=== PATIENT | male | born 1945 | race Caucasian/White ===

== ENCOUNTER 2020-12-04 07:04 | Outpatient (REF) | payer MEDICARE, BC, SELFPAY ==
[2020-12-04 11:18] LABS: MANUAL DIFF FLAG NO
[2020-12-04 11:26] LABS: Basophils Absolute Auto 0.1 X10*3/uL (0.0-0.2); Basophils Percent Auto 1.3 % (0-2); Eosinophils Absolute Auto 0.1 X10*3/uL (0.0-0.4); Eosinophils Percent Auto 2.6 % (0-4); Hematocrit 48.9 % (42-52); Hemoglobin 15.9 g/dl (14.0-18.0); Imm Gran Abs Auto 0.02 X10*3/uL (0.00-0.03); Imm Gran Pct Auto 0.4 % (0.0-0.4); Lymphocytes Absolute Auto 1.3 X10*3/uL (1.2-4.9); Mean Corpuscular HGB Conc 32.5 g/dl (31.0-36.0); Mean Corpuscular Hemoglobin 31.7 pg (27.0-33.0); Mean Corpuscular Volume 97.4 fL (80-98); Mean Platelet Volume 10.1 fL (9.4-12.4); Monocytes Absolute Auto 0.5 X10*3/uL (0.1-1.2); Monocytes Percent Auto 10.1 % (2-11); Neutrophils Absolute Auto 3.2 X10*3/uL (2.0-8.3); Neutrophils Percent Auto 60.6 % (45-73); Platelet Count 191 X10*3/uL (160-400); Red Blood Count 5.02 X10*6/uL (4.60-5.80); Red Cell Distribution Width 14.4 % (11.0-16.0); White Blood Count 5.4 X10*3/uL (4.8-10.8)
[2020-12-04 12:01] LABS: Alanine Aminotransferase 22 U/L (0-40); Albumin Level 4.2 g/dL (3.5-5.0); Alkaline Phosphatase 76 U/L (39-117); Anion Gap 15 (12-20); Aspartate Amino Transferase 20 U/L (5-37); Bilirubin Total 0.8 mg/dL (0.0-1.0); Blood Urea Nitrogen 15 mg/dL (9-16); Carbon Dioxide 28 mmol/L (22-29); Chloride 104 mmol/L (96-108); Cholesterol 188 mg/dL; Estimated Glomerular Filt Rate > 60; Glucose Fasting 94 mg/dL (60-99); HDL Cholesterol 42 mg/dL; Iron 113 mcg/dL (45-160); LDL Cholesterol Calculated 129 mg/dl; Percent Iron Saturation 35 % (15-50); Potassium 4.7 mmol/L (3.3-5.1); Sodium 142 mmol/L (135-145); Total Iron Binding Capacity 324 mcg/dL (228-428); Triglycerides 85 mg/dL; Unsaturated Iron Binding 211 ug/dL
[2020-12-04 12:07] LABS: Ferritin 101 ng/mL (20-250); Prostate Specific Antigen Scr 0.38 ng/mL (<0.05-4.0); TSH reflex Free T4 1.58 uIU/mL (0.32-4.0)
[2020-12-04 12:15] LABS: Vitamin B12 287 pg/mL (200-900)
== END 2020-12-04 07:05 | disposition home or self-care (01) ==
LOC: HO.HMGCLDS 07:04
PROVIDERS: PCP Nurse Practitioner Family; Visit Provider Nurse Practitioner Family
DX: R53.83 Other fatigue (principal); Z12.5 Encounter for screening for malignant neoplasm of prostate
CPT/HCPCS: 36415; 80053; 80061; 82607; 82728; 83540; 84153; 84443; 85025

== ENCOUNTER 2021-04-19 06:46 | Outpatient (REF) | payer MEDICARE, BC, SELFPAY ==
[2021-04-20 16:16] LABS: Follicle Stimulating Hormone 23.2 mIU/mL (1.6-8.0); Lutenizing Hormone 8.6 mIU/mL (1.6-15.2)
[2021-04-25 14:31] LABS: Testosterone, Free 47.2 pg/mL (30.0-135.0); Testosterone, Total 319 ng/dL (250-1100)
== END 2021-04-19 06:47 | disposition home or self-care (01) ==
LOC: HO.HMGCLDS 06:46
PROVIDERS: PCP Nurse Practitioner Family; Visit Provider Nurse Practitioner Family
DX: R53.83 Other fatigue (principal)
CPT/HCPCS: 36415; 83001; 83002; 84402; 84403

== ENCOUNTER 2021-06-25 09:30 | Outpatient (REF) | payer MEDICARE, BC, SELFPAY ==
--- NOTE | ~2021-06-25 | XR_ITS ---
EXAMINATION: XR CERVICAL SPINE CLINICAL INFORMATION: Cervical disc disorder. COMPARISON: None TECHNIQUE: 3 views of the cervical spine were obtained. FINDINGS: There has been previous fusion with anterior fixation at C6-C7. Hardware appears intact. Degenerative changes are noted throughout the cervical spine. There is mild approximately 2 mm of anterolisthesis of C3 upon C4, C4 upon C5 and C5 upon C6. XR/XR cervical spine 3V IMPRESSION: Anterior fusion C6-C7 with degenerative changes in the cervical spine and mild multiple level anterolistheses as described above.
== END 2021-06-25 09:31 | disposition home or self-care (01) ==
LOC: HO.HMGCX 09:30
PROVIDERS: PCP Nurse Practitioner Family; Visit Provider Nurse Practitioner Family
DX: M50.90 Cervical disc disorder, unspecified, unspecified cervical region (principal)
CPT/HCPCS: 72040

== ENCOUNTER → 2021-07-09 08:04 | Outpatient (BNVA) | payer MEDICARE, BC, SELFPAY | PROVIDERS: PCP Nurse Practitioner Family; Referring Provider Nurse Practitioner Family; Visit Provider Psychiatry & Neurology Neurology | DX: G25.81 Restless legs syndrome (principal); G47.61 Periodic limb movement disorder; R06.83 Snoring | CPT/HCPCS: 99202 ==

== ENCOUNTER 2021-07-20 23:20 | Emergency (ER) | payer MEDICARE, BC, SELFPAY ==
--- NOTE | ~2021-07-20 | CT_ITS ---
EXAMINATION: CT CHEST WITHOUT CONTRAST CLINICAL INFORMATION: Shortness of breath, cough. Question pneumonitis. COMPARISON: 07/21/2021 radiograph TECHNIQUE: Multidetector volumetric CT imaging of the chest was done. Axial MIP volume rendering provided. Sagittal and coronal reformatted images were obtained. This CT examination was performed using dose optimization techniques as appropriate, variously including the following: *Automated exposure control *Adjustment of mA and/or kV according to patient size (this includes techniques or standardized protocols for targeted exams where dose is matched to indication/reason for exam; i.e. extremities or head) *Use of iterative reconstruction technique DLP: 413 mGy-cm FINDINGS: SLEEVE BOTTOM FELLER: Spinal fusion hardware. The lungs appear clear. LUNGS: The central airways are patent. Minimal peripheral opacity of the right middle lobe favors atelectasis. There is diffuse bronchial wall thickening. Minimal groundglass tree-in-bud nodular opacity at the right base. No pleural effusion or pneumothorax. A few calcified granulomata are noted. MEDIASTINUM: Normal heart size. Coronary artery calcifications are present. No pericardial effusion. No mediastinal lymphadenopathy. AXILLA: No lymphadenopathy. UPPER ABDOMEN: Unremarkable. OSSEOUS STRUCTURES: A reverse total right shoulder arthroplasty. Radiopaque anchors in the left humeral head. Spinal fusion hardware at the lower thoracic spine extending to the lumbar spine. Degenerative changes of the spine. CT/CT chest wo con IMPRESSION: Bronchial wall thickening can be seen with a small airways process such as asthma or atypical/viral infection. Additionally the subtle tree-in-bud nodular opacities of the right base are likely infectious or inflammatory.
--- NOTE | ~2021-07-20 | XR_ITS ---
EXAMINATION: XR CHEST CLINICAL INFORMATION: Cough and wheeze COMPARISON: None TECHNIQUE: 2 views of the chest were obtained. FINDINGS: Cervical fusion hardware noted. Right shoulder reverse arthroplasty. Spinal fusion hardware. The lungs are well expanded. There is no focal consolidation, edema, or effusion. No pneumothorax. The cardiomediastinal silhouette is within normal limits. No acute osseous abnormality. Degenerative changes in the spine noted. XR/XR chest 2V IMPRESSION: No acute pulmonary finding.
[2021-07-20 23:58] VITALS: BP 156/87; PULSE 107; RESP 28; TEMP 36.6; O2SAT 95; BMI 29.2
[2021-07-21 00:59] VITALS: BP 148/81; PULSE 96; RESP 28; TEMP 36.4; O2SAT 95
--- NOTE | 2021-07-21 01:01 | ECG_ITS ---
Test Reason : sob Blood Pressure : / mmHG Vent. Rate : 095 BPM Atrial Rate : 095 BPM P-R Int : 192 ms QRS Dur : 108 ms QT Int : 370 ms P-R-T Axes : 048 -47 014 degrees QTc Int : 464 ms Normal sinus rhythm Poor R wave progression Left anterior fascicular block Intra-ventricular conduction delay Minimal voltage criteria for LVH, may be normal variant ( [place] product ) Abnormal ECG No previous ECGs available Referred By: Yuki Brand Electronically Signed By:AMIRAH MORAN MD
--- NOTE | 2021-07-21 01:17 | ED.SOB ---
HPI - SOB/Dyspnea General Chief Complaint: Dyspnea Stated Complaint: Diff Breathing Time Seen by Provider: 07/21/21 00:55 Source: patient Mode of arrival: ambulatory History of Present Illness HPI Narrative: This is a 76-year-old male without significant past medical history who presents with increased difficulty of breathing and audible wheezing that he states started this afternoon after he had been using an adhesive glue in a poorly ventilated area and states that at the time the fumes caused him to have cough and wheezing. Otherwise, patient denies any chest pain/palpitations/dizziness/headache. Related Data Home Medications Medication Instructions Recorded Confirmed ipratropium bromide 21 mcg (0.03 2 spray INTRANASAL TID 04/15/21 07/09/21 %) nasal spray azelastine 137 mcg (0.1 %) nasal 2 spray INTRANASAL BID 06/25/21 07/09/21 spray aerosol Previous Rx's Medication Instructions Recorded cetirizine 10 mg capsule (Zyrtec) 10 mg PO DAILY #30 cap 09/20/20 dexamethasone 4 mg tablet 4 mg PO DAILY 9 Days #18 tab 06/25/21 tizanidine 2 mg tablet 2 mg PO BEDTIME PRN 14 Days #14 tab 06/25/21 cephalexin 500 mg capsule 500 mg PO Q8H 7 Days #21 cap 07/05/21 methylprednisolone 4 mg tablets in See Rx Instructions PO PER PKG DIR 07/05/21 a dose pack (Medrol (Dean)) #21 ea doxycycline hyclate 100 mg capsule 100 mg PO DAILY 5 Days #5 cap 07/21/21 prednisone 20 mg tablet 40 mg PO DAILY 3 Days #6 tab 07/21/21 Allergies Allergy/AdvReac Type Severity Reaction Status Date / Time acetaminophen [From Percocet] Allergy Unknown upset Verified 07/09/21 08:15 stomach oxycodone [From Percocet] Allergy Unknown unknown Verified 07/09/21 08:15 Review of Systems Review of Systems: Pertinent positives and negatives as stated in HPI 10 point review systems is otherwise negative. [facility] Past Medical History Source: nursing notes reviewed Surgical History H/O colonoscopy H/O knee surgery H/O shoulder surgery History of back surgery Hx of shoulder surgery S/P hernia surgery Family History Family History Father No problems noted. Mother No problems noted. Sister Cancer Social History Social History Housing: House Alcohol intake: unknown Patient Tobacco Use Status: Former Tobacco user Years Smoked: quit 1968 e-Cigarette/Vaping Use: Never Used Use of substances other than those prescribed or required for medical reasons: No Advance Directives: No Advance Directives Information Provided: No service: Yes Current occupational status: retired Physical Exam Vital Signs: Vital Signs: Last Vital Signs Temp 97.5 F 07/21/21 04:00 Pulse 95 07/21/21 04:00 Resp 19 07/21/21 04:00 BP 150/95 H 07/21/21 04:00 Pulse Ox 95 07/21/21 04:00 Body Mass Index 29.2 VITAL SIGNS: Reviewed. GENERAL: Well developed, well nourished, in no acute distress. HEAD: Normocephalic/atraumatic EYES: PERRLA, EOMI OROPHARYNX: no oral lesions noted, posterior pharynx clear NECK: Supple, no adenopathy LUNGS: Good inspiratory effort with noted expiratory wheezing, tachypnea. SpO2<95> CARDIOVASCULAR: Regular rate and rhythm without noted murmurs, no JVD or lower extremity edema. ABDOMEN: Soft, non-tender, non-distended with bowel sounds. SKIN: Inspection of the skin reveals no rashes, diaphoresis or cool skin NEUROLOGIC: Alert and oriented x 4. Strength and sensation to light touch were grossly intact x 4. Course Course Course Narrative: 76-year-old male with history and clinical presentation consistent with pulmonary pneumonitis due to noxious fumes. On review of all investigations there are are no acute findings, however patient continues to feel short of breath when lying back and reproducible lead does cough more and have worsening bronchi. Administered albuterol to the patient and on reassessment afterwards he states feeling better, but still has worsening when he lies back. Otherwise, he remains hemodynamically stable in will pursue CT of the chest. On review of all investigations there are no acute findings to better explain patient's presentation other than additional information provided by the patient states that he had another exposure to chemicals to remove rest approximately 1 week ago. Patient was provided with steroids and antibiotics in as well as medication for his cough and discharged home in stable condition with instructions to follow-up with his primary care provider. MDM - SOB/Dyspnea Lab Data Result diagrams: 07/21/21 01:21 07/21/21 01:21 Labs: Lab Results 07/21/21 07/21/21 07/21/21 Range/Units 01:21 01:21 01:21 WBC 6.8 (4.8-10.8) X10*3/uL RBC 4.68 (4.60-5.80) X10*6/uL Hgb 14.7 (14.0-18.0) g/dl Hct 44.8 (42.0-52.0) % MCV 95.7 (80.0-98.0) fL MCH 31.4 (27.0-33.0) pg MCHC 32.8 (31.0-36.0) g/dl RDW 14.5 (11.0-16.0) % Plt Count 171 (160-400) X10*3/uL MPV 9.3 L (9.4-12.4) fL Immature Gran % (Auto) 0.3 (0.0-0.4) % Neut % (Auto) 71.8 (45-73) % Lymph % (Auto) 13.5 L (20-40) % [place] % (Auto) 10.6 (2-11) % Eos % (Auto) 3.4 (0-4) % Baso % (Auto) 0.4 (0-2) % Lymph # (Auto) 0.9 L (1.2-4.9) X10*3/uL [place] # (Auto) 0.7 (0.1-1.2) X10*3/uL Eos # (Auto) 0.2 (0.0-0.4) X10*3/uL Baso # (Auto) 0.0 (0.0-0.2) X10*3/uL Abs Immat Gran (auto) 0.02 (0.00-0.03) X10*3/uL Absolute Neuts (auto) 4.9 (2.0-8.3) x10*3/uL Absolute Nucleated RBC 0.000 (0.0-0.012) X10*3/uL Nucleated RBC % (auto) 0.0 (0.0-0.2) /100WBC Sodium 143 (135-145) mmol/L Potassium 4.1 (3.3-5.1) mmol/L Chloride 109 H (96-108) mmol/L Carbon Dioxide 24 (22-29) mmol/L Anion Gap 14 (12-20) BUN 16 (9-16) mg/dL Creatinine 0.80 (0.5-1.4) mg/dL Estim Creat Clear Calc 93.6 Estimated GFR > 60 Random Glucose 100 (60-115) mg/dL Calcium 8.8 (8.4-10.2) mg/dL Total Bilirubin 0.8 (0.0-1.0) mg/dL AST 26 (5-37) U/L ALT 31 (0-40) U/L Alkaline Phosphatase 81 (39-117) U/L B-Natriuretic Peptide 19 (<100) pg/mL Total Protein 6.3 L (6.5-8.0) g/dL Albumin 3.9 (3.5-5.0) g/dL Influenza Type A (PCR) (Negative) Influenza Type B (PCR) (Negative) RSV RNA Qual (PCR) (Negative) SARS-CoV-2 RNA (RT-PCR) (Negative) 07/21/21 Range/Units 04:23 WBC (4.8-10.8) X10*3/uL RBC (4.60-5.80) X10*6/uL Hgb (14.0-18.0) g/dl Hct (42.0-52.0) % MCV (80.0-98.0) fL MCH (27.0-33.0) pg MCHC (31.0-36.0) g/dl RDW (11.0-16.0) % Plt Count (160-400) X10*3/uL MPV (9.4-12.4) fL Immature Gran % (Auto) (0.0-0.4) % Neut % (Auto) (45-73) % Lymph % (Auto) (20-40) % [place] % (Auto) (2-11) % Eos % (Auto) (0-4) % Baso % (Auto) (0-2) % Lymph # (Auto) (1.2-4.9) X10*3/uL [place] # (Auto) (0.1-1.2) X10*3/uL Eos # (Auto) (0.0-0.4) X10*3/uL Baso # (Auto) (0.0-0.2) X10*3/uL Abs Immat Gran (auto) (0.00-0.03) X10*3/uL Absolute Neuts (auto) (2.0-8.3) x10*3/uL Absolute Nucleated RBC (0.0-0.012) X10*3/uL Nucleated RBC % (auto) (0.0-0.2) /100WBC Sodium (135-145) mmol/L Potassium (3.3-5.1) mmol/L Chloride (96-108) mmol/L Carbon Dioxide (22-29) mmol/L Anion Gap (12-20) BUN (9-16) mg/dL Creatinine (0.5-1.4) mg/dL Estim Creat Clear Calc Estimated GFR Random Glucose (60-115) mg/dL Calcium (8.4-10.2) mg/dL Total Bilirubin (0.0-1.0) mg/dL AST (5-37) U/L ALT (0-40) U/L Alkaline Phosphatase (39-117) U/L B-Natriuretic Peptide (<100) pg/mL Total Protein (6.5-8.0) g/dL Albumin (3.5-5.0) g/dL Influenza Type A (PCR) NEGATIVE (Negative) Influenza Type B (PCR) NEGATIVE (Negative) RSV RNA Qual (PCR) NEGATIVE (Negative) SARS-CoV-2 RNA (RT-PCR) NEGATIVE (Negative) ECG Data Attestation: I personally reviewed and interpreted this ECG as follows: Prior ECG tracings: not available for review Interpretation: Normal sinus rhythm, HR-95, no STEMI, MS/QRS/QTC are within normal limits. Discharge Plan Discharge Clinical Impression: Cough, Inhalation of noxious fumes Patient Disposition: Home, Self-Care Instructions: Benzonatate (By mouth), Acute Cough (ED), Wheezing (ED) Additional Instructions: Recommend using gas-x for your burping. Please take medication that you have been prescribed. Follow-up with your primary care provider on Thursday. Return to the emergency room for worsening symptoms Prescriptions: New prednisone 20 mg tablet 40 mg PO DAILY 3 Days Qty: 6 RF: 0 doxycycline hyclate 100 mg capsule 100 mg PO DAILY 5 Days Qty: 5 RF: 0 No Action Zyrtec 10 mg capsule 10 mg PO DAILY Qty: 30 RF: 2 ipratropium bromide 21 mcg (0.03 %) spray,non-aerosol 2 spray intranasal TID RF: 0 azelastine 137 mcg (0.1 %) aerosol,spray 2 spray intranasal BID RF: 0 dexamethasone 4 mg tablet 4 mg PO DAILY 9 Days Qty: 18 RF: 0 tizanidine 2 mg tablet 2 mg PO BEDTIME PRN (Reason: muscle spasticity) 14 Days Qty: 14 RF: 0 methylprednisolone [Medrol (Dean)] 4 mg tablets,dose pack See Rx Instructions PO PER PKG DIR Qty: 21 RF: 0 cephalexin 500 mg capsule 500 mg PO Q8H 7 Days Qty: 21 RF: 0 Referrals: Ivan Simpson, AUTOPSY PATHOLOGIST-BC [Primary Care Provider] - 2 days
--- NOTE | 2021-07-21 01:30 | PC.NURSE ---
Addendum entered by Leigh Santillan 07/21/21 01:31: patient is not on Bipap but his oxygen saturation is 93 percent with respirations of 18 Original Note: Patient successfully weened from Bipap and is on nasal cannula at 2L with oxygen saturation of 96 percent. Patient is speaking in clear full sentences.
[2021-07-21 01:31] LABS: MANUAL DIFF FLAG NO
[2021-07-21 01:32] LABS: Basophils Percent Auto 0.4 % (0-2); Eosinophils Absolute Auto 0.2 X10*3/uL (0.0-0.4); Eosinophils Percent Auto 3.4 % (0-4); Hematocrit 44.8 % (42.0-52.0); Hemoglobin 14.7 g/dl (14.0-18.0); Imm Gran Abs Auto 0.02 X10*3/uL (0.00-0.03); Imm Gran Pct Auto 0.3 % (0.0-0.4); Lymphocytes Absolute Auto 0.9 X10*3/uL (1.2-4.9); Lymphocytes Percent Auto 13.5 % (20-40); Mean Corpuscular HGB Conc 32.8 g/dl (31.0-36.0); Mean Corpuscular Hemoglobin 31.4 pg (27.0-33.0); Mean Corpuscular Volume 95.7 fL (80.0-98.0); Mean Platelet Volume 9.3 fL (9.4-12.4); Monocytes Absolute Auto 0.7 X10*3/uL (0.1-1.2); Monocytes Percent Auto 10.6 % (2-11); Neutrophils Absolute Auto 4.9 x10*3/uL (2.0-8.3); Neutrophils Percent Auto 71.8 % (45-73); Platelet Count 171 X10*3/uL (160-400); Red Blood Count 4.68 X10*6/uL (4.60-5.80); Red Cell Distribution Width 14.5 % (11.0-16.0); White Blood Count 6.8 X10*3/uL (4.8-10.8)
[2021-07-21 01:51] LABS: Alanine Aminotransferase 31 U/L (0-40); Albumin Level 3.9 g/dL (3.5-5.0); Alkaline Phosphatase 81 U/L (39-117); Anion Gap 14 (12-20); Aspartate Amino Transferase 26 U/L (5-37); Bilirubin Total 0.8 mg/dL (0.0-1.0); Blood Urea Nitrogen 16 mg/dL (9-16); Calcium 8.8 mg/dL (8.4-10.2); Carbon Dioxide 24 mmol/L (22-29); Chloride 109 mmol/L (96-108); Creatinine Clr Calc Pharmacy 93.6; Estimated Glomerular Filt Rate > 60; Glucose Random 100 mg/dL (60-115); Potassium 4.1 mmol/L (3.3-5.1); Sodium 143 mmol/L (135-145); Total Protein 6.3 g/dL (6.5-8.0)
[2021-07-21 01:54] LABS: B Type Natriuretic Peptide 19 pg/mL (<100)
[2021-07-21 02:00] VITALS: BP 156/95; PULSE 101; RESP 17; O2SAT 95
[2021-07-21] MEDS: Albuterol Sulfate (0.083%) 2.5 MG/3 ML VIAL.NEB INHALE (02:53)
[2021-07-21 02:54] VITALS: PULSE 95; O2SAT 96
[2021-07-21 04:00] VITALS: BP 150/95; PULSE 95; RESP 19; TEMP 36.4; O2SAT 95
[2021-07-21 05:11] LABS: Influenza A PCR NEGATIVE (Negative); Influenza B PCR NEGATIVE (Negative); Resp Syncy Virus RNA Qual PCR NEGATIVE (Negative); SARS COV2 PCR INHOUSE NEGATIVE (Negative)
[2021-07-21] MEDS: Acetaminophen 325 MG TABLET 975 MG PO (05:51)
[2021-07-21] MEDS: predniSONE 20 MG TABLET 40 MG PO (05:51)
== END 2021-07-21 06:31 | disposition home or self-care (01) ==
PROVIDERS: Emergency Provider Student in an Organized Health Care Education/Training Program; PCP Nurse Practitioner Family
DX: T52.8X1A Toxic effect of other organic solvents, accidental (unintentional), initial encounter (principal); R05.9 Cough, unspecified; Y92.9 Unspecified place or not applicable; Z20.822 Contact with and (suspected) exposure to COVID-19
CPT/HCPCS: 0241U; 36415; 71046; 71250; 80053; 83880; 85025; 93005; 94640; 99284; 99285

== ENCOUNTER 2021-09-01 21:02 | Emergency (ER) | payer MEDICARE, BC, SELFPAY ==
--- NOTE | ~2021-09-01 | CT_ITS ---
EXAMINATION: CT ABDOMEN AND PELVIS WITH CONTRAST CLINICAL INFORMATION: Left-sided pain. Abdominal pain. COMPARISON: None TECHNIQUE: Multidetector volumetric images were obtained from the superior aspect of the liver through the pubic symphysis following administration 85 mL of Omnipaque 350 intravenous contrast. Sagittal and coronal reformatted images were obtained on the technologist's workstation. Oral contrast: No This CT examination was performed using dose optimization techniques as appropriate, variously including the following: *Automated exposure control *Adjustment of mA and/or kV according to patient size (this includes techniques or standardized protocols for targeted exams where dose is matched to indication/reason for exam; i.e. extremities or head) *Use of iterative reconstruction technique DLP: 800 mGy-cm FINDINGS: LUNG BASES: The visualized lung bases are clear. Coronary artery calcifications.. LIVER, GALLBLADDER, AND BILIARY TREE: The liver is normal in size, shape, and attenuation. No focal hepatic lesion or biliary ductal dilatation is present. The gallbladder is unremarkable with no evidence of radiopaque gallstones, gallbladder wall thickening, or obvious pericholecystic inflammatory changes. PANCREAS: Unremarkable. SPLEEN: Unremarkable. ADRENAL GLANDS: Unremarkable. KIDNEYS AND URETERS: The kidneys are normal in size, shape, and attenuation. There is mild left hydroureteronephrosis. 0.3 cm calculus in the distal left ureter, approximately 2.5 cm proximal to the ureterovesicular junction. Asymmetric left perinephric and periureteral stranding. No right hydronephrosis. Prominent exophytic simple cyst off the lower pole of the right kidney measures 8.8 cm . No follow-up imaging recommended. BLADDER: Unremarkable. GASTROINTESTINAL TRACT: The stomach is unremarkable. Normal caliber small bowel without obstruction. A short portion of small bowel extends through a left ventral abdominal wall hernia. No colonic wall thickening or acute inflammation. Scattered colonic diverticulosis without diverticulitis. No free air or free fluid. 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 ABDOMINAL WALL: Small left ventral abdominal wall hernia containing a portion of small bowel. This is not obstructing. LYMPH NODES: Normal. VASCULAR: Normal caliber aorta with mild to moderate atherosclerotic calcification. PELVIC VISCERA: The prostate and seminal vesicles are unremarkable. OSSEOUS STRUCTURES: No acute or suspicious osseous abnormality. Posterior spinal fusion hardware spans from T9 through S2. Degenerative changes throughout the spine. CT/CT abdomen pelvis w con IMPRESSION: Mild left hydroureteronephrosis with a 0.3 cm distal ureteral obstructing calculus. Left ventral abdominal wall hernia contains a short portion of small bowel without obstruction. Fleischner guidelines were followed.
[2021-09-01 22:38] VITALS: BP 166/86; PULSE 110; RESP 16; TEMP 37; O2SAT 98; BMI 29.2
[2021-09-02 03:49] VITALS: BP 149/78; PULSE 117; TEMP 36.2; O2SAT 97
[2021-09-02 04:50] LABS: Basophils Absolute Auto 0.1 X10*3/uL (0.0-0.2); Basophils Percent Auto 0.7 % (0-2); Eosinophils Percent Auto 0.4 % (0-4); Hematocrit 46.5 % (42.0-52.0); Hemoglobin 15.1 g/dl (14.0-18.0); Imm Gran Abs Auto 0.03 X10*3/uL (0.00-0.03); Imm Gran Pct Auto 0.3 % (0.0-0.4); Lymphocytes Absolute Auto 1.1 X10*3/uL (1.2-4.9); MANUAL DIFF FLAG NO; Mean Corpuscular HGB Conc 32.5 g/dl (31.0-36.0); Mean Corpuscular Hemoglobin 30.8 pg (27.0-33.0); Mean Corpuscular Volume 94.7 fL (80.0-98.0); Mean Platelet Volume 9.2 fL (9.4-12.4); Monocytes Absolute Auto 0.9 X10*3/uL (0.1-1.2); Monocytes Percent Auto 9.1 % (2-11); Neutrophils Absolute Auto 7.3 x10*3/uL (2.0-8.3); Neutrophils Percent Auto 77.5 % (45-73); Platelet Count 227 X10*3/uL (160-400); Red Blood Count 4.91 X10*6/uL (4.60-5.80); Red Cell Distribution Width 14.1 % (11.0-16.0); White Blood Count 9.4 X10*3/uL (4.8-10.8)
--- NOTE | 2021-09-02 04:55 | ED_ITS ---
HPI - General Adult General Chief complaint: General Medical Stated complaint: abd pain radiating into back Time Seen by Provider: 09/02/21 04:55 Source: patient Mode of arrival: ambulatory History of Present Illness HPI narrative: 76-year-old male without significant past medical history presents with onset left-sided abdominal discomfort yesterday associated nausea but unable of vomit an as well as chills and states that the pain has p rogressively worsened throughout the day until it is hurting him to move, not radiating, and states that worsens with deep inspiration. Related Data Home Medications Medication Instructions Recorded Confirmed diphenhydramine HCl 25 mg tablet 25 mg PO BEDTIME 07/25/21 (Benadryl Allergy) Previous Rx's Medication Instructions Recorded meloxicam 15 mg tablet 15 mg PO DAILY PRN 30 Days #30 tab 07/25/21 ketorolac 10 mg tablet 10 mg PO Q6H PRN 5 Days #20 tab 09/02/21 prednisone 20 mg tablet 20 mg PO DAILY #4 tab 09/02/21 tamsulosin 0.4 mg capsule (Flomax) 0.4 mg PO BEDTIME #4 cap 09/02/21 Allergies Allergy/AdvReac Type Severity Reaction Status Date / Time acetaminophen [From Percocet] Allergy Unknown upset Verified 07/25/21 13:15 stomach oxycodone [From Percocet] Allergy Unknown unknown Verified 07/25/21 13:15 Review of Systems Review of Systems: Pertinent positives and negatives as stated in HPI 10 point review of systems is otherwise negative. [facility] Past Medical History Source: nursing notes reviewed Surgical History H/O colonoscopy H/O knee surgery H/O shoulder surgery History of back surgery Hx of shoulder surgery S/P hernia surgery Family History Family History Father No problems noted. Mother No problems noted. Sister Cancer Social History Social History Housing: House Alcohol intake: unknown Patient Tobacco Use Status: Former Tobacco user Years Smoked: quit 1968 e-Cigarette/Vaping Use: Never Used Advance Directives: No Advance Directives Information Provided: No service: Yes Current occupational status: retired Physical Exam Vital Signs: Vital Signs: Last Vital Signs Temp 97.1 F 09/02/21 03:49 Pulse 108 H 09/02/21 05:09 Resp 18 09/02/21 05:09 BP 139/95 H 09/02/21 05:09 Pulse Ox 97 09/02/21 05:09 BMI result Body Mass Index 29.2 VITAL SIGNS: Reviewed. GENERAL: Well developed, well nourished, moderate distress. HEAD: Normocephalic/atraumatic EYES: PERRLA, EOMI OROPHARYNX: no oral lesions noted, posterior pharynx clear LUNGS: Normal breath sounds. No adventitious sounds or accessory muscle use. SpO2<97> CARDIOVASCULAR: Regular rate and rhythm without noted murmurs, no JVD or lower extremity edema. ABDOMEN: Soft, non-tender, distended with hypoactive bowel sounds, acute abdomen and no pulsatile masses appreciated SKIN: Inspection of the skin reveals no rashes NEUROLOGIC: Alert and oriented x 4. Strength and sensation to light touch were grossly intact x 4. Course Course Course Narrative: 76-year-old male with history and clinical presentation suggestive of possible perforation secondary to possible diverticulitis, or SBO. Review of all investigations demonstrates a 0.3 cm stone in the left distal ureter. On re-evaluation patient got significant pain relief from the medication he received as well as receiving IV fluids. He is otherwise discharged with a combination medications as well as a referral to follow-up with Urology. He was informed of all results and the plans. Medical Decision Making Lab Data Result diagrams: 09/02/21 05:37 09/02/21 04:46 Labs: Lab Results 09/02/21 09/02/21 09/02/21 Range/Units 04:46 04:46 05:37 WBC 9.4 9.1 (4.8-10.8) X10*3/uL RBC 4.91 4.56 L (4.60-5.80) X10*6/uL Hgb 15.1 14.3 (14.0-18.0) g/dl Hct 46.5 43.4 (42.0-52.0) % MCV 94.7 95.2 (80.0-98.0) fL MCH 30.8 31.4 (27.0-33.0) pg MCHC 32.5 32.9 (31.0-36.0) g/dl RDW 14.1 14.2 (11.0-16.0) % Plt Count 227 D 209 (160-400) X10*3/uL MPV 9.2 L 9.2 L (9.4-12.4) fL Immature Gran % (Auto) 0.3 0.2 (0.0-0.4) % Neut % (Auto) 77.5 H 78.9 H (45-73) % Lymph % (Auto) 12.0 L 10.0 L (20-40) % [place] % (Auto) 9.1 9.9 (2-11) % Eos % (Auto) 0.4 0.2 (0-4) % Baso % (Auto) 0.7 0.8 (0-2) % Lymph # (Auto) 1.1 L 0.9 L (1.2-4.9) X10*3/uL [place] # (Auto) 0.9 0.9 (0.1-1.2) X10*3/uL Eos # (Auto) 0.0 0.0 (0.0-0.4) X10*3/uL Baso # (Auto) 0.1 0.1 (0.0-0.2) X10*3/uL Abs Immat Gran (auto) 0.03 0.02 (0.00-0.03) X10*3/uL Absolute Neuts (auto) 7.3 7.1 (2.0-8.3) x10*3/uL Absolute Nucleated RBC 0.000 0.000 (0.0-0.012) X10*3/uL Nucleated RBC % (auto) 0.0 0.0 (0.0-0.2) /100WBC Sodium 141 (135-145) mmol/L Potassium 3.9 (3.3-5.1) mmol/L Chloride 106 (96-108) mmol/L Carbon Dioxide 26 (22-29) mmol/L Anion Gap 13 (12-20) BUN 16 (9-16) mg/dL Creatinine 1.29 (0.5-1.4) mg/dL Estim Creat Clear Calc 58.1 Estimated GFR 54 Random Glucose 121 H (60-115) mg/dL Calcium 9.4 D (8.4-10.2) mg/dL Total Bilirubin 1.4 H (0.0-1.0) mg/dL AST 27 (5-37) U/L ALT 24 (0-40) U/L Alkaline Phosphatase 72 (39-117) U/L Total Protein 6.5 (6.5-8.0) g/dL Albumin 4.1 (3.5-5.0) g/dL Lipase 9 (8-78) U/L Discharge Plan Discharge Clinical Impression: Renal colic, Ureterolithiasis Patient Disposition: Home, Self-Care Instructions: Renal Colic (ED), Ureteral Stones (ED) Additional Instructions: 1. You have been provided with a referral to see Urology, please call this morning to arrange for an appointment. 2. You have been provided with medications to help you pass this kidney stone. Return to the emergency room for acute worsening of symptoms. Prescriptions: New tamsulosin [Flomax] 0.4 mg capsule 0.4 mg PO BEDTIME Qty: 4 RF: 0 prednisone 20 mg tablet 20 mg PO DAILY Qty: 4 RF: 0 ketorolac 10 mg tablet 10 mg PO Q6H PRN (Reason: pain) 5 Days Qty: 20 RF: 0 No Action meloxicam 15 mg tablet 15 mg PO DAILY PRN (Reason: pain) 30 Days Qty: 30 RF: 0 Referrals: Ivan Simpson FNP-MADONNA [Primary Care Provider] - 2 days Immanuel Heck III, MD [Physician] - 2 days (0.3cm left distal stone with hydro)
[2021-09-02] MEDS: fentaNYL citrate/PF 100 MCG/2 ML VIAL 25 MCG IVPUSH (05:03)
[2021-09-02] MEDS: 0.9 % Sodium Chloride 1,000 ML 999 ML IV (05:03)
[2021-09-02 05:09] VITALS: BP 139/95; PULSE 108; RESP 18; O2SAT 97
[2021-09-02 05:09] LABS: Alanine Aminotransferase 24 U/L (0-40); Albumin Level 4.1 g/dL (3.5-5.0); Alkaline Phosphatase 72 U/L (39-117); Anion Gap 13 (12-20); Aspartate Amino Transferase 27 U/L (5-37); Bilirubin Total 1.4 mg/dL (0.0-1.0); Blood Urea Nitrogen 16 mg/dL (9-16); Calcium 9.4 mg/dL (8.4-10.2); Carbon Dioxide 26 mmol/L (22-29); Chloride 106 mmol/L (96-108); Creatinine Clr Calc Pharmacy 58.1; Estimated Glomerular Filt Rate 54; Glucose Random 121 mg/dL (60-115); Lipase 9 U/L (8-78); Potassium 3.9 mmol/L (3.3-5.1); Sodium 141 mmol/L (135-145); Total Protein 6.5 g/dL (6.5-8.0)
[2021-09-02 05:43] LABS: Basophils Absolute Auto 0.1 X10*3/uL (0.0-0.2); Basophils Percent Auto 0.8 % (0-2); Eosinophils Percent Auto 0.2 % (0-4); Hematocrit 43.4 % (42.0-52.0); Hemoglobin 14.3 g/dl (14.0-18.0); Imm Gran Abs Auto 0.02 X10*3/uL (0.00-0.03); Imm Gran Pct Auto 0.2 % (0.0-0.4); Lymphocytes Absolute Auto 0.9 X10*3/uL (1.2-4.9); MANUAL DIFF FLAG NO; Mean Corpuscular HGB Conc 32.9 g/dl (31.0-36.0); Mean Corpuscular Hemoglobin 31.4 pg (27.0-33.0); Mean Corpuscular Volume 95.2 fL (80.0-98.0); Mean Platelet Volume 9.2 fL (9.4-12.4); Monocytes Absolute Auto 0.9 X10*3/uL (0.1-1.2); Monocytes Percent Auto 9.9 % (2-11); Neutrophils Absolute Auto 7.1 x10*3/uL (2.0-8.3); Neutrophils Percent Auto 78.9 % (45-73); Platelet Count 209 X10*3/uL (160-400); Red Blood Count 4.56 X10*6/uL (4.60-5.80); Red Cell Distribution Width 14.2 % (11.0-16.0); White Blood Count 9.1 X10*3/uL (4.8-10.8)
[2021-09-02] MEDS: iohexoL 350 MG/ML 100 ML INFUS..BTL IV (05:59)
[2021-09-02 07:50] VITALS: BP 139/74; PULSE 101; RESP 16; O2SAT 97
[2021-09-02] MEDS: Ketorolac Tromethamine 30 MG/ML VIAL 15 MG IVPUSH (08:26)
== END 2021-09-02 09:14 | disposition home or self-care (01) ==
PROVIDERS: Emergency Provider Student in an Organized Health Care Education/Training Program; PCP Nurse Practitioner Family
DX: N20.2 Calculus of kidney with calculus of ureter (principal)
CPT/HCPCS: 36415; 74177; 80053; 83690; 85025; 96361; 96374; 96375; 99283; 99284; J1885; J3010; Q9967

== ENCOUNTER 2021-09-24 11:59 | Outpatient (REF) | payer MEDICARE, BC, SELFPAY ==
--- NOTE | ~2021-09-24 | XR_ITS ---
EXAMINATION: XR CHEST XR SHOULDER, LEFT CLINICAL INFORMATION: Other specified symptoms and signs involving respiratory system COMPARISON: Previous chest x-ray and chest CT July 2021 TECHNIQUE: 2 views of the chest. FINDINGS: The cardiac and mediastinal contours are stable. The lungs are clear without evidence of a pneumonia. There is no pleural effusion or pneumothorax. Right shoulder replacement. There are shoulder tacks or anchors projecting over the left humeral head there are postsurgical changes to the lower thoracic and upper lumbar spine with posterior rods reticular screws. There are postsurgical changes cervical spine. There are degenerative changes of the thoracic spine. XR/XR shoulder LT min 2V IMPRESSION: No evidence for acute disease in the chest. No evidence of pneumonia. EXAMINATION: XR SHOULDER, LEFT CLINICAL INFORMATION: Pain. COMPARISON: None. TECHNIQUE: 3 views of the left shoulder. FINDINGS: No acute fracture or dislocation is seen. The left acromioclavicular joint is slightly widened measuring 1 cm. 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 There are surgical tacks or anchors in the left humeral head. There is soft tissue calcification or ossification inferior to the acromion adjacent to the humeral head. IMPRESSION: Question slight widening at the acromioclavicular joint. This could be further evaluated with weightbearing views if there is question of instability. Degenerative and postsurgical changes.
--- NOTE | ~2021-09-24 | XR_ITS ---
EXAMINATION: XR CHEST XR SHOULDER, LEFT CLINICAL INFORMATION: Other specified symptoms and signs involving respiratory system COMPARISON: Previous chest x-ray and chest CT July 2021 TECHNIQUE: 2 views of the chest. FINDINGS: The cardiac and mediastinal contours are stable. The lungs are clear without evidence of a pneumonia. There is no pleural effusion or pneumothorax. Right shoulder replacement. There are shoulder tacks or anchors projecting over the left humeral head there are postsurgical changes to the lower thoracic and upper lumbar spine with posterior rods reticular screws. There are postsurgical changes cervical spine. There are degenerative changes of the thoracic spine. XR/XR chest 2V IMPRESSION: No evidence for acute disease in the chest. No evidence of pneumonia. EXAMINATION: XR SHOULDER, LEFT CLINICAL INFORMATION: Pain. COMPARISON: None. TECHNIQUE: 3 views of the left shoulder. FINDINGS: No acute fracture or dislocation is seen. The left acromioclavicular joint is slightly widened measuring 1 cm. 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 There are surgical tacks or anchors in the left humeral head. There is soft tissue calcification or ossification inferior to the acromion adjacent to the humeral head. IMPRESSION: Question slight widening at the acromioclavicular joint. This could be further evaluated with weightbearing views if there is question of instability. Degenerative and postsurgical changes.
== END 2021-09-24 12:00 | disposition home or self-care (01) ==
LOC: HO.HMGCX 11:59
PROVIDERS: Visit Provider Nurse Practitioner Family
DX: R09.89 Other specified symptoms and signs involving the circulatory and respiratory systems (principal); M25.512 Pain in left shoulder
CPT/HCPCS: 71046; 73030

== ENCOUNTER 2021-09-27 07:40 | Outpatient (REF) | payer MEDICARE, BC, SELFPAY ==
[2021-09-27 11:48] LABS: Alanine Aminotransferase 16 U/L (0-40); Albumin Level 4.1 g/dL (3.5-5.0); Alkaline Phosphatase 72 U/L (39-117); Anion Gap 12 (12-20); Aspartate Amino Transferase 14 U/L (5-37); Bilirubin Total 0.4 mg/dL (0.0-1.0); Blood Urea Nitrogen 15 mg/dL (9-16); Calcium 9.4 mg/dL (8.4-10.2); Carbon Dioxide 28 mmol/L (22-29); Chloride 107 mmol/L (96-108); Cholesterol 196 mg/dL; Estimated Glomerular Filt Rate > 60; Glucose Fasting 91 mg/dL (60-99); HDL Cholesterol 47 mg/dL; LDL Cholesterol Calculated 129 mg/dl; Potassium 4.2 mmol/L (3.3-5.1); Sodium 143 mmol/L (135-145); Total Protein 6.8 g/dL (6.5-8.0); Triglycerides 104 mg/dL
[2021-09-27 11:50] LABS: Appearance Urine CLEAR; Color Urine YELLOW; Glucose Urine UA NEG (NEG); Leukocyte Esterase Urine NEG (NEG); Nitrite Urine NEG (NEG); Specific Gravity - Urine 1.025 (1.005-1.025); UACC Culture Trigger NO; Urine Blood 1+ (NEG); Urine Ketones NEG (NEG); Urine Protein NEG (NEG-TRACE)
[2021-09-27 12:15] LABS: Prostate Specific Antigen Scr 0.45 ng/mL (<0.05-4.0); TSH reflex Free T4 0.98 uIU/mL (0.32-4.0)
== END 2021-09-27 07:41 | disposition home or self-care (01) ==
LOC: HO.HMGCLDS 07:40
PROVIDERS: Visit Provider Nurse Practitioner Family
DX: Z00.00 Encounter for general adult medical examination without abnormal findings (principal); Z12.5 Encounter for screening for malignant neoplasm of prostate
CPT/HCPCS: 36415; 80053; 80061; 81001; 84153; 84443

== ENCOUNTER → 2021-11-03 19:43 | Outpatient (REF) | payer MEDICARE, BC, SELFPAY | LOC: HO.SL 19:43 | PROVIDERS: PCP Nurse Practitioner Family; Visit Provider Psychiatry & Neurology Neurology | DX: R06.83 Snoring (principal) | CPT/HCPCS: 95810 ==

== ENCOUNTER → 2021-11-12 08:19 | Outpatient (BNVA) | payer MEDICARE, BC, SELFPAY | PROVIDERS: PCP Nurse Practitioner Family; Referring Provider Nurse Practitioner Family; Visit Provider Psychiatry & Neurology Neurology | DX: R06.83 Snoring (principal); G25.81 Restless legs syndrome | CPT/HCPCS: 99212 ==

== ENCOUNTER 2022-01-02 13:23 | Outpatient (REF) | payer MEDICARE, BC, SELFPAY ==
[2022-01-02 14:45] LABS: Influenza A PCR POSITIVE (Negative); Influenza B PCR NEGATIVE (Negative); Resp Syncy Virus RNA Qual PCR NEGATIVE (Negative); SARS COV2 PCR INHOUSE NEGATIVE (Negative)
== END 2022-01-02 13:24 | disposition home or self-care (01) ==
LOC: HO.LAB 13:23
PROVIDERS: Visit Provider Nurse Practitioner Acute Care
DX: Z13.89 Encounter for screening for other disorder (principal)
CPT/HCPCS: 0241U

== ENCOUNTER 2022-01-02 13:29 | Outpatient (REF) | payer MEDICARE, BC, SELFPAY ==
[2022-01-02 16:19] LABS: MANUAL DIFF FLAG NO; Urine Cytology See Pathology rpt
[2022-01-02 16:26] LABS: Appearance Urine CLEAR; Color Urine YELLOW; Glucose Urine UA NEG (NEG); Leukocyte Esterase Urine NEG (NEG); Nitrite Urine NEG (NEG); PH 5.5 (5.0-8.0); Specific Gravity - Urine 1.025 (1.005-1.025); Urine Blood 3+ (NEG); Urine Ketones 5 MG/DL (NEG); Urine Protein NEG (NEG-TRACE)
[2022-01-02 16:27] LABS: Basophils Absolute Auto 0.1 X10*3/uL (0.0-0.2); Basophils Percent Auto 0.9 % (0-2); Eosinophils Percent Auto 0.3 % (0-4); Hematocrit 48.7 % (42.0-52.0); Hemoglobin 15.7 g/dl (14.0-18.0); Imm Gran Abs Auto 0.03 X10*3/uL (0.00-0.03); Imm Gran Pct Auto 0.4 % (0.0-0.4); Lymphocytes Absolute Auto 0.7 X10*3/uL (1.2-4.9); Lymphocytes Percent Auto 10.3 % (20-40); Mean Corpuscular HGB Conc 32.2 g/dl (31.0-36.0); Mean Corpuscular Hemoglobin 30.3 pg (27.0-33.0); Mean Corpuscular Volume 93.8 fL (80.0-98.0); Mean Platelet Volume 10.1 fL (9.4-12.4); Monocytes Percent Auto 13.6 % (2-11); Neutrophils Absolute Auto 5.2 x10*3/uL (2.0-8.3); Neutrophils Percent Auto 74.5 % (45-73); Platelet Count 166 X10*3/uL (160-400); Red Blood Count 5.19 X10*6/uL (4.60-5.80); Red Cell Distribution Width 13.8 % (11.0-16.0)
[2022-01-02 16:45] LABS: Mucus Urine 2+ /LPF; Squamous Epithelial Cell Urine TRACE /LPF; WBC Urine 0 /HPF (0-4)
[2022-01-02 16:53] LABS: Alanine Aminotransferase 31 U/L (0-40); Albumin Level 4.3 g/dL (3.5-5.0); Alkaline Phosphatase 79 U/L (39-117); Anion Gap 15 (12-20); Aspartate Amino Transferase 36 U/L (5-37); Bilirubin Total 0.8 mg/dL (0.0-1.0); Blood Urea Nitrogen 10 mg/dL (9-16); Calcium 9.5 mg/dL (8.4-10.2); Carbon Dioxide 27 mmol/L (22-29); Chloride 102 mmol/L (96-108); Cholesterol 171 mg/dL; Estimated Glomerular Filt Rate > 60; Glucose Fasting 88 mg/dL (60-99); HDL Cholesterol 43 mg/dL; LDL Cholesterol Calculated 117 mg/dl; Potassium 4.3 mmol/L (3.3-5.1); Sodium 140 mmol/L (135-145); Total Protein 7.2 g/dL (6.5-8.0); Triglycerides 56 mg/dL
[2022-01-02 16:55] LABS: B Type Natriuretic Peptide 35 pg/mL (<100)
[2022-01-02 17:10] LABS: TSH reflex Free T4 0.62 uIU/mL (0.32-4.0)
== END 2022-01-02 13:30 | disposition home or self-care (01) ==
LOC: HO.HMGCLDS 13:29
PROVIDERS: PCP Nurse Practitioner Family; Visit Provider Nurse Practitioner Acute Care
DX: Z13.89 Encounter for screening for other disorder (principal)
CPT/HCPCS: 36415; 80053; 80061; 81001; 83880; 84443; 85025; 87086; 88112

== ENCOUNTER 2022-01-02 20:45 | Emergency (ER) | payer MEDICARE, BC, SELFPAY ==
--- NOTE | ~2022-01-02 | XR_ITS ---
EXAMINATION: XR CHEST CLINICAL INFORMATION: Lethargy COMPARISON: Chest x-ray 09/24/2021 TECHNIQUE: Frontal view of the chest was obtained. FINDINGS: Cardiac silhouette is normal in size. The lungs are adequately aerated. Similar mild asymmetric elevation of right hemidiaphragm. Subtle bibasilar linear opacities are most suggestive of atelectasis. There is no lobar consolidation. No pleural effusion or pneumothorax. Surgical changes of the cervical spine, lumbar spine and both shoulders noted. XR/XR chest 1V IMPRESSION: No acute pulmonary pathology.
--- NOTE | 2022-01-02 21:28 | ECG_ITS ---
Test Reason : LETHARGY Blood Pressure : / mmHG Vent. Rate : 121 BPM Atrial Rate : 121 BPM P-R Int : 172 ms QRS Dur : 116 ms QT Int : 316 ms P-R-T Axes : 008 -56 016 degrees QTc Int : 448 ms Sinus tachycardia Left anterior fascicular block Minimal voltage criteria for LVH, may be normal variant ( [place] product ) Abnormal ECG When compared with ECG of 21-JUL-2021 01:13, No significant change was found Referred By: Generic ED Physician Electronically Signed By:CLAUDIA SKINNER
[2022-01-02 21:54] VITALS: BP 123/76; PULSE 122; RESP 16; TEMP 38.8; O2SAT 93; BMI 29.1
[2022-01-02 22:07] LABS: MANUAL DIFF FLAG NO
[2022-01-02 22:08] LABS: Basophils Percent Auto 0.6 % (0-2); Hematocrit 45.6 % (42.0-52.0); Hemoglobin 15.2 g/dl (14.0-18.0); Imm Gran Abs Auto 0.01 X10*3/uL (0.00-0.03); Imm Gran Pct Auto 0.2 % (0.0-0.4); Lymphocytes Absolute Auto 0.6 X10*3/uL (1.2-4.9); Lymphocytes Percent Auto 9.1 % (20-40); Mean Corpuscular HGB Conc 33.3 g/dl (31.0-36.0); Mean Corpuscular Hemoglobin 30.5 pg (27.0-33.0); Mean Corpuscular Volume 91.6 fL (80.0-98.0); Mean Platelet Volume 9.7 fL (9.4-12.4); Monocytes Absolute Auto 0.7 X10*3/uL (0.1-1.2); Monocytes Percent Auto 10.5 % (2-11); Neutrophils Absolute Auto 5.1 x10*3/uL (2.0-8.3); Neutrophils Percent Auto 79.6 % (45-73); Platelet Count 153 X10*3/uL (160-400); Red Blood Count 4.98 X10*6/uL (4.60-5.80); Red Cell Distribution Width 13.9 % (11.0-16.0); White Blood Count 6.4 X10*3/uL (4.8-10.8)
[2022-01-02 22:23] LABS: Anion Gap 12 (12-20); Blood Urea Nitrogen 10 mg/dL (9-16); Carbon Dioxide 26 mmol/L (22-29); Chloride 102 mmol/L (96-108); Creatinine Clr Calc Pharmacy 84.1; Estimated Glomerular Filt Rate > 60; Glucose Random 127 mg/dL (60-115); Potassium 3.8 mmol/L (3.3-5.1); Sodium 136 mmol/L (135-145)
[2022-01-02 22:26] LABS: COVID-19 Test Negative (Negative); IDNOW Serial# 16C4AD1C; Influenza A Positive (Negative); Influenza B2 Negative (Negative)
[2022-01-02 22:28] LABS: Troponin-I High Sensitivity 4.5 ng/L (<3.5-35.0)
[2022-01-02 23:25] VITALS: BP 124/68; PULSE 107; RESP 20; TEMP 38.1; O2SAT 98
--- NOTE | 2022-01-02 23:31 | ED_ITS ---
HPI - General Adult General Chief complaint: General Medical Stated complaint: lethargic Time Seen by Provider: 01/02/22 23:08 Source: patient Mode of arrival: ambulatory Limitations: no limitations History of Present Illness HPI narrative: Patient comes to the emergency room complaining diffuse body ache, cough. It has been going on for about 4-5 days. Patient was started on a Z-Dean earlier today. Patient complaining of feeling achy and very weak. Patient denies UTI symptoms. Related Data Home Medications Medication Instructions Recorded Confirmed multivitamin 1 tab PO DAILY 11/12/21 12/24/21 cetirizine 10 mg tablet (Zyrtec) 10 mg PO DAILY PRN 12/24/21 12/24/21 Previous Rx's Medication Instructions Recorded gabapentin 100 mg capsule 100 mg PO BEDTIME #30 cap 11/12/21 azithromycin 250 mg tablet See Rx Instructions PO .COMPLEX #6 01/02/22 tab ondansetron 4 mg disintegrating 4 mg PO Q8H PRN #20 tab 01/02/22 tablet ibuprofen 600 mg tablet 600 mg PO TID PRN #20 tab 01/03/22 Allergies Allergy/AdvReac Type Severity Reaction Status Date / Time acetaminophen [From Percocet] Allergy Unknown upset Verified 01/02/22 13:11 stomach oxycodone [From Percocet] Allergy Unknown unknown Verified 01/02/22 13:11 Review of Systems Review of Systems: Constitutional : No Weight loss, complaining of fever, chills, fatigue and generalized malaise ENT/Mouth : No Hearing loss, No Ear Pain, No Nasal Congestion, No Sinus Pain, No Hoarseness, No sore throat, No Rhinorrhea, No Swallowing Difficulty Eyes: No Eye Pain, No Swelling, No Redness, No Foreign Body, No Discharge, No Vision Changes Cardiovascular : No Chest Pain, No SOB, No Dyspnea on Exertion, No Orthopnea, No Edema, No Palpitations Respiratory : Complaining of productive cough, No Wheezing, No Smoke Exposure, No Dyspnea Gastrointestinal : No Nausea, No Vomiting, No Diarrhea, No Constipation, No abdominal Pain, No Hematochezia, No Melena Genitourinary : no irregular bleeding, No Dysuria, No Urinary Frequency, No Hematuria, No Urinary Incontinence, No Urgency, No Flank Pain, No Urinary Flow Changes, No Hesitancy Musculoskeletal : No joint pain, No Myalgias, No Joint Swelling Skin : No Skin Lesions, No rash Neuro : No Weakness, No Numbness, No Paresthesias, No Loss of Consciousness, No Dizziness, No Headache Psych : No Anxiety/Panic, No Depression, No SI/HI/AH/VH, No Social Issues, Heme/Lymph: No Bruising, No Bleeding,No Lymphadenopathy Endocrine : No Polyuria, No Polydipsia, No Temperature Intolerance [facility] Past Medical History Surgical History H/O colonoscopy H/O knee surgery H/O shoulder surgery History of back surgery Hx of shoulder surgery S/P hernia surgery Family History Family History Father No problems noted. Mother No problems noted. Sister Cancer Social History Social History Housing: House Alcohol intake: unknown Patient Tobacco Use Status: Former Tobacco user Years Smoked: quit 1968 e-Cigarette/Vaping Use: Never Used Second Hand Smoke Exposure: No Advance Directives: No service: Yes Current occupational status: retired Physical Exam ED Vital Signs: Vital Signs - 24 hr 01/02/22 21:54 01/02/22 23:25 01/03/22 01:08 Temperature 101.9 F H 100.5 F H 99.2 F Pulse Rate 122 H 107 H 104 H Respiratory Rate 16 20 22 H Blood Pressure 123/76 124/68 117/73 Pulse Oximetry 93 98 94 01/03/22 01:19 Temperature Pulse Rate Respiratory Rate Blood Pressure Pulse Oximetry 93 BMI result Body Mass Index 29.1 Const Other: Appearance: Alert. Oriented X3. No acute distress. Shaking/having chills Eyes: Pupils equal, round and reactive to light. ENT: Pharynx normal. Neck: Normal inspection. Neck supple. No lymph nodes noted. No crepitus CVS: Tachycardic, heart rate approximately 120, Pulses normal. Normal S1 and S2 Respiratory: No respiratory distress. Breath sounds normal. No Wheezing. No rales Abdomen: Soft and nontender. No rigidity. No distention. Skin: Skin warm to touch, no diaphoresis. Normal skin color. Normal skin turgor. Extremities: No lower extremity edema. No Lacerations. No Rash Neuro: Oriented X 3. No motor deficit. No sensory deficit. Moving all extremities. No slurred speech. CN 2 through 12 grossly intact Psych: calm, cooperative, normal affect Course Course Course Narrative: Patient tested positive for influenza, patient has a fever of almost 102 F, patient was being given ibuprofen, fluids and Zofran. Patient's oxygen saturation is 98% on room air. Unfortunately, patient has been symptomatic for almost 5 days now, Tamiflu would not have any benefit at this time. Patient's heart rate in the low 90s, oxygen saturation 93% walking without any shortness of breath or drops in O2. Medical Decision Making Lab Data Result diagrams: 01/02/22 21:58 01/02/22 21:58 Labs: Lab Results 01/02/22 01/02/22 01/02/22 Range/Units 21:58 21:58 21:58 WBC 6.4 (4.8-10.8) X10*3/uL RBC 4.98 (4.60-5.80) X10*6/uL Hgb 15.2 (14.0-18.0) g/dl Hct 45.6 (42.0-52.0) % MCV 91.6 (80.0-98.0) fL MCH 30.5 (27.0-33.0) pg MCHC 33.3 (31.0-36.0) g/dl RDW 13.9 (11.0-16.0) % Plt Count 153 L (160-400) X10*3/uL MPV 9.7 (9.4-12.4) fL Immature Gran % (Auto) 0.2 (0.0-0.4) % Neut % (Auto) 79.6 H (45-73) % Lymph % (Auto) 9.1 L (20-40) % Jasper % (Auto) 10.5 (2-11) % Eos % (Auto) 0.0 (0-4) % Baso % (Auto) 0.6 (0-2) % Lymph # (Auto) 0.6 L (1.2-4.9) X10*3/uL Jasper # (Auto) 0.7 (0.1-1.2) X10*3/uL Eos # (Auto) 0.0 (0.0-0.4) X10*3/uL Baso # (Auto) 0.0 (0.0-0.2) X10*3/uL Abs Immat Gran (auto) 0.01 (0.00-0.03) X10*3/uL Absolute Neuts (auto) 5.1 (2.0-8.3) x10*3/uL Absolute Nucleated RBC 0.000 (0.0-0.012) X10*3/uL Nucleated RBC % (auto) 0.0 (0.0-0.2) /100WBC Sodium 136 (135-145) mmol/L Potassium 3.8 (3.3-5.1) mmol/L Chloride 102 (96-108) mmol/L Carbon Dioxide 26 (22-29) mmol/L Anion Gap 12 (12-20) BUN 10 (9-16) mg/dL Creatinine 0.89 (0.5-1.4) mg/dL Estim Creat Clear Calc 84.1 Estimated GFR > 60 Random Glucose 127 H (60-115) mg/dL Calcium 9.0 (8.4-10.2) mg/dL Troponin I High Sens 4.5 (<3.5-35.0) ng/L COVID-19 ([facility]KA) (Negative) COVID-19 Clin Com Influenza Type A (VIVIEN) (Negative) Influenza Type B (VIVIEN) (Negative) Influenza A & B Note 01/02/22 01/02/22 Range/Units 22:05 22:05 WBC (4.8-10.8) X10*3/uL RBC (4.60-5.80) X10*6/uL Hgb (14.0-18.0) g/dl Hct (42.0-52.0) % MCV (80.0-98.0) fL MCH (27.0-33.0) pg MCHC (31.0-36.0) g/dl RDW (11.0-16.0) % Plt Count (160-400) X10*3/uL MPV (9.4-12.4) fL Immature Gran % (Auto) (0.0-0.4) % Neut % (Auto) (45-73) % Lymph % (Auto) (20-40) % Jasper % (Auto) (2-11) % Eos % (Auto) (0-4) % Baso % (Auto) (0-2) % Lymph # (Auto) (1.2-4.9) X10*3/uL Jasper # (Auto) (0.1-1.2) X10*3/uL Eos # (Auto) (0.0-0.4) X10*3/uL Baso # (Auto) (0.0-0.2) X10*3/uL Abs Immat Gran (auto) (0.00-0.03) X10*3/uL Absolute Neuts (auto) (2.0-8.3) x10*3/uL Absolute Nucleated RBC (0.0-0.012) X10*3/uL Nucleated RBC % (auto) (0.0-0.2) /100WBC Sodium (135-145) mmol/L Potassium (3.3-5.1) mmol/L Chloride (96-108) mmol/L Carbon Dioxide (22-29) mmol/L Anion Gap (12-20) BUN (9-16) mg/dL Creatinine (0.5-1.4) mg/dL Estim Creat Clear Calc Estimated GFR Random Glucose (60-115) mg/dL Calcium (8.4-10.2) mg/dL Troponin I High Sens (<3.5-35.0) ng/L COVID-19 ([facility]KA) Negative (Negative) COVID-19 Clin Com See Note Influenza Type A (VIVIEN) Positive A (Negative) Influenza Type B (VIVIEN) Negative (Negative) Influenza A & B Note See Note Discharge Plan Discharge Clinical Impression: Influenza A Patient Disposition: Home, Self-Care Instructions: Influenza (ED) Additional Instructions: Please follow-up with your primary care physician tomorrow. If you have any worsening or new symptoms, please return to the emergency room or call 911 Prescriptions: New ibuprofen 600 mg tablet 600 mg PO TID PRN (Reason: fever or pain) Qty: 20 0RF No Action cetirizine [Zyrtec] 10 mg tablet 10 mg PO DAILY PRN0RF azithromycin 250 mg tablet See Rx Instructions PO .COMPLEX Qty: 6 0RF Rx Instructions: For 250 mg dose pack: take 500 mg today (day 1), then 250 mg for 4 days (days 2-5) PO ondansetron 4 mg tablet,disintegrating 4 mg PO Q8H PRN (Reason: nausea and vomiting) Qty: 20 0RF multivitamin Tablet 1 tab PO DAILY 0RF gabapentin 100 mg capsule 100 mg PO BEDTIME Qty: 30 1RF
[2022-01-02] MEDS: ondansetron HCL 4 MG/2 ML VIAL IVPUSH (23:42)
[2022-01-02] MEDS: Ibuprofen 600 MG TABLET PO (23:42)
[2022-01-02] MEDS: 0.9 % Sodium Chloride 1,000 ML 999 ML IVCONT (23:42)
[2022-01-03 01:08] VITALS: BP 117/73; PULSE 104; RESP 22; TEMP 37.3; O2SAT 94
[2022-01-03 01:19] VITALS: O2SAT 93
[2022-01-03] MEDS: Ibuprofen 600 MG TABLET PO (02:18)
[2022-01-03 02:25] VITALS: BP 123/75; PULSE 95; RESP 20; O2SAT 95
--- NOTE | 2022-01-03 02:26 | PC.NURSE ---
Pt medicated per NOV Pt tolerating well
== END 2022-01-03 02:27 | disposition home or self-care (01) ==
PROVIDERS: Emergency Provider Emergency Medicine; PCP Nurse Practitioner Family
DX: J10.1 Influenza due to other identified influenza virus with other respiratory manifestations (principal); R09.89 Other specified symptoms and signs involving the circulatory and respiratory systems; R31.29 Other microscopic hematuria; Z20.822 Contact with and (suspected) exposure to COVID-19
CPT/HCPCS: 0241U; 36415; 71045; 80048; 80053; 80061; 81001; 83880; 84443; 84484; 85025; 87086; 87502; 87635; 88112; 93005; 96361; 96374; 99284; J2405

== ENCOUNTER 2022-01-27 08:16 | Outpatient (REF) | payer MEDICARE, BC, SELFPAY ==
--- NOTE | ~2022-01-27 | US_ITS ---
EXAMINATION: US RETROPERITONEAL COMPLETE (RENAL) CLINICAL INFORMATION: Other microscopic hematuria. COMPARISON: CT abdomen and pelvis with contrast 09/02/2021. TECHNIQUE: Real-time imaging of the kidneys and bladder. FINDINGS: RIGHT KIDNEY: 13.1 x 6.40 x 6.10 cm (SAG x AP x TRV). The kidney is normal in size, contour, and echogenicity. Renal cortical thickness is normal. There is a 9 x 8 x 8 cm cyst in the lower pole. No renal calculi or hydronephrosis. LEFT KIDNEY: 12.2 x 5.5 x 4.9 cm (SAG x AP x TRV). The kidney is normal in size, contour, and echogenicity. Renal cortical thickness is normal. There is an 8 x 9 mm cyst in the upper pole. There is a 2 x 3 mm stone in the lower pole. No hydronephrosis. BLADDER: Well distended and normal. Bilateral ureteral jets are demonstrated. Prevoid bladder volume is 187 mL. Postvoid bladder volume is 4.99 mL. PROSTATE VOLUME: 17.7 mL. US/US retroperitoneal comp IMPRESSION: Bilateral renal cysts. Small left renal stone.
== END 2022-01-27 08:17 | disposition home or self-care (01) ==
LOC: HO.HMGCX 08:16
PROVIDERS: Visit Provider Nurse Practitioner Family
DX: R31.29 Other microscopic hematuria (principal)
CPT/HCPCS: 76770

== ENCOUNTER → 2022-03-18 08:11 | Outpatient (BNVA) | payer MEDICARE, BC, SELFPAY | PROVIDERS: PCP Nurse Practitioner Family | DX: N28.1 Cyst of kidney, acquired (principal) | CPT/HCPCS: 99202 ==

== ENCOUNTER 2022-03-21 14:01 | Outpatient (REF) | payer MEDICARE, BC, SELFPAY ==
--- NOTE | ~2022-03-21 | XR_ITS ---
EXAMINATION: XR HIP, RIGHT CLINICAL INFORMATION: Pain. COMPARISON: None TECHNIQUE: Two views of the right hip. FINDINGS: Bones and soft tissues are normal. No fracture. Alignment is anatomic. Hip joint space is maintained. Subtle finding of screw traversing the right SI joint, part of hardware for scoliosis stabilization. There are markus in the scrotum from was injected. XR/XR hip RT min 2V IMPRESSION: Unremarkable right hip exam.
== END 2022-03-21 14:02 | disposition home or self-care (01) ==
LOC: HO.HMGCX 14:01
DX: M25.551 Pain in right hip (principal)
CPT/HCPCS: 73502

== ENCOUNTER 2022-05-14 08:00 | Outpatient (RCR) | payer MEDICARE, BC, SELFPAY ==
--- NOTE | 2022-04-22 13:00 | MHC.PT.EP ---
[facility] [place] Office [place] Office [place] Office [address] Odalys Bucio [address] [phone] F: [phone] F: [phone] F: [phone] F: [phone] Physical Therapy Plan of Care Date of Evaluation: Date of Surgery: Diagnosis: This is a 76 yo male presenting to skilled PT with a script for pain in R hip Assessment: This is a 76 yo male presenting to skilled PT with a script for pain in R hip. Patient reports getting out of the bed in the AM 3-4 weeks ago and was unable to move well. He went to urgent care and was given medication for pain but this has not been helping. Prior to this he was I at baseline and was walking fine. He reports that today his pain is located at the R buttock, R groin and R testicle, described as it just hurts . He also reports radiating symptoms posteriorly down the leg to the heel. He reports that he feels functionally limited in walking and going up stairs/weightbearing. He also reports cramping in the RLE. He is afraid of falling and his leg giving out. He reports that he had scoliosis and had 2 surgeries when he was 15. He had a residual spot of numbness on the R side before this. He reports that he tried to go to a chiropractor but he could not be helped due to his PMHx and surgeries. He would like pain management referral. Assessment reveals pain that ranges up to a 8/10. He demos decreased lumbar, thoracic and cervical ROM, decreased core, back and hip strength, impaired gait pattern, decreased functional tolerance with standing, walking and stairs. His pain may be stemming from his back vs hip and I called referring PCP for a script for pain management as patient is requesting this. He is a good candidate for skilled PT 2x/wk for 4wks. Frequency and Duration: The patient will be seen 2x/wk for 4wks Short Term Goals: I in HEP centralize symptoms in 3 wks return to normal ambulation tolerance without increase in pain Ticket Agent Goals: Demos functional ROM and strength without increase in pain Improve outcome measure by at least 10 points Improve pain at the worst to no more than 4/10 Demo proper lifting techniques without increase in pain or radiating symptoms Treatment Plan: Modalities to reduce pain, spasms and effusion. Manual therapy to restore motion and function. Therapeutic exercise to improve strength and flexibility. Neuromuscular re-education for posture and balance. Therapeutic activities to return to functional activities of daily living. Electronically signed by: Sania Dominguez PT Please sign and return to therapist. Thank you for your referral.
--- NOTE | 2022-10-23 09:32 | MHC.PT.DC ---
[facility] Office [place] [facility] [place] [facility] [address] Odalys Bucio [address] [phone] F: [phone] F: [phone] F: [phone] F: [phone] Physical Therapy Discharge Report Diagnosis: This is a 76 yo male presenting to skilled PT with a script for pain in R hip Date of Surgery: Date of Evaluation: 04/22/22 Date of Discharge: 10/23/22 Treatments to Date: 2 Cancellations to Date: 0 No Shows to Date: 0 Discharge Status: Patient Elected to Stop Discharge Summary: Pain is in the same location, it radiates from the R side low back down the leg and into the foot. He has been away since the eval due to vacation to see his family. I started with prone lying with double toweled heat to assess if we could centralize symptoms at all. He was intact to light touch at the low back but assessed prior to adding heat. In prone and IGNACIA he did not fully centralize, he continued to have foot symptoms but pain improved to the thigh. Performed light soft tissue work at lumbar spine that did not change his symptoms. Returned to flexion based exercises due to his preference for flexion and pain remained about the same. Patient needs close contact with walking due to leg symptoms. He sees pain management for the first time on Thursday and declined making more appointments for therapy at this time as he wants to see what pain management has to say first. Electronically signed by: Sania Dominguez PT Please sign and return to therapist. Thank you for your referral.
== END 2022-10-23 09:33 | disposition home or self-care (01) ==
LOC: HO.PTCHIC 08:00
PROVIDERS: PCP Nurse Practitioner Family; Visit Provider Nurse Practitioner Family
DX: M25.551 Pain in right hip (principal)
CPT/HCPCS: 97110; 97140; 97162

== ENCOUNTER 2022-07-06 15:21 | Emergency (ER) | payer MEDICARE, BC, SELFPAY ==
[2022-07-06 16:50] VITALS: BP 133/73; PULSE 118; RESP 18; TEMP 36.7; O2SAT 97; BMI 29.1
[2022-07-06 17:07] LABS: MANUAL DIFF FLAG NO
[2022-07-06 17:10] LABS: Basophils Absolute Auto 0.1 X10*3/uL (0.0-0.2); Basophils Percent Auto 0.8 % (0-2); Eosinophils Absolute Auto 0.1 X10*3/uL (0.0-0.4); Eosinophils Percent Auto 0.9 % (0-4); Hematocrit 50.1 % (42.0-52.0); Hemoglobin 16.4 g/dl (14.0-18.0); Imm Gran Abs Auto 0.03 X10*3/uL (0.00-0.03); Imm Gran Pct Auto 0.4 % (0.0-0.4); Lymphocytes Absolute Auto 1.3 X10*3/uL (1.2-4.9); Lymphocytes Percent Auto 17.1 % (20-40); Mean Corpuscular HGB Conc 32.7 g/dl (31.0-36.0); Mean Corpuscular Hemoglobin 31.2 pg (27.0-33.0); Mean Corpuscular Volume 95.4 fL (80.0-98.0); Mean Platelet Volume 9.2 fL (9.4-12.4); Monocytes Absolute Auto 0.6 X10*3/uL (0.1-1.2); Monocytes Percent Auto 8.3 % (2-11); Neutrophils Absolute Auto 5.5 x10*3/uL (2.0-8.3); Neutrophils Percent Auto 72.5 % (45-73); Platelet Count 216 X10*3/uL (160-400); Red Blood Count 5.25 X10*6/uL (4.60-5.80); White Blood Count 7.6 X10*3/uL (4.8-10.8)
[2022-07-06 17:24] LABS: COVID-19 Test Negative (Negative); IDNOW Serial# 9DB6401D
[2022-07-06 17:25] LABS: Alanine Aminotransferase 30 U/L (0-40); Albumin Level 4.4 g/dL (3.5-5.0); Alkaline Phosphatase 75 U/L (39-117); Anion Gap 16 (12-20); Aspartate Amino Transferase 24 U/L (5-37); Bilirubin Direct 0.3 mg/dL (0.0-0.5); Bilirubin Total 0.7 mg/dL (0.0-1.0); Blood Urea Nitrogen 14 mg/dL (9-16); Calcium 9.9 mg/dL (8.4-10.2); Carbon Dioxide 28 mmol/L (22-29); Chloride 103 mmol/L (96-108); Estimated Glomerular Filt Rate > 60; Glucose Random 94 mg/dL (60-115); Potassium 4.9 mmol/L (3.3-5.1); Sodium 142 mmol/L (135-145); Total Protein 7.1 g/dL (6.5-8.0)
--- NOTE | 2022-07-06 21:49 | ED.ABDPAIN ---
HPI - Abdominal Pain General Chief Complaint: Abdominal Pain Stated Complaint: throat, face, abdominal pain- burning sensation Time Seen by Provider: 07/06/22 21:28 Source: patient Mode of arrival: ambulatory Limitations: no limitations History of Present Illness HPI narrative: 76-year-old male who presents emergency department for evaluation nasal congestion, postnasal drip, nausea, vomiting, abdominal pain and loss of appetite. Patient states that he has had the symptoms for approximately 2 weeks. He states that he has a constant, postnasal drip that goes down his throat and caused him to have a sore throat. He states that this then caused him to have an upset stomach and abdominal pain. Patient then states that this caused him to lose his appetite. He states he has had these symptoms in the past and has seen an ENT and also was seen 2 weeks prior by his PCP. His PCP advised to take Benadryl 50 mg at night and he has been doing this for 2 weeks with no relief his symptoms. He states that he is having abdominal pain. He points to his epigastric area and describes this is a burning sensation. The pain is intermittent. The pain does not change with eating food or with hunger. He states that he has a lot of gas and he is burping more than usual. He denied fever, chest pain, shortness of breath, dyspnea on exertion, nausea, diarrhea, frequency urgency or dysuria. He states that he has had occasional chills. He has has thick green rhinorrhea from both nares. States that he has a sore throat which she describes as an intermittent burning sensation. He states that he has a cough which is productive of thick phlegm. MD elicited complaint: abdominal pain Onset (ago): week(s) (2) Pain Consistency: intermittent Location: epigastric Severity: moderate Quality: burning Radiation: none Migration to: no migration Exacerbating factors: other (Postnasal drip) Relieving factors: nothing Related Data Home Medications Medication Instructions Recorded Confirmed multivitamin 1 tab PO DAILY 11/12/21 06/23/22 Previous Rx's Medication Instructions Recorded tizanidine 4 mg capsule 4 mg PO BEDTIME PRN muscle 06/23/22 spasticity 30 days #30 caps amoxicillin 500 mg tablet 1,000 mg PO Q12H 7 days #28 tabs 07/06/22 Allergies Allergy/AdvReac Type Severity Reaction Status Date / Time acetaminophen [From Percocet] Allergy Unknown upset Verified 06/23/22 08:35 stomach oxycodone [From Percocet] Allergy Unknown unknown Verified 06/23/22 08:35 Review of Systems Review of Systems Yes all other systems are reviewed and are negative [facility] Past Medical History [facility] Narrative: Past surgical history: Ruptured appendectomy with perforated intestine requiring colostomy and eventually reversal. Social history: The patient denies tobacco, alcohol and drug use. Medical History Right hip pain Surgical History H/O colonoscopy H/O knee surgery H/O shoulder surgery History of back surgery Hx of shoulder surgery S/P hernia surgery Family History Family History Father No problems noted. Mother No problems noted. Sister Cancer Social History Social History Housing: House Alcohol intake: unknown Patient Tobacco Use Status: Former Tobacco user Years Smoked: quit 1968 e-Cigarette/Vaping Use: Never Used Second Hand Smoke Exposure: No Advance Directives: No Advance Directives Information Provided: No service: Yes Current occupational status: retired Physical Exam ED Vital Signs: Vital Signs - 24 hr 07/06/22 16:50 Temperature 98.1 F Pulse Rate 118 H Respiratory Rate 18 Blood Pressure 133/73 Pulse Oximetry 97 Oxygen Delivery Method Room Air BMI result Body Mass Index 29.1 Const General: cooperative and no acute distress Orientation/consciousness: oriented to person and oriented to place Limitations: no limitations [facility] Head: Yes normal to inspection, Yes normocephalic and Yes atraumatic Ears: external ears normal General nose exam: Normal external nose present, No nasal polyps present, Normal septum present and Nasal discharge present (Thin green discharge bilaterally) mucoid Face and sinus: Yes sinus tenderness (Bilateral maxillary tenderness, increased pain with bending forward) Mouth: Normal oral and palatal mucosa present Throat: Yes posterior oropharynx normal Eyes General: appearance normal, both eyes and all related structures Pupils: Equal, round and reactive pupils present Neck Neck: Yes normal visual inspection, Yes no lymphadenopathy, Yes trachea midline and Yes supple Chest Chest palpation & inspection: normal inspection of the chest and normal palpation of entire chest wall Resp Effort & Inspection: normal respiratory effort and able to speak in complete sentences Auscultation: clear to auscultation bilaterally Cardio Rate: regular rate Rhythm: regular rhythm Heart sounds: S1 normal heart sound present, S2 normal heart sound present and no murmurs GI Inspection: Yes normal to inspection Palpation (GI): Soft to palpation, Tenderness to palpation present (GI) in the epigastrum (Mild) and no guarding Auscultation: normal bowel sounds General: Yes no CVA tenderness Back/Spine/Pelvis Back: no CVA tenderness Skin General skin exam: no rashes or lesions noted Neuro General: oriented to person and oriented to place Cranial nerves: Yes CN's II-XII intact bilaterally and Yes Equal, round and reactive pupils present Cognition (Neuro): normal cognition Extrem General: Yes normal to inspection Psych Appearance: grossly normal Speech and movement: Normal speech and movement present Affect: normal affect Attitude: cooperative Course Course Course Narrative: 76-year-old male who presents emergency department for evaluation of 2 weeks of nasal discharge, postnasal drip, nausea, abdominal pain, face pain. Patient has had similar symptoms in the past states he has seen his PCP 1 week prior was taking Benadryl 50 mg daily with no relief his symptoms. He has also been evaluated by ENT in the past. Patient's examination did reveal bilateral nasal discharge and bilateral maxillary sinus tenderness with increased pain with bending forward. Patient also had mild epigastric tenderness. At this time I suspect the patient probably has a sinus infection the discuss viral infections versus bacterial infections at this time the patient would like to be treated with a course of antibiotics. Patient was given amoxicillin 1000 mg orally. He was started on amoxicillin 1000 mg twice a day for 7 days. Patient was also advised to buy Flonase and to use 2 puffs in each nostrils in the morning for 2 weeks. Patient states that he has increased gas and epigastric pain with tenderness which is most likely consistent with gastritis. He was advised to take extra-strength liquid Gaviscon 1 dose in the morning and 1 nights at night for 2 weeks. Was advised to continue taking Tylenol for his pain. He was given printed and verbal instructions and discharged home. MDM - Abdominal Pain Lab Data Result diagrams: 07/06/22 17:02 07/06/22 17:02 Labs: Lab Results 07/06/22 07/06/22 07/06/22 Range/Units 17:02 17:02 17:02 WBC 7.6 (4.8-10.8) X10*3/uL RBC 5.25 (4.60-5.80) X10*6/uL Hgb 16.4 (14.0-18.0) g/dl Hct 50.1 (42.0-52.0) % MCV 95.4 (80.0-98.0) fL MCH 31.2 (27.0-33.0) pg MCHC 32.7 (31.0-36.0) g/dl RDW 14.0 (11.0-16.0) % Plt Count 216 D (160-400) X10*3/uL MPV 9.2 L (9.4-12.4) fL Immature Gran % (Auto) 0.4 (0.0-0.4) % Neut % (Auto) 72.5 (45-73) % Lymph % (Auto) 17.1 L (20-40) % [place] % (Auto) 8.3 (2-11) % Eos % (Auto) 0.9 (0-4) % Baso % (Auto) 0.8 (0-2) % Lymph # (Auto) 1.3 (1.2-4.9) X10*3/uL [place] # (Auto) 0.6 (0.1-1.2) X10*3/uL Eos # (Auto) 0.1 (0.0-0.4) X10*3/uL Baso # (Auto) 0.1 (0.0-0.2) X10*3/uL Abs Immat Gran (auto) 0.03 (0.00-0.03) X10*3/uL Absolute Neuts (auto) 5.5 (2.0-8.3) x10*3/uL Absolute Nucleated RBC 0.000 (0.0-0.012) X10*3/uL Nucleated RBC % (auto) 0.0 (0.0-0.2) /100WBC Sodium 142 (135-145) mmol/L Potassium 4.9 D (3.3-5.1) mmol/L Chloride 103 (96-108) mmol/L Carbon Dioxide 28 (22-29) mmol/L Anion Gap 16 (12-20) BUN 14 (9-16) mg/dL Creatinine 0.85 (0.5-1.4) mg/dL Estim Creat Clear Calc 88.0 Estimated GFR > 60 Random Glucose 94 (60-115) mg/dL Calcium 9.9 D (8.4-10.2) mg/dL Total Bilirubin 0.7 (0.0-1.0) mg/dL Direct Bilirubin 0.3 (0.0-0.5) mg/dL AST 24 (5-37) U/L ALT 30 (0-40) U/L Alkaline Phosphatase 75 (39-117) U/L Total Protein 7.1 (6.5-8.0) g/dL Albumin 4.4 (3.5-5.0) g/dL COVID-19 ([facility]) Negative (Negative) COVID-19 Clin Com See Note Discharge Plan Discharge Clinical Impression: Rhinorrhea Sinusitis Qualifiers: Sinusitis location: maxillary Chronicity: acute Recurrence: not specified as recurrent Qualified Code(s): J01.00 - Acute maxillary sinusitis, unspecified Gastritis Qualifiers: Gastritis type: unspecified gastritis Chronicity: acute Gastritis bleeding: without bleeding Qualified Code(s): K29.00 - Acute gastritis without bleeding Patient Disposition: Home, Self-Care Additional Instructions: At this time I believe they have a sinus infection, these can be caused by viruses and by bacteria. I am going to treat you with an antibiotic for possible bacterial infection. Take amoxicillin 500 mg pills, 2 pills twice a day for 7 days. Take ibuprofen 200 mg pills, 2 pills every 6 hours as needed for pain. Take Tylenol (acetaminophen) 500 mg pills, 2 pills every 4 to 6 hours as needed for pain. For your gas pain and for pain I want you to take extra-strength liquid Gaviscon and 1 dose in the morning and 1 dose at night for the next 2 weeks to see if this improves her symptoms. Follow-up with your doctor in 2 days. Please return to the emergency department if your symptoms get worse or if you develop any symptoms that are concerning to you. Prescriptions: New amoxicillin 500 mg tablet 1,000 mg PO Q12H 7 Days Qty: 28 0RF No Action tizanidine 4 mg capsule 4 mg PO BEDTIME PRN (Reason: muscle spasticity) 30 Days Qty: 30 0RF multivitamin Tablet 1 tab PO DAILY
[2022-07-06 22:19] VITALS: BP 126/65; PULSE 110; RESP 16; TEMP 36.8; O2SAT 97
[2022-07-06] MEDS: Amoxicillin 500 MG CAPSULE 1000 MG PO (22:20)
== END 2022-07-06 22:33 | disposition home or self-care (01) ==
PROVIDERS: Emergency Provider Emergency Medicine Emergency Medical Services; PCP Nurse Practitioner Family
DX: J01.00 Acute maxillary sinusitis, unspecified (principal); K29.00 Acute gastritis without bleeding; Z20.822 Contact with and (suspected) exposure to COVID-19
CPT/HCPCS: 80053; 82248; 85025; 87635; 99283

== ENCOUNTER 2022-07-08 22:05 | Emergency (ER) | payer MEDICARE, BC, SELFPAY ==
[2022-07-08 22:34] VITALS: BP 150/85; PULSE 100; RESP 18; TEMP 36.7; O2SAT 96; BMI 29.1
--- NOTE | 2022-07-08 23:43 | ED.URI ---
HPI - URI/Sore Throat General Chief Complaint: Upper Respiratory Symptoms Stated Complaint: Congested/ Abd pain Time Seen by Provider: 07/08/22 23:10 Source: patient Mode of arrival: ambulatory Limitations: no limitations History of Present Illness HPI Narrative: Patient is a 76-year-old male who presents to the emergency department for evaluation of upper respiratory symptoms including nasal congestion, postnasal drip in associated nausea vomiting and epigastric pain. Symptoms have been ongoing for the past couple of weeks. He was seen in the emergency department 2 days ago for the same symptoms, was diagnosed with sinusitis and gastritis, given a new prescription for high-dose amoxicillin as well as Gaviscon. He states that his symptoms have not improved, but also have not worsened. And denies any new symptoms. He does report that he has had symptoms in the past where he was evaluated by his primary care provider as well as an ear nose throat specialist. Denies fever, chills, chest pain, palpitations, shortness of breath, difficulty breathing. Related Data Home Medications Medication Instructions Recorded Confirmed multivitamin 1 tab PO DAILY 11/12/21 06/23/22 Previous Rx's Medication Instructions Recorded tizanidine 4 mg capsule 4 mg PO BEDTIME PRN muscle 06/23/22 spasticity 30 days #30 caps amoxicillin 500 mg tablet 1,000 mg PO Q12H 7 days #28 tabs 07/06/22 Allergies Allergy/AdvReac Type Severity Reaction Status Date / Time acetaminophen [From Percocet] Allergy Unknown upset Verified 06/23/22 08:35 stomach oxycodone [From Percocet] Allergy Unknown unknown Verified 06/23/22 08:35 Review of Systems Review of Systems: Constitutional: No weight loss, fever, chills, weakness or fatigue. ENT: Positive nasal congestion, positive postnasal drip, positive sore throat Skin: No rash or itching. Cardiovascular: No chest pain, chest pressure or chest discomfort. No palpitations or pedal edema. Respiratory: No shortness of breath, cough or sputum production. Gastrointestinal: Positive nausea, positive epigastric pain Genitourinary: No burning micturition. No urinary frequency or incontinence. Musculoskeletal: No muscle pain, back pain, joint pain or stiffness. Psychiatric: No depression or anxiety. Yes all other systems are reviewed and are negative PMFSH Past Medical History Attestation statement: The following information was validated with the patient. Source: old records reviewed Medical History Right hip pain Surgical History H/O colonoscopy H/O knee surgery H/O shoulder surgery History of back surgery Hx of shoulder surgery S/P hernia surgery Family History Family History Father No problems noted. Mother No problems noted. Sister Cancer Social History Social History Housing: House Alcohol intake: unknown Patient Tobacco Use Status: Former Tobacco user Years Smoked: quit 1968 e-Cigarette/Vaping Use: Never Used Second Hand Smoke Exposure: No Advance Directives: No Advance Directives Information Provided: No service: Yes Current occupational status: retired Physical Exam Vital Signs: Vital Signs: Last Vital Signs Temp 98.0 F 07/08/22 22:34 Pulse 100 07/08/22 22:34 Resp 18 07/08/22 22:34 BP 150/85 H 07/08/22 22:34 Pulse Ox 96 07/08/22 22:34 O2 Del Method 07/08/22 22:34 BMI result Body Mass Index 29.1 Appearance: Alert.?Oriented to person, place and time. No acute distress.?Normal affect. Eyes: Pupils equal, round and reactive to light.? ENT: Pharynx normal.??External nose is normal, normal septum, positive nasal discharge bilaterally, clear. Bilateral maxillary sinus tenderness upon palpation. Neck: Normal inspection.? Neck supple.?? CVS: Heart sounds normal. Normal heart rate and rhythm.? Pulses normal.?? Respiratory: No respiratory distress.? Lung sounds clear to auscultation bilaterally?? Abdomen: Soft and non-tender. Normoactive bowel sounds. Skin: Skin warm and dry.? Normal skin color.? Extremities: No lower extremity edema.? Neuro: Moves all extremities spontaneously. Sensation intact bilaterally. No focal neuro deficits. Ambulates with normal steady gait. Course Course Course Narrative: Patient is a 76-year-old male presenting to emergency department for evaluation of ongoing symptoms of sinusitis and gastritis. Patient has been taking medications for only 2 days at this point, was prescribed high-dose amoxicillin for a total of 7 days, additionally advised to trial the use of Flonase for 2 weeks. Patient reports that he has not had any improvement in the past 2 days and would like a new medication. Discussed with patient that at this time would not recommend a change in medication as he is already on high-dose amoxicillin, and has only taken for 48 hours. Furthermore advised that Flonase needs to be use consistently for 2 weeks to notice significant improvement. Discussed that he should follow up with his primary care provider, and may need further follow-up at ENT again for continued symptoms. Patient became very upset when advised that I would not recommend changing antibiotics. Patient then walked out of the room and exited the emergency department. He was in no apparent distress, speaking clear full sentences, respirations were regular even and nonlabored. [facility] - URI/Sore Throat Medical Records Attestation: I reviewed the patient's medical records. Discharge Plan Discharge Clinical Impression: Acute maxillary sinusitis Qualifiers: Recurrence: non-recurrent Qualified Code(s): J01.00 - Acute maxillary sinusitis, unspecified Patient Disposition: Home, Self-Care Instructions: Rhinosinusitis (ED) Additional Instructions: As discussed, your symptoms continue to be consistent with a sinus infection, which may be either viral or bacterial. You should continue taking the amoxicillin as prescribed in complete the entire course. Furthermore, use of Flonase as instructed for 2 weeks. Be sure to stay well hydrated and drinking plenty of fluids. You can take Tylenol 500 mg, 2 tablets (1,000mg) every 4-6 hours as needed for pain, but not to exceed 3 doses daily (3,000mg).? You should contact your primary care provider to arrange for a follow-up visit within the next few days. You may return to emergency department with new or worsening symptoms or concerns. Prescriptions: No Action amoxicillin 500 mg tablet 1,000 mg PO Q12H 7 Days Qty: 28 0RF tizanidine 4 mg capsule 4 mg PO BEDTIME PRN (Reason: muscle spasticity) 30 Days Qty: 30 0RF multivitamin Tablet 1 tab PO DAILY Referrals: Ivan Simpson, SIGNALS COLLECTOR/ANALYST-BC [Primary Care Provider] - Interventions: ED Discharge Assessment Last Done: 07/09/22 00:18 Discharge Date/Time: 07/09/22 00:19
== END 2022-07-09 00:19 | disposition home or self-care (01) ==
PROVIDERS: Emergency Provider Emergency Medicine Emergency Medical Services; PCP Nurse Practitioner Family
DX: J01.00 Acute maxillary sinusitis, unspecified (principal)
CPT/HCPCS: 99282

== ENCOUNTER 2022-07-11 13:20 | Emergency (ER) | payer MEDICARE, BC, SELFPAY ==
--- NOTE | ~2022-07-11 | CT_ITS ---
EXAMINATION: NONCONTRAST MAXILLOFACIAL CT INDICATION INFORMATION: Facial pain COMPARISON: None TECHNIQUE: Noncontrast CT examination of the maxillofacial bones was performed. Coronal and sagittal images were created for each examination at the technologist workstation. This CT examination was performed using dose optimization techniques as appropriate, variously including the following: *Automated exposure control *Adjustment of mA and/or kV according to patient size (this includes techniques or standardized protocols for targeted exams where dose is matched to indication/reason for exam; i.e. extremities or head) *Use of iterative reconstruction technique DLP: 391 mGy-cm FINDINGS: MAXILLOFACIAL: No acute facial bone fractures are seen. The frontal, maxillary, ethmoid, and sphenoid sinuses are well aerated. The mandibular heads are normally positioned in the glenoid fossa. The patient is edentulous. The orbits demonstrate a normal appearance bilaterally. The globes are intact. No evidence of retrobulbar hemorrhage. Major salivary glands are unremarkable. No mucosal space mass identified. No thickening of the posterior nasopharyngeal soft tissues. Unremarkable appearance of the computer network specialist space and parapharyngeal fat. Normal appearance of the epiglottis. No lymphadenopathy identified. Visualized intracranial contents are unremarkable limited assessment. Mastoid air cells normally aerated. Bilateral facet arthrosis at the C2-C5 levels. Partial ankylosis of the vertebral bodies. Minimal grade 1 anterolisthesis at C3-C4 and C4-C5. CT/CT facial bones wo IV con IMPRESSION: No acute acute findings to explain the patient's pain identified.
[2022-07-11 13:40] VITALS: BP 154/91; PULSE 100; RESP 20; TEMP 36.7; O2SAT 98; BMI 28.5
[2022-07-11 14:06] LABS: COVID-19 Test Negative (Negative); IDNOW Serial# 16C4AD1C; Influenza A Negative (Negative); Influenza B2 Negative (Negative)
--- NOTE | 2022-07-11 17:59 | ED.GENADULT ---
HPI - General Adult General Chief complaint: Upper Respiratory Symptoms Stated complaint: sinus issue Time Seen by Provider: 07/11/22 15:42 Source: patient Mode of arrival: ambulatory Limitations: no limitations History of Present Illness HPI narrative: 76-YEAR-OLD MALE WITH PAST MEDICAL HISTORY OF CHRONIC SINUSITIS PRESENTS TO THE ED FOR 3 WEEKS OF BILATERAL MAXILLARY SINUS PAIN / PRESSURE. PATIENT DENIES ANY RECENT HEAD TRAUMA, FACIAL TRAUMA, SWELLING, RASH, FEVER, SWELLING, NECK SWELLING, DROOLING, SHORTNESS OF BREATH, CHANGE IN VOICE, OR INABILITY TO TOLERATE SOLID FOOD/LIQUID. PATIENT SEEN BY MULTIPLE DOCTORS AND WAS SEEN IN URGENT CARE TODAY WHO RECOMMEND PATIENT GET HIS FACIAL CT SCAN TO LOOK FOR AND CONFIRM SINUSITIS. PATIENT only on AMOXICILLIN, SUDAFED, Related Data Home Medications Medication Instructions Recorded Confirmed multivitamin 1 tab PO DAILY 11/12/21 07/11/22 Previous Rx's Medication Instructions Recorded tizanidine 4 mg capsule 4 mg PO BEDTIME PRN muscle 06/23/22 spasticity 30 days #30 caps amoxicillin 500 mg tablet 1,000 mg PO Q12H 7 days #28 tabs 07/06/22 Allergies Allergy/AdvReac Type Severity Reaction Status Date / Time acetaminophen [From Percocet] Allergy Unknown upset Verified 07/11/22 12:48 stomach oxycodone [From Percocet] Allergy Unknown unknown Verified 07/11/22 12:48 Review of Systems Review of Systems: MAXILLARY SINUS FACIAL PAIN PMFSH Past Medical History Medical History Right hip pain Surgical History H/O colonoscopy H/O knee surgery H/O shoulder surgery History of back surgery Hx of shoulder surgery S/P hernia surgery Family History Family History Father No problems noted. Mother No problems noted. Sister Cancer Social History Social History Housing: House Alcohol intake: unknown Patient Tobacco Use Status: Former Tobacco user Years Smoked: quit 1968 e-Cigarette/Vaping Use: Never Used Second Hand Smoke Exposure: No Advance Directives: No Advance Directives Information Provided: No service: Yes Current occupational status: retired Physical Exam ED Vital Signs: Vital Signs - 24 hr 07/11/22 13:40 Temperature 98.0 F Pulse Rate 100 Respiratory Rate 20 Blood Pressure 154/91 H Pulse Oximetry 98 Oxygen Delivery Method Room Air BMI result Body Mass Index 28.5 Const General: cooperative, healthy appearing, comfortable, no acute distress, well developed, alert, awake and Physically active Orientation/consciousness: oriented to time and patient oriented x3 HENMT Head: Yes normal to inspection, Yes No palpable skull fracture present, Yes normocephalic, Yes atraumatic and No abrasion Head images: 1. POSITIVE FOR TENDERNESS ON PALPATION. NEGATIVE FOR CREPITUS, ERYTHEMA, OR ECCHYMOSIS. 2. POSITIVE FOR TENDERNESS ON PALPATION. NEGATIVE FOR CREPITUS, ERYTHEMA, OR ECCHYMOSIS. General nose exam: Normal external nose present, Normal nares present and No nasal polyps present Mouth: Normal oral and palatal mucosa present, lip normal and tongue normal Throat: Yes posterior oropharynx normal, Yes tonsils normal and Yes uvula midline Eyes General: appearance normal, both eyes and all related structures Neck Neck: Yes normal visual inspection, Yes full ROM, Yes no lymphadenopathy, Yes no meningeal signs, Yes trachea midline, Yes supple, No anterior neck swelling and No tender Chest Chest palpation & inspection: normal inspection of the chest and normal palpation of entire chest wall Resp Effort & Inspection: normal respiratory effort and able to speak in complete sentences Auscultation: clear to auscultation bilaterally Cardio Jugular venous distension: no JVD Heart sounds: S1 normal heart sound present and S2 normal heart sound present GI Inspection: Yes normal to inspection and No abdominal wall ecchymosis Palpation (GI): Soft to palpation, not firm, nontender, no guarding and not rigid General: No CVA tenderness and Yes no CVA tenderness Back/Spine/Pelvis Back: no CVA tenderness, No CVA tenderness and No back tenderness Skin General skin exam: no rashes or lesions noted and elasticity normal Neuro General: oriented to time, patient oriented x3, tone normal, no meningeal signs and CN's II-XI intact bilaterally Cranial nerves: Yes CN's II-XII intact bilaterally Extrem General: Yes normal to inspection and Yes full ROM Psych Appearance: grossly normal, well kempt and not disheveled Course Course Course Narrative: PATIENT NOT IN ANY DISTRESS. CT FACIAL SCAN ORDERED. Reevaluation(s) Reevaluation #1: CT FACIAL SCAN CAME BACK NORMAL AND NEGATIVE WITH SINUSITIS COVID INFLUENZA NEGATIVE. PATIENT INFORMED TO FOLLOW-UP WITH PRIMARY CARE PROVIDER and for referral to maxillofacial surgeon and neurologist for atypical facial pain. No need for head CT. patient has no headache, recent trauma, or taking any blood thinners. Patietn given copy of CT scan for follow up with PCP and specialists Time: 18:21 Medical Decision Making MDM Narrative Medical decision making narrative: sINUSITIS. fACIAL PAIN Lab Data Labs: Lab Results 07/11/22 07/11/22 Range/Units 13:45 13:45 COVID-19 ([facility]) Negative (Negative) COVID-19 Clin Com See Note Influenza Type A ([facility]) Negative (Negative) Influenza Type B ([facility]) Negative (Negative) Influenza A & B Note See Note Discharge Plan Discharge Clinical Impression: Chronic facial pain Patient Disposition: Home, Self-Care Instructions: Atypical Facial Pain (ED) Additional Instructions: You're facial CT scan came back normal. You will need follow up at maxillo facial surgeon or neurologist. Please follow up with PCP also. return to the ED for headache, nausea, vomiting, bleeding/ discharge from nose, eye pain, loss of vision, slurred speech, chest pain, shortness of breath, coughing up blood, eye paun, numbness, redness of the eyes, or any other concerning symptoms. Prescriptions: No Action amoxicillin 500 mg tablet 1,000 mg PO Q12H 7 Days Qty: 28 0RF tizanidine 4 mg capsule 4 mg PO BEDTIME PRN (Reason: muscle spasticity) 30 Days Qty: 30 0RF multivitamin Tablet 1 tab PO DAILY Referrals: Ivan Simpson, METAL FABRICATING INSPECTOR-BC [Primary Care Provider] - (Facial pain. Facial CT scan normal. May need referral for neurologist or Maxillo facial Surgeon) Interventions: ED Discharge Assessment Last Done: 07/11/22 18:53 Discharge Date/Time: 07/11/22 18:53 Print Language: [place]
== END 2022-07-11 18:53 | disposition home or self-care (01) ==
PROVIDERS: Emergency Provider Student in an Organized Health Care Education/Training Program; PCP Nurse Practitioner Family
DX: R51.9 Headache, unspecified (principal); Z79.899 Other long term (current) drug therapy; Z87.891 Personal history of nicotine dependence; Z20.822 Contact with and (suspected) exposure to COVID-19
CPT/HCPCS: 70486; 87502; 87635; 99282; 99284

== ENCOUNTER → 2022-08-04 07:52 | Outpatient (BNVA) | payer MEDICARE, BC, SELFPAY | PROVIDERS: PCP Nurse Practitioner Family; Visit Provider Nurse Practitioner Family | DX: R51.9 Headache, unspecified (principal) | CPT/HCPCS: 99212 ==

== ENCOUNTER → 2022-09-26 07:55 | Outpatient (BNVA) | payer MEDICARE, BC, SELFPAY | PROVIDERS: PCP Nurse Practitioner Family; Visit Provider Nurse Practitioner Family | DX: R51.9 Headache, unspecified (principal); M54.2 Cervicalgia | CPT/HCPCS: 99212 ==

== ENCOUNTER 2022-09-29 06:40 | Outpatient (REF) | payer MEDICARE, BC, SELFPAY ==
[2022-09-29 11:33] LABS: Appearance Urine Turbid; Color Urine Dark Yellow; Glucose Urine UA Negative (Negative); Leukocyte Esterase Urine Negative (Negative); Nitrite Urine Negative (Negative); PH 5.5 (5.0-9.0); Specific Gravity - Urine 1.025 (1.005-1.025); UMIC TRIGGER UACC YES; Urine Blood Small (1+) (Negative); Urine Ketones Negative (Negative); Urine Protein Negative (Neg-Trace)
[2022-09-29 11:37] LABS: MANUAL DIFF FLAG NO
[2022-09-29 11:47] LABS: Bacteria Urine None Seen (None Seen); Hyaline Casts Urine 0-2 /LPF (0-2); Squamous Epithelial Cell Urine 0-2 /HPF (0-2); WBC Urine 0-5 /HPF (0-5)
[2022-09-29 11:49] LABS: Basophils Absolute Auto 0.1 X10*3/uL (0.0-0.2); Basophils Percent Auto 1.1 % (0-2); Eosinophils Absolute Auto 0.1 X10*3/uL (0.0-0.4); Eosinophils Percent Auto 1.3 % (0-4); Hematocrit 50.2 % (42.0-52.0); Imm Gran Abs Auto 0.08 X10*3/uL (0.00-0.03); Lymphocytes Absolute Auto 1.8 X10*3/uL (1.2-4.9); Lymphocytes Percent Auto 22.4 % (20-40); Mean Corpuscular HGB Conc 31.9 g/dl (31.0-36.0); Mean Corpuscular Hemoglobin 30.8 pg (27.0-33.0); Mean Corpuscular Volume 96.7 fL (80.0-98.0); Mean Platelet Volume 10.3 fL (9.4-12.4); Monocytes Absolute Auto 0.7 X10*3/uL (0.1-1.2); Monocytes Percent Auto 8.9 % (2-11); Neutrophils Absolute Auto 5.2 x10*3/uL (2.0-8.3); Neutrophils Percent Auto 65.3 % (45-73); Platelet Count 211 X10*3/uL (160-400); Red Blood Count 5.19 X10*6/uL (4.60-5.80)
[2022-09-29 12:38] LABS: Erythrocyte Sedimentation Rate 5 MM/HR (0-15)
[2022-09-29 13:24] LABS: Alanine Aminotransferase 17 U/L (0-40); Albumin Level 3.9 g/dL (3.5-5.0); Alkaline Phosphatase 76 U/L (39-117); Anion Gap 13 (12-20); Aspartate Amino Transferase 16 U/L (5-37); Bilirubin Total 1.1 mg/dL (0.0-1.0); Blood Urea Nitrogen 20 mg/dL (9-16); Calcium 9.3 mg/dL (8.4-10.2); Carbon Dioxide 28 mmol/L (22-29); Chloride 106 mmol/L (96-108); Cholesterol 186 mg/dL; Estimated Glomerular Filt Rate > 60; Glucose Fasting 102 mg/dL (60-99); HDL Cholesterol 42 mg/dL; LDL Cholesterol Calculated 131 mg/dl; Potassium 4.5 mmol/L (3.3-5.1); Sodium 142 mmol/L (135-145); Total Protein 6.5 g/dL (6.5-8.0); Triglycerides 66 mg/dL
[2022-09-29 13:27] LABS: Prostate Specific Antigen Scr 0.42 ng/mL (<0.05-4.0); TSH reflex Free T4 1.95 uIU/mL (0.32-4.0)
== END 2022-09-29 06:41 | disposition home or self-care (01) ==
LOC: HO.HMGCLDS 06:40
PROVIDERS: Nurse Practitioner Family; PCP Nurse Practitioner Family; Visit Provider Nurse Practitioner Family
DX: Z00.00 Encounter for general adult medical examination without abnormal findings (principal); Z12.5 Encounter for screening for malignant neoplasm of prostate; R51.9 Headache, unspecified
CPT/HCPCS: 36415; 80053; 80061; 81001; 84153; 84443; 85025; 85652

== ENCOUNTER → 2022-11-19 10:20 | Outpatient (BNVA) | payer MEDICARE, BC, SELFPAY | PROVIDERS: PCP Nurse Practitioner Family; Visit Provider Internal Medicine | DX: J44.9 Chronic obstructive pulmonary disease, unspecified (principal); J30.9 Allergic rhinitis, unspecified; R05.3 Chronic cough | CPT/HCPCS: 99202 ==

== ENCOUNTER → 2022-12-05 08:24 | Outpatient (BNVA) | payer MEDICARE, BC, SELFPAY | PROVIDERS: PCP Nurse Practitioner Family; Visit Provider Nurse Practitioner Family | DX: R51.9 Headache, unspecified (principal); J30.9 Allergic rhinitis, unspecified; I63.81 Other cerebral infarction due to occlusion or stenosis of small artery | CPT/HCPCS: 99212 ==

== ENCOUNTER 2022-12-08 07:54 | Outpatient (REF) | payer MEDICARE, BC, SELFPAY ==
--- NOTE | 2022-12-08 14:02 | PFT_ITS ---
FLOWS: 1. FEV1 99% of predicted at 3.10 L. 2. FVC 85% of predicted at 3.70 L. 3. FEV1 to FVC ratio of 0.84. 4. No bronchodilator response. LUNG VOLUMES: 1. Total lung capacity 79% of predicted at 5.86 L. 2. Residual volume 83% of predicted at 2.26 L. 3. Slow vital capacity 77% of predicted at 3.60 L. 4. Expiratory reserve volume 81% of predicted at 1.05 L. 5. Diffusion capacity is mildly decreased, diffusion capacity corrects to normal after adjustment for alveolar ventilation. IMPRESSION: Mild restrictive ventilatory defect with no bronchodilator response. Decreased diffusion capacity suggests emphysema. Kapil Guerrreo MD AP/MODL / [id number]
== END 2022-12-08 07:55 | disposition home or self-care (01) ==
LOC: HO.RESP 07:54
PROVIDERS: Visit Provider Internal Medicine
DX: J44.9 Chronic obstructive pulmonary disease, unspecified (principal); R05.3 Chronic cough; J30.9 Allergic rhinitis, unspecified
CPT/HCPCS: 94060; 94727; 94729

== ENCOUNTER → 2022-12-31 08:49 | Outpatient (BNVA) | payer MEDICARE, BC, SELFPAY | PROVIDERS: PCP Nurse Practitioner Family; Visit Provider Internal Medicine | DX: J31.0 Chronic rhinitis (principal); R05.3 Chronic cough | CPT/HCPCS: 99212 ==

== ENCOUNTER 2023-03-11 08:43 | Outpatient (REF) | payer MEDICARE, BC, SELFPAY ==
--- NOTE | ~2023-03-11 | US_ITS ---
EXAMINATION: US RETROPERITONEAL LIMITED (RENAL ONLY) CLINICAL INFORMATION: Other microscopic hematuria. COMPARISON: Ultrasound kidneys and bladder 01/27/2022. CT abdomen and pelvis 09/02/2021. TECHNIQUE: Real-time imaging of the kidneys. FINDINGS: RIGHT KIDNEY: 16.5 x 6.1 x 6.5 cm (SAG x AP x TRV). No hydronephrosis. No renal calculi. Limited visualization. There is a 10.1 x 8.0 x 9.1 cm Bosniak 1 cyst in the medial kidney redemonstrated. There is no indication for follow up imaging. LEFT KIDNEY: 12.3 x 5.4 x 6.3 cm (SAG x AP x TRV). No hydronephrosis. Limited visualization. There is a 0.2 cm lower pole calculus. A 1.0 x 1.0 x 0.8 cm upper pole cyst is stable. There is no indication for follow up imaging. US/US renal BI IMPRESSION: No hydronephrosis. No renal calculi. Limited visualization. CT scan should be considered for further evaluation.
== END 2023-03-11 08:44 | disposition home or self-care (01) ==
LOC: HO.HMGCX 08:43
PROVIDERS: PCP Nurse Practitioner Family; Visit Provider Nurse Practitioner Family
DX: R31.29 Other microscopic hematuria (principal)
CPT/HCPCS: 76775

== ENCOUNTER 2023-03-16 07:55 | Outpatient (AMB) | payer MEDICARE, BC, SELFPAY ==
[2023-03-16 08:02] VITALS: BP 120/82; PULSE 99; O2SAT 96; BMI 28.5
--- NOTE | 2023-03-16 08:02 | MHC.PC.OV ---
Vital Signs 03/16/23 08:02 Height 6 ft Weight 210 lb 2 oz BMI 28.5 BP 120/82 Blood Pressure Location Rt brachial Position Sitting Pulse 99 Pulse Source Pulse Oximeter Pulse Oximetry (%) 96 Oxygen Delivery Method Room Air Intake Visit Reasons: 6 Month follow up Allergies acetaminophen [From Percocet] Allergy (Unknown, Verified 03/16/23 08:05) upset stomach oxycodone [From Percocet] Allergy (Unknown, Verified 03/16/23 08:05) unknown Tobacco use date assessed: 03/16/23 Fall risk assessment: No Falls in past year Last assessed Fall Risk: 03/16/23 Dental Screening Dental Screen Date: 03/16/23 Did you have a dental visit in the last 12 months?: Yes Did you have a dental problem in the last 6 months where you did not have access to dental care?: No Was dental information given to patient?: Patient has dentist HPI 6 Month follow up HPI Details Pt c/o ongoing severe maxillary sinus pain and mucus production. He has seen neurology and ENT in the past. Will order xr. He has tried several meds for this including cetirizine and singulair. Will send dexamethasone taper. Denies fever, chills, and dizziness. [facility] Medical History Allergic rhinitis COPD (chronic obstructive pulmonary disease) Right hip pain Surgical History H/O colonoscopy H/O knee surgery H/O neck surgery H/O shoulder surgery History of back surgery Hx of shoulder surgery S/P hernia surgery Family History Father No problems noted. Mother No problems noted. Sister Cancer Social History Housing: House Alcohol intake: current Alcohol intake frequency: holidays/special occasions only Patient Tobacco Use Status: Former Tobacco user Years Smoked: quit 1968 e-Cigarette/Vaping Use: Never Used Second Hand Smoke Exposure: No service: Yes Current occupational status: retired Cognitive needs: No Hearing needs: No Vision needs: No Questionnaire Thrive Questionnaire Date Thrive assessed: 09/25/22 CANDACE-7 AMB Questionnaire CANDACE-7 Date CANDACE - 7 assessed: 09/25/22 Source: Developed by Drs. Joce Gonzalez, Keyla Mcclelland, Don Ramirez and colleagues, with an educational portillo from [employer]. Review of Systems Const Reports as per HPI Physical exam (Primary Care) Vital Signs: Last Vital Signs Pulse 99 03/16/23 08:02 BP 120/82 03/16/23 08:02 Pulse Ox 96 03/16/23 08:02 Oxygen Delivery Method Room Air 03/16/23 08:02 BMI result Body Mass Index 28.5 Tobacco/Smoking Status: Tobacco use Status Tobacco use date assessed 03/16/23 03/16/23 08:09 Patient Tobacco Use Status Former Tobacco user 03/16/23 08:09 e-Cigarette/Vaping Use Never Used 03/16/23 08:09 Thrive Assessment: Date of Thrive Assessment Date Thrive assessed 09/25/22 03/16/23 08:09 Const General: cooperative Orientation/consciousness: patient oriented x3 HENMT Other: with palpation of maxillary sinuses, pressure reported Resp Effort & Inspection: normal respiratory effort Auscultation: clear to auscultation bilaterally Cardio Rate: regular rate Rhythm: regular rhythm Heart sounds: S1 normal heart sound present Neuro General: patient oriented x3 Psych Appearance: grossly normal Mental Status: mental status grossly normal Speech and movement: Normal speech and movement present Affect: normal affect Attitude: cooperative Thought process: Normal thought process present Thought content: Normal thought content present Insight: Good insight present (Psych) Judgement: Good judgement present (Psych) Assessment and Plan Assessment & Plan (1) Facial pain: Code(s): R51.9 - Headache, unspecified Plan: XR ordered (2) Pain of maxillary sinus: Code(s): J34.89 - Other specified disorders of nose and nasal sinuses Plan: XR ordered Plan The patient agreed to the use of a biomedical technician for this encounter. Scribed for RAFA Avila by Valerie Hastings biomedical technician, on 03/16/2023 at 08:20 EST. Orders: Orders XR sinus min 3V Today J34.89 - Other specified disorders of nose and nasal sinuses, R51.9 - Headache, unspecified Medications: New dexamethasone 3 tabs for 3 days, twice a day for 3 days, daily for 3 days 4 mg PO DAILY 9 days 18 tabs 0RF dexamethasone 1 tab a day three times a day for 3 days, 1 tab twice a day for 3 days, 1 tab daily for 3 days 4 mg PO DAILY 18 tabs 0RF 9 days Coding Level of Care Code Est Pt Level 3 (84279) Diagnoses Facial pain R51.9 Pain of maxillary sinus J34.89
== END 2023-03-16 08:31 | disposition home or self-care (01) ==
PROVIDERS: Visit Provider Nurse Practitioner Family
DX: R51.9 Headache, unspecified (principal); J34.89 Other specified disorders of nose and nasal sinuses
CPT/HCPCS: 99213

== ENCOUNTER 2023-03-16 08:30 | Outpatient (REF) | payer MEDICARE, BC, SELFPAY ==
--- NOTE | ~2023-03-16 | XR_ITS ---
EXAMINATION: XR SINUSES CLINICAL INFORMATION: Headache, unspecified COMPARISON: CT facial bones 07/11/2012 TECHNIQUE: 3 views of the sinuses were obtained. FINDINGS: Paranasal sinuses appear clear without air-fluid levels. No fractures are identified. No radiodense foreign bodies. The mouth is edentulous. XR/XR sinus min 3V IMPRESSION: Unremarkable examination.
== END 2023-03-16 08:31 | disposition home or self-care (01) ==
LOC: HO.HMGCX 08:30
PROVIDERS: PCP Nurse Practitioner Family; Visit Provider Nurse Practitioner Family
DX: J34.89 Other specified disorders of nose and nasal sinuses (principal); R51.9 Headache, unspecified
CPT/HCPCS: 70220

== ENCOUNTER 2023-03-24 14:07 | Outpatient (REF) | payer MEDICARE, BC, SELFPAY ==
[2023-03-24 21:31] LABS: Urine Cytology See Pathology rpt
== END 2023-03-24 14:08 | disposition home or self-care (01) ==
LOC: HO.LNP 14:07
PROVIDERS: Visit Provider Nurse Practitioner Family
DX: R31.29 Other microscopic hematuria (principal)
CPT/HCPCS: 88112; 99212

== ENCOUNTER 2023-03-24 14:07 | Outpatient (AMB) | payer MEDICARE, BC, SELFPAY ==
--- NOTE | 2023-03-24 14:11 | A.OFFVIS_ITS ---
Intake Intake Visit Reasons: Yearly follow up/US(SET) Intake Note: Patient is present for follow up Ultrasound /Kidney Renal Cyst Urology Medication: none Blood Thinner: none Sensitized Paper Tester Required: No Accompanied by: Self / Same As Patient Allergies acetaminophen [From Percocet] Allergy (Unknown, Verified 03/24/23 14:35) upset stomach oxycodone [From Percocet] Allergy (Unknown, Verified 03/24/23 14:35) unknown Medication List - Last Reconciled 03/24/23 by KIRSTIN Nunes-MADONNA cetirizine (Zyrtec) 10 mg PO DAILY PRN cyproheptadine 4 - 8 mg (1 - 2 x 4 mg) PO BEDTIME 30 days dexamethasone 4 mg PO DAILY 9 days dicyclomine mg PO fluticasone propionate 50 mcg/actuation (Children's Flonase Allergy Relief) 1 spray intranasal DAILY ipratropium bromide 2 sprays intranasal TID multivitamin 1 tab PO DAILY nortriptyline 10 mg PO BEDTIME 30 days HPI HPI Comments History of Present Illness Details Farhat is a very pleasant 77 year old male patient of Dr. Simpson. He has a past medical history of allergic rhinitis andvCOPD He presents to the office today for a follow up of his bilateral renal cysts and nephrolithiasis. When asked he reports to be doing and feeling well. Recent renal imaging results reviewed with the patient today. Right kidney with no hydronephrosis. There is a 10.1 x 8.0.9.1 cm Bosniak 1 cyst in the medial kidney redemonstrated there is no indication for follow-up per radiology report. The left kidney with no hydronephrosis. There is a 0.2 mm lower pole stone. There is a 1.0 x 1.0 x 0.8 cm upper pole cyst in which no follow-up imaging is recommended per radiology report. When asked patient denies any bothersome urinary symptoms at this time. He denies urinary urgency, urinary frequency, incontinence, nocturia, hematuria, dysuria, foul smelling urine, changes to urinary stream, flank pain, fever, and or chills. He is happy with his current voiding parameters. He discusses celebrating his 53th anniversary next month as well as following up with ENT and neurology regarding his ongoing issues with his sinuses. He otherwise denies any issues or concerns at this time. PSAs are as follows... 12/05--0.4 09/28--0.5 09/29--0.4 In office urinalysis results reviewed with the patient today. [facility] Medical History Allergic rhinitis COPD (chronic obstructive pulmonary disease) Right hip pain Surgical History H/O colonoscopy H/O knee surgery H/O neck surgery H/O shoulder surgery History of back surgery Hx of shoulder surgery S/P hernia surgery Family History Father No problems noted. Mother No problems noted. Sister Cancer Social History Housing: House Alcohol intake: current Alcohol intake frequency: holidays/special occasions only Patient Tobacco Use Status: Former Tobacco user Years Smoked: quit 1967 e-Cigarette/Vaping Use: Never Used Second Hand Smoke Exposure: No service: Yes Current occupational status: retired Cognitive needs: No Hearing needs: No Vision needs: No Review of Systems Const All systems reviewed & are unremarkable except as noted in HPI and below Reports as per HPI Eyes Reports no additional complaints ENT Reports as per HPI Card Reports no additional complaints Resp Reports no additional complaints GI Reports no additional complaints Reports as per HPI Musc Reports no additional complaints Neuro Reports as per HPI Psych Reports no additional complaints Endo Reports no additional complaints Aller/Immun Reports as per HPI Physical Exam Const General: cooperative, healthy appearing, comfortable, no acute distress, well developed, alert and awake Orientation/consciousness: patient oriented x3 Limitations: no limitations HEENT Head: Yes normal to inspection, Yes normocephalic and Yes atraumatic Ears: hearing grossly normal bilaterally Eyes General: appearance normal, both eyes and all related structures Neck Neck: Yes normal visual inspection and Yes trachea midline Chest Chest palpation & inspection: normal inspection of the chest Resp Effort & Inspection: normal respiratory effort and able to speak in complete sentences Cardio Rate: regular rate GI Inspection: Yes normal to inspection General: Yes no CVA tenderness Back/Spine/Pelvis Back: no CVA tenderness Skin General skin exam: no rashes or lesions noted Neuro General: patient oriented x3 Extrem General: Yes normal to inspection Psych Appearance: grossly normal and well kempt Mental Status: mental status grossly normal Speech and movement: Normal speech and movement present and Clear speech present Affect: normal affect Attitude: cooperative Thought process: Normal thought process present Thought content: Normal thought content present Insight: Good insight present (Psych) Judgement: Good judgement present (Psych) Results AMB Urinalysis, Automated UA Leukoctes 0 Paresh/uL Last Edit by [employer] on 03/24/23 14:26 UA Nitrite Negative Last Edit by [employer] on 03/24/23 14:26 UA Urobilinogen 0.2 mg/dL Last Edit by [employer] on 03/24/23 14: UA Protein 0 mg/dL Last Edit by [employer] on 03/24/23 14:26 UA pH 6.0 Last Edit by [employer] on 03/24/23 14:26 UA Blood 10 José/uL Last Edit by [employer] on 03/24/23 14:26 UA Specific [place] 1.025 Last Edit by [employer] on 03/24/23 14:26 UA Ketone Negative Last Edit by [employer] on 03/24/23 14:26 UA Bilirubin 0 mg/dL Last Edit by [employer] on 03/24/23 14:26 UA Glucose 0 mg/dL Last Edit by [employer] on 03/24/23 14:26 Results Reviewed Results Reviewed: Laboratory Last Values Urine pH (Auto) 6.0 03/24/23 14:18 Specific [place] (Auto) 1.025 03/24/23 14:18 Urine Protein (Auto) 0 mg/dL 03/24/23 14:18 Glucose (UA)(Auto) 0 mg/dL 03/24/23 14:18 Urine Ketones (Auto) Negative 03/24/23 14:18 Urine Blood (Auto) 10 José/uL 03/24/23 14:18 Urine Nitrite (Auto) Negative 03/24/23 14:18 Urine Bilirubin (Auto) 0 mg/dL 03/24/23 14:18 Urine Urobilinogen (Auto) 0.2 mg/dL 03/24/23 14:18 Leukocyte Esterase (Auto) 0 Paresh/uL 03/24/23 14:18 Date of Service: 03/11/23 EXAMINATION: US RETROPERITONEAL LIMITED (RENAL ONLY) FINDINGS: RIGHT KIDNEY: 16.5 x 6.1 x 6.5 cm (SAG x AP x TRV). No hydronephrosis. No renal calculi. Limited visualization. There is a 10.1 x 8.0 x 9.1 cm Bosniak 1 cyst in the medial kidney redemonstrated. There is no indication for follow up imaging. LEFT KIDNEY: 12.3 x 5.4 x 6.3 cm (SAG x AP x TRV). No hydronephrosis. Limited visualization. There is a 0.2 cm lower pole calculus. A 1.0 x 1.0 x 0.8 cm upper pole cyst is stable. There is no indication for follow up imaging. IMPRESSION: ? No hydronephrosis. No renal calculi. Limited visualization. CT scan should be considered for further evaluation. Assessment & Plan Assessment & Plan (1) Renal cyst: Code(s): N28.1 - Cyst of kidney, acquired (2) Bilateral nephrolithiasis: Code(s): N20.0 - Calculus of kidney Plan In office urinalysis results reviewed with the patient today; as noted above Recent renal imaging results reviewed with the patient today; as noted above Patient denies any bothersome urinary issues or concerns at this time. Discussed at length microscopic hematuria workup with cytology, imaging, in office cystoscopy; patient declines at this time. Discussed at length potential causes for microscopic hematuria Renal ultrasound in 1 year. Follow-up in 1 year with imaging to be completed prior; or sooner with any issues, concerns, and or questions. Orders: Orders US renal BI 364 Days N20.0 - Calculus of kidney, N28.1 - Cyst of kidney, acquired Urine Cytology 03/24/23 R31.29 - Other microscopic hematuria AMB Urinalysis Automated 03/24/23 Z13.9 - Encounter for screening, unspecified Patient Instructions: The patient had an opportunity to ask questions regarding the treatment plan. All questions were answered. Physical exam, labs, and imaging were discussed and reviewed in detail. As well as risks, benefits, and discussion of treatment choices. No major barriers to understanding were identified. The patient expressed understanding and agreement with the above treatment plan. The patient was made aware they should contact our office by phone for worsening of their current condition, the appearance of new symptoms, or with any questions or concerns. Compliance is encouraged with any medications and follow up testing that is ordered. It is a privilege to be allowed the opportunity to participate in? your urological care.? Again, if you have any questions or concerns If you have any questions or concerns please do not hesitate to contact me. The office is [phone]. This note is constructed using voice recognition software. While every effort has been made to ensure accuracy customer assistance representative errors may have been included. Yours sincerely, RAFA Nunes Coding Level of Care Code Est Pt Level 3 (24171) Diagnoses Renal cyst N28.1 Bilateral nephrolithiasis N20.0
== END 2023-03-24 15:38 | disposition home or self-care (01) ==
PROVIDERS: Visit Provider Nurse Practitioner Family
DX: N28.1 Cyst of kidney, acquired (principal); N20.0 Calculus of kidney
CPT/HCPCS: 99213

== ENCOUNTER 2023-04-01 13:54 | Outpatient (AMB) | payer MEDICARE, BC, SELFPAY ==
--- NOTE | 2023-04-01 13:56 | AM.OFFWIN_ITS ---
Intake Vital Signs 04/01/23 13:59 BP 120/80 Blood Pressure Location Rt brachial Position Sitting Pulse 98 Pulse Source Pulse Oximeter Temp 98.4 F Temp Source Temporal Artery Scan Pulse Oximetry (%) 98 Oxygen Delivery Method Room Air Intake Visit Reasons: EP laryngitis? Intake Note: Patient here because he is loosing his voice, fatigue has lost his taste. Patient Tobacco Use Status: Former Tobacco user Allergies acetaminophen [From Percocet] Allergy (Unknown, Verified 04/01/23 14:41) upset stomach oxycodone [From Percocet] Allergy (Unknown, Verified 04/01/23 14:41) unknown Medication List - Last Reconciled 04/01/23 by Gio Jacobsen MD azithromycin take 500 mg today (day 1), then 250 mg for 4 days (days 2-5) PO cetirizine (Zyrtec) 10 mg PO DAILY PRN cyproheptadine 4 - 8 mg (1 - 2 x 4 mg) PO BEDTIME 30 days dexamethasone 4 mg PO DAILY 9 days dicyclomine mg PO fluticasone propionate 50 mcg/actuation (Children's Flonase Allergy Relief) 1 spray intranasal DAILY ipratropium bromide 2 sprays intranasal TID multivitamin 1 tab PO DAILY nortriptyline 10 mg PO BEDTIME 30 days Do you need a note to return to daycare/school/sports/work: No HPI EP laryngitis? HPI Details 77-year-old male presents to the office for a sick visit. He is very frustrated with his illness. He has been having postnasal drip and a hoarse voice for the past few days. This is in addition to his constant facial pain and congestion. He has seen a neurologist, hair weaver for his facial pa in. X-ray of the face and CT scan of the face have reveal normal sinuses. He was advised to be on the Flonase. [facility] Medical History Allergic rhinitis COPD (chronic obstructive pulmonary disease) Right hip pain Surgical History H/O colonoscopy H/O knee surgery H/O neck surgery H/O shoulder surgery History of back surgery Hx of shoulder surgery S/P hernia surgery Family History Father No problems noted. Mother No problems noted. Sister Cancer Social History Housing: House Alcohol intake: current Alcohol intake frequency: holidays/special occasions only Patient Tobacco Use Status: Former Tobacco user Years Smoked: quit 1968 e-Cigarette/Vaping Use: Never Used Second Hand Smoke Exposure: No service: Yes Current occupational status: retired Cognitive needs: No Hearing needs: No Vision needs: No Physical Exam Vital Signs: Last Vital Signs Temp 98.4 F 04/01/23 13:59 Pulse 98 04/01/23 13:59 BP 120/80 04/01/23 13:59 Pulse Ox 98 04/01/23 13:59 Oxygen Delivery Method Room Air 04/01/23 13:59 Const General: cooperative and healthy appearing Nutritional Appearance: well nourished Orientation/consciousness: patient oriented x3 Limitations: no limitations HEENT Head: Yes normal to inspection Eyes General: appearance normal, both eyes and all related structures Neck Neck: Yes normal visual inspection Chest Chest palpation & inspection: normal palpation of entire chest wall Resp Effort & Inspection: normal respiratory effort Neuro General: patient oriented x3 Results AMB Rapid Strep AMB Rapid Strep Negative Last Edit by ARACELIS Lainez on 04/01/23 14:16 Results Reviewed Results Reviewed: Laboratory Last Values Strep Scn Rapid Clinic Negative 04/01/23 14:15 Assessment & Plan Assessment & Plan (1) Pain of maxillary sinus: Code(s): J34.89 - Other specified disorders of nose and nasal sinuses Plan: Chart was reviewed for 20 minutes. Patient was informed of the results of the MRI. He was not a for aware that he had a stroke in the past. A message has been sent to the neurologist if he can be seen for trigeminal neuralgia. (2) Upper respiratory tract infection: Code(s): J06.9 - Acute upper respiratory infection, unspecified Plan: Azithromycin called in. Continue the Flonase. (3) Flu-like symptoms: Code(s): R68.89 - Other general symptoms and signs Orders: Orders AMB Rapid Strep Screen Today Z13.9 - Encounter for screening, unspecified Medications: New azithromycin take 500 mg today (day 1), then 250 mg for 4 days (days 2-5) PO 6 tabs 0RF Coding Level of Care Code Est Pt Level 4 (46041) Diagnoses Pain of maxillary sinus J34.89 Upper respiratory tract infection J06.9 Flu-like symptoms R68.89
[2023-04-01 13:59] VITALS: BP 120/80; PULSE 98; TEMP 36.9; O2SAT 98
== END 2023-04-01 14:54 | disposition home or self-care (01) ==
PROVIDERS: PCP Nurse Practitioner Family; Visit Provider Internal Medicine
DX: J34.89 Other specified disorders of nose and nasal sinuses (principal); J06.9 Acute upper respiratory infection, unspecified; R68.89 Other general symptoms and signs
CPT/HCPCS: 87880; 99214

== ENCOUNTER 2023-04-14 15:18 | Outpatient (AMB) | payer MEDICARE, BC, SELFPAY ==
--- NOTE | 2023-04-14 15:26 | MHC.OFFVIS ---
Intake Vital Signs 04/14/23 15:28 Weight 208 lb BP 124/86 Blood Pressure Location Lt brachial Position Sitting Pulse 111 H Pulse Source Pulse Oximeter Pulse Oximetry (%) 99 Oxygen Delivery Method Room Air Intake Visit Reasons: 3m follow up-lvm Intake Note: Pt is here for fup , states hes not any better. Allergies acetaminophen [From Percocet] Allergy (Unknown, Verified 04/14/23 15:31) upset stomach oxycodone [From Percocet] Allergy (Unknown, Verified 04/14/23 15:31) unknown Medication List - Last Reconciled 04/14/23 by Radha Lopes MD cetirizine (Zyrtec) 10 mg PO DAILY PRN cyproheptadine 4 - 8 mg (1 - 2 x 4 mg) PO BEDTIME 30 days dexamethasone 4 mg PO DAILY 9 days dicyclomine mg PO fluticasone propionate 50 mcg/actuation (Children's Flonase Allergy Relief) 1 spray intranasal DAILY ipratropium bromide 2 sprays intranasal TID multivitamin 1 tab PO DAILY nortriptyline 10 mg PO BEDTIME 30 days HPI HPI Comments History of Present Illness Details 77-yr-old male presents for f/u of bilateral facial pain for many years . Every morning he wakes up and tastes salt in his mouth and can last the whole day.He also feels like there is build up of secretions in his maxillary sinus. His facial pain is intermittent and when severe can lead to headache. He calls it throbbing pain like teeth pain. His gums are sensitive. The pain can last the whole day. He also reports loss of taste is unable to eat.He was seeing a ENT specialist for many ears for chronic sinusitis. Pt reports recently had pulmonary consult w/ Dr Dent, who suggested pt start mucinex and continue Amitriptyline 10mg qhs. Pt states this made him much too sleepy, so he stopped the Mucinex. 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 He went to ER 3 times last year - facial CT was normal , was treated with antibiotics for possible sinus infections and he did not improve. [facility] Medical History Allergic rhinitis COPD (chronic obstructive pulmonary disease) Right hip pain Surgical History H/O colonoscopy H/O knee surgery H/O neck surgery H/O shoulder surgery History of back surgery Hx of shoulder surgery S/P hernia surgery Family History Father No problems noted. Mother No problems noted. Sister Cancer Social History Housing: House Alcohol intake: current Alcohol intake frequency: holidays/special occasions only Patient Tobacco Use Status: Former Tobacco user Years Smoked: quit 1967 e-Cigarette/Vaping Use: Never Used Second Hand Smoke Exposure: No service: Yes Current occupational status: retired Cognitive needs: No Hearing needs: No Vision needs: No Physical Exam Vital Signs: Last Vital Signs Pulse 111 H 04/14/23 15:28 BP 124/86 04/14/23 15:28 Pulse Ox 99 04/14/23 15:28 Oxygen Delivery Method Room Air 04/14/23 15:28 Const Other: congested General: cooperative and no acute distress Orientation/consciousness: patient oriented x3 HEENT Head: Yes normocephalic Resp Effort & Inspection: normal respiratory effort and able to speak in complete sentences Neuro General: patient oriented x3, gait normal and CN's II-XI intact bilaterally Cognition (Neuro): normal cognition Motor exam (neuro): 5/5 motor strength present throughout Assessment & Plan Assessment & Plan (1) Facial pain: Comment: atypical facial pain ? trigeminal neuralgia? chronic allergies Code(s): R51.9 - Headache, unspecified (2) Allergic rhinitis: Code(s): J30.9 - Allergic rhinitis, unspecified (3) Multiple lacunar infarcts: Comment: Chronic Code(s): I63.81 - Other cerebral infarction due to occlusion or stenosis of small artery Plan Nortriptyline 10mg qhs- this may help facial pain w/o as much risk for residual sleepiness. I will trial him on tegretol XR 100mg bid restart zyrtec 10mg qd Monitor daytime sleepiness. Refer to [employer] for chronic allergies .His recent sinus X ray was normal Pt has not yet discussed starting ASA for CV risk reduction. His BP is still normotensive. Orders: Referrals Allergy & Immunology Referral J30.9 - Allergic rhinitis, unspecified, J34.89 - Other specified disorders of nose and nasal sinuses, R05.3 - Chronic cough Medications: New carbamazepine ER (Tegretol XR) 100 mg PO BID 60 tabs 6RF Discontinued dexamethasone 1 tab a day three times a day for 3 days, 1 tab twice a day for 3 days, 1 tab daily for 3 days Discontinued Reason: Patient no longer taking 4 mg PO DAILY 9 days 18 tabs 0RF Coding Level of Care Code Est Pt Level 4 (60363) Diagnoses Facial pain R51.9 Allergic rhinitis J30.9 Multiple lacunar infarcts I63.81
[2023-04-14 15:28] VITALS: BP 124/86; PULSE 111; O2SAT 99
== END 2023-04-14 16:01 | disposition home or self-care (01) ==
PROVIDERS: Visit Provider Psychiatry & Neurology Neurology
DX: R51.9 Headache, unspecified (principal); J30.9 Allergic rhinitis, unspecified; I63.81 Other cerebral infarction due to occlusion or stenosis of small artery
CPT/HCPCS: 99214

== ENCOUNTER → 2023-04-14 15:18 | Outpatient (BNVA) | payer MEDICARE, BC, SELFPAY | PROVIDERS: Visit Provider Nurse Practitioner Family | DX: R51.9 Headache, unspecified (principal); J30.9 Allergic rhinitis, unspecified; I63.81 Other cerebral infarction due to occlusion or stenosis of small artery | CPT/HCPCS: 99212 ==

== ENCOUNTER 2023-05-15 14:52 | Outpatient (AMB) | payer MEDICARE, BC, SELFPAY ==
[2023-05-15 14:53] VITALS: BP 110/64; PULSE 105; O2SAT 96; BMI 28.8
--- NOTE | 2023-05-15 14:53 | MHC.OFFVIS ---
Intake Vital Signs 05/15/23 14:53 Height 6 ft Weight 212 lb 8 oz BMI 28.8 BP 110/64 Blood Pressure Location Lt brachial Position Sitting Pulse 105 H Pulse Source Pulse Oximeter Pulse Oximetry (%) 96 Oxygen Delivery Method Room Air Intake Visit Reasons: 1m follow up-(ok per )-confirmed Intake Note: Pt presents as a 1 month f/u Math Specialist Required: No Allergies acetaminophen [From Percocet] Allergy (Unknown, Verified 05/15/23 14:56) upset stomach oxycodone [From Percocet] Allergy (Unknown, Verified 05/15/23 14:56) unknown Medication List - Last Reconciled 05/15/23 by Radha Lopes MD carbamazepine ER (Tegretol XR) 100 mg PO BID cetirizine (Zyrtec) 10 mg PO DAILY PRN fluticasone propionate 50 mcg/actuation (Children's Flonase Allergy Relief) 1 spray intranasal DAILY multivitamin 1 tab PO DAILY nortriptyline 10 mg PO BEDTIME 30 days tobramycin-dexamethasone 0.3-0.1 % drps ophthalmic (eye) HPI HPI Comments History of Present Illness Details 77-yr-old male presents for f/u of bilateral facial pain for many years . Every morning he wakes up and tastes salt in his mouth and can last the whole day.He also feels like there is build up of secretions in his maxillary sinus. His facial pain is intermittent and when severe can lead to headache. He calls it throbbing pain like teeth pain. His gums are sensitive. The pain can last the whole day. He also reports loss of taste is unable to eat.He was seeing a ENT specialist for many ears for chronic sinusitis. Pt reports recently had pulmonary consult w/ Dr Dent, who suggested pt start mucinex and continue Amitriptyline 10mg qhs. Pt states this made him much too sleepy, so he stopped the Mucinex. 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 He went to ER 3 times last year - facial CT was normal , was treated with antibiotics for possible sinus infections and he did not improve. He reports that his brother 2 years older than him santana snarcolepsy He has toruble falling asleep and staying asleep and has excessive daytime sleepiness.His sleep study showed fragmented sleep but no sleep apnea. [facility], [facility] Medical History COPD (chronic obstructive pulmonary disease) Allergic rhinitis Right hip pain Surgical History H/O neck surgery H/O shoulder surgery Hx of shoulder surgery H/O colonoscopy History of back surgery H/O knee surgery S/P hernia surgery Family History Father No problems noted. Mother No problems noted. Sister Cancer Social History Housing: House Alcohol intake: current Alcohol intake frequency: does not drink Patient Tobacco Use Status: Former Tobacco user Years Smoked: quit 1968 e-Cigarette/Vaping Use: Never Used Second Hand Smoke Exposure: No service: Yes Current occupational status: retired Cognitive needs: No Hearing needs: No Vision needs: No Physical Exam Vital Signs: Last Vital Signs Pulse 105 H 05/15/23 14:53 BP 110/64 05/15/23 14:53 Pulse Ox 96 05/15/23 14:53 Oxygen Delivery Method Room Air 05/15/23 14:53 BMI result Body Mass Index 28.8 Const Other: congested General: cooperative and no acute distress Orientation/consciousness: patient oriented x3 HEENT Head: Yes normocephalic Resp Effort & Inspection: normal respiratory effort and able to speak in complete sentences Neuro General: patient oriented x3, gait normal and CN's II-XI intact bilaterally Cognition (Neuro): normal cognition Motor exam (neuro): 5/5 motor strength present throughout Assessment & Plan Assessment & Plan (1) Facial pain: Comment: atypical facial pain ? trigeminal neuralgia? chronic allergies Code(s): R51.9 - Headache, unspecified (2) Allergic rhinitis: Code(s): J30.9 - Allergic rhinitis, unspecified (3) Multiple lacunar infarcts: Comment: Chronic Code(s): I63.81 - Other cerebral infarction due to occlusion or stenosis of small artery Plan Stop Nortriptyline 10mg qhs- this may help facial pain w/o as much risk for residual sleepiness. Tegretol XR 100mg bid restart zyrtec 10mg qd Monitor daytime sleepiness. Refer to [employer] for chronic allergies .His recent sinus X ray was normal Pt has not yet discussed starting ASA for CV risk reduction. His BP is still normotensive. Medications: Changed From carbamazepine ER (Tegretol XR) 100 mg PO BID 60 tabs 6RF To carbamazepine ER 200 mg PO BID 60 tabs 6RF Discontinued nortriptyline Discontinued Reason: Doctor's Order 10 mg PO BEDTIME 30 caps 3RF 30 days Coding Level of Care Code Est Pt Level 4 (76654) Diagnoses Facial pain R51.9 Allergic rhinitis J30.9 Multiple lacunar infarcts I63.81
== END 2023-05-15 15:36 | disposition home or self-care (01) ==
PROVIDERS: PCP Nurse Practitioner Family; Visit Provider Psychiatry & Neurology Neurology
DX: R51.9 Headache, unspecified (principal); J30.9 Allergic rhinitis, unspecified; I63.81 Other cerebral infarction due to occlusion or stenosis of small artery
CPT/HCPCS: 99214

== ENCOUNTER → 2023-05-15 14:52 | Outpatient (BNVA) | payer MEDICARE, BC, SELFPAY | PROVIDERS: PCP Nurse Practitioner Family; Visit Provider Psychiatry & Neurology Neurology | DX: R51.9 Headache, unspecified (principal); J30.9 Allergic rhinitis, unspecified; Z86.73 Personal history of transient ischemic attack (TIA), and cerebral infarction without residual deficits | CPT/HCPCS: 99212 ==

== ENCOUNTER 2023-06-17 07:48 | Outpatient (AMB) | payer MEDICARE, BC, SELFPAY ==
--- NOTE | 2023-06-17 08:04 | MHC.PC.OV ---
Vital Signs 06/17/23 08:05 Height 6 ft Weight 217 lb 8 oz BMI 29.5 BP 120/84 Blood Pressure Location Rt brachial Position Sitting Pulse 86 Pulse Source Pulse Oximeter Pulse Oximetry (%) 98 Oxygen Delivery Method Room Air Intake Visit Reasons: 3m follow up Allergies carbamazepine Allergy (Intermediate, Verified 06/17/23 08:22) Hives acetaminophen [From Percocet] Allergy (Unknown, Verified 06/17/23 08:10) upset stomach oxycodone [From Percocet] Allergy (Unknown, Verified 06/17/23 08:10) unknown Tobacco use date assessed: 03/16/23 HPI 3m follow up HPI Details Pt c/o ongoing maxillary sinus pain (chronic). He had a previous sinus XR that was negative. Pt has seen neurology and was put on carbamazepine which he had a reaction to. He has also seen ENT. Pt takes cetirizine daily. He is also on prednisone. Will send montelukast. Will also order facial CT. [facility] Medical History COPD (chronic obstructive pulmonary disease) Allergic rhinitis Right hip pain Surgical History H/O neck surgery H/O shoulder surgery Hx of shoulder surgery H/O colonoscopy History of back surgery H/O knee surgery S/P hernia surgery Family History Father No problems noted. Mother No problems noted. Sister Cancer Social History Housing: House Alcohol intake: current Alcohol intake frequency: does not drink Patient Tobacco Use Status: Former Tobacco user Years Smoked: quit 1967 e-Cigarette/Vaping Use: Never Used Second Hand Smoke Exposure: No service: Yes Current occupational status: retired Cognitive needs: No Hearing needs: No Vision needs: No Questionnaire Thrive Questionnaire Date Thrive assessed: 09/25/22 CANDACE-7 AMB Questionnaire CANDACE-7 Date CANDACE - 7 assessed: 09/25/22 Source: Developed by Drs. Joce Gonzalez, Kyela Mcclelland, Don Ramirez and colleagues, with an educational portillo from [employer]. Review of Systems Const Reports as per HPI Physical exam (Primary Care) Vital Signs: Last Vital Signs Pulse 86 06/17/23 08:05 BP 120/84 06/17/23 08:05 Pulse Ox 98 06/17/23 08:05 Oxygen Delivery Method Room Air 06/17/23 08:05 BMI result Body Mass Index 29.5 Tobacco/Smoking Status: Tobacco use Status Tobacco use date assessed 03/16/23 06/17/23 08:14 Patient Tobacco Use Status Former Tobacco user 06/17/23 08:14 e-Cigarette/Vaping Use Never Used 06/17/23 08:14 Thrive Assessment: Date of Thrive Assessment Date Thrive assessed 09/25/22 06/17/23 08:14 Const General: cooperative Orientation/consciousness: patient oriented x3 HENMT Other: no maxillary sinus pressure with palpation Resp Effort & Inspection: normal respiratory effort Auscultation: clear to auscultation bilaterally Cardio Rate: regular rate Rhythm: regular rhythm Heart sounds: S1 normal heart sound present and S2 normal heart sound present Neuro General: patient oriented x3 Psych Appearance: grossly normal Mental Status: mental status grossly normal Speech and movement: Normal speech and movement present Affect: normal affect Attitude: cooperative Thought process: Normal thought process present Thought content: Normal thought content present Insight: Good insight present (Psych) Judgement: Good judgement present (Psych) Assessment and Plan Assessment & Plan (1) Pain of maxillary sinus: Code(s): J34.89 - Other specified disorders of nose and nasal sinuses Plan: Facial CT ordered Plan The patient agreed to the use of a medical billing representative for this encounter. Scribed for RAFA Avila by Valerie Hastings medical billing representative, on 06/17/2023 at 08:15 EST Orders: Orders CT facial bones wo IV con Today J34.89 - Other specified disorders of nose and nasal sinuses Complete Blood Count Auto Diff Today J34.89 - Other specified disorders of nose and nasal sinuses Comprehensive Met. Panel Today J34.89 - Other specified disorders of nose and nasal sinuses Medications: New montelukast 10 mg PO BEDTIME 30 tabs 2RF Coding Level of Care Code Est Pt Level 3 (12043) Diagnoses Pain of maxillary sinus J34.89
[2023-06-17 08:05] VITALS: BP 120/84; PULSE 86; O2SAT 98; BMI 29.5
== END 2023-06-17 11:00 | disposition home or self-care (01) ==
PROVIDERS: PCP Nurse Practitioner Family; Visit Provider Nurse Practitioner Family
DX: J34.89 Other specified disorders of nose and nasal sinuses (principal)
CPT/HCPCS: 99213

== ENCOUNTER 2023-06-17 08:43 | Outpatient (REF) | payer MEDICARE, BC, SELFPAY ==
[2023-06-17 12:43] LABS: Alanine Aminotransferase 15 U/L (0-40); Albumin Level 3.9 g/dL (3.5-5.0); Alkaline Phosphatase 67 U/L (39-117); Anion Gap 15 (12-20); Aspartate Amino Transferase 13 U/L (5-37); Bilirubin Total 0.6 mg/dL (0.0-1.0); Blood Urea Nitrogen 13 mg/dL (9-16); Calcium 9.7 mg/dL (8.4-10.2); Carbon Dioxide 28 mmol/L (22-29); Chloride 104 mmol/L (96-108); Estimated Glomerular Filt Rate > 60; Glucose Random 85 mg/dL (60-115); Potassium 3.7 mmol/L (3.3-5.1); Sodium 143 mmol/L (135-145); Total Protein 6.5 g/dL (6.5-8.0)
== END 2023-06-17 08:44 | disposition home or self-care (01) ==
LOC: HO.HMGCLDS 08:43
PROVIDERS: PCP Nurse Practitioner Family; Visit Provider Nurse Practitioner Family
DX: J34.89 Other specified disorders of nose and nasal sinuses (principal); R51.9 Headache, unspecified
CPT/HCPCS: 36415; 80053; 85025

== ENCOUNTER 2023-07-02 07:30 | Outpatient (REF) | payer MEDICARE, BC, SELFPAY ==
--- NOTE | ~2023-07-02 | CT_ITS ---
CT SINUS WITHOUT CONTRAST HISTORY: Maxillary sinus/jaw pain TECHNIQUE: CT images of the paranasal sinuses were acquired without contrast. This CT examination was performed using dose optimization techniques as appropriate, variously including the following: *Automated exposure control *Adjustment of mA and/or kV according to patient size (this includes techniques or standardized protocols for targeted exams where dose is matched to indication/reason for exam; i.e. extremities or head) *Use of iterative reconstruction technique DLP: 141 COMPARISON: None available FINDINGS: The nasal cavity is clear. Paradoxical curvature of the anterior right middle nasal turbinate with right chloe bullosa. The olfactory fossa are symmetric. Keros type III morphology of the olfactory fossae. Patent frontal sinuses with frontal sinus drainage outflow tracts. Well aerated maxillary sinuses and patent ostiomeatal units and left accessory maxillary sinus ostium. Trace anterior ethmoid air cell thickening. Trace anterior left and mild right sphenoid sinus mucosal disease with opacified left and patent right sphenoid sinus ostia. Patent sphenoethmoidal recesses. The temporomandibular joints are normal. No significant osteoarthrosis. The remainder of the imaged mandible is unremarkable. Lens extractions. The carotid canals are covered by bone. The mastoid air cells and middle ear cavities are well aerated. Limited evaluation of the intracranial structures without significant abnormalities. Calcific plaque along the carotid siphons. Patient is edentulous. Degenerative changes across the anterior atlantodental interval. CT/CT sinus wo IV con IMPRESSION: No significant paranasal sinus mucosal disease. Normal temporomandibular joints.
== END 2023-07-02 07:31 | disposition home or self-care (01) ==
LOC: HO.CT 07:30
PROVIDERS: PCP Nurse Practitioner Family; Visit Provider Nurse Practitioner Family
DX: R68.84 Jaw pain (principal)
CPT/HCPCS: 70486

== ENCOUNTER 2023-09-04 11:20 | Inpatient (IN) | payer MEDICARE, BC, SELFPAY ==
--- NOTE | ~2023-09-04 | CT_ITS ---
EXAMINATION: CT ABDOMEN AND PELVIS WITH CONTRAST CLINICAL INFORMATION: LLQ tenderness COMPARISON: 09/02/2021 CT scan TECHNIQUE: Multidetector volumetric imaging was performed from the superior aspect of the liver through the pubic symphysis following administration of 85 mL Omnipaque 300 intravenous contrast. Sagittal and coronal reformatted images were obtained on the technologist workstation.. This CT examination was performed using dose optimization techniques as appropriate, variously including the following: *Automated exposure control *Adjustment of mA and/or kV according to patient size (this includes techniques or standardized protocols for targeted exams where dose is matched to indication/reason for exam; i.e. extremities or head) *Use of iterative reconstruction technique DLP: 727 mGy-cm FINDINGS: LUNG BASES: Minimal dependent atelectasis. LIVER, GALLBLADDER, AND BILIARY TREE: The liver is normal in size, shape, and attenuation. No focal hepatic lesion or biliary ductal dilatation is present. The gallbladder is unremarkable with no evidence of radiopaque gallstones, gallbladder wall thickening, or obvious pericholecystic inflammatory changes. PANCREAS: Unremarkable. SPLEEN: Unremarkable. ADRENAL GLANDS: Unremarkable. KIDNEYS AND URETERS: The kidneys are normal in size, shape, and attenuation. Large 10 cm simple appearing cyst arises from the posterior lower pole of the right kidney. No further evaluation this would be needed. No hydronephrosis, hydroureter, or calculi seen. No perinephric stranding. BLADDER: Decompressed GASTROINTESTINAL TRACT: There is scattered colonic diverticulosis with focal colonic wall thickening and pericolonic stranding adjacent to a diverticula in the distal descending colon consistent with focal diverticulitis in this location. No obstructive changes or discrete renal abscess. Visualized small bowel unremarkable. Incidental 2.4 cm region of focal fat with mild surrounding enhancement likely representing an area of prior fat necrosis abutting small bowel in the mid pelvis. This is not significantly changed from the prior 2020 study and is of no acute significance. ABDOMINAL WALL: Anterior hernia mesh seen. No evidence for reherniation LYMPHOVASCULAR STRUCTURES: Prominent vascular calcification within the aorta iliac system. PELVIC VISCERA: Unremarkable. OSSEOUS STRUCTURES: Extensive postoperative changes throughout the spine with extensive posterior fusion hardware from the lower thoracic spine and to the pelvis CT/CT abdomen pelvis w IV con IMPRESSION: Findings consistent with focal diverticulitis in the distal descending colon. No obstructive changes or pericolonic abscess. Chronic appearing and postoperative changes otherwise as described.
[2023-09-04 12:19] VITALS: BP 118/74; PULSE 107; RESP 16; TEMP 36.7; O2SAT 98; BMI 29.4
--- NOTE | 2023-09-04 12:20 | ED_ITS ---
HPI - General Adult General Chief complaint: Abdominal Pain Stated complaint: abd pain Time Seen by Provider: 09/04/23 16:36 Source: patient Limitations: no limitations History of Present Illness HPI narrative: 78 years old, with chronic back pain, past medical history of perforated appendicitis status post appendectomy which required also bowel resection and stoma which is not reversed. Presents emergency room with 24 hour history of left-sided abdominal pain associated with nausea but no vomiting. Patient reports the pain is moderate in intensity, 7/10, localized in the left lower quadrant, not associated with urinary symptoms Patient denies chest pain, shortness of breath or cough. Patient reports frequent belching. No recent falls. Related Data Home Medications Medication Instructions Recorded Confirmed multivitamin 1 tab PO DAILY 11/12/21 09/04/23 fluticasone propionate 50 1 spray intranasal DAILY 08/04/22 09/04/23 mcg/actuation nasal spray,suspension (Children's Flonase Allergy Relief) ibuprofen 200 mg tablet (Advil) 200 mg PO Q6H PRN Pain 09/04/23 09/04/23 Allergies Allergy/AdvReac Type Severity Reaction Status Date / Time carbamazepine Allergy Intermediate Hives Verified 09/04/23 12:19 acetaminophen [From Percocet] Allergy Unknown upset Verified 09/04/23 12:19 stomach oxycodone [From Percocet] Allergy Unknown unknown Verified 09/04/23 12:19 Review of Systems 2 Review of Systems: Yes all other systems are reviewed and are negative [facility] Past Medical History Medical History COPD (chronic obstructive pulmonary disease) Allergic rhinitis Right hip pain Surgical History H/O neck surgery H/O shoulder surgery Hx of shoulder surgery H/O colonoscopy History of back surgery H/O knee surgery S/P hernia surgery Family History Family History Father No problems noted. Mother No problems noted. Sister Cancer Social History Social History Housing: House Alcohol intake: current Alcohol intake frequency: does not drink Patient Tobacco Use Status: Former Tobacco user Years Smoked: quit 1968 Smoked in Last 30 Days: No e-Cigarette/Vaping Use: Never Used Second Hand Smoke Exposure: No Use of substances other than those prescribed or required for medical reasons: No Advance Directives: No Advance Directives Information Provided: No service: Yes Current occupational status: retired Cognitive needs: No Hearing needs: No Vision needs: No Physical Exam ED Vital Signs: Vital Signs - 24 hr 09/04/23 12:19 09/04/23 19:30 Temperature 98.1 F Pulse Rate 107 H 92 Respiratory Rate 16 16 Blood Pressure 118/74 Pulse Oximetry 98 96 Oxygen Delivery Method Room Air Room Air BMI result Body Mass Index 29.4 General: Alert, Not in Distress Skin: No rash, warm HEENT: Atraumatic, No Exudate or Pharyngeal Erythema Resp: Normal Breath sounds bilaterally Cardio: Regular rate and Rhythm, Normal S1, S2 ABD: Abd tender, with guarding in LLQ. Normal Bowel sounds. : No cva tenderness Neuro: Alert, oriented x4, PERRL Strenght 5/5 on all extremities Sensation is preserved in both lower and upper extremities Index to nose: normal Cranial Nerves II-XII grossly intact No dysarthria, or aphasia No neglet. Visual kaufman are normal bilaterally Psych: Cooperative, NO SI Course Course Course Narrative: This is a rapid medical exam: Additional HPI, ROS, PE not included below will be deferred to primary provider. Patient is a 78-year-old male with history of COPD, appendectomy presenting to the ED with complaint of LLQ abdominal pain and bloating since yesterday. Reports after [place] he felt as though he ate too much, states but I didn't. Also reports frequent belching. Denies chest pain, dyspnea, palpitations. +LLQ tenderness Plan: labs, UA, CT Reevaluation(s) Reevaluation #1: Pain is a little bit improved. Will start on clear liquid diet. Time: 21:33 Medications Administered Discontinued Medications Generic Name Dose Route Start Last Admin Trade Name Freq PRN Reason Stop Dose Admin Acetaminophen 1,000 mg in 100 mls @ 400 mls/hr 09/04/23 16:42 09/04/23 19:48 Ofirmev IV 09/04/23 16:56 Infused ONCE ONE Infusion Sodium Chloride 500 mls @ 999 mls/hr 09/04/23 16:45 09/04/23 19:48 Ns IV 09/04/23 17:15 Infused .Q31M MANNIE Infusion Ceftriaxone Sodium 1 gm/ 50 mls @ 100 mls/hr 09/04/23 18:11 09/04/23 20:10 Sodium Chloride IV 09/04/23 18:40 Infused ONCE ONE Infusion Metronidazole 500 mg in 100 mls @ 100 mls/hr 09/04/23 18:11 09/04/23 19:48 Flagyl IV 09/04/23 19:10 Infused ONCE ONE Infusion Iohexol 85 ml 09/04/23 17:13 09/04/23 17:13 Iohexol 350 Mg/Ml 100 Ml Infus..Btl IV 09/04/23 17:14 85 ml ONCE ONE Administration Morphine Sulfate 2 mg 09/04/23 18:11 09/04/23 18:21 Morphine Sulfate 2 Mg/Ml Cartridge IVPUSH 09/04/23 18:12 2 mg ONCE ONE Administration Protocol Ondansetron HCl 4 mg 09/04/23 16:42 09/04/23 17:51 Ondansetron Hcl 4 Mg/2 Ml Vial IVPUSH 09/04/23 16:43 4 mg ONCE ONE Administration Medical Decision Making Medical Decision Making [facility] Narrative: Patient presented to the emergency room for left lower quadrant pain associated with vomiting. Possible differential diagnosis include diverticulitis, viral syndrome, SBO. Plan Analgesia Antiemetics IV fluids CT abdomen and pelvis with contrast Lab Data [facility] Lab Attestation statement: I reviewed the patient's lab results. (Mild leukocytosis otherwise unremarkable) 09/04/23 13:36 09/04/23 13:36 Labs: Lab Results 09/04/23 09/04/23 Range/Units 13:32 13:36 WBC 11.4 H (4.8-10.8) X10*3/uL RBC 5.24 (4.60-5.80) X10*6/uL Hgb 16.3 (14.0-18.0) g/dl Hct 49.3 (42.0-52.0) % MCV 94.1 (80.0-98.0) fL MCH 31.1 (27.0-33.0) pg MCHC 33.1 (31.0-36.0) g/dl RDW 13.3 (11.0-16.0) % Plt Count 183 (160-400) X10*3/uL MPV 9.5 (9.4-12.4) fL Immature Gran % (Auto) 0.4 (0.0-0.4) % Neut % (Auto) 73.5 H (45-73) % Lymph % (Auto) 16.4 L (20-40) % [place] % (Auto) 8.5 (2-11) % Eos % (Auto) 0.5 (0-4) % Baso % (Auto) 0.7 (0-2) % Lymph # (Auto) 1.9 (1.2-4.9) X10*3/uL [place] # (Auto) 1.0 (0.1-1.2) X10*3/uL Eos # (Auto) 0.1 (0.0-0.4) X10*3/uL Baso # (Auto) 0.1 (0.0-0.2) X10*3/uL Abs Immat Gran (auto) 0.04 H (0.00-0.03) X10*3/uL Absolute Neuts (auto) 8.4 H (2.0-8.3) x10*3/uL Absolute Nucleated RBC 0.000 (0.0-0.012) X10*3/uL Nucleated RBC % (auto) 0.0 (0.0-0.2) /100WBC Sodium 140 (135-145) mmol/L Potassium 4.3 (3.3-5.1) mmol/L Chloride 102 (96-108) mmol/L Carbon Dioxide 28 (22-29) mmol/L Anion Gap 14 (12-20) BUN 14 (9-16) mg/dL Creatinine 0.87 (0.5-1.4) mg/dL Estim Creat Clear Calc 83.6 Estimated GFR > 60 Random Glucose 87 (60-115) mg/dL Calcium 9.7 (8.4-10.2) mg/dL Total Bilirubin 1.2 H (0.0-1.0) mg/dL AST 21 (5-37) U/L ALT 17 (0-40) U/L Alkaline Phosphatase 74 (39-117) U/L Troponin I High Sens < 2.7 (<3.5-35.0) ng/L Total Protein 7.7 (6.5-8.0) g/dL Albumin 4.3 (3.5-5.0) g/dL Urine Color Yellow Urine Appearance Clear Urine pH 6.0 (5.0-9.0) Ur Specific [place] 1.020 (1.005-1.025) Urine Protein Negative (Neg-Trace) mg/dL Urine Glucose (UA) Negative (Negative) mg/dL Urine Ketones 15 (Negative) mg/dL Urine Blood Small (1+) H (Negative) Urine Nitrite Negative (Negative) Ur Leukocyte Esterase Negative (Negative) Urine RBC 6-10 H (0-2) /HPF Urine WBC 0-5 (0-5) /HPF Ur Squamous Epith Cells 0-2 (0-2) /HPF Urine Bacteria None Seen (None Seen) Hyaline Casts 0-2 (0-2) /LPF Discharge Plan Discharge Clinical Impression: Diverticulitis Patient Disposition: Admitted As Inpatient Prescriptions: No Action ibuprofen [Advil] 200 mg Tablet 200 mg PO Q6H PRN (Reason: Pain) multivitamin Tablet 1 tab PO DAILY fluticasone propionate [Children's Flonase Allergy Rlf] 50 mcg/actuation spray,suspension 1 spray intranasal DAILY Rx Instructions: administer into each nostril
[2023-09-04 13:43] LABS: MANUAL DIFF FLAG NO
--- OUTSIDE RECORDS SUMMARY | 2023-09-04 13:43 | XMS_ITS | Continuity of Care Document ---
Author Name Unknown Organization [facility] Address [address] [place] [address]- Care Team Providers Care Autoclave Operator Name Role Phone Tatiana SEAY, Ivan Olsen Primary Care Physician [phone] [facility] [place] Date(s): 07/28/23 - 08/27/23 [facility] [address] [place] [address]- Allergies, Adverse Reactions, Alerts Substance Reaction Severity Status Percocet 7.5/325 makes pain worse Activ e Medications acetaminophen 325 mg oral tablet 975 mg, By Mouth, Every 8 hours, Refills 0, Maintenance, 01/27/18 16:06:40 EDT Start Date: 01/27/18 Status: Ordered Advil 200 mg oral tablet 2 tablet = 400 mg, By Mouth, Every 4 hours, PRN for pain, # 120 tablet, 0 Refills, Maintenance, 05/27/22 9:10:00 EDT, Tablet, Partial fill upon patient request if the prescription is for a schedule II opioid drug. Start Date: 05/27/22 Status: Ordered ipratropium nasal 42 mcg/inh spray 0 Refills, Maintenance, 08/06/22 9:07:00 EST, Partial fill upon patient request if the prescriptionis for a schedule II opioid drug. Start Date: 08/06/22 Status: Ordered Multivitamin 0 Refills, Maintenance, 06/02/23 15:02:00 EDT, Partial fill upon patient request if the prescription is for a schedule II opioid drug. Start Date: 06/02/23 Status: Ordered predniSONE 10 mg oral tablet 1 tablet = 10 mg, By Mouth, Daily, 0 Refills, Maintenance, 06/02/23 15:03:00 EDT, Partial fill uponpatient request if the prescription is for a schedule II opioid drug. Start Date: 06/02/23 Status: Ordered ZyrTEC 10 mg oral tablet 1 tablet = 10 mg, By Mouth, Daily, # 30 tablet, 0 Refills, Maintenance, 05/06/23 11:11:00 EDT, Tablet, Partial fill upon patient request if the prescription is for a schedule II opioid drug. Start Date: 05/06/23 Status: Ordered Problem List Condition Confirmation Course Effective Dates Status Health St atus Informant Right lumbar radiculitis Confirmed Active Failed back syndrome Confirmed Active Patient Care team information Care Team Personnel Name: Rochelle Waddell RN Position: [facility] Nurse Member Role: Primary Care Nurse Name: Ivan Simpson NP Position: Reference Physician Member Role: PCP Address: Address: [address] [place] [address]- Care Team Related Persons Name: CHRISTY NICHOLE Address: home [address] [place] [address]
--- OUTSIDE RECORDS SUMMARY | 2023-09-04 13:43 | XMS_ITS | Continuity of Care Document ---
Author Name Unknown Organization [facility] Address [address] [place] [address]- Care Team Providers Care Pediatric Occupational Therapist Name Role Phone Tatiana SEAY, Ivan Olsen Primary Care Physician Encounter [facility] [place] Date(s): 03/24/23 - 04/23/23 [facility] [address] [place] [address]- Allergies, Adverse Reactions, Alerts Substance Reaction Severity [...] opioid drug. Start Date: 08/06/22 Status: Ordered nortriptyline 10 mg oral capsule 10 mg, 1, capsule, By Mouth, Daily, Refills 0, Maintenance, 01/16/23 8:47:00 EDT, Partial fill uponpatient request if the prescription is for a schedule II opioid drug. Start Date: 01/16/23 Status: Ordered RIBOFLAVIN 400MG TABLETS RIBOFLAVIN 400MG TABLETS, 0 Refills, Maintenance, 08/06/22 9:07:00 EST Start Date: 08/06/22 Status: Ordered Problem List Condition Confirmation Course Effective Dates Status Health St atus Informant Right lumbar radiculitis Confirmed Active Failed back syndrome Confirmed Active Patient Care team information Care Team Personnel Name: Rochelle Waddell RN Position: [facility] Nurse Member Role: Primary Care Nurse Name: Ivan Simpson NP Position: Reference Physician Member Role: PCP Address: Address: [address] [place] [address]- Care Team Related Persons Name: CHRISTY NICHOLE Address: home [address] [place] [address]
--- OUTSIDE RECORDS SUMMARY | 2023-09-04 13:43 | XMS_ITS | Continuity of Care Document ---
Author Name Unknown Organization [facility] Address [address] [place] [address]- Care Team Providers Care Software Test Specialist Name Role Phone Tatiana SEAY, Ivan Olsen Primary Care Physician Encounter [facility] [place] Date(s): 06/02/23 - 07/02/23 [facility] [address] [place] [address]- Attending Physician: Sonia England Admitting Physician: AdmSonia méndez Referring Physician: Admtr, Ar8 Allergies, Adverse Reactions, Alerts Substance Reaction Severity [...] Confirmation Course Effective Dates Status Health St at Informant Right lumbar radiculitis Confirmed Active Failed back syndrome Confirmed Active Patient Care team information Care Team Personnel Name: Rochelle Waddell RN Position: [facility] Nurse Member Role: Primary Care Nurse Name: Ivan Simpson NP Position: Reference Physician Member Role: PCP Address: Address: [address] [place] [address]- Care Team Related Persons Name: CHRISTY NICHOLE Address: home [address] [place] [address]
--- OUTSIDE RECORDS SUMMARY | 2023-09-04 13:43 | XMS_ITS | Continuity of Care Document ---
Author Name Unknown Organization [facility] Address [address] [place] [address]- Care Team Providers Care Operations Inspector Name Role Phone Tatiana SEAY, Ivan Olsen Primary Care Physician [place] [facility] [place]23 - 08/02/23 [facility] [address] [place] [phone]- Allergies, Adverse Reactions, Alerts Substance Reaction Severity [...] Team Personnel Name: Rochelle Waddell RN Position: [facility] Nurse Member Role: Primary Care Nurse Name: Ivan Simpson NP Position: Reference Physician Member Role: PCP Address: Address: [address] [place] [address]- Care Team Related Persons Name: CHRISTY NICHOLE Address: home [address] [place] [address]
--- OUTSIDE RECORDS SUMMARY | 2023-09-04 13:43 | XMS_ITS | Continuity of Care Document ---
Author Name Unknown Organization [facility] Address [address] [place] [address]- Care Team Providers Care Airplane Fueler Name Role Phone Tatiana SEAY, Ivan Olsen Primary Care Physician Encounter [facility] [place] [place] Date(s): 03/27/23 - 04/26/23 [facility] [address] [place] [address]- Allergies, Adverse Reactions, Alerts Substance Reaction Severity [...] Reference Physician Member Role: PCP Address: Address: [address] [place] [address]- Care Team Related Persons Name: CHRISTY NICHOLE Address: home [address] [place] [address]
--- OUTSIDE RECORDS SUMMARY | 2023-09-04 13:43 | XMS_ITS | Continuity of Care Document ---
Author Name Unknown Organization [facility] Address [address] [place] [address]- Care Team Providers Care Automotive Generator Repairer Name Role Phone Tatiana SEAY, Ivan Olsen Primary Care Physician Encounter [facility] [place] Date(s): 06/09/23 - 07/09/23 [facility] [address] [place] [phone]- Allergies, Adverse Reactions, Alerts Substance Reaction Severity [...] Team Personnel Name: Rochelle Waddell RN Position: [facility] Nurse Member Role: Primary Care Nurse Name: Ivan Simpson NP Position: Reference Physician Member Role: PCP Address: Address: [address] [place] [address]- Care Team Related Persons Name: CHRISTY NICHOLE Address: home [address] [place] [address]
--- OUTSIDE RECORDS SUMMARY | 2023-09-04 13:43 | XMS_ITS | Continuity of Care Document ---
Author Name Unknown Organization [facility] Address [address] [place] [address]- Care Team Providers Care Orthoptist Name Role Phone Tatiana SEAY, Ivan Olsen Primary Care Physician [phone] Encounter [facility] [place] Date(s): 06/03/23 - 07/03/23 [facility] [address] [place] [phone]- Allergies, Adverse Reactions, Alerts Substance Reaction Severity [...] Team Personnel Name: Rochelle Waddell RN Position: [facility] Nurse Member Role: Primary Care Nurse Name: Ivan Simpson NP Position: Reference Physician Member Role: PCP Address: Address: [address] [place] [address]- Care Team Related Persons Name: CHRISTY NICHOLE Address: home [address] [place] [address]
[2023-09-04 13:45] LABS: Basophils Absolute Auto 0.1 X10*3/uL (0.0-0.2); Basophils Percent Auto 0.7 % (0-2); Eosinophils Absolute Auto 0.1 X10*3/uL (0.0-0.4); Eosinophils Percent Auto 0.5 % (0-4); Hematocrit 49.3 % (42.0-52.0); Hemoglobin 16.3 g/dl (14.0-18.0); Imm Gran Abs Auto 0.04 X10*3/uL (0.00-0.03); Imm Gran Pct Auto 0.4 % (0.0-0.4); Lymphocytes Absolute Auto 1.9 X10*3/uL (1.2-4.9); Lymphocytes Percent Auto 16.4 % (20-40); Mean Corpuscular HGB Conc 33.1 g/dl (31.0-36.0); Mean Corpuscular Hemoglobin 31.1 pg (27.0-33.0); Mean Corpuscular Volume 94.1 fL (80.0-98.0); Mean Platelet Volume 9.5 fL (9.4-12.4); Monocytes Percent Auto 8.5 % (2-11); Neutrophils Absolute Auto 8.4 x10*3/uL (2.0-8.3); Neutrophils Percent Auto 73.5 % (45-73); Platelet Count 183 X10*3/uL (160-400); Red Blood Count 5.24 X10*6/uL (4.60-5.80); Red Cell Distribution Width 13.3 % (11.0-16.0); White Blood Count 11.4 X10*3/uL (4.8-10.8)
[2023-09-04 13:48] LABS: Appearance Urine Clear; Color Urine Yellow; Glucose Urine UA Negative (Negative); Leukocyte Esterase Urine Negative (Negative); Nitrite Urine Negative (Negative); UMIC TRIGGER UACC YES; Urine Blood Small (1+) (Negative); Urine Ketones 15 mg/dL (Negative); Urine Protein Negative (Neg-Trace)
[2023-09-04 13:51] LABS: Bacteria Urine None Seen (None Seen); Hyaline Casts Urine 0-2 /LPF (0-2); Squamous Epithelial Cell Urine 0-2 /HPF (0-2); WBC Urine 0-5 /HPF (0-5)
[2023-09-04 14:07] LABS: Alanine Aminotransferase 17 U/L (0-40); Albumin Level 4.3 g/dL (3.5-5.0); Alkaline Phosphatase 74 U/L (39-117); Anion Gap 14 (12-20); Aspartate Amino Transferase 21 U/L (5-37); Bilirubin Total 1.2 mg/dL (0.0-1.0); Blood Urea Nitrogen 14 mg/dL (9-16); Calcium 9.7 mg/dL (8.4-10.2); Carbon Dioxide 28 mmol/L (22-29); Chloride 102 mmol/L (96-108); Creatinine Clr Calc Pharmacy 83.6; Estimated Glomerular Filt Rate > 60; Glucose Random 87 mg/dL (60-115); Potassium 4.3 mmol/L (3.3-5.1); Sodium 140 mmol/L (135-145); Total Protein 7.7 g/dL (6.5-8.0)
--- NOTE | 2023-09-04 16:42 | ECG_ITS ---
Test Reason : ABDOMINAL PAIN Blood Pressure : / mmHG Vent. Rate : 096 BPM Atrial Rate : 096 BPM P-R Int : 182 ms QRS Dur : 118 ms QT Int : 388 ms P-R-T Axes : 037 -48 014 degrees QTc Int : 490 ms Sinus rhythm with occasional Premature ventricular complexes Possible Left atrial enlargement Left anterior fascicular block Left ventricular hypertrophy with QRS widening ( Elmo product ) Prolonged QT Abnormal ECG When compared with ECG of 02-JAN-2022 21:47, Premature ventricular complexes are now Present Referred By: Toni Boudreaux Electronically Signed By:CLAUDIA SKINNER
--- NOTE | 2023-09-04 16:43 | ED.GENADULT ---
HPI - General Adult General Chief complaint: Abdominal Pain Stated complaint: abd pain Time Seen by Provider: 09/04/23 16:36 Related Data Home Medications Medication Instructions Recorded Confirmed multivitamin 1 tab PO DAILY 11/12/21 09/04/23 fluticasone propionate 50 1 spray intranasal DAILY 08/04/22 09/04/23 mcg/actuation nasal spray,suspension (Children's Flonase Allergy Relief) ibuprofen 200 mg tablet (Advil) 200 mg PO Q6H PRN Pain 09/04/23 09/04/23 Allergies Allergy/AdvReac Type Severity Reaction Status Date / Time carbamazepine Allergy Intermediate Hives Verified 09/04/23 12:19 acetaminophen [From Percocet] Allergy Unknown upset Verified 09/04/23 12:19 stomach oxycodone [From Percocet] Allergy Unknown unknown Verified 09/04/23 12:19 PMFSH Past Medical History Medical History COPD (chronic obstructive pulmonary disease) Allergic rhinitis Right hip pain Surgical History H/O neck surgery H/O shoulder surgery Hx of shoulder surgery H/O colonoscopy History of back surgery H/O knee surgery S/P hernia surgery Family History Family History Father No problems noted. Mother No problems noted. Sister Cancer Social History Social History Housing: House Alcohol intake: current Alcohol intake frequency: does not drink Patient Tobacco Use Status: Former Tobacco user Years Smoked: quit 1968 Smoked in Last 30 Days: No e-Cigarette/Vaping Use: Never Used Second Hand Smoke Exposure: No Use of substances other than those prescribed or required for medical reasons: No Advance Directives: No Advance Directives Information Provided: No service: Yes Current occupational status: retired Cognitive needs: No Hearing needs: No Vision needs: No Physical Exam ED Vital Signs: Vital Signs - 24 hr 09/04/23 12:19 09/04/23 19:30 Temperature 98.1 F Pulse Rate 107 H 92 Respiratory Rate 16 16 Blood Pressure 118/74 Pulse Oximetry 98 96 Oxygen Delivery Method Room Air Room Air BMI result Body Mass Index 29.4 Course Reevaluation(s) Reevaluation #1: Patient CT scan is consistent with acute uncomplicated diverticulitis. IMPRESSION: Findings consistent with focal diverticulitis in the distal descending colon. No obstructive changes or pericolonic abscess. Chronic appearing and postoperative changes otherwise as described. Patient receiving now on a Tylenol. Will add morphine and start him on IV antibiotics. Time: 17:58 Medications Administered Discontinued Medications Generic Name Dose Route Start Last Admin Trade Name Freq PRN Reason Stop Dose Admin Acetaminophen 1,000 mg in 100 mls @ 400 mls/hr 09/04/23 16:42 09/04/23 19:48 Ofirmev IV 09/04/23 16:56 Infused ONCE ONE Infusion Sodium Chloride 500 mls @ 999 mls/hr 09/04/23 16:45 09/04/23 19:48 Ns IV 09/04/23 17:15 Infused .Q31M MANNIE Infusion Ceftriaxone Sodium 1 gm/ 50 mls @ 100 mls/hr 09/04/23 18:11 09/04/23 20:10 Sodium Chloride IV 09/04/23 18:40 Infused ONCE ONE Infusion Metronidazole 500 mg in 100 mls @ 100 mls/hr 09/04/23 18:11 09/04/23 19:48 Flagyl IV 09/04/23 19:10 Infused ONCE ONE Infusion Iohexol 85 ml 09/04/23 17:13 09/04/23 17:13 Iohexol 350 Mg/Ml 100 Ml Infus..Btl IV 09/04/23 17:14 85 ml ONCE ONE Administration Morphine Sulfate 2 mg 09/04/23 18:11 09/04/23 18:21 Morphine Sulfate 2 Mg/Ml Cartridge IVPUSH 09/04/23 18:12 2 mg ONCE ONE Administration Protocol Ondansetron HCl 4 mg 09/04/23 16:42 09/04/23 17:51 Ondansetron Hcl 4 Mg/2 Ml Vial IVPUSH 09/04/23 16:43 4 mg ONCE ONE Administration Medical Decision Making Medical Decision Making [facility] Narrative: 78 years old with past medical history of bowel perforation, appendix perforation, status post bowel resection, presents emergency room with left lower quadrant pain. Patient physical exam showed left lower quadrant guarding. Possible differential diagnosis include viral syndrome, diverticulitis, bowel perforation, SBO Admission/Observation Consideration of admission/observation: Escalation of care including admission/observation considered Lab Data MDM Lab Attestation statement: I reviewed the patient's lab results. 09/04/23 13:36 09/04/23 13:36 Labs: Lab Results 09/04/23 09/04/23 Range/Units 13:32 13:36 WBC 11.4 H (4.8-10.8) X10*3/uL RBC 5.24 (4.60-5.80) X10*6/uL Hgb 16.3 (14.0-18.0) g/dl Hct 49.3 (42.0-52.0) % MCV 94.1 (80.0-98.0) fL MCH 31.1 (27.0-33.0) pg MCHC 33.1 (31.0-36.0) g/dl RDW 13.3 (11.0-16.0) % Plt Count 183 (160-400) X10*3/uL MPV 9.5 (9.4-12.4) fL Immature Gran % (Auto) 0.4 (0.0-0.4) % Neut % (Auto) 73.5 H (45-73) % Lymph % (Auto) 16.4 L (20-40) % [place] % (Auto) 8.5 (2-11) % Eos % (Auto) 0.5 (0-4) % Baso % (Auto) 0.7 (0-2) % Lymph # (Auto) 1.9 (1.2-4.9) X10*3/uL [place] # (Auto) 1.0 (0.1-1.2) X10*3/uL Eos # (Auto) 0.1 (0.0-0.4) X10*3/uL Baso # (Auto) 0.1 (0.0-0.2) X10*3/uL Abs Immat Gran (auto) 0.04 H (0.00-0.03) X10*3/uL Absolute Neuts (auto) 8.4 H (2.0-8.3) x10*3/uL Absolute Nucleated RBC 0.000 (0.0-0.012) X10*3/uL Nucleated RBC % (auto) 0.0 (0.0-0.2) /100WBC Sodium 140 (135-145) mmol/L Potassium 4.3 (3.3-5.1) mmol/L Chloride 102 (96-108) mmol/L Carbon Dioxide 28 (22-29) mmol/L Anion Gap 14 (12-20) BUN 14 (9-16) mg/dL Creatinine 0.87 (0.5-1.4) mg/dL Estim Creat Clear Calc 83.6 Estimated GFR > 60 Random Glucose 87 (60-115) mg/dL Calcium 9.7 (8.4-10.2) mg/dL Total Bilirubin 1.2 H (0.0-1.0) mg/dL AST 21 (5-37) U/L ALT 17 (0-40) U/L Alkaline Phosphatase 74 (39-117) U/L Troponin I High Sens < 2.7 (<3.5-35.0) ng/L Total Protein 7.7 (6.5-8.0) g/dL Albumin 4.3 (3.5-5.0) g/dL Urine Color Yellow Urine Appearance Clear Urine pH 6.0 (5.0-9.0) Ur Specific [place] 1.020 (1.005-1.025) Urine Protein Negative (Neg-Trace) mg/dL Urine Glucose (UA) Negative (Negative) mg/dL Urine Ketones 15 (Negative) mg/dL Urine Blood Small (1+) H (Negative) Urine Nitrite Negative (Negative) Ur Leukocyte Esterase Negative (Negative) Urine RBC 6-10 H (0-2) /HPF Urine WBC 0-5 (0-5) /HPF Ur Squamous Epith Cells 0-2 (0-2) /HPF Urine Bacteria None Seen (None Seen) Hyaline Casts 0-2 (0-2) /LPF Independent Interpretation I performed an independent interpretation of an: EKG (Sinus rhythm with 2 PVCs) and CT Scan Discharge Plan Discharge Clinical Impression: Diverticulitis Patient Disposition: Admitted As Inpatient
[2023-09-04] MEDS: iohexoL 350 MG/ML 100 ML INFUS..BTL 85 ML IV (17:13)
[2023-09-04 17:30] LABS: Troponin-I High Sensitivity < 2.7 ng/L (<3.5-35.0)
[2023-09-04] MEDS: Acetaminophen 1,000 MG/100 ML PIGGYBACK 400 MG IV (17:30)
[2023-09-04] MEDS: ondansetron HCL 4 MG/2 ML VIAL IVPUSH (17:51)
[2023-09-04] MEDS: 0.9 % Sodium Chloride 500 ML 999 ML IV (17:52)
[2023-09-04] MEDS: Morphine Sulfate 2 MG/ML CARTRIDGE IVPUSH (18:21)
[2023-09-04] MEDS: cefTRIAXone sodium 1 GM in 0.9 % Sodium Chloride 50 ML IV (18:22)
[2023-09-04] MEDS: metroNIDAZOLE/NS 500 MG/100 ML PIGGYBACK 100 MG IV (18:22)
--- NOTE | 2023-09-04 18:40 | PC.NURSE ---
patient did receive his NS 500ml bag and also his Acetaminophen IV, I had pulled medication earlier and then did not give until approx 1 hour later, patient was in Ct and then this keno writer/runner was very busy with other patients.
[2023-09-04 19:30] VITALS: PULSE 92; RESP 16; O2SAT 96
--- NOTE | 2023-09-04 20:39 | PC.NURSE ---
Pt requesting food, discussed with MD, pt clear liquid diet only. guven ice chips and water.
--- NOTE | 2023-09-04 21:06 | PM.IMHP ---
History of Present Illness Date of Service: 09/04/23 Attending physician on admission: Jose Estrada Chief Complaint: LLQ abdominal pain x 1 day Patient is a 78 year old pleasant white male with PMH of COPD, nephrolithiasis, multiple lacunar infarcts, chronic low back pain, and s/p bowel resection following appendiceal rupture who presents to the emergency room from home complaining of moderately (7/10) intense pain in the lower abdominal region - mostly in the LLQ since this morning. Pain was of spontaneous onset with no readily identifiable exacerbating factors. He denies any associated nausea, vomiting, diarrhea, fevers or chills. Work up done in the emergency room included an abdominal CT scan that revealed presence of focal acute diverticulitis in the distal descending colon. She was started on IV Rocephin and Flagyl and admission requested for continued care. Review of Systems Review of Systems: Yes all other systems are reviewed and are negative FORMERLY [facility], [facility] Medical History COPD (chronic obstructive pulmonary disease) Allergic rhinitis Right hip pain Family History Father No problems noted. Mother No problems noted. Sister Cancer Surgical History H/O neck surgery H/O shoulder surgery Hx of shoulder surgery H/O colonoscopy History of back surgery H/O knee surgery S/P hernia surgery Social History Household Members: Spouse Housing: House Do you presently have visiting nurse or other home services: No Alcohol intake: current Alcohol intake frequency: does not drink Patient Tobacco Use Status: Former Tobacco user Years Smoked: quit 1968 Smoked in Last 30 Days: No e-Cigarette/Vaping Use: Never Used Second Hand Smoke Exposure: No Use of substances other than those prescribed or required for medical reasons: No Have you been hit, kicked, punched, or otherwise hurt by someone within the past year? If so, by whom?: No Do you feel safe in your current relationship?: Yes Is there a partner from a previous relationship who is making you feel unsafe now?: No Are you made to feel afraid or neglected: No Advance Directives: No Advance Directives Information Provided: No Do you have thoughts of harming others: None Do you have a plan to hurt others: No Plan Recently lost weight without trying: No How much weight loss: Not applicable Eating poorly because of decreased appetite: No Nutrition screen score: 0 Nutrition Risks: No Nutritional Risk Poor oral hygiene: No service: Yes Current occupational status: retired Cognitive needs: No Hearing needs: No Vision needs: No Meds Allergies Allergy/AdvReac Type Severity Reaction Status Date / Time carbamazepine Allergy Intermediate Hives Verified 09/04/23 12:19 acetaminophen [From Percocet] Allergy Unknown upset Verified 09/04/23 12:19 stomach oxycodone [From Percocet] Allergy Unknown unknown Verified 09/04/23 12:19 Home Medications Medication Instructions Recorded Confirmed Last Taken Type multivitamin 1 tab PO DAILY 11/12/21 09/04/23 Unknown History fluticasone propionate 50 1 spray intranasal DAILY 08/04/22 09/04/23 Unknown History mcg/actuation nasal spray,suspension (Children's Flonase Allergy Relief) ibuprofen 200 mg tablet (Advil) 200 mg PO Q6H PRN Pain 09/04/23 09/04/23 Unknown History Physical Exam Vital Signs and Narrative: Vital Signs: Last Vital Signs Temp 98.1 F 09/04/23 12:19 Pulse 92 09/04/23 19:30 Resp 16 09/04/23 19:30 BP 118/74 09/04/23 12:19 Pulse Ox 96 09/04/23 19:30 O2 Del Method Room Air 09/04/23 19:30 BMI result Body Mass Index 29.4 General: Well nourished elderly white male in bed. Awake, alert and oriented x 4. No apparent distress Eyes: No pallor or jaundice. PERRLA, EOMI HENT: Moist oral mucus membranes. No oropharyngeal lesions. Neck: Supple. No cervical adenopathy. No JVD Cardiovascular: Regular rate and rhythm. Normal heart sounds. No murmurs, rubs or gallops. No JVD. No peripheral edema. Respiratory: Normal respiratory effort with no accessory muscle use. CTAB. , CTA bilaterally Gastrointestinal: Abdomen is obese, soft, with mild tenderness in the LLQ. NABS. No hepatosplenomegaly SPENCER: Deferred Extremities: No edema. No calf tenderness. Good peripheral pulses Skin: Warm/Dry. No rashes. No mottling. Capillary refill is < 2 seconds Neurological: AAOx4. Intact speech & cognition. Normal gait & balance. CN II - XII grossly intact but not individually tested. No motor or sensory deficits Hematologic: No bleeding. No ecchymosis. No swollen or tender lymph nodes. Psychiatric: Cooperative. Appropriate mood and affect. Results Labs 09/04/23 13:36 09/04/23 13:36 Labs: Laboratory Results - last 24 hr 09/04/23 09/04/23 13:32 13:36 MCV 94.1 MCH 31.1 MCHC 33.1 RDW 13.3 Plt Count 183 MPV 9.5 Immature Gran % (Auto) 0.4 Neut % (Auto) 73.5 H Lymph % (Auto) 16.4 L [place] % (Auto) 8.5 Eos % (Auto) 0.5 Baso % (Auto) 0.7 Lymph # (Auto) 1.9 [place] # (Auto) 1.0 Eos # (Auto) 0.1 Baso # (Auto) 0.1 Abs Immat Gran (auto) 0.04 H Absolute Neuts (auto) 8.4 H Absolute Nucleated RBC 0.000 Nucleated RBC % (auto) 0.0 Anion Gap 14 Estim Creat Clear Calc 83.6 Estimated GFR > 60 Random Glucose 87 Calcium 9.7 Total Bilirubin 1.2 H AST 21 ALT 17 Alkaline Phosphatase 74 Total Protein 7.7 Albumin 4.3 Urine Color Yellow Urine Appearance Clear Urine pH 6.0 Ur Specific [place] 1.020 Urine Protein Negative Urine Glucose (UA) Negative Urine Ketones 15 Urine Blood Small (1+) H Urine Nitrite Negative Ur Leukocyte Esterase Negative Urine RBC 6-10 H Urine WBC 0-5 Ur Squamous Epith Cells 0-2 Urine Bacteria None Seen Hyaline Casts 0-2 ECG ECG interpretation date: 09/05/23 ECG interpretation time: 03:14 Prior ECG tracings: available for review Interpretation: NSR at 96 bpm. LAFB pattern. Normal CA-interval. Normal axis. No acute ischemic changes Imaging Radiologist's Impressions: Impressions Abdomen/Pelvis CT 09/04/23 17:14 Findings consistent with focal diverticulitis in the distal descending colon. No obstructive changes or pericolonic abscess. Chronic appearing and postoperative changes otherwise as described. Assessment and Plan (1) Diverticulitis: Status: Acute Plan 78 year old pleasant white male with PMH of COPD, nephrolithiasis, multiple lacunar infarcts, chronic low back pain here with 1. acute diverticulitis - patient is here with LLQ abdominal pain - noted with acute diverticulitis in the descending colon - started on IV Ceftriaxone and Flagyl which I will continue - will meanwhile resume the rest of his outpatient medications Total time managing care of this patient today: 65 minutes. Quality Stroke Does the patient have a stroke diagnosis?: No VTE Prior VTE?: No VTE Risk Level:: Medical - moderate - high VTE Device Contraindication: Treatment Not Indicated VTE Drug Contraindication: N/A - Med Ordered
--- NOTE | 2023-09-04 21:17 | PHA.MEDREC ---
Pharmacy Consult ? Medication Reconciliation Pharmacy has completed the medication reconciliation. Patient reported no medications. After discussion patient takes some OTC medicaitons. Patient stopped using creams. Patient report he using eye drops but does not know which ones. Cassidy Frausto, CarolinaD
--- NOTE | 2023-09-04 21:43 | PC.NURSE ---
confirmed with pt is on regular diet. Pt given, turkey sandwich and rekha-pro.
--- OUTSIDE RECORDS SUMMARY | 2023-09-04 21:54 | XMS_ITS | Patient Health Record ---
Author Name Unknown Organization [facility] Address [address], [place] [id number] Care Team Providers Care Petroleum Inspector Name Role Phone YI POTTER Unavailable [phone] PRIMITIVO ECHEVARRIA Unavailable [phone] Reason For Referral No Information Medications Medication SIG (Take, Route, Fr equency, Duration) Notes Start Date End Date Status Ondansetron 8 MG 1 tablet on the tong ue and allow to dissolve as needed Orally Once a day for 5 days 03/09/2023 Active Vital Signs Heart Rate 69 /min 03/09/2023 Temperature 100.2 degrees Fahrenheit 03/09/2023 Oximetry 95 % 03/09/2023 Blood pressure diastolic 82 mm Hg 03/09/2023 Height 70 in 03/09/2023 Blood pressure systolic 104 mm Hg 03/09/2023 Weight 215 lbs 03/09/2023 BMI 30.85 kg/m2 03/09/2023 Encounters Encounter Location Date Provider Diagnosis [address] [id number] 03/09/2023 PRIMITIVO ECHEVARRIA Nausea and vomiting, unspecified vomiting type R11.2 ; Diarrhea, unspecified type R19.7 ; Fever, unspecified fever cause R50.9 and Body aches R52 [address] [id number] 04/21/2023 YI POTTER Assessments Encounter Date Diagnosis (ICD Code) Assessment Notes Treat ment Notes Treatment Clinical Notes 03/09/2023 Diarrhea, unspecified type (ICD-10 - R19.7) 03/09/2023 Nausea and vomiting, unspecified vomiting type (ICD-10 - R11.2) 03/09/2023 Fever, unspecified fever cause (ICD-10 - R50.9) 03/09/2023 Body aches (ICD-10 - R52) Plan Of Treatment No Information Insurance Providers Payer Name Payer Address Payer Phone Subscriber Number Group Number Insured Name Patient Relationship to Insured Coverage Start Date Coverage End Date [place] [address] [place] [address] [id number] MIHIR NICHOLE Self - patient is the insured [facility] Federal Employee Plan [address] [place] [address] [id number] MIHIR NICHOLE Self - patient is the insured 6
[2023-09-04] MEDS: Enoxaparin Sodium 40 MG/0.4 ML SYRINGE SUBCUT (22:09)
[2023-09-04] MEDS: oxyCODONE HCl Immed Release 5 MG TABLET PO (22:09)
[2023-09-05] MEDS: 0.9 % Sodium Chloride Flush 3 ML SYRINGE IVFLUSH ×4 (01:17→23:56)
[2023-09-05 01:48] VITALS: BP 125/75; PULSE 81; RESP 16; TEMP 36.1; O2SAT 96
[2023-09-05 02:17] VITALS: BMI 28.5
[2023-09-05] MEDS: metroNIDAZOLE/NS 500 MG/100 ML PIGGYBACK 100 MG IV ×3 (02:37→18:39)
[2023-09-05 03:45] VITALS: RESP 16
--- NOTE | 2023-09-05 03:50 | PC.NURSE ---
Pt arrived from the ED at 0150 alert and oriented, abd is tender but tolerating, no nausea ,tolerated po fluids, pt c/o chronic robbie knee pain shooting from his lower back, relieved with repositioning, ambulates independently, advised to wear non skid socks when going to the BR.
[2023-09-05 05:35] LABS: MANUAL DIFF FLAG NO
[2023-09-05 05:42] LABS: Basophils Absolute Auto 0.1 X10*3/uL (0.0-0.2); Basophils Percent Auto 1.3 % (0-2); Eosinophils Absolute Auto 0.2 X10*3/uL (0.0-0.4); Eosinophils Percent Auto 3.3 % (0-4); Hematocrit 45.1 % (42.0-52.0); Hemoglobin 14.7 g/dl (14.0-18.0); Imm Gran Abs Auto 0.02 X10*3/uL (0.00-0.03); Imm Gran Pct Auto 0.3 % (0.0-0.4); Lymphocytes Absolute Auto 1.7 X10*3/uL (1.2-4.9); Mean Corpuscular HGB Conc 32.6 g/dl (31.0-36.0); Mean Corpuscular Hemoglobin 31.5 pg (27.0-33.0); Mean Corpuscular Volume 96.8 fL (80.0-98.0); Mean Platelet Volume 9.9 fL (9.4-12.4); Monocytes Absolute Auto 0.6 X10*3/uL (0.1-1.2); Monocytes Percent Auto 9.7 % (2-11); Neutrophils Absolute Auto 3.5 x10*3/uL (2.0-8.3); Neutrophils Percent Auto 57.4 % (45-73); Platelet Count 176 X10*3/uL (160-400); Red Blood Count 4.66 X10*6/uL (4.60-5.80); Red Cell Distribution Width 13.3 % (11.0-16.0); White Blood Count 6.1 X10*3/uL (4.8-10.8)
[2023-09-05 05:56] LABS: Anion Gap 10 (12-20); Blood Urea Nitrogen 18 mg/dL (9-16); Calcium 8.7 mg/dL (8.4-10.2); Carbon Dioxide 29 mmol/L (22-29); Chloride 105 mmol/L (96-108); Creatinine Clr Calc Pharmacy 83.4; Estimated Glomerular Filt Rate > 60; Glucose Random 82 mg/dL (60-115); Potassium 3.8 mmol/L (3.3-5.1); Sodium 140 mmol/L (135-145)
[2023-09-05 07:29] VITALS: BP 119/74; PULSE 74; RESP 16; TEMP 36.4; O2SAT 98
[2023-09-05] MEDS: Morphine Sulfate 4 MG/ML CARTRIDGE 2 MG IVPUSH (08:12)
--- NOTE | 2023-09-05 15:22 | MHC.CM.PN ---
PT REPORTS HE LIVES AT HOME WITH HIS AND IS INDEPENDENT WITH CARE HE HAS NO DME AND NO HOME SERVICES HE SAYS HE HAS A HCP NAMING HIS HIS AGENT PCP: LUCIANO DONOVAN IMM DELIVERED DCPl HOME NO SERVICES CAR IS IN LOT
[2023-09-05 15:23] VITALS: BP 105/60; PULSE 93; RESP 18; TEMP 36.2; O2SAT 96
--- NOTE | 2023-09-05 17:47 | HO.PM.IMPN ---
Subjective Subjective Date of Service: 09/05/23 Interval History: seen and examined this morning follow up for diverticulitis still having some left lower quadrant abdominal pain requesting to eat no fever or chills Review of Systems Review of Systems: Yes all other systems are reviewed and are negative Constitutional Constitutional: Denies chills and Denies fever(s) Cardiovascular Cardiovascular: Denies chest pain, Denies palpitations and Denies dyspnea Respiratory Respiratory: Denies cough and Denies dyspnea Endocrine Endocrine: Denies palpitations Physical Exam Vital Signs: Vital Signs: Last Vital Signs Temp 97.2 F 09/05/23 15:23 Pulse 93 09/05/23 15:23 Resp 18 09/05/23 15:23 BP 105/60 09/05/23 15:23 Pulse Ox 96 09/05/23 15:23 O2 Del Method Room Air 09/05/23 15:23 BMI result Body Mass Index 28.5 Const: General: cooperative, comfortable, no acute distress, alert and awake Nutritional Appearance: average body habitus Orientation/consciousness: patient oriented x3 Resp: Effort & Inspection: normal respiratory effort, able to speak in complete sentences, no respiratory distress and no use of accessory muscles Cardio: Rate: regular rate GI: Other: mild left lower quadrant pain ; no guarding or rebound; +BS Neuro: General: patient oriented x3, moves all extremities and CN's II-XI intact bilaterally Extrem: General: Yes no pedal edema Objective Data Active Medications Acetaminophen (Acetaminophen 325 Mg Tablet) 650 mg PO Q6H PRN PRN Reason: Pain, Mild (Pain Scale 1-3) Docusate Sodium (Docusate Sodium 100 Mg Capsule) 100 mg PO BID [facility] Last Admin: 09/05/23 08:16 Dose: Not Given Documented By: RELL Non-Admin Reason: Patient Refused Enoxaparin Sodium (Enoxaparin Sodium 40 Mg/0.4 Ml Syringe) 40 mg SUBCUT Q24H [facility] Last Admin: 09/04/23 22:09 Dose: 40 mg Documented By: SHLOMO Ceftriaxone Sodium 1 gm/ (Sodium Chloride) 50 mls @ 100 mls/hr IV Q24H [facility] Metronidazole (Flagyl) 500 mg in 100 mls @ 100 mls/hr IV Q8H [facility] Last Infusion: 09/05/23 12:34 Dose: Infused Documented By: RELL Melatonin (Melatonin 3 Mg Tablet) 6 mg PO BEDTIME PRN PRN Reason: Insomnia Morphine Sulfate (Morphine Sulfate 4 Mg/Ml Cartridge) 2 mg IVPUSH Q4H PRN; Protocol PRN Reason: Pain, Severe (Pain Scale 7-10) Last Admin: 09/05/23 08:12 Dose: 2 mg Documented By: RELL Ondansetron HCl (Ondansetron Hcl 4 Mg/2 Ml Vial) 4 mg IVPUSH Q8H PRN PRN Reason: Nausea and Vomiting Oxycodone HCl (Oxycodone Hcl Immed Release 5 Mg Tablet) 5 mg PO Q6H PRN PRN Reason: Pain, Moderate(Pain Scale 4-6) Last Admin: 09/04/23 22:09 Dose: 5 mg Documented By: SHLOMO Sodium Chloride (0.9 % Sodium Chloride Flush 3 Ml Syringe) [facility] Last Admin: 09/05/23 08:15 Dose: 3 ml Documented By: RELL Labs 09/05/23 05:31 09/05/23 05:31 Labs: Laboratory Results - last 24 hr 09/05/23 05:31 MCV 96.8 MCH 31.5 MCHC 32.6 RDW 13.3 Plt Count 176 MPV 9.9 Immature Gran % (Auto) 0.3 Neut % (Auto) 57.4 Lymph % (Auto) 28.0 [place] % (Auto) 9.7 Eos % (Auto) 3.3 Baso % (Auto) 1.3 Lymph # (Auto) 1.7 [place] # (Auto) 0.6 Eos # (Auto) 0.2 Baso # (Auto) 0.1 Abs Immat Gran (auto) 0.02 Absolute Neuts (auto) 3.5 Absolute Nucleated RBC 0.000 Nucleated RBC % (auto) 0.0 Anion Gap 10 L Estim Creat Clear Calc 83.4 Estimated GFR > 60 Random Glucose 82 Calcium 8.7 D Assessment and Plan (1) Diverticulitis: Status: Acute Plan 78 year old pleasant white male with PMH of COPD, nephrolithiasis, multiple lacunar infarcts, chronic low back pain here with acute uncomplicated diverticulitis no sepsis, leukocytosis resolved continue IV Ceftriaxone and Flagyl advance diet as tolerated symptomatic support for pain outpatient follow up with PCP - consider colonoscopy dvt ppx - lovenox code status - full code attending - dr. Lee Patient needs ongoing inpatient stay for management of acute diverticulitis requiring IV pain control and IV antibiotics Quality Stroke Does the patient have a stroke diagnosis?: No VTE Prior VTE?: No VTE Risk Level:: Medical - moderate - high VTE Device Contraindication: Treatment Not Indicated VTE Drug Contraindication: N/A - Med Ordered
[2023-09-05] MEDS: cefTRIAXone sodium 1 GM in 0.9 % Sodium Chloride 50 ML IV (18:05)
[2023-09-05 19:30] VITALS: BP 106/58; PULSE 82; RESP 16; TEMP 36.8; O2SAT 94
[2023-09-05] MEDS: Enoxaparin Sodium 40 MG/0.4 ML SYRINGE SUBCUT (20:09)
[2023-09-05] MEDS: Docusate Sodium 100 MG CAPSULE PO (20:09)
[2023-09-05] MEDS: oxyCODONE HCl Immed Release 5 MG TABLET PO (20:51)
--- NOTE | 2023-09-05 20:52 | PC.NURSE ---
pt states he is not allergic to Roxicodone
[2023-09-06] MEDS: metroNIDAZOLE/NS 500 MG/100 ML PIGGYBACK 100 MG IV ×2 (02:23→09:54)
[2023-09-06 03:35] VITALS: BP 116/57; PULSE 91; RESP 16; TEMP 36.6; O2SAT 96
[2023-09-06 07:25] VITALS: BP 115/50; PULSE 90; RESP 18; TEMP 36.5; O2SAT 97
[2023-09-06] MEDS: Docusate Sodium 100 MG CAPSULE PO (09:54)
[2023-09-06] MEDS: 0.9 % Sodium Chloride Flush 3 ML SYRINGE IVFLUSH (09:55)
[2023-09-06] MEDS: bisacodyL 5 MG TABLET.DR PO (11:07)
--- NOTE | 2023-09-06 11:28 | MHC.CM.PN ---
PT TO DC HOME TODAY VIA SELF-TRANSPORT NO SERVICES INDICATED
--- NOTE | 2023-09-06 11:28 | PM.DS ---
DS: Providers Provider Date of Service: 09/06/23 Date of admission: 09/04/23 21:02 Date of discharge: 09/06/23 [facility] Attending physician on discharge: Elijah Lee Discharging clinician: Cherelle Stevens DS: Diagnosis Discharge Diagnosis (1) Diverticulitis: Status: Acute DS: Summary Hospital Course Hospital Course: From H&P on the day of admission Patient is a 78 year old pleasant white male with PMH of COPD, nephrolithiasis, multiple lacunar infarcts, chronic low back pain, and s/p bowel resection following appendiceal rupture who presents to the emergency room from home complaining of moderately (7/10) intense pain in the lower abdominal region - mostly in the LLQ since this morning. Pain was of spontaneous onset with no readily identifiable exacerbating factors. He denies any associated nausea, vomiting, diarrhea, fevers or chills. Work up done in the emergency room included an abdominal CT scan that revealed presence of focal acute diverticulitis in the distal descending colon. She was started on IV Rocephin and Flagyl and admission requested for continued care. acute uncomplicated diverticulitis. no sepsis, leukocytosis resolved. Treated with IV Ceftriaxone and Flagyl. abdominal pain improved, his diet was advanced and he is tolerating a regular diet. He denies previous episodes of diverticulitis. He hasn't had a bowel movement yet today, he was offered stool softener but prefers to return home and take his home stool softener. Encouraged increased fiber intake. Recommend outpatient follow up with PCP - consider colonoscopy Time Attestation Discharge coordination time: Greater than 30 minutes Quality: Safe Use of Opioids Does Pt have an Active Cancer Diagnosis on the Problem List?: No Quality: Stroke Does the patient have a stroke diagnosis?: No Physical Exam Vital Signs: Vital Signs: Last Vital Signs Temp 97.7 F 09/06/23 07:25 Pulse 90 09/06/23 07:25 Resp 18 09/06/23 07:25 BP 115/50 L 09/06/23 07:25 Pulse Ox 97 09/06/23 07:25 O2 Del Method Room Air 09/06/23 07:25 BMI result Body Mass Index 28.5 Const: General: cooperative, comfortable, no acute distress, alert and awake Nutritional Appearance: average body habitus Orientation/consciousness: patient oriented x3 Resp: Effort & Inspection: normal respiratory effort, able to speak in complete sentences, no respiratory distress and no use of accessory muscles Cardio: Rate: regular rate GI: Other: abdomen soft, nontender, non-distended, no guarding or rebound Neuro: General: patient oriented x3, moves all extremities and CN's II-XI intact bilaterally Extrem: General: Yes no pedal edema Discharge Plan Discharge Anticipated Discharge Date/Time: 09/06/23 10:58 Patient Disposition: Home, Self-Care Discharge Diagnosis: acute uncomplicated diverticulitis Referrals: Ivan Simpson, POOL COORDINATOR-BC [Primary Care Provider] - 1 Week Discharge Medications: New amoxicillin-pot clavulanate 875-125 mg tablet 1 tab PO Q12H 6 Days Qty: 12 0RF Continued ibuprofen [Advil] 200 mg Tablet 200 mg PO Q6H PRN (Reason: Pain) multivitamin Tablet 1 tab PO DAILY fluticasone propionate [Children's Flonase Allergy Rlf] 50 mcg/actuation spray,suspension 1 spray intranasal DAILY Rx Instructions: administer into each nostril Discharge Orders: Discharge Order (Routine); Ordered 09/06/23 Ordered By: Cherelle Stevens Activity on Discharge: As tolerated Stand Alone Forms: Patient Portal Discharge page Care Plan Goals: see below Health Concerns: acute uncomplicated diverticulitis Plan of Treatment: complete course of antibiotics recommend high fiber diet call to follow up with PCP - consider outpatient colonoscopy Assessment: see discharge summary
[2023-09-06] MEDS: Amoxicillin/Potassium Clav 875 MG TABLET PO (12:48)
== END 2023-09-06 13:12 | disposition home or self-care (01) | DRG 392 ==
LOC: HO.ED 21:33 → HO.EDOVER 21:52 → HO.S3 23:20
PROVIDERS: Registered Nurse Emergency; Admitting Provider Internal Medicine; Emergency Provider Student in an Organized Health Care Education/Training Program; PCP Nurse Practitioner Family; Visit Provider Physician Assistant Medical
DX: K57.32 Diverticulitis of large intestine without perforation or abscess without bleeding (principal); M54.59 Other low back pain; G89.29 Other chronic pain; Z86.73 Personal history of transient ischemic attack (TIA), and cerebral infarction without residual deficits; Z87.891 Personal history of nicotine dependence; Z79.51 Long term (current) use of inhaled steroids; Z79.899 Other long term (current) drug therapy
CPT/HCPCS: 36415; 74177; 80048; 80053; 81001; 84484; 85025; 93005; 99285; J0131; J0696; J1650; J1836; J2270; J2405; Q9967

== ENCOUNTER → 2023-09-04 16:42 | Outpatient (BNV) | payer MEDICARE, BC, SELFPAY | PROVIDERS: Admitting Provider Internal Medicine; Emergency Provider Student in an Organized Health Care Education/Training Program; PCP Nurse Practitioner Family; Visit Provider Internal Medicine | DX: I49.3 Ventricular premature depolarization (principal); I44.4 Left anterior fascicular block | CPT/HCPCS: 93010 ==

== ENCOUNTER → 2023-09-04 21:02 | Outpatient (BNV) | payer MEDICARE, BC, SELFPAY | PROVIDERS: Admitting Provider Internal Medicine; Emergency Provider Student in an Organized Health Care Education/Training Program; PCP Nurse Practitioner Family; Visit Provider Internal Medicine | DX: K57.92 Diverticulitis of intestine, part unspecified, without perforation or abscess without bleeding (principal) | CPT/HCPCS: 99223; 99232; 99239 ==

== ENCOUNTER 2023-10-15 12:10 | Outpatient (AMB) | payer MEDICARE, BC, SELFPAY ==
--- NOTE | 2023-10-15 12:13 | AM.OFFWIN_ITS ---
Intake Vital Signs 10/15/23 12:15 Height 6 ft Weight 212 lb BMI 28.7 BP 118/70 Blood Pressure Location Lt brachial Position Sitting Pulse 112 H Pulse Source Pulse Oximeter Temp 99.0 F Temp Source Temporal Artery Scan Pulse Oximetry (%) 98 Oxygen Delivery Method Room Air Intake Visit Reasons: EST/headache and body aches/ covid +(lobby masked) Intake Note: pt is here today for headache and body aches started yesterday Patient Tobacco Use Status: Former Tobacco user Allergies carbamazepine Allergy (Intermediate, Verified 10/15/23 12:14) Hives acetaminophen [From Percocet] Allergy (Unknown, Verified 10/15/23 12:14) upset stomach oxycodone [From Percocet] Allergy (Unknown, Verified 10/15/23 12:14) unknown Do you need a note to return to daycare/school/sports/work: No HPI HPI Comments History of Present Illness Details 78 male patient presents to walk in [facility] with c/o headaches and body aches. Positive Home COVID test today. Denies SOB, chills, fevers or wheezing. PFSH Medical History COPD (chronic obstructive pulmonary disease) Allergic rhinitis Right hip pain Surgical History H/O neck surgery H/O shoulder surgery Hx of shoulder surgery H/O colonoscopy History of back surgery H/O knee surgery S/P hernia surgery Family History Father No problems noted. Mother No problems noted. Sister Cancer Social History Household Members: Spouse Housing: House Do you presently have visiting nurse or other home services: No Alcohol intake: current Alcohol intake frequency: does not drink Patient Tobacco Use Status: Former Tobacco user Years Smoked: quit 1968 e-Cigarette/Vaping Use: Never Used Second Hand Smoke Exposure: No service: Yes Current occupational status: retired Cognitive needs: No Hearing needs: No Vision needs: No Review of Systems Const All systems reviewed & are unremarkable except as noted in HPI and below Physical Exam Vital Signs: Last Vital Signs Temp 99.0 F 10/15/23 12:15 Pulse 112 H 10/15/23 12:15 BP 118/70 10/15/23 12:15 Pulse Ox 98 10/15/23 12:15 Oxygen Delivery Method Room Air 10/15/23 12:15 BMI result Body Mass Index 28.7 Const Other: Appears weak, and in pain General: no acute distress and tired appearing HEENT Head: Yes normocephalic Ears: external ears normal and TM's normal bilaterally General nose exam: Normal nasal mucous membranes and turbinates present Face and sinus: Yes sinuses nontender Mouth: Normal oral and palatal mucosa present and moist mucous membranes Resp Effort & Inspection: normal respiratory effort Auscultation: clear to auscultation bilaterally Cardio Rate: regular rate Rhythm: regular rhythm Assessment & Plan Assessment & Plan (1) COVID-19: Code(s): U07.1 - COVID-19 Plan: - Rest -Warm fluids - Follow COVID 19 prec -Advil for pain relief Medications: New nirmatrelvir-ritonavir 300 mg (150 mg x 2)-100 mg (Paxlovid) take TWO 150 mg tablets of nirmatrelvir with ONE 100 mg tablet of ritonavir twice daily for 5 days PO 5 days 30 ea 0RF Coding Level of Care Code Est Pt Level 3 (98500) Diagnoses COVID-19 U07.1 Time Spent (min) 15
[2023-10-15 12:15] VITALS: BP 118/70; PULSE 112; TEMP 37.2; O2SAT 98; BMI 28.7
== END 2023-10-15 13:26 | disposition home or self-care (01) ==
PROVIDERS: PCP Nurse Practitioner Family; Visit Provider Nurse Practitioner Family
DX: U07.1 COVID-19 (principal)
CPT/HCPCS: 99213

== ENCOUNTER 2024-01-08 08:13 | Outpatient (AMB) | payer MEDICARE, BC, SELFPAY ==
[2024-01-08 08:18] VITALS: BP 124/76; PULSE 110; TEMP 36.6; O2SAT 98; BMI 28.6
--- NOTE | 2024-01-08 08:18 | AM.OFFWIN_ITS ---
Intake Vital Signs 01/08/24 08:18 Height 6 ft Weight 211 lb 4 oz BMI 28.6 BP 124/76 Blood Pressure Location Lt brachial Position Sitting Pulse 110 H Pulse Source Pulse Oximeter Temp 98 F Temp Source Oral Pulse Oximetry (%) 98 Oxygen Delivery Method Room Air Intake Visit Reasons: EP ?Allergies Intake Note: Pt presents to the office today for c/o allergies that started a few days ago. He states he has had this before. He states he has sinus pressure, cough, and a headache. He states he has had this before and it was due to his allergies. Patient Tobacco Use Status: Former Tobacco user Allergies carbamazepine Allergy (Intermediate, Verified 01/08/24 08:21) Hives acetaminophen [From Percocet] Allergy (Unknown, Verified 01/08/24 08:21) upset stomach oxycodone [From Percocet] Allergy (Unknown, Verified 01/08/24 08:21) unknown HPI HPI Comments History of Present Illness Details 78 y/o male patient presents to [facility] with c/o chronic Rhinitis symptoms. Reports seeing multiple specialists since 2014, no one could help him. Pt frustrated that doctors seemed not to be able to find out the cause of his allergies. He is currently using Flonase nasal spray and Zantac with minimal relief. [facility] Medical History COPD (chronic obstructive pulmonary disease) Allergic rhinitis Right hip pain Surgical History H/O neck surgery H/O shoulder surgery Hx of shoulder surgery H/O colonoscopy History of back surgery H/O knee surgery S/P hernia surgery Family History Father No problems noted. Mother No problems noted. Sister Cancer Social History Household Members: Spouse Housing: House Do you presently have visiting nurse or other home services: No Alcohol intake: current Alcohol intake frequency: does not drink Patient Tobacco Use Status: Former Tobacco user Years Smoked: quit 1968 e-Cigarette/Vaping Use: Never Used Second Hand Smoke Exposure: No service: Yes Current occupational status: retired Cognitive needs: No Hearing needs: No Vision needs: No Review of Systems Const All systems reviewed & are unremarkable except as noted in HPI and below Physical Exam Vital Signs: Last Vital Signs Temp 98 F 01/08/24 08:18 Pulse 110 H 01/08/24 08:18 BP 124/76 01/08/24 08:18 Pulse Ox 98 01/08/24 08:18 Oxygen Delivery Method Room Air 01/08/24 08:18 BMI result Body Mass Index 28.6 Const General: no acute distress Orientation/consciousness: patient oriented x3 HEENT Head: Yes normocephalic Ears: external ears normal General nose exam: Normal external nose present, No nasal discharge present and Abnormal mucous membranes and turbinates present pale Face and sinus: Yes sinuses nontender and Yes dry mucous membranes Neuro General: patient oriented x3, gait normal and moves all extremities Psych Speech and movement: Normal speech and movement present Assessment & Plan Assessment & Plan (1) Allergic rhinitis: Code(s): J30.9 - Allergic rhinitis, unspecified Qualifiers: Allergic rhinitis trigger: unspecified Allergic rhinitis seasonality: seasonal Qualified Code(s): J30.2 - Other seasonal allergic rhinitis Plan: - Advised Pt to call ENT and try to schedule a f/u appointment with them. - Prescribed Prednisone Oral, since this has helped him in the past. Warned him against Chronic use of Steroids. - Sent Rx for Kaitlin Medications: New prednisone 20 mg PO DAILY 10 days 10 tabs 0RF J30.2 - Other seasonal allergic rhinitis fexofenadine-pseudoephedrine 60-120 mg ER (Kaitlin-D 12 Hour) 1 tab PO Q12H PRN 30 tabs 0RF allergy symptoms J30.2 - Other seasonal allergic rhinitis Coding Level of Care Code Est Pt Level 3 (45322) Diagnoses Seasonal allergic rhinitis, unspecified trigger J30.2 Allergic rhinitis trigger: unspecified Allergic rhinitis seasonality: seasonal Time Spent (min) 15
== END 2024-01-08 09:03 | disposition home or self-care (01) ==
PROVIDERS: PCP Nurse Practitioner Family; Visit Provider Nurse Practitioner Family
DX: J30.2 Other seasonal allergic rhinitis (principal)
CPT/HCPCS: 99213

== ENCOUNTER 2024-01-27 10:15 | Outpatient (AMB) | payer MEDICARE, BC, SELFPAY ==
--- NOTE | 2024-01-27 10:17 | MHC.PC.OV ---
Vital Signs 01/27/24 10:59 Height 6 ft Weight 211 lb BMI 28.6 BP 110/72 Blood Pressure Location Rt brachial Position Sitting Pulse 105 H Pulse Source Pulse Oximeter Pulse Oximetry (%) 98 Oxygen Delivery Method Room Air Intake Visit Reasons: office visit Intake Note: Patient here discuss allergies coughing up liquid, unable to sleep and has gone to several places with no answers. Allergies carbamazepine Allergy (Intermediate, Verified 01/27/24 11:09) Hives acetaminophen [From Percocet] Allergy (Unknown, Verified 01/27/24 11:09) upset stomach oxycodone [From Percocet] Allergy (Unknown, Verified 01/27/24 11:09) unknown Medication List - Last Reconciled 01/27/24 by RAFA Riddle duloxetine 30 mg PO DAILY fluticasone propionate 50 mcg/actuation (Flonase Allergy Relief) 1 spray intranasal DAILY ibuprofen (Advil) 200 mg PO Q6H PRN multivitamin 1 tab PO DAILY prednisone 10 mg orally; 5 tabs for 3 days, 4 tabs for 3 days, 3 tabs for 3 days, 2 tabs for 3 days, 1 tab for 3 days, .5 tab for 3 days 18 days Tobacco use date assessed: 01/27/24 Fall risk assessment: No Falls in past year Last assessed Fall Risk: 01/27/24 Dental Screening Dental Screen Date: 03/16/23 HPI office visit HPI Details Pt reports ongoing cough with exsessive amts of sputum. He reports that the cough is worse when laying down. He does have a hx of COPD. Pt just started cetirizine 20mg BID. Will send singulair. Pt has never been on inhalers and does not believe he needs to. Denies fever, chills, chest pain, and shortness of breath. Due for PSA, will order. Denies dribbling with urination, weak stream, and frequent nocturia. [facility] Medical History COPD (chronic obstructive pulmonary disease) Allergic rhinitis Right hip pain Surgical History H/O neck surgery H/O shoulder surgery Hx of shoulder surgery H/O colonoscopy History of back surgery H/O knee surgery S/P hernia surgery Family History Father No problems noted. Mother No problems noted. Sister Cancer Social History Household Members: Spouse Housing: House Do you presently have visiting nurse or other home services: No Alcohol intake: current Alcohol intake frequency: does not drink Patient Tobacco Use Status: Former Tobacco user Years Smoked: quit 1968 e-Cigarette/Vaping Use: Never Used Second Hand Smoke Exposure: No service: Yes Current occupational status: retired Cognitive needs: No Hearing needs: No Vision needs: No Questionnaire PHQ-9 Over the last 2 weeks, how often have you been bothered by any of the following problems? 40750 - PHQ-9 Billing: Patient declined-do not bill Source: Developed by Drs. Joce Gonzalez, Don Lopez and colleagues, with an educational portillo from [employer]. Thrive Questionnaire Date Thrive assessed: 09/05/23 CANDACE-7 AMB Questionnaire CANDACE-7 Date CANDACE - 7 assessed: 09/25/22 Source: Developed by Drs. Joce Gonzalez, Keyla Mcclelland, Don Ramirez and colleagues, with an educational portillo from [employer]. CANDACE-7 Assessment Billing CANDACE-7 Assessment Tool: pt declined-do not bill Review of Systems Const Reports as per HPI Physical exam (Primary Care) Vital Signs: Last Vital Signs Pulse 105 H 01/27/24 10:59 BP 110/72 01/27/24 10:59 Pulse Ox 98 01/27/24 10:59 Oxygen Delivery Method Room Air 01/27/24 10:59 BMI result Body Mass Index 28.6 Tobacco/Smoking Status: Tobacco use Status Tobacco use date assessed 01/27/24 01/27/24 11:04 Patient Tobacco Use Status Former Tobacco user 01/27/24 10:18 e-Cigarette/Vaping Use Never Used 01/27/24 10:18 Thrive Assessment: Date of Thrive Assessment Date Thrive assessed 09/05/23 01/27/24 10:18 Const General: cooperative Orientation/consciousness: patient oriented x3 Resp Effort & Inspection: normal respiratory effort Auscultation: clear to auscultation bilaterally Cardio Rate: regular rate Rhythm: regular rhythm Heart sounds: S1 normal heart sound present and S2 normal heart sound present Neuro General: patient oriented x3 Psych Appearance: grossly normal Mental Status: mental status grossly normal Speech and movement: Normal speech and movement present Affect: normal affect Attitude: cooperative Thought process: Normal thought process present Thought content: Normal thought content present Insight: Good insight present (Psych) Judgement: Good judgement present (Psych) Assessment and Plan Assessment & Plan (1) Post-nasal drip: Code(s): R09.82 - Postnasal drip (2) COPD (chronic obstructive pulmonary disease): Code(s): J44.9 - Chronic obstructive pulmonary disease, unspecified (3) Screening PSA (prostate specific antigen): Code(s): Z12.5 - Encounter for screening for malignant neoplasm of prostate (4) Sputum production: Code(s): R05.8 - Other specified cough Plan: continue montelukast and cetirizine 20mg bid (5) Chronic cough: Comment: Chronic, nonspecific, most likely related to chronic allergic rhinitis/sinus disorder. Does not need to take any strong cough suppressants. THE BEST SOLUTION IS TO CONTINUE TAKING ZYRTEC 10 MG AT BEDTIME OR IN THE MORNING. MAY USE MUCINEX 400 MG B.I.D. ONLY P.R.N.. Code(s): R05.3 - Chronic cough Plan The patient agreed to the use of a medical radiation dosimetrist for this encounter. Scribed for RAFA Avila by Valerie Hastings medical radiation dosimetrist, on 01/27/2024 at 11:05 EST. Orders: Orders Comprehensive [place]. Panel Fast Today J44.9 - Chronic obstructive pulmonary disease, unspecified, R09.82 - Postnasal drip TSH reflex Free T4 Today J44.9 - Chronic obstructive pulmonary disease, unspecified, R09.82 - Postnasal drip Lipid Panel Today J44.9 - Chronic obstructive pulmonary disease, unspecified, R09.82 - Postnasal drip Prostate Specific Antigen Scr Today Z12.5 - Encounter for screening for malignant neoplasm of prostate Complete Blood Count Auto Diff Today J44.9 - Chronic obstructive pulmonary disease, unspecified, R09.82 - Postnasal drip UA CC w/rflx Micro + Cult Today J44.9 - Chronic obstructive pulmonary disease, unspecified, R09.82 - Postnasal drip Medications: New montelukast 10 mg PO BEDTIME 90 tabs 0RF Coding Level of Care Code Est Pt Level 3 (14793) Diagnoses Post-nasal drip R09.82 COPD (chronic obstructive pulmonary disease) J44.9 Screening PSA (prostate specific antigen) Z12.5 Sputum production R05.8 Chronic cough R05.3
[2024-01-27 10:59] VITALS: BP 110/72; PULSE 105; O2SAT 98; BMI 28.6
== END 2024-01-27 11:25 | disposition home or self-care (01) ==
PROVIDERS: PCP Nurse Practitioner Family; Visit Provider Nurse Practitioner Family
DX: R09.82 Postnasal drip (principal); J44.9 Chronic obstructive pulmonary disease, unspecified; Z12.5 Encounter for screening for malignant neoplasm of prostate; R05.8 Other specified cough; R05.3 Chronic cough
CPT/HCPCS: 99213

== ENCOUNTER 2024-03-19 07:23 | Emergency (ER) | payer MEDICARE, BC, SELFPAY ==
--- NOTE | 2024-03-19 | ECG_ITS ---
Test Reason : SOB Blood Pressure : / mmHG Vent. Rate : 103 BPM Atrial Rate : 103 BPM P-R Int : 176 ms QRS Dur : 138 ms QT Int : 382 ms P-R-T Axes : 057 -48 078 degrees QTc Int : 500 ms Sinus tachycardia with Premature atrial complexes Possible Left atrial enlargement Left axis deviation Left bundle branch block Abnormal ECG When compared with ECG of 04-SEP-2023 16:55, Premature ventricular complexes are no longer Present Premature atrial complexes are now Present Left bundle branch block is now Present Referred By: Generic ED Physician Electronically Signed By:Inocencio Moya
--- NOTE | ~2024-03-19 | CT_ITS ---
EXAMINATION: CT ANGIOGRAM OF THE CHEST WITH AND WITHOUT CONTRAST (CT PULMONARY ANGIOGRAM FOR PE) CLINICAL INFORMATION: Shortness of breath. COMPARISON: X-ray of the chest performed earlier the same day. CT of the chest December 2021. TECHNIQUE: Prior to contrast administration, noncontrast localization images were obtained. Subsequently, multidetector volumetric imaging was performed from the thoracic inlet to below the diaphragms following the administration of 65 mL Omnipaque 350 intravenous contrast. No contrast reaction reported Sagittal, coronal, and MIP oblique sagittal reformatted images were obtained on the CT workstation, uploaded to PACS, and reviewed. This CT examination was performed using dose optimization techniques as appropriate, variously including the following: *Automated exposure control *Adjustment of mA and/or kV according to patient size (this includes techniques or standardized protocols for targeted exams where dose is matched to indication/reason for exam; i.e. extremities or head) *Use of iterative reconstruction technique Total exam dose-length product: 330 mGy-cm. FINDINGS: QUALITY OF STUDY/CONTRAST BOLUS: Satisfactory. PULMONARY ARTERIES: No pulmonary emboli. THORACIC AORTA: Calcific atherosclerotic disease throughout the aorta. LUNG: There is some minimal linear opacity in the left lower lobe, compatible with discoid atelectasis. Small 3 mm calcification in the anterior aspect of the right upper lobe, compatible with a small calcified granuloma (axial image 245, series 604). PLEURA: There are small to moderate-sized bilateral pleural effusions, slightly greater on the right than left. MEDIASTINUM: Normal heart size. No pericardial effusion. No hilar or mediastinal lymphadenopathy. No evidence of septal bowing or right heart strain. Esophagus normal. Thoracic inlet normal. CORONARY ARTERY CALCIFICATION: Present. CHEST WALL/AXILLA: No axillary or internal mammary lymphadenopathy. OSSEOUS STRUCTURES: No acute or suspicious osseous abnormality. UPPER ABDOMEN: Unremarkable. No reflux of contrast into the hepatic veins to suggest elevated right heart pressures. CT/CT angio chest PE protocol IMPRESSION: 1. No evidence for pulmonary embolism. 2. Small to moderate-sized bilateral pleural effusions. 3. Calcific atherosclerotic disease of the aorta and coronary arteries. 4. Small calcified granuloma at the right upper lobe. VTE: Negative.
--- NOTE | ~2024-03-19 | XR_ITS ---
EXAMINATION: XR CHEST CLINICAL INFORMATION: Cough COMPARISON: 01/02/2022 TECHNIQUE: 2 views of the chest were obtained. FINDINGS: Cardiomediastinal silhouette is mildly enlarged. There is bronchial wall thickening with increased interstitial markings and patchy opacities in the right lung. No large effusion or pneumothorax. Orthopedic hardware in the lower thoracic and lumbar spine. Right shoulder reverse arthroplasty. Orthopedic anchors in the left shoulder. XR/XR chest 2V IMPRESSION: Bronchial wall thickening with increased interstitial markings and patchy opacities in the right lung. Findings may represent an atypical infectious process versus interstitial edema.
[2024-03-19 07:25] VITALS: BP 122/74; PULSE 100; RESP 18; TEMP 36.8; O2SAT 98; BMI 28.1
[2024-03-19 08:10] VITALS: BP 107/76; PULSE 103; RESP 18; TEMP 36.6; O2SAT 97
[2024-03-19 08:29] LABS: MANUAL DIFF FLAG NO
[2024-03-19 08:32] LABS: Basophils Absolute Auto 0.1 X10*3/uL (0.0-0.2); Basophils Percent Auto 1.2 % (0-2); Eosinophils Absolute Auto 0.3 X10*3/uL (0.0-0.4); Eosinophils Percent Auto 3.9 % (0-4); Hematocrit 43.3 % (42.0-52.0); Hemoglobin 14.1 g/dl (14.0-18.0); Imm Gran Abs Auto 0.02 X10*3/uL (0.00-0.03); Imm Gran Pct Auto 0.3 % (0.0-0.4); Lymphocytes Absolute Auto 1.3 X10*3/uL (1.2-4.9); Lymphocytes Percent Auto 17.8 % (20-40); Mean Corpuscular HGB Conc 32.6 g/dl (31.0-36.0); Mean Corpuscular Hemoglobin 30.8 pg (27.0-33.0); Mean Corpuscular Volume 94.5 fL (80.0-98.0); Mean Platelet Volume 9.6 fL (9.4-12.4); Monocytes Absolute Auto 0.7 X10*3/uL (0.1-1.2); Monocytes Percent Auto 8.8 % (2-11); Neutrophils Absolute Auto 5.1 x10*3/uL (2.0-8.3); Platelet Count 197 X10*3/uL (160-400); Red Blood Count 4.58 X10*6/uL (4.60-5.80); Red Cell Distribution Width 14.8 % (11.0-16.0); White Blood Count 7.5 X10*3/uL (4.8-10.8)
[2024-03-19 08:56] LABS: Alanine Aminotransferase 24 U/L (0-40); Albumin Level 3.9 g/dL (3.5-5.0); Alkaline Phosphatase 81 U/L (39-117); Anion Gap 13 (12-20); Aspartate Amino Transferase 27 U/L (5-37); Bilirubin Total 0.8 mg/dL (0.0-1.0); Blood Urea Nitrogen 16 mg/dL (9-16); Calcium 9.2 mg/dL (8.4-10.2); Carbon Dioxide 25 mmol/L (22-29); Chloride 106 mmol/L (96-108); Creatinine Clr Calc Pharmacy 86.9; Estimated Glomerular Filt Rate > 60; Glucose Random 96 mg/dL (60-115); Potassium 4.1 mmol/L (3.3-5.1); Sodium 140 mmol/L (135-145); Total Protein 6.5 g/dL (6.5-8.0)
[2024-03-19 09:03] LABS: Troponin-I High Sensitivity 5.1 ng/L (<3.5-35.0)
[2024-03-19 09:07] LABS: Influenza A PCR NEGATIVE (Negative); Influenza B PCR NEGATIVE (Negative); Resp Syncy Virus RNA Qual PCR NEGATIVE (Negative); SARS COV2 PCR INHOUSE NEGATIVE (Negative)
[2024-03-19 09:50] LABS: B Type Natriuretic Peptide 273 pg/mL (<100)
[2024-03-19 11:28] VITALS: BP 115/76; PULSE 94; RESP 18; TEMP 36.4; O2SAT 96
[2024-03-19] MEDS: iohexoL 350 MG/ML 100 ML INFUS..BTL 65 ML IV (13:24)
--- NOTE | 2024-03-19 13:25 | ED_ITS ---
HPI - SOB/Dyspnea General Chief Complaint: Dyspnea Stated Complaint: sob Time Seen by Provider: 03/19/24 08:07 History of Present Illness HPI Narrative: Patient is a 78-year-old male presented today with having increasing shortness of breath for 1 week. Patient returned from the [facility]. Positive coughing positive generalized malaise. Positive chest tightness. Patient was worried these are secondary to allergies. They have not gotten any better. Had an ENT appointment at [facility]. Came to the ED for help. Denies any chest pain. Denies any fever chills. Denies any leg swelling. History of COPD. No history of [place]. No history of congestive heart failure. No history of COVID. No history for PE. Related Data Home Medications ?Medication ?Instructions ?Recorded ?Confirmed multivitamin 1 tab PO DAILY 11/12/21 01/27/24 ibuprofen 200 mg tablet (Advil) 200 mg PO Q6H PRN Pain 09/04/23 01/27/24 fluticasone propionate 50 1 spray intranasal DAILY 01/08/24 01/27/24 mcg/actuation nasal spray,suspension (Flonase Allergy Relief) Previous Rx's ?Medication ?Instructions ?Recorded duloxetine 30 mg capsule,delayed 30 mg PO DAILY #90 caps 12/23/23 release montelukast 10 mg tablet 10 mg PO BEDTIME #90 tabs 01/27/24 prednisone 20 mg tablet 60 mg (3 x 20 mg) PO DAILY 7 days 01/31/24 #21 tabs Allergies Allergy/AdvReac Type Severity Reaction Status Date / Time carbamazepine Allergy Intermediate Hives Verified 03/19/24 07:30 oxycodone [From Percocet] Allergy Unknown unknown Verified 03/19/24 07:30 Review of Systems 2 Review of Systems: Positive shortness of breath. Positive generalized malaise Yes all other systems are reviewed and are negative PMFSH Past Medical History Attestation statement: The following information was validated with the patient. Medical History COPD (chronic obstructive pulmonary disease) Allergic rhinitis Right hip pain Surgical History H/O neck surgery H/O shoulder surgery Hx of shoulder surgery H/O colonoscopy History of back surgery H/O knee surgery S/P hernia surgery Family History Family History Father No problems noted. Mother No problems noted. Sister Cancer Social History Social History Household Members: Spouse Housing: House Do you presently have visiting nurse or other home services: No Alcohol intake: current Alcohol intake frequency: does not drink Patient Tobacco Use Status: Former Tobacco user Years Smoked: quit 1968 Smoked in Last 30 Days: No e-Cigarette/Vaping Use: Never Used Second Hand Smoke Exposure: No Advance Directives: No Advance Directives Information Provided: Yes service: Yes Current occupational status: retired Cognitive needs: No Hearing needs: No Vision needs: No Physical Exam 2 Vital Signs: Vital Signs: Last Vital Signs Temp 97.8 F 03/19/24 14:00 Pulse 97 03/19/24 14:00 Resp 18 03/19/24 14:00 BP 121/78 03/19/24 14:00 Pulse Ox 95 03/19/24 14:00 O2 Del Method Room Air 03/19/24 14:00 BMI result Body Mass Index 28.1 Appearance: Alert. Oriented X3. No acute distress. Eyes: Pupils equal, round and reactive to light. ENT: Pharynx normal. Neck: Normal inspection. Neck supple. No lymph nodes noted. No crepitus CVS: Normal heart rate and rhythm. Pulses normal. Normal S1 and S2 Respiratory: Diminished breath sounds bilaterally Abdomen: Soft and nontender. No rigidity. No distention. good BS x4 Skin: Skin warm and dry. Normal skin color. Normal skin turgor. Extremities: No lower extremity edema. Neurovascular intact to all extremities. No Lacerations. No Rash Neuro: Oriented X 3. No motor deficit. No sensory deficit. Moving all extermities. No slurred speech Medications Administered Discontinued Medications Generic Name Dose Route Start Last Admin Trade Name Freq PRN Reason Stop Dose Admin Iohexol 65 ml 03/19/24 13:22 03/19/24 13:24 Iohexol 350 Mg/Ml 100 Ml Infus..Btl IV 03/19/24 13:23 65 ml ONCE ONE Administration Medical Decision Making Medical Decision Making MDM Narrative: Patient presents today with shortness of breath for almost a month. Patient is chest x-ray showed no focal infiltrate. Patient's electrolytes showed a mildly elevated BNP of 273 otherwise negative. White count is normal. No evidence for pneumonia. No significant shift. Patient's electrolytes showed a normal BUN and creatinine. Troponin is negative. Flu RSV COVID were all negative. Chest patient recently traveled to [place] CTA was done. The CTA showed no evidence of PE. It did show some small size pleural effusion bilaterally. There is no focal infiltrate. There is no gross congestive heart failure. Patient's O2 sat is 99% on room air. In no distress. Will discharge patient home Differential Diagnosis Differential Diagnoses: The differential diagnosis associated with the presentation includes Congestive heart failure, PE, pneumonia, ACS, flu COVID RSV Admission/Observation Consideration of admission/observation: Escalation of care including admission/observation considered Lab Data MDM Lab Attestation statement: I reviewed the patient's lab results. 03/19/24 08:23 03/19/24 08:23 Labs: Lab Results 03/19/24 03/19/24 Range/Units 08:23 13:00 WBC 7.5 (4.8-10.8) X10*3/uL RBC 4.58 L (4.60-5.80) X10*6/uL Hgb 14.1 (14.0-18.0) g/dl Hct 43.3 (42.0-52.0) % MCV 94.5 (80.0-98.0) fL MCH 30.8 (27.0-33.0) pg MCHC 32.6 (31.0-36.0) g/dl RDW 14.8 (11.0-16.0) % Plt Count 197 (160-400) X10*3/uL MPV 9.6 (9.4-12.4) fL Immature Gran % (Auto) 0.3 (0.0-0.4) % Neut % (Auto) 68.0 (45-73) % Lymph % (Auto) 17.8 L (20-40) % [place]uel % (Auto) 8.8 (2-11) % Eos % (Auto) 3.9 (0-4) % Baso % (Auto) 1.2 (0-2) % Lymph # (Auto) 1.3 (1.2-4.9) X10*3/uL Deuel # (Auto) 0.7 (0.1-1.2) X10*3/uL Eos # (Auto) 0.3 (0.0-0.4) X10*3/uL Baso # (Auto) 0.1 (0.0-0.2) X10*3/uL Abs Immat Gran (auto) 0.02 (0.00-0.03) X10*3/uL Absolute Neuts (auto) 5.1 (2.0-8.3) x10*3/uL Absolute Nucleated RBC 0.000 (0.0-0.012) X10*3/uL Nucleated RBC % (auto) 0.0 (0.0-0.2) /100WBC Sodium 140 (135-145) mmol/L Potassium 4.1 (3.3-5.1) mmol/L Chloride 106 (96-108) mmol/L Carbon Dioxide 25 (22-29) mmol/L Anion Gap 13 (12-20) BUN 16 (9-16) mg/dL Creatinine 0.82 (0.5-1.4) mg/dL Estim Creat Clear Calc 86.9 Estimated GFR > 60 Random Glucose 96 (60-115) mg/dL Calcium 9.2 (8.4-10.2) mg/dL Total Bilirubin 0.8 (0.0-1.0) mg/dL AST 27 (5-37) U/L ALT 24 (0-40) U/L Alkaline Phosphatase 81 (39-117) U/L Troponin I High Sens 5.1 D 5.5 (<3.5-35.0) ng/L B-Natriuretic Peptide 273 H (<100) pg/mL Total Protein 6.5 (6.5-8.0) g/dL Albumin 3.9 (3.5-5.0) g/dL Influenza Type A (PCR) NEGATIVE (Negative) Influenza Type B (PCR) NEGATIVE (Negative) RSV RNA Qual (PCR) NEGATIVE (Negative) SARS-CoV-2 RNA (RT-PCR) NEGATIVE (Negative) Independent Interpretation I performed an independent interpretation of an: Plain X-Ray (No gross focal infiltrate) and CT Scan (No large PE) Radiology Impression Discussion of test interpretation with radiology: I have reviewed the radiologist's reading. External Record Review External record reviewed: Inpatient record Discharge Plan Discharge Clinical Impression: Mild shortness of breath Patient Disposition: Home, Self-Care Instructions: Shortness of Breath (ED) Prescriptions: No Action duloxetine 30 mg capsule,delayed release(DR/EC) 30 mg PO DAILY Qty: 90 0RF prednisone 20 mg tablet 60 mg PO DAILY 7 Days Qty: 21 0RF ibuprofen [Advil] 200 mg Tablet 200 mg PO Q6H PRN (Reason: Pain) fluticasone propionate [Flonase Allergy Relief] 50 mcg/actuation spray,suspension 1 spray intranasal DAILY Rx Instructions: administer into each nostril montelukast 10 mg tablet 10 mg PO BEDTIME Qty: 90 0RF multivitamin Tablet 1 tab PO DAILY Referrals: Ivan Simpson, [facility] [Primary Care Provider] - 03/21/24 Print Language: Citizen [place]
[2024-03-19 13:32] LABS: Troponin-I High Sensitivity 5.5 ng/L (<3.5-35.0)
[2024-03-19 14:00] VITALS: BP 121/78; PULSE 97; RESP 18; TEMP 36.6; O2SAT 95
[2024-03-19 16:26] VITALS: BP 121/78; PULSE 96; RESP 17; O2SAT 99
[2024-03-19 16:43] VITALS: BP 121/78; PULSE 96; RESP 17; TEMP 36.9; O2SAT 99
== END 2024-03-19 16:43 | disposition home or self-care (01) ==
PROVIDERS: Emergency Provider Emergency Medicine Emergency Medical Services; PCP Nurse Practitioner Family
DX: R06.02 Shortness of breath (principal); J44.9 Chronic obstructive pulmonary disease, unspecified; Z03.818 Encounter for observation for suspected exposure to other biological agents ruled out; R05.9 Cough, unspecified
CPT/HCPCS: 0241U; 36415; 71046; 71275; 80053; 83880; 84484; 85025; 93005; 99284; 99285; Q9967

== ENCOUNTER → 2024-03-19 07:26 | Outpatient (BNV) | payer MEDICARE, BC, SELFPAY | PROVIDERS: Emergency Provider Emergency Medicine Emergency Medical Services; PCP Nurse Practitioner Family; Visit Provider Internal Medicine Cardiovascular Disease | DX: R94.31 Abnormal electrocardiogram [ECG] [EKG] (principal) | CPT/HCPCS: 93010 ==

== ENCOUNTER 2024-03-28 07:51 | Outpatient (REF) | payer MEDICARE, BC, SELFPAY ==
--- NOTE | ~2024-03-28 | CT_ITS ---
EXAMINATION: CT CHEST WITH CONTRAST CLINICAL INFORMATION: Chronic cough. COMPARISON: 03/19/2024 and 07/21/2021 TECHNIQUE: Multidetector volumetric CT imaging of the chest was obtained after the administration of 65 mL of Omnipaque 350 intravenous contrast without immediate adverse reactions. Axial MIP volume rendering provided. Sagittal and coronal reformatted images were obtained. This CT examination was performed using dose optimization techniques as appropriate, variously including the following: *Automated exposure control *Adjustment of mA and/or kV according to patient size (this includes techniques or standardized protocols for targeted exams where dose is matched to indication/reason for exam; i.e. extremities or head) *Use of iterative reconstruction technique DLP: 145 mGy-cm FINDINGS: LUNGS: Biapical scarring. 1.8 x 1.7 cm groundglass nodule on image 79 of series 9 is more conspicuous. Right middle lobe subpleural nodule measures 1.4 cm on image 118 of series 9 and is unchanged. No focal consolidation. Central airways are patent. MEDIASTINUM: No bulky axillary, hilar or mediastinal lymphadenopathy. Great vessels are of normal caliber. Heart size is normal. No pericardial effusion. Severe coronary artery calcifications. PLEURA: Trace left pleural effusion. UPPER ABDOMEN: Hepatic steatosis. OSSEOUS STRUCTURES: Right shoulder arthroplasty. Posterior spinal fusion hardware is partially imaged. CT/CT chest w IV con IMPRESSION: New or more conspicuous 1.8 x 1.7 cm groundglass nodule in the left upper lobe. Follow-up chest CT in 6-12 months is advised. Fleischner guidelines were followed.
[2024-03-28] MEDS: iohexoL 350 MG/ML 100 ML INFUS..BTL 65 ML IV (09:03)
== END 2024-03-28 07:52 | disposition home or self-care (01) ==
LOC: HO.CT 07:51
PROVIDERS: Visit Provider Nurse Practitioner Family
DX: R05.3 Chronic cough (principal)
CPT/HCPCS: 71260; Q9967

== ENCOUNTER 2024-05-21 03:35 | Inpatient (IN) | payer MEDICARE, BC, SELFPAY ==
[2024-05-21] VITALS (15 sets, daily range): BP systolic 84–134; BP diastolic 44–99; PULSE 86–107; RESP 16–28; TEMP 36.2–37.1; O2SAT 86–98; BMI 27.1
--- NOTE | ~2024-05-21 | XR_ITS ---
EXAMINATION: XR CHEST CLINICAL INFORMATION: Dyspnea COMPARISON: 03/28/2024 TECHNIQUE: Frontal view of the chest was obtained. FINDINGS: Lung volumes are symmetric. No dense consolidation is seen. Mild interstitial prominence is noted diffusely with suggestion of some basilar Virgil B lines. Overall appearance raises suspicion for mild interstitial edema. No evidence of pneumothorax. Trace pleural effusions cannot be excluded. Cardiac silhouette remains mildly enlarged. Partially visualized right shoulder arthroplasty hardware. Fusion hardware noted in the lower cervical spine. Partially visualized lower thoracolumbar spinal fusion hardware. XR/XR chest 1V IMPRESSION: Findings suspicious for mild interstitial edema. Mildly enlarged cardiac silhouette. Electronically signed by: Davon Monahan MD 05/21/2024 04:23 AM EDT
--- NOTE | ~2024-05-21 | XR_ITS ---
EXAMINATION: XR CHEST CLINICAL INFORMATION: Difficulty breathing. CHF exacerbation. COMPARISON: Chest x-ray May 21, 2024 at 3:54 AM TECHNIQUE: Frontal view of the chest was obtained. FINDINGS: Cardiac silhouette is normal in size. The lungs are adequately aerated. There are similar mild asymmetric elevation of the right hemidiaphragm. There is no gross lobar consolidation. Interstitial markings are less prominent. Tiny right-sided pleural effusion again suspected. No pneumothorax. Hardware in the cervical spine and right shoulder are again noted. XR/XR chest 1V IMPRESSION: Interval improvement in interstitial edema. Electronically signed by: Donald Dennis MD 05/22/2024 07:47 AM EDT
--- NOTE | 2024-05-21 04:12 | PC.NURSE ---
pt from home, a&ox4, respirations even and unlabored. pt reports onset of cough, shortness of breath and face pain x2 weeks. pt reports previously being seen for this and reports they have found nothing. pt reports he has got an MRI in the past with negative results. pt noted to have dry cough. pt denies chest pain, n/v/d. 20G placed in right AC, labs obtained and sent.
[2024-05-21 04:17] LABS: MANUAL DIFF FLAG NO
[2024-05-21 04:18] LABS: Basophils Percent Auto 0.4 % (0-2); Eosinophils Percent Auto 0.3 % (0-4); Hematocrit 44.7 % (42.0-52.0); Hemoglobin 14.6 g/dl (14.0-18.0); Imm Gran Abs Auto 0.03 X10*3/uL (0.00-0.03); Imm Gran Pct Auto 0.3 % (0.0-0.4); Lymphocytes Percent Auto 11.2 % (20-40); Mean Corpuscular HGB Conc 32.7 g/dl (31.0-36.0); Mean Corpuscular Hemoglobin 30.5 pg (27.0-33.0); Mean Corpuscular Volume 93.5 fL (80.0-98.0); Mean Platelet Volume 9.7 fL (9.4-12.4); Monocytes Absolute Auto 0.7 X10*3/uL (0.1-1.2); Neutrophils Absolute Auto 7.5 x10*3/uL (2.0-8.3); Neutrophils Percent Auto 80.8 % (45-73); Platelet Count 212 X10*3/uL (160-400); Red Blood Count 4.78 X10*6/uL (4.60-5.80); Red Cell Distribution Width 14.3 % (11.0-16.0); White Blood Count 9.3 X10*3/uL (4.8-10.8)
[2024-05-21 04:52] LABS: Alanine Aminotransferase 149 U/L (0-40); Albumin Level 4.1 g/dL (3.5-5.0); Alkaline Phosphatase 96 U/L (39-117); Anion Gap 14 (12-20); Aspartate Amino Transferase 86 U/L (5-37); Bilirubin Total 0.7 mg/dL (0.0-1.0); Blood Urea Nitrogen 18 mg/dL (9-16); Calcium 9.4 mg/dL (8.4-10.2); Carbon Dioxide 24 mmol/L (22-29); Chloride 108 mmol/L (96-108); Creatinine Clr Calc Pharmacy 70.6; Estimated Glomerular Filt Rate > 60; Glucose Random 117 mg/dL (60-115); Potassium 4.3 mmol/L (3.3-5.1); Sodium 142 mmol/L (135-145); Total Protein 6.9 g/dL (6.5-8.0)
[2024-05-21 04:53] LABS: Influenza A PCR NEGATIVE (Negative); Influenza B PCR NEGATIVE (Negative); Resp Syncy Virus RNA Qual PCR NEGATIVE (Negative); SARS COV2 PCR INHOUSE NEGATIVE (Negative)
[2024-05-21 04:58] LABS: B Type Natriuretic Peptide 924 pg/mL (<100)
--- NOTE | 2024-05-21 05:41 | ECG_ITS ---
Test Reason : CHF Blood Pressure : / mmHG Vent. Rate : 101 BPM Atrial Rate : 101 BPM P-R Int : 178 ms QRS Dur : 148 ms QT Int : 394 ms P-R-T Axes : 030 -46 052 degrees QTc Int : 510 ms Sinus tachycardia Possible Left atrial enlargement Left axis deviation Left bundle branch block Abnormal ECG When compared with ECG of 19-MAR-2024 07:26, Premature atrial complexes are no longer Present Referred By: Audelia Oakley Electronically Signed By:GRAEME DUNCAN
--- NOTE | 2024-05-21 05:44 | PC.NURSE ---
pt taken for ambulation trial, pt sating 94% while ambulating but reported feeling shortness of breath, pt noted to be gasping for air. while pt in room, pt de sat to 86%. dr. beckford at bedside.
--- NOTE | 2024-05-21 05:47 | ED_ITS ---
HPI - SOB/Dyspnea General Chief Complaint: Dyspnea Stated Complaint: sob Time Seen by Provider: 05/21/24 05:32 Source: patient Mode of arrival: ambulatory Limitations: no limitations History of Present Illness ED Provider: Dr. Audelia Oakley HPI Narrative: Patient comes to the emergency room complaining of worsening shortness of breath. Patient states that any time that he walks he becomes significantly short of breath. Patient states that he can not sleep because lying flat makes him feel like he runs out of air. Patient reports that he occasionally coughs but not significantly. Patient denies chest pain. Patient states that he is very frustrated and crying because the shortness of breath has gotten so much worse over the last couple of days, can not get a good night sleep due to shortness of breath and cannot do his regular activities. Patient denies any fever chills Related Data Home Medications ?Medication ?Instructions ?Recorded ?Confirmed multivitamin 1 tab PO DAILY 11/12/21 04/14/24 ibuprofen 200 mg tablet (Advil) 200 mg PO Q6H PRN Pain 09/04/23 04/14/24 fluticasone propionate 50 1 spray intranasal DAILY 01/08/24 04/14/24 mcg/actuation nasal spray,suspension (Flonase Allergy Relief) Previous Rx's ?Medication ?Instructions ?Recorded duloxetine 30 mg capsule,delayed 30 mg PO DAILY #90 caps 12/23/23 release montelukast 10 mg tablet 10 mg PO BEDTIME #90 tabs 01/27/24 prednisone 20 mg tablet 60 mg (3 x 20 mg) PO DAILY 7 days 01/31/24 #21 tabs Allergies Allergy/AdvReac Type Severity Reaction Status Date / Time carbamazepine Allergy Intermediate Hives Verified 05/21/24 03:46 oxycodone [From Percocet] Allergy Unknown unknown Verified 05/21/24 03:46 Review of Systems 2 Review of Systems: Constitutional : No Weight loss, No Fever, No Chills, No Night Sweats, No Fatigue, No Malaise ENT/Mouth : No Hearing loss, No Ear Pain, No Nasal Congestion, No Sinus Pain, No Hoarseness, No sore throat, No Rhinorrhea, No Swallowing Difficulty Eyes: No Eye Pain, No Swelling, No Redness, No Foreign Body, No Discharge, No Vision Changes Cardiovascular : No Chest Pain complaining of dyspnea on exertion, positive orthopnea, mild pedal edema Respiratory : No Cough, No Sputum, No Wheezing, No Smoke Exposure, complaining of Dyspnea Gastrointestinal : No Nausea, No Vomiting, No Diarrhea, No Constipation, No abdominal Pain, No Hematochezia, No Melena Genitourinary : no irregular bleeding, No Dysuria, No Urinary Frequency, No Hematuria, No Urinary Incontinence, No Urgency, No Flank Pain, No Urinary Flow Changes, No Hesitancy Musculoskeletal : No joint pain, No Myalgias, No Joint Swelling Skin : No Skin Lesions, No rash Neuro : No Weakness, No Numbness, No Paresthesias, No Loss of Consciousness, No Dizziness, No Headache Psych : No Anxiety/Panic, No Depression, No SI/HI/AH/VH, No Social Issues, Heme/Lymph: No Bruising, No Bleeding,No Lymphadenopathy Endocrine : No Polyuria, No Polydipsia, No Temperature Intolerance [facility] Past Medical History Medical History COPD (chronic obstructive pulmonary disease) Allergic rhinitis Right hip pain Surgical History H/O neck surgery H/O shoulder surgery Hx of shoulder surgery H/O colonoscopy History of back surgery H/O knee surgery S/P hernia surgery Family History Family History Father No problems noted. Mother No problems noted. Sister Cancer Social History Social History Household Members: Spouse Housing: House Do you presently have visiting nurse or other home services: No Alcohol intake: current Alcohol intake frequency: does not drink Patient Tobacco Use Status: Former Tobacco user Years Smoked: quit 1968 Smoked in Last 30 Days: No e-Cigarette/Vaping Use: Never Used Second Hand Smoke Exposure: No Use of substances other than those prescribed or required for medical reasons: No Advance Directives: No Advance Directives Information Provided: Yes service: Yes Current occupational status: retired Cognitive needs: No Hearing needs: No Vision needs: No Physical Exam 2 Vital Signs: Vital Signs: Last Vital Signs Temp 97.5 F 05/21/24 03:39 Pulse 86 05/21/24 05:43 Resp 22 H 05/21/24 03:39 BP 134/99 H 05/21/24 03:39 Pulse Ox 86 L 05/21/24 05:43 O2 Del Method Room Air 05/21/24 05:43 BMI result Body Mass Index 27.1 Const: Other: Appearance: Alert. Oriented X3. No acute distress. Eyes: Pupils equal, round and reactive to light. ENT: Pharynx normal. Neck: Normal inspection. Neck supple. No lymph nodes noted. No crepitus CVS: Normal heart rate and rhythm. Pulses normal. Normal S1 and S2 Respiratory: No respiratory distress. Bilateral crackles, no wheezing Abdomen: Soft and nontender. No rigidity. No distention. Skin: Skin warm and dry. Normal skin color. Normal skin turgor. Extremities: +2 pitting edema bilaterally. No Lacerations. No Rash Neuro: Oriented X 3. No motor deficit. No sensory deficit. Moving all extremities. No slurred speech. CN 2 through 12 grossly intact Psych: calm, cooperative, normal affect Medical Decision Making Medical Decision Making [facility] Narrative: -my interpretation of labs: Normal hematology and chemistry. BNP 924 which is new for the patient. Negative serology tests. -my interpretation of EKG: Sinus tachycardia, heart rate 101, no ST segment depression, chronic left bundle branch block, QTC 510 -chest x-ray shows pulmonary edema. -on ambulation. Patient's oxygen saturation drops to 86% and patient becomes significantly short of breath. When he is at rest, patient has no shortness of breath and normal oxygen saturation. -patient receiving Lasix 60 mg IV -I discussed with the patient that he has new onset congestive heart failure. Patient states that to his knowledge he has never been told that. -I discussed the patient with our hospitalist, the patient will be admitted by the day team Differential Diagnosis Differential Diagnoses: The differential diagnosis associated with the presentation includes (Viral syndrome, pneumonia, CHF) Admission/Observation Consideration of admission/observation: Escalation of care including admission/observation considered Consult Healthcare Provider Management of the patient was discussed with: Hospitalist Lab Data [facility] Lab Attestation statement: I reviewed the patient's lab results. 05/21/24 04:12 05/21/24 04:12 Labs: Lab Results 05/21/24 Range/Units 04:12 WBC 9.3 (4.8-10.8) X10*3/uL RBC 4.78 (4.60-5.80) X10*6/uL Hgb 14.6 (14.0-18.0) g/dl Hct 44.7 (42.0-52.0) % MCV 93.5 (80.0-98.0) fL MCH 30.5 (27.0-33.0) pg MCHC 32.7 (31.0-36.0) g/dl RDW 14.3 (11.0-16.0) % Plt Count 212 (160-400) X10*3/uL MPV 9.7 (9.4-12.4) fL Immature Gran % (Auto) 0.3 (0.0-0.4) % Neut % (Auto) 80.8 H (45-73) % Lymph % (Auto) 11.2 L (20-40) % [place] % (Auto) 7.0 (2-11) % Eos % (Auto) 0.3 (0-4) % Baso % (Auto) 0.4 (0-2) % Lymph # (Auto) 1.0 L (1.2-4.9) X10*3/uL [place] # (Auto) 0.7 (0.1-1.2) X10*3/uL Eos # (Auto) 0.0 (0.0-0.4) X10*3/uL Baso # (Auto) 0.0 (0.0-0.2) X10*3/uL Abs Immat Gran (auto) 0.03 (0.00-0.03) X10*3/uL Absolute Neuts (auto) 7.5 (2.0-8.3) x10*3/uL Absolute Nucleated RBC 0.000 (0.0-0.012) X10*3/uL Nucleated RBC % (auto) 0.0 (0.0-0.2) /100WBC Sodium 142 (135-145) mmol/L Potassium 4.3 (3.3-5.1) mmol/L Chloride 108 (96-108) mmol/L Carbon Dioxide 24 (22-29) mmol/L Anion Gap 14 (12-20) BUN 18 H (9-16) mg/dL Creatinine 0.93 (0.5-1.4) mg/dL Estim Creat Clear Calc 70.6 Estimated GFR > 60 Random Glucose 117 H (60-115) mg/dL Calcium 9.4 (8.4-10.2) mg/dL Total Bilirubin 0.7 (0.0-1.0) mg/dL AST 86 H (5-37) U/L ALT 149 H (0-40) U/L Alkaline Phosphatase 96 (39-117) U/L B-Natriuretic Peptide 924 H (<100) pg/mL Total Protein 6.9 (6.5-8.0) g/dL Albumin 4.1 (3.5-5.0) g/dL Influenza Type A (PCR) NEGATIVE (Negative) Influenza Type B (PCR) NEGATIVE (Negative) RSV RNA Qual (PCR) NEGATIVE (Negative) SARS-CoV-2 RNA (RT-PCR) NEGATIVE (Negative) Independent Interpretation I performed an independent interpretation of an: EKG and Plain X-Ray Radiology Impression Discussion of test interpretation with radiology: I have reviewed the radiologist's reading. Radiologist Impression: Lung volumes are symmetric. No dense consolidation is seen. Mild interstitial prominence is noted diffusely with suggestion of some basilar Virgil B lines. Overall appearance raises suspicion for mild interstitial edema. No evidence of pneumothorax. Trace pleural effusions cannot be excluded. Cardiac silhouette remains mildly enlarged. Partially visualized right shoulder arthroplasty hardware. Fusion hardware noted in the lower cervical spine. Partially visualized lower thoracolumbar spinal fusion hardware. XR/XR chest 1V IMPRESSION: Findings suspicious for mild interstitial edema. Mildly enlarged cardiac silhouette. Critical Care Time Critical Care Time Critical Care Time: Yes Total Critical Care Time: 60 Attestation: I have personally provided critical care time. Time includes review of lab data, radiology results, discussion with consultants, and monitoring for potential decompensation. Intervention performed as documented. Discharge Plan Discharge Clinical Impression: New onset of congestive heart failure Patient Disposition: Admitted As Inpatient Prescriptions: No Action duloxetine 30 mg capsule,delayed release(DR/EC) 30 mg PO DAILY Qty: 90 0RF prednisone 20 mg tablet 60 mg PO DAILY 7 Days Qty: 21 0RF ibuprofen [Advil] 200 mg Tablet 200 mg PO Q6H PRN (Reason: Pain) fluticasone propionate [Flonase Allergy Relief] 50 mcg/actuation spray,suspension 1 spray intranasal DAILY Rx Instructions: administer into each nostril montelukast 10 mg tablet 10 mg PO BEDTIME Qty: 90 0RF multivitamin Tablet 1 tab PO DAILY Print Language: Kazakh
[2024-05-21] MEDS: Furosemide 100 MG/10 ML VIAL 60 MG IVPUSH (06:01)
--- NOTE | 2024-05-21 06:02 | PC.NURSE ---
pt medicated per mar, vss.
--- NOTE | 2024-05-21 06:04 | MHC.EDTECH ---
Patient ekg taken and was read by Provider ,vitals taken ,Patient was hooked up to security monitor ,Patient belongings list done ,Call hair within Pt reach .
--- NOTE | 2024-05-21 07:00 | CA_ITS ---
Transthoracic Echocardiogram Patient (Last, First, Middle): Farhat Saucedo, Gender: Male Date of : 1945 Age: 78 Procedure Date: 05/21/2024 Procedure Type: Transthoracic Echocardiogram [place] [facility] [place] Height: 182.88 cm Weight: 90.72 kg BSA: 2.13 m2 Heart Rate: bpm BP: 108 / 71 mmHg Store Coordinator: Referring MD: Vasile Arauz MD Symptoms: new chf Study Quality: Adequate w contrast ECG Rhythm: Sinus Conclusions: - Mildly increased left ventricular cavity size. There is mildly increased left ventricular wall thickness. The left ventricular systolic function is severely decreased. The visually estimated ejection fraction is between 10-15%. - Normal right ventricular cavity size. There is mild to moderately decreased right ventricular systolic function. - The left atrium is severely dilated. - The posterior mitral leaflet has restricted mobility. There is moderate mitral valve regurgitation. - Significantly elevated right atrial pressure. Severe pulmonary hypertension is present. Findings Procedure Information Contrast agent, definity, is being given per protocol without apparent complications. Left Ventricle Mildly increased left ventricular cavity size. There is mildly increased left ventricular wall thickness. The left ventricular systolic function is severely decreased. The visually estimated ejection fraction is between 10 15%. There is severe global hypokinesis. Diastolic function is indeterminate on the basis of available data. Right Ventricle Normal right ventricular cavity size. There is mild to moderately decreased right ventricular systolic function. Atria The left atrium is severely dilated. Aortic Valve There is a normal trileaflet aortic valve. There is no aortic valve stenosis. There is no aortic valve regurgitation. Mitral Valve The posterior mitral leaflet has restricted mobility. There is moderate mitral valve regurgitation. The mitral regurgitation jet is directed posteriorly. There is no mitral valve stenosis. Pulmonic Valve The pulmonic valve is normal. There is trace pulmonic valve regurgitation. Tricuspid Valve Normal tricuspid valve structure. There is mild tricuspid valve regurgitation. The right ventricular systolic pressure is 62 mmHg. Significantly elevated right atrial pressure. Severe pulmonary hypertension is present. Great Vessels There is mild dilatation of the ascending aorta measuring 3.90 cm. Venous The inferior vena cava is dilated and collapses less than 50% with inspiration. Pericardium/Pleural There is no evidence of pericardial effusion. Prior Study Comparison No prior study available for comparison. Measurements 2D Linear Measurements IVSd: 1.20 0.6-0.9/0.6-1.0 cm LVIDd: 6.07 3.9-5.3/4.2-5.9 cm LVIDd Index: 2.85 2.4-3.2/2.2-3.1 cm/m2 LVIDs: 5.39 2.0-3.6 cm LVPWd: 1.20 0.7-1.1 cm Ao Root: 3.20 2.1-3.5 cm LA Diam: 4.60 2.7-3.8/3.0-4.0 cm LAIDs Index: 2.16 1.5-2.3 cm/m2 LV Mass: 399.36 67-162/88-224 g LV Mass Index: 187.49 43-95/49-115 g/m2 LVOT Diam: 2.10 3.0+(-)1.3 cm 2D Systolic Function EF 4C: 16.20 >55% EF 2C: 10.70 >55% EF BiP: 14.50 >55% Mitral Valve MV Pk E: 1.20 MV PK A: 0.69 MV Decel Time: 111.00 E/A: 1.70 E'Lateral: 8.16 E'Medial: 6.53 E/E' Med: 18.40 E/E' Lat: 14.70 PHT: 32.00 MVA PHT: 6.88 Decel Ciales: 10.86 MR Vol - PW Dopp: 28.52 MR VTI: 1.24 MR ERO: 23.00 MR Alias Swapnil: 0.32 MR RAD: 0.70 Aortic Valve AoV Pk Swapnil: 1.09 AoV Mn Swapnil: 0.76 AoV VTI: 0.20 AoV Pk Grad: 5.00 Aov Mn Grad: 3.00 LEIDY Cont.VTI: 1.86 LVOT LVOT Pk Swapnil: 0.57 LVOT Mn Swapnil: 0.38 LVOT VTI: 0.11 LVOT Pk Grad: 1.00 LVOT Mn Grad: 1.00 LVOT Diam: 2.10 LVOT Area: 3.46 Diastolic Function MV Pk E: 1.20 MV Pk A: 0.69 E/A: 1.70 E'Medial: 6.53 E/E' Med: 18.40 E' Laterial: 8.16 E/E' Lat: 14.70 Right Ventricle TAPSE (mm): 25.00 TVS' Swapnil: 9.00 Tricuspid Valve TR Pk Swapnil: 3.44 TR Pk Grad: 47.00 RA Press: 15.00 RVSP: 62.00 Great Vessels Aorta Ao Root-2D: 3.20 2.0-3.7 cm Ao Asc: 3.90 2.1-3.4 cm Pulmonary Valve PV Pk Swapnil: 0.86 Peak PV Grad: 3.00 Updated in Other Vendor System with Status of Final Inocencio Moya MD electronically signed on 05/21/2024 9:13:40 PM with status of Final
--- NOTE | 2024-05-21 07:34 | PC.NURSE ---
patient requesting pain medications, stating that he is having pain that is in his face and radiating into his chest and giving him a headache as well. reports minimal improvement in his breathing s/p lasix administration. continues to have urine output w/out and issue.
[2024-05-21] MEDS: Acetaminophen 325 MG TABLET 975 MG PO (08:18)
--- NOTE | 2024-05-21 08:44 | PM.IMHP ---
History of Present Illness Date of Service: 05/21/24 Chief Complaint: sob 78M PMH copd, chronic facial pain, nephrolithiasis, chronic back pain, presented with sob. Patient reports about 3 weeks of worsening shortness of breath. Also reporting pedal edema. Orthopnea, shortness breath is worse on exertion. Was seen in clinic and given steroids and antibiotics but has not started yet. Shortness of breath is interfering with everyday activities. In March was seen in ED for similar symptoms, and bedtime BNP mildly elevated in 200s in CTA of the chest was negative for PE but did show small bilateral effusions. An EKG had left bundle branch block. Chest x-ray now showing mild interstitial edema, mildly enlarged cardiac silhouette, EKG showing sinus tachycardia of 101 with left bundle branch block, elevated transaminases and BNP of 924. Review of Systems Review of Systems: Yes all other systems are reviewed and are negative [facility] Medical History COPD (chronic obstructive pulmonary disease) Allergic rhinitis Right hip pain Family History Father No problems noted. Mother No problems noted. Sister Cancer Surgical History H/O neck surgery H/O shoulder surgery Hx of shoulder surgery H/O colonoscopy History of back surgery H/O knee surgery S/P hernia surgery Social History Household Members: Spouse Housing: House Do you presently have visiting nurse or other home services: No Alcohol intake: current Alcohol intake frequency: does not drink Patient Tobacco Use Status: Former Tobacco user Years Smoked: quit 1968 Smoked in Last 30 Days: No e-Cigarette/Vaping Use: Never Used Second Hand Smoke Exposure: No Use of substances other than those prescribed or required for medical reasons: No Advance Directives: No Advance Directives Information Provided: Yes service: Yes Current occupational status: retired Cognitive needs: No Hearing needs: No Vision needs: No Meds Allergies Allergy/AdvReac Type Severity Reaction Status Date / Time carbamazepine Allergy Intermediate Hives Verified 05/21/24 03:46 oxycodone [From Percocet] Allergy Unknown unknown Verified 05/21/24 03:46 Home Medications ?Medication ?Instructions ?Recorded ?Confirmed ?Last Taken ?Type multivitamin 1 tab PO DAILY 11/12/21 04/14/24 Unknown History ibuprofen 200 mg tablet (Advil) 200 mg PO Q6H PRN Pain 09/04/23 04/14/24 Unknown History fluticasone propionate 50 1 spray intranasal DAILY 01/08/24 04/14/24 Unknown History mcg/actuation nasal spray,suspension (Flonase Allergy Relief) Physical Exam Vital Signs and Narrative: Vital Signs: Last Vital Signs Temp 97.8 F 05/21/24 07:03 Pulse 101 H 05/21/24 07:03 Resp 28 H 05/21/24 07:03 BP 116/85 05/21/24 07:03 Pulse Ox 98 05/21/24 07:03 O2 Del Method Room Air 05/21/24 07:03 BMI result Body Mass Index 27.1 General: AO X 3, no acute distress Resp: CTA bilateral, no accessory muscles used CVS: S1,S2,RRR, 1-2 + bilateral le edema GI: soft, non tender, non distended Neuro: motor grossly intact, alert Psych: anxious affect, appropriate insight Results Labs 05/21/24 04:12 05/21/24 04:12 Labs: Laboratory Results - last 24 hr 05/21/24 04:12 MCV 93.5 MCH 30.5 MCHC 32.7 RDW 14.3 Plt Count 212 MPV 9.7 Immature Gran % (Auto) 0.3 Neut % (Auto) 80.8 H Lymph % (Auto) 11.2 L [place] % (Auto) 7.0 Eos % (Auto) 0.3 Baso % (Auto) 0.4 Lymph # (Auto) 1.0 L [place] # (Auto) 0.7 Eos # (Auto) 0.0 Baso # (Auto) 0.0 Abs Immat Gran (auto) 0.03 Absolute Neuts (auto) 7.5 Absolute Nucleated RBC 0.000 Nucleated RBC % (auto) 0.0 Anion Gap 14 Estim Creat Clear Calc 70.6 Estimated GFR > 60 Random Glucose 117 H Calcium 9.4 Total Bilirubin 0.7 AST 86 H ALT 149 H Alkaline Phosphatase 96 B-Natriuretic Peptide 924 H Total Protein 6.9 Albumin 4.1 Influenza Type A (PCR) NEGATIVE Influenza Type B (PCR) NEGATIVE RSV RNA Qual (PCR) NEGATIVE SARS-CoV-2 RNA (RT-PCR) NEGATIVE Imaging Radiologist's Impressions: Impressions Chest X-Ray 05/21/24 03:50 IMPRESSION: Findings suspicious for mild interstitial edema. Mildly enlarged cardiac silhouette. Electronically signed by: Davon Monahan MD 05/21/2024 04:23 AM EDT RP Assessment and Plan (1) New onset of congestive heart failure: Status: Acute Plan 78M PMH copd, chronic facial pain, nephrolithiasis, chronic back pain, presented with sob Acute unspecified CHF IV Lasix, cardio eval, echocardiogram Monitor electrolytes COPD Stable, albuterol as needed Chronic pain Opiates p.r.n. DVT prophylaxis Lovenox Full Code Patient with significant shortness of breath due to new onset CHF, requires IV Lasix and specialty consultation as well as further workup including echocardiogram therefore expected require at least 2 midnights inpatient Quality Stroke Does the patient have a stroke diagnosis?: No VTE Prior VTE?: No VTE Risk Level:: Medical - moderate - high VTE Device Contraindication: Treatment Not Indicated VTE Drug Contraindication: N/A - Med Ordered
[2024-05-21] MEDS: Enoxaparin Sodium 40 MG/0.4 ML SYRINGE SUBCUT (09:16)
[2024-05-21] MEDS: Morphine Sulfate 2 MG/ML CARTRIDGE IVPUSH ×2 (09:16→13:32)
[2024-05-21] MEDS: Furosemide 40 MG/4 ML VIAL IVPUSH (09:16)
--- NOTE | 2024-05-21 09:28 | PC.NURSE ---
continues to rest quietly in room. medicated per the MAR utilizing prn pain medication. ambulates independently to use urinal for i&o's.
--- NOTE | 2024-05-21 09:33 | PHA.MEDREC ---
Addendum entered by Macey Miller RPh 05/21/24 09:48: MED REC REVIEWED BY SAMEER Original Note: Pharmacy Consult ? Medication Reconciliation Pharmacy has completed the medication reconciliation. Spoke with patient to confirm medications. He is not longer taking montelukast, he finished the azithromycin yesterday. His prescription for prednisone says 5 tablets of the 10 mg daily x5 days, but he is only taking 4 tabs spread out during the day. He last took one tablet this morning. He is still taking augmentin, last took this morning.
--- NOTE | 2024-05-21 11:06 | P.CONCA_ITS ---
History of Present Illness History of Present Illness Date of Service: 05/21/24 Chief complaint: chf Narrative: Pleasant 78 gentleman with no known history of hypertension, diabetes etc. and was not on any significant outpatient medications presenting for shortness of breath and orthopnea. This has been progressive over the last week or so. He was noticed to be in congestive heart failure on admission and was admitted. He is on IV diuretics. He also has been getting some upper chest tightness with activities. He is saying breathing problem and tightness happen at the same time. EKGs showing left bundle-branch block. No family history of coronary disease. Labs reviewed. [facility] Past Medical History Medical History COPD (chronic obstructive pulmonary disease) Allergic rhinitis Right hip pain Family History Family History Father No problems noted. Mother No problems noted. Sister Cancer Surgical History Surgical History H/O neck surgery H/O shoulder surgery Hx of shoulder surgery H/O colonoscopy History of back surgery H/O knee surgery S/P hernia surgery Social History Social History Household Members: Spouse Housing: House Do you presently have visiting nurse or other home services: No Alcohol intake: current Alcohol intake frequency: does not drink Patient Tobacco Use Status: Former Tobacco user Years Smoked: quit 1968 Smoked in Last 30 Days: No e-Cigarette/Vaping Use: Never Used Second Hand Smoke Exposure: No Use of substances other than those prescribed or required for medical reasons: No Advance Directives: No Advance Directives Information Provided: Yes service: Yes Current occupational status: retired Cognitive needs: No Hearing needs: No Vision needs: No Meds Allergies Allergy/AdvReac Type Severity Reaction Status Date / Time carbamazepine Allergy Intermediate Hives Verified 05/21/24 03:46 oxycodone [From Percocet] Allergy Unknown unknown Verified 05/21/24 03:46 Active Medications: Current Medications Acetaminophen (Acetaminophen 325 Mg Tablet) 650 mg PO Q6H PRN PRN Reason: Pain, Mild (Pain Scale 1-3), fever or headache Albuterol Sulfate (Albuterol Sulfate 90 Mcg 8 Gm Inhaler) 2 puff INHALE RQ6H PRN PRN Reason: sob Calcium Carbonate (Calcium Carbonate 750 Mg Tab.Chew) 750 mg PO Q4H PRN PRN Reason: Heartburn Enoxaparin Sodium (Enoxaparin Sodium 40 Mg/0.4 Ml Syringe) 40 mg SUBCUT Q24H [facility] Last Admin: 05/21/24 09:16 Dose: 40 mg Furosemide (Furosemide 40 Mg/4 Ml Vial) 40 mg IVPUSH BID@0900,1800 [facility]; Protocol Last Admin: 05/21/24 09:16 Dose: 40 mg Magnesium Hydroxide (Milk Of Magnesia 30 Ml Oral.Susp) 30 ml PO DAILY PRN PRN Reason: Constipation Melatonin (Melatonin 3 Mg Tablet) 6 mg PO BEDTIME PRN PRN Reason: Insomnia Morphine Sulfate (Morphine Sulfate 2 Mg/Ml Cartridge) 2 mg IVPUSH Q4H PRN; Protocol PRN Reason: moderate to severe pain Last Admin: 05/21/24 09:16 Dose: 2 mg Sodium Chloride (0.9 % Sodium Chloride Flush 3 Ml Syringe) 3 ml IVFLUSH QSHIFT [facility] Home Medications ?Medication ?Instructions ?Recorded ?Confirmed ?Last Taken ?Type multivitamin 1 tab PO DAILY 11/12/21 05/21/24 05/21/24 History ibuprofen 200 mg tablet (Advil) 800 mg PO BID PRN Pain 09/04/23 05/21/24 05/20/24 History fluticasone propionate 50 1 spray intranasal DAILY 01/08/24 05/21/24 05/21/24 History mcg/actuation nasal spray,suspension (Flonase Allergy Relief) albuterol sulfate 90 mcg/actuation 2 puff inhalation Q4-6H PRN 05/21/24 05/21/24 Unknown History aerosol inhaler Shortness Of Breath Or Wheezing amoxicillin 875 mg-potassium 1 tab PO Q12H 05/21/24 05/21/24 05/21/24 History clavulanate 125 mg tablet prednisone 10 mg tablet 10 mg PO QID 05/21/24 05/21/24 05/21/24 History Physical Exam 2 Vital Signs: Vital Signs: Last Vital Signs Temp 97.3 F 05/21/24 10:27 Pulse 90 05/21/24 10:27 Resp 17 05/21/24 10:27 BP 108/71 05/21/24 10:27 Pulse Ox 97 05/21/24 10:27 O2 Del Method Room Air 05/21/24 10:27 BMI result Body Mass Index 27.1 GENERAL APPEARANCE: in no acute distress, pleasant. NECK: no carotid bruit, + jugular venous distention. SKIN: no suspicious lesions, warm and dry. HEART: no murmurs, regular rate and rhythm. LUNGS: Crackles at bases ABDOMEN: soft, nontender. EXTREMITIES: no edema. PERIPHERAL PULSES: equal. NEUROLOGIC: No gross deficits, AAO X 3 Objective Labs and Meds 05/21/24 04:12 05/21/24 04:12 Lab results: Laboratory Results - last 24 hr 05/21/24 04:12 WBC 9.3 RBC 4.78 Hgb 14.6 Hct 44.7 MCV 93.5 MCH 30.5 MCHC 32.7 RDW 14.3 Plt Count 212 MPV 9.7 Immature Gran % (Auto) 0.3 Neut % (Auto) 80.8 H Lymph % (Auto) 11.2 L Crane % (Auto) 7.0 Eos % (Auto) 0.3 Baso % (Auto) 0.4 Lymph # (Auto) 1.0 L Crane # (Auto) 0.7 Eos # (Auto) 0.0 Baso # (Auto) 0.0 Abs Immat Gran (auto) 0.03 Absolute Neuts (auto) 7.5 Absolute Nucleated RBC 0.000 Nucleated RBC % (auto) 0.0 Sodium 142 Potassium 4.3 Chloride 108 Carbon Dioxide 24 Anion Gap 14 BUN 18 H Creatinine 0.93 Estim Creat Clear Calc 70.6 Estimated GFR > 60 Random Glucose 117 H Calcium 9.4 Total Bilirubin 0.7 AST 86 H ALT 149 H Alkaline Phosphatase 96 B-Natriuretic Peptide 924 H Total Protein 6.9 Albumin 4.1 Influenza Type A (PCR) NEGATIVE Influenza Type B (PCR) NEGATIVE RSV RNA Qual (PCR) NEGATIVE SARS-CoV-2 RNA (RT-PCR) NEGATIVE Imaging Radiologist's impression: Impressions Chest X-Ray 05/21/24 03:50 IMPRESSION: Findings suspicious for mild interstitial edema. Mildly enlarged cardiac silhouette. Electronically signed by: Davon Monahan MD 05/21/2024 04:23 AM EDT Assessment and Plan (1) New onset of congestive heart failure: Status: Acute Plan [age] gentleman presenting for orthopnea and dyspnea-new onset congestive heart failure. On IV diuretics appropriately. No beta-leonard/Cardizem should be given to him. Echocardiography reviewed and will be reported in detail but showing severe LV dysfunction. Continue diuresis. Adding Jardiance 10 mg and Entresto. Add baby aspirin and atorvastatin 40 mg daily. As he improves further we will discuss whether we should transfer and do a diagnostic angiogram on him. Please send high sensitivity troponin levels. Thank you for allowing me to participate in the care of your patient. Please feel free to contact me if you have any questions. Procedures Date of Service Date of Service: 05/21/24
[2024-05-21] MEDS: Aspirin Enteric Coated 81 MG TABLET.DR PO (11:47)
[2024-05-21] MEDS: Empagliflozin 10 MG TABLET PO (11:47)
[2024-05-21] MEDS: Sacubitril/Valsartan 24/26 1 TAB TABLET PO (13:30)
[2024-05-21] MEDS: 0.9 % Sodium Chloride Flush 3 ML SYRINGE IVFLUSH (15:30)
--- NOTE | 2024-05-21 18:31 | PC.NURSE ---
BP noted to be hypotensive, meds held at this time, provider alerted. Pt is alert and oriented, reports some mild dizziness.
[2024-05-21] MEDS: 0.9 % Sodium Chloride 250 ML 999 ML IV (18:39)
--- NOTE | 2024-05-21 19:45 | PC.NURSE ---
Provider aware of continuing low BPs after bolus.
[2024-05-21] MEDS: 0.9 % Sodium Chloride 500 ML IV (19:52)
--- NOTE | 2024-05-21 20:56 | PC.NURSE ---
Pt noted to have increase in SOB, sitting up at edge of the bed with fits of coughing. Lung sounds assessed and are noted to be crackles bilat. Pt reports SOB and feeling like he did when he came into today. Vitals obtained. Hospitalist and RT notified, awaiting orders. Pt remains alert and oriented.
[2024-05-21] MEDS: Atorvastatin Calcium 40 MG TABLET PO (21:28)
[2024-05-21] MEDS: guaiFENesin 200 MG/10 ML 10 ML LIQUID PO (21:28)
--- NOTE | 2024-05-21 21:32 | PC.NURSE ---
Sputum noted to be green/yellow color. Provider notified, orders placed.
--- NOTE | 2024-05-21 21:37 | PM.EVENT ---
Event Note Date of Service: 05/21/24 Event Note: Contacted by nursing to notify that Mr. Saucedo developed hypotension today (lowest 84/52) since 4:30 PM. He has been complaining of shortness of breaths and productive cough of greenish/yellowish sputum. Crackles according to nursing with the oxygen saturation on room air of 97%. He CXR this morning showed findings suspicious for mild interstitial edema and mildly enlarged cardiac silhouette. His hypotension occurred after diuresis. We will start treatment with empiric IV antibiotic therapy with ceftriaxone and azithromycin. We will also obtain blood cultures X 2 as well as lactic acid. He has gotten about 1.5 L of normal saline over the last several hours. Time Spent With Patient Time: Total time managing care of this patient today ____ minutes.
[2024-05-21 22:06] LABS: Lactic Acid 1.6 mmol/L (0.5-2.0)
--- NOTE | 2024-05-21 22:44 | PC.NURSE ---
Pts daughter took pts watch. Pt has top denture.
[2024-05-21] MEDS: cefTRIAXone sodium 1 GM in 0.9 % Sodium Chloride 50 ML IV (23:00)
[2024-05-22] VITALS (8 sets, daily range): BP systolic 76–108; BP diastolic 50–68; PULSE 80–100; RESP 12–26; TEMP 36.3–37; O2SAT 96–98; BMI 26.7
[2024-05-22] MEDS: 0.9 % Sodium Chloride Flush 3 ML SYRINGE IVFLUSH ×4 (00:18→20:36)
[2024-05-22] MEDS: Azithromycin 500 MG in 0.9 % Sodium Chloride 250 ML 125 MG IV (00:18)
[2024-05-22 05:15] LABS: Hematocrit 45.8 % (42.0-52.0); Hemoglobin 14.9 g/dl (14.0-18.0); Mean Corpuscular HGB Conc 32.5 g/dl (31.0-36.0); Mean Corpuscular Hemoglobin 30.2 pg (27.0-33.0); Mean Corpuscular Volume 92.7 fL (80.0-98.0); Mean Platelet Volume 10.2 fL (9.4-12.4); Platelet Count 216 X10*3/uL (160-400); Red Blood Count 4.94 X10*6/uL (4.60-5.80); Red Cell Distribution Width 14.1 % (11.0-16.0); White Blood Count 10.7 X10*3/uL (4.8-10.8)
[2024-05-22 05:36] LABS: Alanine Aminotransferase 98 U/L (0-40); Albumin Level 3.5 g/dL (3.5-5.0); Alkaline Phosphatase 79 U/L (39-117); Anion Gap 14 (12-20); Aspartate Amino Transferase 33 U/L (5-37); Bilirubin Direct 0.3 mg/dL (0.0-0.5); Bilirubin Total 0.8 mg/dL (0.0-1.0); Blood Urea Nitrogen 26 mg/dL (9-16); Calcium 8.9 mg/dL (8.4-10.2); Carbon Dioxide 31 mmol/L (22-29); Chloride 103 mmol/L (96-108); Estimated Glomerular Filt Rate > 60; Glucose Fasting 93 mg/dL (60-99); Magnesium 2.1 mg/dL (1.6-2.6); Potassium 3.7 mmol/L (3.3-5.1); Sodium 144 mmol/L (135-145); Total Protein 5.9 g/dL (6.5-8.0)
--- NOTE | 2024-05-22 08:13 | MHC.EDTECH ---
Vital sings not done because patient is sleeping, and i was check in him before one hour and he compiling about he can sleep do to the people coming in his room waking him up,last vitals is god patient resting comfortably in the hospital bed and call hair within pt reach.RN ( Mone) aware
[2024-05-22] MEDS: Empagliflozin 10 MG TABLET PO (09:15)
[2024-05-22] MEDS: Enoxaparin Sodium 40 MG/0.4 ML SYRINGE SUBCUT (09:15)
[2024-05-22] MEDS: Aspirin Enteric Coated 81 MG TABLET.DR PO (09:15)
[2024-05-22] MEDS: Acetaminophen 325 MG TABLET 650 MG PO (09:15)
--- NOTE | 2024-05-22 09:39 | HO.PM.IMPN ---
Subjective Subjective Date of Service: 05/22/24 Interval History: hypotensive and dizzy yesterday Physical Exam Vital Signs: Vital Signs: Last Vital Signs Temp 97.9 F 05/22/24 06:35 Pulse 100 05/22/24 06:35 Resp 22 H 05/22/24 06:35 BP 108/60 05/22/24 06:35 Pulse Ox 96 05/22/24 06:35 O2 Del Method Room Air 05/22/24 06:35 BMI result Body Mass Index 27.1 GENERAL APPEARANCE: in no acute distress, pleasant. NECK: no carotid bruit, + jugular venous distention. SKIN: no suspicious lesions, warm and dry. HEART: no murmurs, regular rate and rhythm. LUNGS: Crackles at bases ABDOMEN: soft, nontender. EXTREMITIES: no edema. PERIPHERAL PULSES: equal. NEUROLOGIC: No gross deficits, AAO X 3 Objective Data Active Medications Acetaminophen (Acetaminophen 325 Mg Tablet) 650 mg PO Q6H PRN PRN Reason: Pain, Mild (Pain Scale 1-3), fever or headache Last Admin: 05/22/24 09:15 Dose: 650 mg Documented By: RIMMA Albuterol Sulfate (Albuterol Sulfate (0.083%) 2.5 Mg/3 Ml Vial.Neb) 2.5 mg INHALE Q2H PRN PRN Reason: Shortness of Breath/Wheezing Aspirin (Aspirin Enteric Coated 81 Mg Tablet.) 81 mg PO DAILY [facility] Last Admin: 05/22/24 09:15 Dose: 81 mg Documented By: RIMMA Atorvastatin Calcium (Atorvastatin Calcium 40 Mg Tablet) 40 mg PO BEDTIME [facility] Last Admin: 05/21/24 21:28 Dose: 40 mg Documented By: DOM Calcium Carbonate (Calcium Carbonate 750 Mg Tab.Chew) 750 mg PO Q4H PRN PRN Reason: Heartburn Empagliflozin (Empagliflozin 10 Mg Tablet) 10 mg PO DAILY [facility] Last Admin: 05/22/24 09:15 Dose: 10 mg Documented By: RIMMA Enoxaparin Sodium (Enoxaparin Sodium 40 Mg/0.4 Ml Syringe) 40 mg SUBCUT Q24H [facility] Last Admin: 05/22/24 09:15 Dose: 40 mg Documented By: RIMMA Furosemide (Furosemide 40 Mg/4 Ml Vial) 40 mg IVPUSH BID@0900,1800 [facility]; Protocol Last Admin: 05/21/24 18:32 Dose: Not Given Documented By: DOM Non-Admin Reason: Decreased Blood Pressure Guaifenesin (Guaifenesin 200 Mg/10 Ml 10 Ml Liquid) 10 ml PO Q4H PRN PRN Reason: Cough Last Admin: 05/21/24 21:28 Dose: 10 ml Documented By: DOM Magnesium Hydroxide (Milk Of Magnesia 30 Ml Oral.Susp) 30 ml PO DAILY PRN PRN Reason: Constipation Melatonin (Melatonin 3 Mg Tablet) 6 mg PO BEDTIME PRN PRN Reason: Insomnia Morphine Sulfate (Morphine Sulfate 2 Mg/Ml Cartridge) 2 mg IVPUSH Q4H PRN; Protocol PRN Reason: moderate to severe pain Last Admin: 05/21/24 13:32 Dose: 2 mg Documented By: DOM Sodium Chloride (0.9 % Sodium Chloride Flush 3 Ml Syringe) 3 ml IVFLUSH QSMSFT [facility] Last Admin: 05/22/24 09:14 Dose: 3 ml Documented By: RIMMA Labs 05/22/24 04:17 05/22/24 04:17 Labs: Laboratory Results - last 24 hr 05/21/24 05/22/24 21:50 04:17 MCV 92.7 MCH 30.2 MCHC 32.5 RDW 14.1 Plt Count 216 MPV 10.2 Absolute Nucleated RBC 0.000 Nucleated RBC % (auto) 0.0 Anion Gap 14 Estim Creat Clear Calc 62.0 Estimated GFR > 60 Fasting Glucose 93 Lactic Acid 1.6 Calcium 8.9 Magnesium 2.1 Total Bilirubin 0.8 Direct Bilirubin 0.3 AST 33 ALT 98 H Alkaline Phosphatase 79 Total Protein 5.9 L Albumin 3.5 Assessment and Plan (1) New onset of congestive heart failure: Status: Acute Plan 78M PMH copd, chronic facial pain, nephrolithiasis, chronic back pain, presented with sob Acute systolic CHF continue jardiance and IV Lasix - reduced to 20mg bid due to hypotension, holding entresto cardio following Monitor electrolytes hypotension due to meds, not sepsis, doubt pneumonia, will dc antibiotics COPD Stable, albuterol as needed Chronic pain Opiates p.r.n. DVT prophylaxis Lovenox Full Code reason for continued hospitalization:iv diuresis Quality Stroke Does the patient have a stroke diagnosis?: No VTE Prior VTE?: No VTE Risk Level:: Medical - moderate - high VTE Device Contraindication: Treatment Not Indicated VTE Drug Contraindication: N/A - Med Ordered
--- NOTE | 2024-05-22 12:24 | PC.NURSE ---
notified Dr. Arauz of low BP 76/56 and 74/46
--- NOTE | 2024-05-22 12:32 | PC.NURSE ---
per dr Arauz, no new orders at this time r/t low BP as pt is asymptomatic and offers no complaints. will monitor.
--- NOTE | 2024-05-22 13:07 | PM.PNCARD ---
Subjective Subjective Date of Service: 05/22/24 Interval history: Seen examined at bedside. Blood pressure has been low overnight and today after diuresis and after getting 1st dose of Entresto. Overall he is feeling better. ECHO showed severe LV dysfunction which was discussed with the patient. Physical Exam Vital Signs: Last Vital Signs Temp 97.8 F 05/22/24 12:05 Pulse 100 05/22/24 12:05 Resp 16 05/22/24 12:05 BP 76/56 L 05/22/24 12:05 Pulse Ox 98 05/22/24 12:05 O2 Del Method Room Air 05/22/24 12:05 BMI result Body Mass Index 27.1 GENERAL APPEARANCE: in no acute distress, pleasant. NECK: no carotid bruit, mild jugular venous distention. SKIN: no suspicious lesions, warm and dry. HEART: no murmurs, regular rate and rhythm. LUNGS: clear to auscultate EXTREMITIES: no edema. PERIPHERAL PULSES: equal. NEUROLOGIC: No gross deficits, AAO X 3 Objective Labs and Meds 05/22/24 04:17 05/22/24 04:17 Lab results: Laboratory Results - last 24 hr 05/21/24 05/22/24 21:50 04:17 WBC 10.7 RBC 4.94 Hgb 14.9 Hct 45.8 MCV 92.7 MCH 30.2 MCHC 32.5 RDW 14.1 Plt Count 216 MPV 10.2 Absolute Nucleated RBC 0.000 Nucleated RBC % (auto) 0.0 Sodium 144 Potassium 3.7 Chloride 103 Carbon Dioxide 31 H Anion Gap 14 BUN 26 H Creatinine 1.06 Estim Creat Clear Calc 62.0 Estimated GFR > 60 Fasting Glucose 93 Lactic Acid 1.6 Calcium 8.9 Magnesium 2.1 Total Bilirubin 0.8 Direct Bilirubin 0.3 AST 33 ALT 98 H Alkaline Phosphatase 79 Total Protein 5.9 L Albumin 3.5 Imaging Radiologist's impression: Impressions Chest X-Ray 05/21/24 21:10 IMPRESSION: Interval improvement in interstitial edema. Electronically signed by: Donald Dennis MD 05/22/2024 07:47 AM EDT Progress Note: A&P Assessment and plan (1) New onset of congestive heart failure: Status: Acute (2) Cardiomyopathy: Status: Acute (3) Left bundle branch block: Status: Acute Plan Pleasant 78 year gentleman presenting with new onset congestive heart failure and cardiomyopathy with severe LV dysfunction. He has left bundle-branch block. QRS duration is 148 milliseconds. He is on Jardiance 10 mg daily. We gave him 1 dose of Entresto but he could not tolerate it and required IV fluid resuscitation after that. Can leave him on IV diuretics 20 mg once a day. Monitor I's and O's closely. His blood pressure will really limit us from starting any medications. In some circumstances only options to give midodrine to bring the blood pressure wrap and then give neurohormonal blockade. If stable we will potentially transfer him tomorrow for diagnostic angiography on Thursday. Thank you for allowing me to participate in the care of your patient. Please feel free to contact me if you have any questions. Time Spent With Patient Time: Total time managing care of this patient today ____ minutes. Progress Note: Quality Stroke Does the patient have a stroke diagnosis?: No Procedures Date of Service Date of Service: 05/22/24
--- NOTE | 2024-05-22 13:49 | PC.NURSE ---
pt c/o 04/16 headache not improved from this AM now accompanied by nausea. this RN reached out to MD Arauz for order for zofran and alternate pain medication as pt only other option for pain medication is morphine.
[2024-05-22] MEDS: Ibuprofen 400 MG TABLET PO (13:58)
[2024-05-22] MEDS: ondansetron HCL 4 MG/2 ML VIAL IVPUSH (13:58)
[2024-05-22] MEDS: Melatonin 3 MG TABLET 6 MG PO (20:36)
[2024-05-22] MEDS: Atorvastatin Calcium 40 MG TABLET PO (20:36)
[2024-05-23] VITALS: BP 92/60; PULSE 91; RESP 20; TEMP 36.9; O2SAT 98
[2024-05-23 03:14] VITALS: BP 88/58
[2024-05-23 03:42] VITALS: PULSE 91; RESP 20; TEMP 37; O2SAT 91
[2024-05-23 08:00] VITALS: BP 94/57; PULSE 93; RESP 20; TEMP 36.3; O2SAT 99
[2024-05-23 08:34] LABS: Hemoglobin 16.1 g/dl (14.0-18.0); Mean Corpuscular HGB Conc 32.9 g/dl (31.0-36.0); Mean Corpuscular Hemoglobin 30.9 pg (27.0-33.0); Mean Platelet Volume 10.1 fL (9.4-12.4); Platelet Count 218 X10*3/uL (160-400); Red Blood Count 5.21 X10*6/uL (4.60-5.80); White Blood Count 9.1 X10*3/uL (4.8-10.8)
[2024-05-23] MEDS: Aspirin Enteric Coated 81 MG TABLET.DR PO (08:35)
[2024-05-23] MEDS: Empagliflozin 10 MG TABLET PO (08:35)
[2024-05-23] MEDS: 0.9 % Sodium Chloride Flush 3 ML SYRINGE IVFLUSH (08:35)
[2024-05-23] MEDS: Enoxaparin Sodium 40 MG/0.4 ML SYRINGE SUBCUT (08:35)
[2024-05-23 08:49] LABS: Anion Gap 11 (12-20); Blood Urea Nitrogen 25 mg/dL (9-16); Carbon Dioxide 32 mmol/L (22-29); Chloride 104 mmol/L (96-108); Estimated Glomerular Filt Rate > 60; Glucose Fasting 94 mg/dL (60-99); Magnesium 2.3 mg/dL (1.6-2.6); Potassium 4.2 mmol/L (3.3-5.1); Sodium 143 mmol/L (135-145)
[2024-05-23 08:53] LABS: B Type Natriuretic Peptide 199 pg/mL (<100)
--- NOTE | 2024-05-23 09:19 | MHC.CM.PN ---
CM ATTEMPTED TO MEET W/PT HOWEVER PT PERFORMING ADLS' CM TO REVISIT
--- NOTE | 2024-05-23 09:38 | PM.PNCARD ---
Subjective Subjective Date of Service: 05/23/24 Principal diagnosis: New onset congestive heart failure and cardiomyopathy Interval history: Patient is feeling well. Blood pressure remains low. Denies any lightheadedness. Heart rate is on the higher side 9210 beats per minute sinus rhythm. Noted PVCs as well as PACs. No arrhythmias otherwise. No chest pain. Heart failure syndrome is much improved Review of Systems Constitutional: Reports no additional constitutional complaints Cardiovascular: Reports no additional cardiovascular complaints Respiratory: Reports no additional respiratory complaints Gastrointestinal: Reports no additional gastrointestinal complaints Reports system reviewed and no additional complaints, except as documented Endocrine: Reports no additional endocrine complaints Physical Exam Vital Signs: Last Vital Signs Temp 97.4 F 05/23/24 08:00 Pulse 93 05/23/24 08:00 Resp 20 05/23/24 08:00 BP 94/57 L 05/23/24 08:00 Pulse Ox 99 05/23/24 08:00 O2 Del Method Room Air 05/23/24 08:00 BMI result Body Mass Index 26.7 GENERAL APPEARANCE: in no acute distress, pleasant. NECK: no carotid bruit, no jugular venous distention. SKIN: no suspicious lesions, warm and dry. HEART: no murmurs, regular rate and rhythm. LUNGS: clear to auscultate EXTREMITIES: no edema. PERIPHERAL PULSES: equal. NEUROLOGIC: No gross deficits, AAO X 3 Objective Labs and Meds 05/23/24 08:06 05/23/24 08:06 Lab results: Laboratory Results - last 24 hr 05/23/24 08:06 WBC 9.1 RBC 5.21 Hgb 16.1 Hct 49.0 MCV 94.0 MCH 30.9 MCHC 32.9 RDW 14.0 Plt Count 218 MPV 10.1 Absolute Nucleated RBC 0.000 Nucleated RBC % (auto) 0.0 Sodium 143 Potassium 4.2 Chloride 104 Carbon Dioxide 32 H Anion Gap 11 L BUN 25 H Creatinine 1.06 Estim Creat Clear Calc 62.0 Estimated GFR > 60 Fasting Glucose 94 Calcium 9.0 Magnesium 2.3 B-Natriuretic Peptide 199 H Progress Note: A&P Assessment and plan (1) New onset of congestive heart failure: Status: Acute Assessment and Plan: New onset congestive heart failure with severe LV systolic dysfunction with LVEF of 10-15% with left bundle-branch block. Unclear etiology. Blood pressure on lower side and can not maximize neurohormonal modulation at this point time due to low blood pressure. Need to evaluate etiology especially rule out ischemic etiology. Therefore suggest cardiac catheterization as the most appropriate way to figure out if he has significant coronary artery disease explains LV systolic dysfunction. Will also perform hemodynamic assessment to further guide his medical therapy. We discussed in details about need for cardiac catheterization including also did discuss risks, benefits, alternatives. He understands agrees. For now continue Jardiance therapy. Continue aspirin therapy. Will transfer to [facility] for cardiac catheterization. Arrangements have been made. Patient understands agrees. Will sign of the case. Time Spent With Patient Time: Total time managing care of this patient today ____ minutes. Progress Note: Quality Stroke Does the patient have a stroke diagnosis?: No Procedures Date of Service Date of Service: 05/23/24
--- NOTE | 2024-05-23 09:40 | P.DS_ITS ---
DS: Providers Provider Date of Service: 05/23/24 Date of admission: 05/21/24 08:43 Date of discharge: 05/23/24 Primary care physician: KIRSTIN García- Consults: 05/21/24 08:43 Consult to Cardiology Routine Consulting Provider: [facility] Reason for consultation: chf Has provider been notified: Yes DS: Diagnosis Discharge Diagnosis (1) New onset of congestive heart failure: Status: Acute (2) Cardiomyopathy: Status: Acute (3) Left bundle branch block: Status: Acute DS: Summary Hospital Course Hospital Course: from initial hpi: 78M PMH copd, chronic facial pain, nephrolithiasis, chronic back pain, presented with sob. Patient reports about 3 weeks of worsening shortness of breath. Also reporting pedal edema. Orthopnea, shortness breath is worse on exertion. Was seen in clinic and given steroids and antibiotics but has not started yet. Shortness of breath is interfering with everyday activities. In March was seen in ED for similar symptoms, and bedtime BNP mildly elevated in 200s in CTA of the chest was negative for PE but did show small bilateral effusions. An EKG had left bundle branch block. Chest x-ray now showing mild interstitial edema, mildly enlarged cardiac silhouette, EKG showing sinus tachycardia of 101 with left bundle branch block, elevated transaminases and BNP of 924. hospital course: Patient was admitted for acute systolic CHF, was treated with IV Lasix and diuresed well with improvement of shortness of breath. Echocardiogram showed mild LV wall thickness, systolic function severely decreased with an EF of 10- 15%, [id number] decreased RV systolic function, left atrial severe dilatation, moderate MR, severe pulmonary hypertension. Patient was unable to tolerate neural hormonal medications due to hypotension. Patient is overall feeling better will be transferred to [facility] for cardiac catheterization. For COPD remained stable and can continue albuterol as needed. For chronic pain opiates were used as needed. Time Attestation Discharge Coordination Time (in mins): 34 Quality: Safe Use of Opioids Does Pt have an Active Cancer Diagnosis on the Problem List?: No Quality: Stroke Does the patient have a stroke diagnosis?: No Physical Exam Vital Signs: Vital Signs: Last Vital Signs Temp 97.4 F 05/23/24 08:00 Pulse 93 05/23/24 08:00 Resp 20 05/23/24 08:00 BP 94/57 L 05/23/24 08:00 Pulse Ox 99 05/23/24 08:00 O2 Del Method Room Air 05/23/24 08:00 BMI result Body Mass Index 26.7 GENERAL APPEARANCE: in no acute distress, pleasant. NECK: no carotid bruit, no jugular venous distention. SKIN: no suspicious lesions, warm and dry. HEART: no murmurs, regular rate and rhythm. LUNGS: clear to auscultate EXTREMITIES: no edema. PERIPHERAL PULSES: equal. NEUROLOGIC: No gross deficits, AAO X 3 DS: Data Data Completed and Pending Labs on day of discharge: Laboratory Results - last 24 hr 05/23/24 08:06 WBC 9.1 RBC 5.21 Hgb 16.1 Hct 49.0 MCV 94.0 MCH 30.9 MCHC 32.9 RDW 14.0 Plt Count 218 MPV 10.1 Absolute Nucleated RBC 0.000 Nucleated RBC % (auto) 0.0 Sodium 143 Potassium 4.2 Chloride 104 Carbon Dioxide 32 H Anion Gap 11 L BUN 25 H Creatinine 1.06 Estim Creat Clear Calc 62.0 Estimated GFR > 60 Fasting Glucose 94 Calcium 9.0 Magnesium 2.3 B-Natriuretic Peptide 199 H Preliminary micro results at discharge 05/21/24 21:50 Blood Culture - Preliminary Blood - Venous No growth after 24 hours. 05/21/24 21:50 Blood Culture - Preliminary Blood - Venous No growth after 24 hours. Discharge Plan Discharge Anticipated Discharge Date/Time: 05/23/24 09:37 Patient Disposition: er Acute Care Hospital Discharge Diagnosis: Cardiomyopathy Referrals: Ivan Simpson, BUILDING MAINTENANCE ENGINEER-BC [Primary Care Provider] - 1 Week Discharge Medications: New atorvastatin 40 mg Tablet 40 mg PO BEDTIME Qty: 0 0RF aspirin 81 mg Tablet,Delayed Release (Dr/Ec) 81 mg PO DAILY Qty: 0 0RF Jardiance 10 mg Tablet 10 mg PO DAILY Qty: 0 0RF Continued albuterol sulfate 90 mcg/actuation HFA aerosol inhaler 2 puff INHALATION Q4-6H PRN (Reason: Shortness Of Breath Or Wheezing) fluticasone propionate [Flonase Allergy Relief] 50 mcg/actuation spray,suspension 1 spray intranasal DAILY Rx Instructions: administer into each nostril multivitamin Tablet 1 tab PO DAILY Discontinued ibuprofen [Advil] 200 mg Tablet 800 mg PO BID PRN (Reason: Pain) prednisone 10 mg tablet 10 mg PO QID amoxicillin-pot clavulanate 875-125 mg tablet 1 tab PO Q12H Discharge Orders: Discharge Order (Routine); Ordered 05/23/24 Ordered By: Vasile Arauz Diet: Advance to usual diet Activity on Discharge: As tolerated Stand Alone Forms: Patient Portal Discharge page Print Language: Lithuanian Care Plan Goals: Recovery [facility] Concerns: CHF, cardiomyopathy Plan of Treatment: Transferred to [facility] for cardiac catheterization Assessment: See above
--- NOTE | 2024-05-23 09:46 | MHC.CM.PN ---
IMM 05/23/24, EMR REVIEWED, PT W/NEW ONSET HF/CARDIOMYPATHY, PLAN FOR PT TP TXFR TO [facility] FOR CARDIAC CATH TODAY. CM MET W/PT WHO REPORTS HE LIVES W/ IS FULLY INDEP, NO DME/SERVICES AND PT REPORTS [place]AL [place] [facility] BUSINESS APPLICATIONS SPECIALIST CLEARS HIM. PT CONFIRMS PCP ON FILE IS CORRECT AND REPORTS HE DOES HAVE A HCP AT HOME AND IT IS HIS CHRISTY NICHOLE [phone], COPY REQUESTED.
[2024-05-23 11:23] VITALS: BP 88/58; PULSE 88; RESP 18; TEMP 37.1; O2SAT 100
--- NOTE | 2024-05-23 14:15 | PC.NURSE ---
Report called to [facility] for M7 room 28 ([phone]) spoke with charge nurse beth Siegel due to be transferred with scheduled lemon picker time of 2pm.
== END 2024-05-23 14:28 | disposition short-term general hospital (02) | DRG 292 ==
LOC: HO.ED 06:00 → HO.EDOVER 08:48 → HO.IMC 05-22 16:33
PROVIDERS: Internal Medicine; Admitting Provider Internal Medicine; Emergency Provider Emergency Medicine; PCP Nurse Practitioner Family; Visit Provider Internal Medicine
DX: I50.21 Acute systolic (congestive) heart failure (principal); I42.9 Cardiomyopathy, unspecified; J44.9 Chronic obstructive pulmonary disease, unspecified; G89.29 Other chronic pain; I95.2 Hypotension due to drugs; T46.4X5A Adverse effect of angiotensin-converting-enzyme inhibitors, initial encounter; I34.0 Nonrheumatic mitral (valve) insufficiency; I27.20 Pulmonary hypertension, unspecified; I44.7 Left bundle-branch block, unspecified; Z20.822 Contact with and (suspected) exposure to COVID-19; Z87.891 Personal history of nicotine dependence; Z79.51 Long term (current) use of inhaled steroids; Z79.899 Other long term (current) drug therapy
CPT/HCPCS: 0241U; 36415; 71045; 80048; 80053; 80076; 83605; 83735; 83880; 85025; 85027; 87040; 93005; 93306; 99285; J0456; J0696; J1650; J1940; J2270; J2405; Q9957

== ENCOUNTER → 2024-05-21 08:43 | Outpatient (BNV) | payer MEDICARE, BC, SELFPAY | PROVIDERS: Admitting Provider Internal Medicine; Emergency Provider Emergency Medicine; PCP Nurse Practitioner Family; Visit Provider Internal Medicine | DX: I50.9 Heart failure, unspecified (principal) | CPT/HCPCS: 99223; 99233; 99239; 99499 ==

== ENCOUNTER → 2024-05-21 08:43 | Outpatient (BNV) | payer MEDICARE, BC, SELFPAY | PROVIDERS: Admitting Provider Internal Medicine; Emergency Provider Emergency Medicine; PCP Nurse Practitioner Family; Visit Provider Internal Medicine Cardiovascular Disease | DX: I50.9 Heart failure, unspecified (principal); I42.9 Cardiomyopathy, unspecified; I44.7 Left bundle-branch block, unspecified | CPT/HCPCS: 93306; 99223; 99233 ==

== ENCOUNTER → 2024-05-24 23:59 | Outpatient (BNV) | payer MEDICARE, BC, SELFPAY | PROVIDERS: PCP Nurse Practitioner Family; Visit Provider Internal Medicine Cardiovascular Disease | DX: I42.9 Cardiomyopathy, unspecified (principal); I50.20 Unspecified systolic (congestive) heart failure | CPT/HCPCS: 93458; 99152 ==

== ENCOUNTER 2024-07-04 09:51 | Outpatient (AMB) | payer MEDICARE, BC, SELFPAY ==
--- NOTE | 2024-07-04 10:29 | MHC.OFFWIV ---
Intake Vital Signs 07/04/24 10:30 Height 6 ft Weight 205 lb BMI 27.8 BP 138/90 H Blood Pressure Location Lt brachial Position Sitting Pulse 110 H Pulse Source Pulse Oximeter Pulse Oximetry (%) 99 Oxygen Delivery Method Room Air Intake Visit Reasons: EP sharp stomach pain since last week Intake Note: Patient here for sharp stomach pain that started last week. states he has been having issues with passing gas. Patient Tobacco Use Status: Former Tobacco user Allergies carbamazepine Allergy (Intermediate, Verified 07/04/24 10:31) Hives oxycodone [From Percocet] Allergy (Unknown, Verified 07/04/24 10:31) unknown Do you need a note to return to daycare/school/sports/work: No HPI EP sharp stomach pain since last week HPI Details This note is constructed using voice recognition software. While every effort has been made to ensure accuracy, building services supervisor errors may have been included. The patient is a 78 year old male who presents to the clinic today with left lower quadrant abdomen pain for the last couple of days. He notes that he has a history of diverticulitis, and had his last colonoscopy in December. He has had low appetite, increased sharp pain in the left lower quadrant, and decreased bowel movements. He reports that he is trying to take [id number] medications such as MiraLax to help as well as Gas-X, but they are not seeming to help the pain. He denies bright red blood per rectum of nausea, vomiting. [facility] Medical History (Updated 06/05/24 @ 12:22 by Ivan Simpson, [facility]) ICD (implantable cardioverter-defibrillator) in place NICM (nonischemic cardiomyopathy) COPD (chronic obstructive pulmonary disease) Allergic rhinitis Right hip pain Surgical History H/O neck surgery H/O shoulder surgery Hx of shoulder surgery H/O colonoscopy History of back surgery H/O knee surgery S/P hernia surgery Family History Father No problems noted. Mother No problems noted. Sister Cancer Social History Household Members: Spouse Housing: House Do you presently have visiting nurse or other home services: No Alcohol intake: current Alcohol intake frequency: does not drink Patient Tobacco Use Status: Former Tobacco user Years Smoked: quit 1967 e-Cigarette/Vaping Use: Never Used Second Hand Smoke Exposure: No service: No Current occupational status: retired Cognitive needs: No Hearing needs: No Vision needs: No Review of Systems Const All systems reviewed & are unremarkable except as noted in HPI and below Physical Exam Vital Signs: Last Vital Signs Pulse 110 H 07/04/24 10:30 BP 138/90 H 07/04/24 10:30 Pulse Ox 99 07/04/24 10:30 Oxygen Delivery Method Room Air 07/04/24 10:30 BMI result Body Mass Index 27.8 Const General: cooperative, healthy appearing, comfortable, no acute distress and well developed Orientation/consciousness: patient oriented x3 Limitations: no limitations Resp Other: Taking short breaths Effort & Inspection: able to speak in complete sentences Auscultation: clear to auscultation bilaterally Cardio Rate: regular rate Rhythm: regular rhythm Heart sounds: normal S1 and S2 GI Inspection: Yes normal to inspection Palpation (GI): Soft to palpation and Tenderness to palpation present (GI) in the LLQ (With guarding) Auscultation: Hypoactive bowel sounds present (Throughout) Skin General skin exam: no rashes or lesions noted Neuro General: patient oriented x3 Extrem General: Yes normal to inspection Assessment & Plan Assessment & Plan (1) Left lower quadrant abdominal pain: Code(s): R10.32 - Left lower quadrant pain Plan: Concerning physical examination and history. May be symptoms constipation, however given the extreme amount of pain, he likely would benefit from additional imaging unable to be performed in the walk-in clinic. Advised patient to have evaluation in the emergency room as he may benefit from CT scan. Patient agrees with plan, reports that he will be able to drive himself. Emergency room called with report for expected visit. Plan See above for full details and plan. Coding Level of Care Code Est Pt Level 4 (16239) Diagnoses Left lower quadrant abdominal pain R10.32
[2024-07-04 10:30] VITALS: BP 138/90; PULSE 110; O2SAT 99; BMI 27.8
== END 2024-07-04 10:53 | disposition home or self-care (01) ==
PROVIDERS: PCP Nurse Practitioner Family; Visit Provider Registered Nurse
DX: R10.32 Left lower quadrant pain (principal)

== ENCOUNTER 2024-07-04 11:08 | Emergency (ER) | payer MEDICARE, BC, SELFPAY ==
--- NOTE | ~2024-07-04 | CT_ITS ---
EXAMINATION: CT ABDOMEN AND PELVIS WITH CONTRAST CLINICAL INFORMATION: Abdominal pain. Nausea and vomiting. Constipation. COMPARISON: CT scan abdomen pelvis September 04, 2023. CT chest March 28, 2024. TECHNIQUE: Multidetector volumetric images were obtained from the superior aspect of the liver through the pubic symphysis following administration 85 mL of Omnipaque 350 intravenous contrast. Sagittal and coronal reformatted images were obtained on the technologist's workstation. Oral contrast: No This CT examination was performed using dose optimization techniques as appropriate, variously including the following: *Automated exposure control *Adjustment of mA and/or kV according to patient size (this includes techniques or standardized protocols for targeted exams where dose is matched to indication/reason for exam; i.e. extremities or head) *Use of iterative reconstruction technique DLP: 680 mGy-cm FINDINGS: LUNG BASES: Stable small pleural-based irregular opacity at the anterior right lung base image 02/01 series 8. This is unchanged since CAT scan March 28, 2024. Lung bases are otherwise normally aerated. No pleural effusion. Pacemaker leads in heart. No pericardial effusion. LIVER, GALLBLADDER, AND BILIARY TREE: The liver is normal in size, shape, and attenuation. No focal hepatic lesion or biliary ductal dilatation is present. The gallbladder is unremarkable with no evidence of radiopaque gallstones, gallbladder wall thickening, or obvious pericholecystic inflammatory changes. PANCREAS: Unremarkable. SPLEEN: Unremarkable. ADRENAL GLANDS: Unremarkable. KIDNEYS AND URETERS: The kidneys are normal in size, shape, and attenuation. No hydronephrosis, hydroureter, or calculi seen. No perinephric stranding. There is a stable right renal cyst measuring 10 cm at the mid lower pole right kidney. No follow-up imaging is recommended for simple renal cyst. BLADDER: Unremarkable. GASTROINTESTINAL TRACT: There are scattered diverticula of the colon. There is no diverticulitis. There is no bowel wall thickening /edema. There is no bowel obstruction. There is a moderate volume of stool in the colon. The appendix is normal . The small bowel loops are unremarkable. The stomach is normal. There is no hiatal hernia. Mesentery: Partially peripherally calcified fat lobule in the mid mesentery measuring 2.5 cm is stable since prior CT study September 04, 2023. No surrounding inflammation. Likely sequela of prior fat necrosis. No free air or free fluid. ABDOMINAL WALL: Surgical mesh in the anterior abdominal wall. No ventral wall hernia. LYMPH NODES: Normal. VASCULAR: Vascular wall calcifications of aorta and iliac arteries. There is no aneurysm. PELVIC VISCERA: Unremarkable. OSSEOUS STRUCTURES: Stable postsurgical fusion of the thoracolumbar spine. CT/CT abdomen pelvis w IV con IMPRESSION: 1. No acute abnormality CT scan abdomen pelvis. 2. Diverticulosis of colon. No acute change of the bowel. 3. Stable postsurgical fusion of the thoracolumbar spine. Fleischner guidelines were followed. Electronically signed by: Aneesh Jarvis MD 07/04/2024 03:55 PM EDT
[2024-07-04 11:30] VITALS: BP 119/82; PULSE 101; RESP 18; TEMP 36.8; O2SAT 99; BMI 27.7
--- NOTE | 2024-07-04 11:30 | ED.ABDPAIN ---
HPI - Abdominal Pain General Chief Complaint: Abdominal Pain Stated Complaint: Diverticulitis Time Seen by Provider: 07/04/24 13:20 Source: patient Mode of arrival: ambulatory Limitations: no limitations History of Present Illness ED Provider: Veronica Billy PA-C HPI narrative: 78-year-old male with a history of COPD, hx perforated appendix requiring colon resection and colostomy in the past, cardiomyopathy w/ EF 10-15% status post ICD placement 1 month ago, who presents to the ER from Urgent Care for evaluation of 1 week of left side abdominal pain. He reports pain comes in waves and is stabbing and cramping in nature, is diffuse but mostly on the left side. He feels nauseated but has not vomited. He has been constipated, last had a BM yesterday and it was difficult. No urinary symptoms. No fever or chills. No chest pain and SOB improved over the last 1 month. MD elicited complaint: abdominal pain Pertinent past history: other (colon resection) Onset (ago): week(s) (1) Pain Consistency: constant Location: diffuse Severity: moderate Pain scale (0-10): 6 Quality: cramping and stabbing Radiation: none Migration to: LLQ Exacerbating factors: nothing Relieving factors: nothing Associated symptoms: nausea and constipation Related Data Home Medications ?Medication ?Instructions ?Recorded ?Confirmed multivitamin 1 tab PO DAILY 11/12/21 05/21/24 fluticasone propionate 50 1 spray intranasal DAILY 01/08/24 05/21/24 mcg/actuation nasal spray,suspension (Flonase Allergy Relief) albuterol sulfate 90 mcg/actuation 2 puff inhalation Q4-6H PRN 05/21/24 05/21/24 aerosol inhaler Shortness Of Breath Or Wheezing Previous Rx's ?Medication ?Instructions ?Recorded aspirin 81 mg tablet,delayed 81 mg PO DAILY #0 tabs 05/23/24 release atorvastatin 40 mg tablet 40 mg PO BEDTIME #0 tabs 05/23/24 empagliflozin 10 mg tablet 10 mg PO DAILY #0 tabs 05/23/24 (Jardiance) docusate sodium 100 mg capsule 100 mg PO BID #60 caps 07/04/24 (Colace) polyethylene glycol 3350 17 17 g PO DAILY #119 grams 07/04/24 gram/dose oral powder (Miralax) sennosides 8.6 mg tablet (senna) 8.6 mg PO BEDTIME #14 tabs 07/04/24 Allergies Allergy/AdvReac Type Severity Reaction Status Date / Time carbamazepine Allergy Intermediate Hives Verified 07/04/24 11:32 oxycodone [From Percocet] Allergy Unknown unknown Verified 07/04/24 11:32 Review of Systems Review of Systems Yes all other systems are reviewed and are negative [facility] Past Medical History Medical History (Updated 07/04/24 @ 16:17 by KALI Estes) ICD (implantable cardioverter-defibrillator) in place NICM (nonischemic cardiomyopathy) COPD (chronic obstructive pulmonary disease) Allergic rhinitis Right hip pain Surgical History H/O neck surgery H/O shoulder surgery Hx of shoulder surgery H/O colonoscopy History of back surgery H/O knee surgery S/P hernia surgery Family History Family History Father No problems noted. Mother No problems noted. Sister Cancer Social History Social History Household Members: Spouse Housing: House Do you presently have visiting nurse or other home services: No Alcohol intake: current Alcohol intake frequency: does not drink Patient Tobacco Use Status: Former Tobacco user Years Smoked: quit 1968 Smoked in Last 30 Days: No e-Cigarette/Vaping Use: Never Used Second Hand Smoke Exposure: No Use of substances other than those prescribed or required for medical reasons: No Advance Directives: No Advance Directives Information Provided: Yes Do you have a plan to hurt others: No Plan service: No Current occupational status: retired Cognitive needs: No Hearing needs: No Vision needs: No Physical Exam ED Vital Signs: Vital Signs - 24 hr 07/04/24 11:30 07/04/24 15:14 Temperature 98.3 F 97.6 F Pulse Rate 101 H 101 H Respiratory Rate 18 16 Blood Pressure 119/82 110/76 Pulse Oximetry 99 97 Oxygen Delivery Method Room Air Room Air BMI result Body Mass Index 27.7 Appearance: Alert. Oriented X3. No acute distress. Head: normocephalic, atraumatic. Eyes: Pupils equal, round and reactive to light. ENT: Pharynx normal. No tonsillar swelling or exudate. Neck: Normal inspection. Neck supple. CVS: Normal heart rate and rhythm. Pulses normal. Respiratory: No respiratory distress. Breath sounds normal. Abdomen: Well-healed longitudinal surgical scar, well healed left lower quadrant scar. He has tenderness to palpation along with guarding in the left lower quadrant and right lower quadrant +BS x4 Skin: Skin warm and dry. Normal skin color. Normal skin turgor. No rashes. Extremities: No lower extremity edema. No joint swelling. Neuro/psych: Oriented X 3. No motor deficit. No sensory deficit. CN II-XII intact. Normal speech and cognition. Course Course Course Narrative: This is a Rapid Medical Exam performed in triage by Rosa Martinez PA-C. Full HPI, ROS and PE to be performed by primary ED provider. 78 yo M w/PMHx diverticulitis, CHF, ICD, COPD, presenting to the ED c/o sent to ED from for r/o diverticulitis. C/o LLQ abdominal pain x last week intermittently. +Assoc nausea & vomiting, & constipation/increased gas PE: Appears uncomfortable, +LLQ abd ttp Plan: Labs, UA, CT Medical Decision Making Medical Decision Making MDM Narrative: A 78-year-old male with history of cardiomyopathy with EF 10% status post recent ICD who presents to the ER for evaluation of diffuse abdominal pain for last 1 week. He has been constipated having difficulty having bowel movement with nausea. No vomiting. No blood in his bowel movement. Last BM was yesterday. He does have abdominal tenderness, mostly in left lower quadrant with some guarding. He has normoactive bowel sounds. Lab work was done showing no leukocytosis. Normal LFTs and lipase. No signs of dehydration on his labs. He is hemodynamically stable and afebrile. Urinalysis showing microscopic hematuria which has been present since 2021. No signs of infection. CT scan of the abdomen pelvis was done which does not show any evidence of acute process. He does have moderate stool burden, no evidence of obstruction. His pain was improved with Zofran and morphine. We discussed the results of his labs and imaging studies. At this time recommend oral bowel regimen including MiraLax, senna, Colace. Stable for discharge home with outpatient follow-up. Return precautions were discussed. Differential Diagnosis Differential Diagnoses: The differential diagnosis associated with the presentation includes Diverticulitis, colonic abscess, perforation, constipation, cholecystitis Admission/Observation Consideration of admission/observation: Escalation of care including admission/observation considered Lab Data MDM Lab Attestation statement: I reviewed the patient's lab results. No leukocytosis, mild thrombocytopenia, low lipase, normal bilirubins 07/04/24 12:31 07/04/24 12:31 Labs: Lab Results 07/04/24 07/04/24 Range/Units 12:31 15:01 WBC 7.5 (4.8-10.8) X10*3/uL RBC 4.91 (4.60-5.80) X10*6/uL Hgb 14.9 (14.0-18.0) g/dl Hct 45.9 (42.0-52.0) % MCV 93.5 (80.0-98.0) fL MCH 30.3 (27.0-33.0) pg MCHC 32.5 (31.0-36.0) g/dl RDW 14.2 (11.0-16.0) % Plt Count 153 L D (160-400) X10*3/uL MPV 10.0 (9.4-12.4) fL Immature Gran % (Auto) 0.1 (0.0-0.4) % Neut % (Auto) 70.7 (45-73) % Lymph % (Auto) 17.6 L (20-40) % Curry % (Auto) 8.0 (2-11) % Eos % (Auto) 2.3 (0-4) % Baso % (Auto) 1.3 (0-2) % Lymph # (Auto) 1.3 (1.2-4.9) X10*3/uL Curry # (Auto) 0.6 (0.1-1.2) X10*3/uL Eos # (Auto) 0.2 (0.0-0.4) X10*3/uL Baso # (Auto) 0.1 (0.0-0.2) X10*3/uL Abs Immat Gran (auto) 0.01 (0.00-0.03) X10*3/uL Absolute Neuts (auto) 5.3 (2.0-8.3) x10*3/uL Absolute Nucleated RBC 0.000 (0.0-0.012) X10*3/uL Nucleated RBC % (auto) 0.0 (0.0-0.2) /100WBC Sodium 140 (135-145) mmol/L Potassium 4.7 (3.3-5.1) mmol/L Chloride 106 (96-108) mmol/L Carbon Dioxide 26 (22-29) mmol/L Anion Gap 13 (12-20) BUN 12 (9-16) mg/dL Creatinine 0.87 (0.5-1.4) mg/dL Estim Creat Clear Calc 75.5 Estimated GFR > 60 Random Glucose 89 (60-115) mg/dL Calcium 9.7 D (8.4-10.2) mg/dL Magnesium 1.9 (1.6-2.6) mg/dL Total Bilirubin 0.8 (0.0-1.0) mg/dL Direct Bilirubin 0.3 (0.0-0.5) mg/dL AST 38 H (5-37) U/L ALT 33 (0-40) U/L Alkaline Phosphatase 77 (39-117) U/L Total Protein 6.6 (6.5-8.0) g/dL Albumin 4.0 (3.5-5.0) g/dL Lipase 7 L (8-78) U/L Urine Color Dark Yellow Urine Appearance Clear Urine pH 5.5 (5.0-9.0) Ur Specific Strang >= 1.030 H (1.005-1.025) Urine Protein Trace (Neg-Trace) mg/dL Urine Glucose (UA) Negative (Negative) mg/dL Urine Ketones Trace (Negative) mg/dL Urine Blood Small (1+) H (Negative) Urine Nitrite Negative (Negative) Ur Leukocyte Esterase Negative (Negative) Urine RBC 11-20 H (0-2) /HPF Urine WBC 0-5 (0-5) /HPF Ur Squamous Epith Cells 0-2 (0-2) /HPF Urine Bacteria None Seen (None Seen) Hyaline Casts 0-2 (0-2) /LPF Independent Interpretation I performed an independent interpretation of an: CT Scan Interpretation: No air-fluid levels to suggest obstruction, no colonic thickening appreciated, no visible abscess Radiology Impression Discussion of test interpretation with radiology: I have reviewed the radiologist's reading. Radiologist Impression: CT/CT abdomen pelvis w IV con IMPRESSION: 1. No acute abnormality CT scan abdomen pelvis. 2. Diverticulosis of colon. No acute change of the bowel. 3. Stable postsurgical fusion of the thoracolumbar spine. External Record Review External record reviewed: Inpatient record, Outpatient record, Prior outpatient labs and Prior outpatient radiology Prescription Management I considered prescription management with: Pain Medication and Other (laxatives) Chronic Conditions Patient?s care impacted by: Other (CHF) Medications Administered Discontinued Medications Generic Name Dose Route Start Last Admin Trade Name Girish PRN Reason Stop Dose Admin Acetaminophen 975 mg 07/04/24 14:42 07/04/24 15:00 Acetaminophen 325 Mg Tablet PO 07/04/24 14:43 975 mg ONCE ONE Administration Iohexol 100 ml 07/04/24 14:21 07/04/24 14:21 Iohexol 350 Mg/Ml 100 Ml Infus..Btl IV 07/04/24 14:22 85 ml ONCE ONE Administration Ketorolac Tromethamine 15 mg 07/04/24 14:42 07/04/24 15:01 Ketorolac Tromethamine 15 Mg/Ml Vial IVPUSH 07/04/24 14:43 15 mg ONCE ONE Administration Ondansetron HCl 4 mg 07/04/24 14:42 07/04/24 15:01 Ondansetron Hcl 4 Mg/2 Ml Vial IVPUSH 07/04/24 14:43 4 mg ONCE ONE Administration Critical Care Time Critical Care Time Critical Care Time: No Discharge Plan Discharge Clinical Impression: Constipation Qualifiers: Constipation type: unspecified constipation type Qualified Code(s): K59.00 - Constipation, unspecified Patient Disposition: Home, Self-Care Instructions: Constipation (DC), Acute Abdominal Pain (ED) Additional Instructions: Your lab workup today was reassuring. Your urinalysis today showed traces of red blood cells which have been present for the last couple of years. You should follow-up with your doctor about this as well as Urology. Call for an appointment Your CT scan did not show any acute abdominal findings. You have a moderate amount of stool in her colon and your symptoms most likely due to constipation. Take the prescribed bowel regimen as directed. Make sure drinking plenty of fluids and stay hydrated. Follow-up with your doctor this week. If you develop new or worsening symptoms call 911 or come back to the ER for further evaluation. Prescriptions: New polyethylene glycol 3350 [Miralax] 17 gram/dose powder 17 g PO DAILY Qty: 119 0RF docusate sodium [Colace] 100 mg capsule 100 mg PO BID Qty: 60 0RF sennosides [senna] 8.6 mg tablet 8.6 mg PO BEDTIME Qty: 14 0RF No Action albuterol sulfate 90 mcg/actuation HFA aerosol inhaler 2 puff INHALATION Q4-6H PRN (Reason: Shortness Of Breath Or Wheezing) atorvastatin 40 mg Tablet 40 mg PO BEDTIME Qty: 0 0RF aspirin 81 mg Tablet,Delayed Release (Dr/Ec) 81 mg PO DAILY Qty: 0 0RF Jardiance 10 mg Tablet 10 mg PO DAILY Qty: 0 0RF fluticasone propionate [Flonase Allergy Relief] 50 mcg/actuation spray,suspension 1 spray intranasal DAILY Rx Instructions: administer into each nostril multivitamin Tablet 1 tab PO DAILY Referrals: [facility] [place]Provider Group] (Microscopic hematuria) Ivan Simpson, [employer] W[employer] PL[employer] OPERATOR-BC [Primary Care Provider] - Print Language: Icelandic
[2024-07-04 12:37] LABS: MANUAL DIFF FLAG NO
[2024-07-04 12:38] LABS: Basophils Absolute Auto 0.1 X10*3/uL (0.0-0.2); Basophils Percent Auto 1.3 % (0-2); Eosinophils Absolute Auto 0.2 X10*3/uL (0.0-0.4); Eosinophils Percent Auto 2.3 % (0-4); Hematocrit 45.9 % (42.0-52.0); Hemoglobin 14.9 g/dl (14.0-18.0); Imm Gran Abs Auto 0.01 X10*3/uL (0.00-0.03); Imm Gran Pct Auto 0.1 % (0.0-0.4); Lymphocytes Absolute Auto 1.3 X10*3/uL (1.2-4.9); Lymphocytes Percent Auto 17.6 % (20-40); Mean Corpuscular HGB Conc 32.5 g/dl (31.0-36.0); Mean Corpuscular Hemoglobin 30.3 pg (27.0-33.0); Mean Corpuscular Volume 93.5 fL (80.0-98.0); Monocytes Absolute Auto 0.6 X10*3/uL (0.1-1.2); Neutrophils Absolute Auto 5.3 x10*3/uL (2.0-8.3); Neutrophils Percent Auto 70.7 % (45-73); Platelet Count 153 X10*3/uL (160-400); Red Blood Count 4.91 X10*6/uL (4.60-5.80); Red Cell Distribution Width 14.2 % (11.0-16.0); White Blood Count 7.5 X10*3/uL (4.8-10.8)
[2024-07-04 12:54] LABS: Alanine Aminotransferase 33 U/L (0-40); Alkaline Phosphatase 77 U/L (39-117); Anion Gap 13 (12-20); Aspartate Amino Transferase 38 U/L (5-37); Bilirubin Direct 0.3 mg/dL (0.0-0.5); Bilirubin Total 0.8 mg/dL (0.0-1.0); Blood Urea Nitrogen 12 mg/dL (9-16); Calcium 9.7 mg/dL (8.4-10.2); Carbon Dioxide 26 mmol/L (22-29); Chloride 106 mmol/L (96-108); Creatinine Clr Calc Pharmacy 75.5; Estimated Glomerular Filt Rate > 60; Glucose Random 89 mg/dL (60-115); Lipase 7 U/L (8-78); Magnesium 1.9 mg/dL (1.6-2.6); Potassium 4.7 mmol/L (3.3-5.1); Sodium 140 mmol/L (135-145); Total Protein 6.6 g/dL (6.5-8.0)
[2024-07-04] MEDS: iohexoL 350 MG/ML 100 ML INFUS..BTL IV (14:21)
[2024-07-04] MEDS: Acetaminophen 325 MG TABLET 975 MG PO (15:00)
[2024-07-04] MEDS: Ketorolac Tromethamine 15 MG/ML VIAL IVPUSH (15:01)
[2024-07-04] MEDS: ondansetron HCL 4 MG/2 ML VIAL IVPUSH (15:01)
[2024-07-04 15:08] LABS: Appearance Urine Clear; Color Urine Dark Yellow; Glucose Urine UA Negative (Negative); Leukocyte Esterase Urine Negative (Negative); Nitrite Urine Negative (Negative); PH 5.5 (5.0-9.0); Specific Gravity - Urine >= 1.030 (1.005-1.025); UMIC TRIGGER UACC YES; Urine Blood Small (1+) (Negative); Urine Ketones Trace mg/dL (Negative); Urine Protein Trace mg/dL (Neg-Trace)
[2024-07-04 15:10] LABS: Bacteria Urine None Seen (None Seen); Hyaline Casts Urine 0-2 /LPF (0-2); Squamous Epithelial Cell Urine 0-2 /HPF (0-2); WBC Urine 0-5 /HPF (0-5)
[2024-07-04 15:14] VITALS: BP 110/76; PULSE 101; RESP 16; TEMP 36.4; O2SAT 97
[2024-07-04 16:40] VITALS: BP 110/72; PULSE 94; RESP 18; TEMP 36.4; O2SAT 97
== END 2024-07-04 16:42 | disposition home or self-care (01) ==
PROVIDERS: Physician Assistant; Emergency Provider Emergency Medicine; PCP Nurse Practitioner Family
DX: K59.00 Constipation, unspecified (principal); R10.9 Unspecified abdominal pain
CPT/HCPCS: 36415; 74177; 80048; 80076; 81001; 83690; 83735; 85025; 96374; 96375; 99212; 99284; J1885; J2405; Q9967

== ENCOUNTER 2024-07-18 09:59 | Outpatient (AMB) | payer MEDICARE, BC, SELFPAY ==
--- NOTE | 2024-07-18 10:03 | MHC.PC.OV ---
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 Accompanied by: Self / Same As Patient Allergies carbamazepine Allergy (Intermediate, Verified 07/18/24 10:04) Hives oxycodone [From Percocet] Allergy (Unknown, Verified 07/18/24 10:04) unknown Tobacco use date assessed: 01/27/24 Fall risk assessment: No Falls in past year Last assessed Fall Risk: 07/18/24 Dental Screening Dental Screen Date: 07/18/24 Did you have a dental visit in the last 12 months?: Yes Did you have a dental problem in the last 6 months where you did not have access to dental care?: No Was dental information given to patient?: Patient has dentist HPI 5 mon f/u HPI Details Pt c/o ongoing mucus production and cough. He reports having coughing fits and coughing up thick white mucus. 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 He has also tried multiple medications. Previous sinus CT showed no significant paranasal sinus mucosal disease. Will send zpak, prednisone, and guaifenesin. Denies fever, chills, chest pain, and shortness of breath. Repeating CT of chest in approx 3 months for ground glass nodules (please see all previous imaging). NOTE: Apparent Hx of COPD, though pt denies knowing about this??? Last pulmonary note mentions PFTs were normal??? Pt spitting up thick whitish mucous NOTE #2: pt has a ICD and has a follow up with cardiology tomorrow. [facility] Medical History (Updated 07/18/24 @ 11:21 by RAFA Riddle) ICD (implantable cardioverter-defibrillator) in place NICM (nonischemic cardiomyopathy) COPD (chronic obstructive pulmonary disease) Allergic rhinitis Right hip pain Surgical History H/O neck surgery H/O shoulder surgery Hx of shoulder surgery H/O colonoscopy History of back surgery H/O knee surgery S/P hernia surgery Family History Father No problems noted. Mother No problems noted. Sister Cancer Social History Household Members: Spouse Housing: House Do you presently have visiting nurse or other home services: No Alcohol intake: current Alcohol intake frequency: does not drink Patient Tobacco Use Status: Former Tobacco user Years Smoked: quit 1968 e-Cigarette/Vaping Use: Never Used Second Hand Smoke Exposure: No service: No Current occupational status: retired Cognitive needs: No Hearing needs: No Vision needs: No Questionnaire PHQ-9 Over the last 2 weeks, how often have you been bothered by any of the following problems? 1. Little interest or pleasure in doing things: several days 2. Feeling down, depressed, or hopeless: several days 3. Trouble falling or staying asleep, or sleeping too much: several days 4. Feeling tired or having little energy: several days 5. Poor appetite or overeating: not at all 6. Feeling bad about yourself - or that you are a failure or have let yourself or your family down: not at all 7. Trouble concentrating on things, such as reading the newspaper or watching television: not at all 8. Moving or speaking so slowly that other people could have noticed. Or the opposite - being so fidgety or restless that you have been moving around a lot more than usual: not at all 9. Thoughts that you would be better off or of hurting yourself in some way: not at all Total score: 4 Depression Screening Interpretation: Negative Depression Screening Done: Yes 54034 - PHQ-9 Billing: Yes Source: Developed by Drs. Joce Gonzalez, Keyla Mcclelland, Don Ramirez and colleagues, with an educational portillo from [employer]. Thrive Questionnaire Date Thrive assessed: 07/18/24 I am a: Patient What is your living situation today?: I have a steady place to live Within the past 12 months, did the food you bought not last and you didn't have the money to get more?: I choose not to answer this question Within the past 12 months, did you worry whether your food would run out before you got money to buy more?: I choose not to answer this question Do you have trouble paying for medicines?: I choose not to answer this question Do you have trouble getting transportation to medical appointments?: I choose not to answer this question Do you have trouble paying your heating and electricity bill?: I choose not to answer this question Do you have trouble taking care of your child, family member or friend?: I choose not to answer this question Do you have trouble with day-to-day activities such as bathing, preparing meals, shopping, managing finances, etc.?: I choose not to answer this question Are you currently unemployed and looking for a job?: I choose not to answer this question Are you interested in more education?: I choose not to answer this question Please select the resources that you would like help with: None THRIVE Score: 0 AUDIT C Alcohol Use Questionnaire (AUDIT-C) 1. How often do you have a drink containing alcohol?: Monthly or less 2. How many drinks containing alcohol do you have on a typical day when you are drinking?: 1 or 2 3. How often do you have six or more drinks on one occasion?: Never Total Score: 1 Score Reviewed/Action Taken: Yes CANDACE-7 AMB Questionnaire CANDACE-7 Date CANDACE - 7 assessed: 07/18/24 Feeling nervous, anxious, or on edge: 0 = Not at all Not being able to stop or control worryin = Not at all Worrying too much about different things: 0 = Not at all Trouble relaxin = Not at all Being so restless that it is hard to sit still: 0 = Not at all Becoming easily annoyed or irritable: 0 = Not at all Feeling afraid as if something awful might happen: 0 = Not at all Total CANDACE-7 score (0-4 normal; 5-9 mild; 10-14 moderate; 15-21 severe): 0 Source: Developed by Drs. Joce Gonzalez, Keyla Mcclelland, Don Ramirez and colleagues, with an educational portillo from [employer]. CANDACE-7 Assessment Billing CANDACE-7 Assessment Tool: CANDACE-7 Assessment 93690 Review of Systems Const Reports as per HPI Physical exam (Primary Care) Vital Signs: Last Vital Signs Pulse 103 H 07/18/24 10:04 BP 110/68 07/18/24 10:04 Pulse Ox 97 07/18/24 10:04 BMI result Body Mass Index 27.1 Tobacco/Smoking Status: Tobacco use Status Tobacco use date assessed 01/27/24 07/18/24 10:05 Patient Tobacco Use Status Former Tobacco user 07/18/24 10:05 e-Cigarette/Vaping Use Never Used 07/18/24 10:05 PHQ-9: PHQ-9 Score PHQ-9: Total score 4 07/18/24 10:58 Depression Screening Interpretation: Negative Thrive Assessment: Date of Thrive Assessment Date Thrive assessed 07/18/24 07/18/24 10:05 Const General: cooperative Neck Lymphatic: no lymphadenopathy noted Resp Other: lungs fairly clear Effort & Inspection: normal respiratory effort Cardio Rate: tachycardic Rhythm: regular rhythm Heart sounds: S1 normal heart sound present and S2 normal heart sound present Extrem Right lower extremity: no edema Left lower extremity: no edema Psych Appearance: grossly normal Mental Status: mental status grossly normal Speech and movement: Normal speech and movement present Affect: normal affect Attitude: cooperative Thought process: Normal thought process present Thought content: Normal thought content present Insight: Good insight present (Psych) Judgement: Good judgement present (Psych) Coding Level of Care Code Est Pt Level 3 (98710) Diagnoses ICD (implantable cardioverter-defibrillator) in place Z95.810 Sputum production R05.8 Post-nasal drip R09.82 Additional Codes CANDACE-7 Assessment Billing - CANDACE-7 Assessment Tool: CANDACE-7 Assessment 50649 ([id number]) PHQ-9 - 38675 - PHQ-9 Billing: Yes ([id number]) Assessment & Plan Assessment & Plan (1) ICD (implantable cardioverter-defibrillator) in place: Code(s): Z95.810 - Presence of automatic (implantable) cardiac defibrillator Category: Medical Plan: seeing cardio tomorrow, denies any cardiac symptoms (2) Sputum production: Code(s): R05.8 - Other specified cough Category: Medical Plan: meds sent, pt has seen multiple specialists (please see notes from specialists). ongoing chronic mucous production. (3) Post-nasal drip: Code(s): R09.82 - Postnasal drip Category: Medical Plan The patient agreed to the use of a medical care administrator for this encounter. Scribed for RAFA Avila by Valerie Hastings medical care administrator, on 07/18/2024 at 10:30 EST. Medications: New prednisone 50 mg PO DAILY 5 days 5 tabs 0RF guaifenesin ER 1,200 mg PO BID 15 days 30 tabs 0RF azithromycin For 250 mg dose pack: take 500 mg today (day 1), then 250 mg for 4 days (days 2-5) PO 6 tabs 0RF
[2024-07-18 10:04] VITALS: BP 110/68; PULSE 103; O2SAT 97; BMI 27.1
== END 2024-07-18 13:42 | disposition home or self-care (01) ==
PROVIDERS: PCP Nurse Practitioner Family; Visit Provider Nurse Practitioner Family
DX: Z95.810 Presence of automatic (implantable) cardiac defibrillator (principal); R05.8 Other specified cough; R09.82 Postnasal drip

== ENCOUNTER → 2024-07-18 09:59 | Outpatient (BNVA) | payer MEDICARE, BC, SELFPAY | PROVIDERS: PCP Nurse Practitioner Family; Visit Provider Nurse Practitioner Family | DX: R05.8 Other specified cough (principal); R09.82 Postnasal drip; Z95.810 Presence of automatic (implantable) cardiac defibrillator | CPT/HCPCS: 96127; 99212 ==

== ENCOUNTER 2024-07-30 10:43 | Outpatient (AMB) | payer MEDICARE, BC, SELFPAY ==
[2024-07-30 10:46] VITALS: BP 90/58; PULSE 105; TEMP 36.4; O2SAT 95; BMI 26.6
--- NOTE | 2024-07-30 10:46 | AM.OFFWIN_ITS ---
Intake Vital Signs 07/30/24 10:46 Height 6 ft Weight 196 lb BMI 26.6 BP 90/58 L Blood Pressure Location Rt brachial Position Sitting Pulse 105 H Pulse Source Pulse Oximeter Temp 97.5 F Temp Source Oral Pulse Oximetry (%) 95 Oxygen Delivery Method Room Air Intake Visit Reasons: EP RT FT toe injury Intake Note: Pt is here today c/o Rt second toe pain Patient Tobacco Use Status: Former Tobacco user Allergies carbamazepine Allergy (Intermediate, Verified 09/30/24 21:05) Hives oxycodone [From Percocet] Allergy (Unknown, Verified 09/30/24 21:05) unknown HPI EP RT FT toe injury HPI Details Pt is here today c/o Rt second toe pain at the [facility] Medical History Sinusitis ICD (implantable cardioverter-defibrillator) in place NICM (nonischemic cardiomyopathy) COPD (chronic obstructive pulmonary disease) Allergic rhinitis Right hip pain Surgical History H/O neck surgery H/O shoulder surgery Hx of shoulder surgery H/O colonoscopy History of back surgery H/O knee surgery S/P hernia surgery Family History Father No problems noted. Mother No problems noted. Sister Cancer Social History Household Members: Spouse Housing: House Do you presently have visiting nurse or other home services: No Alcohol intake: current Alcohol intake frequency: does not drink Patient Tobacco Use Status: Former Tobacco user Years Smoked: quit 1968 e-Cigarette/Vaping Use: Never Used Second Hand Smoke Exposure: No service: No Current occupational status: retired Cognitive needs: No Hearing needs: No Vision needs: No Review of Systems Const All systems reviewed & are unremarkable except as noted in HPI and below Physical Exam Vital Signs: Last Vital Signs Temp 97.5 F 07/30/24 10:46 Pulse 105 H 07/30/24 10:46 BP 90/58 L 07/30/24 10:46 Pulse Ox 95 07/30/24 10:46 Oxygen Delivery Method Room Air 07/30/24 10:46 BMI result Body Mass Index 26.6 Extrem Other: Right 2nd toe has a callus PIP joint medially. There is no surrounding edema erythema or warmth. No bleeding or discharge. Neurovascularly intact distally with good refill to the 2nd digit. 2+ posterior tibial and dorsalis pedis pulses Assessment & Plan Assessment & Plan (1) [place] of toe: Code(s): L84 - Corns and callosities Plan: Patient has developed a callus on his right 2nd toe that is become a corn. He was putting some topical the knee during product on it, which she rotated the skin and made it read. However there is no active signs of infection at this time. 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 He was amenable to this, and will write a script to see if it is covered by insurance. He knows to follow up if symptoms persist or worsen. Medications: New corn-callus cushion As directed 1 ea 0RF Coding Level of Care Code Est Pt Level 2 (62096) Diagnoses [place] of toe L84
== END 2024-07-30 12:31 | disposition home or self-care (01) ==
PROVIDERS: PCP Nurse Practitioner Family; Visit Provider Physician Assistant Medical
DX: L84 Corns and callosities (principal)

== ENCOUNTER → 2024-07-30 10:43 | Outpatient (BNVA) | payer MEDICARE, BC, SELFPAY | PROVIDERS: PCP Nurse Practitioner Family; Visit Provider Physician Assistant Medical | DX: L84 Corns and callosities (principal) | CPT/HCPCS: 99212 ==

== ENCOUNTER 2024-08-17 08:00 | Outpatient (AMB) | payer MEDICARE, BC, SELFPAY ==
--- NOTE | 2024-08-17 08:08 | MHC.OFFWIV ---
Intake Vital Signs 08/17/24 08:09 Height 6 ft Weight 204 lb 4 oz BMI 27.7 BP 108/78 Blood Pressure Location Rt brachial Position Sitting Pulse 102 H Pulse Source Pulse Oximeter Temp 97.7 F Temp Source Temporal Artery Scan Pulse Oximetry (%) 100 Oxygen Delivery Method Room Air Intake Visit Reasons: EP SOB Intake Note: Pt presents to the office today for SOB that has been on and off for the past week. Pt states he was in [place] last week. Pt is also complaining of tiredness and coughing as well. Patient Tobacco Use Status: Former Tobacco user Allergies carbamazepine Allergy (Intermediate, Verified 08/17/24 08:12) Hives oxycodone [From Percocet] Allergy (Unknown, Verified 08/17/24 08:12) unknown HPI EP SOB HPI Details This note is constructed using voice recognition software. While every effort has been made to ensure accuracy, physician practice consultant errors may have been included. The patient is a 79 year old male who presents to the clinic today with chronic cough and dyspnea. He reports that he feels he had a cough that started after having COVID, which he has not had in several months. Since that time he has had cough and dyspnea, which he has been evaluated for multiple times. He believes these symptoms to have led to his defibrillator placement what she had several months ago, which did not resolve his symptoms. He has since been started on furosemide as well, he also does not feel that this resolves his symptoms. He has seen multiple ENT specialists for allergies, of which nothing seems to help including antihistamines, sinus rinse, and even antibiotics for sinus infections. He reports that the cough is fairly extreme, and when he is coughing he feels very short of breath. He has been having lower levels of energy, which has been coinciding with the cough and the dyspnea. When he coughs, he has to stop what he is doing, and sit as he becomes so dyspneic, that he feels that he does not have enough energy to support his weight on his feet. [facility] Medical History ICD (implantable cardioverter-defibrillator) in place NICM (nonischemic cardiomyopathy) COPD (chronic obstructive pulmonary disease) Allergic rhinitis Right hip pain Surgical History H/O neck surgery H/O shoulder surgery Hx of shoulder surgery H/O colonoscopy History of back surgery H/O knee surgery S/P hernia surgery Family History Father No problems noted. Mother No problems noted. Sister Cancer Social History Household Members: Spouse Housing: House Do you presently have visiting nurse or other home services: No Alcohol intake: current Alcohol intake frequency: does not drink Patient Tobacco Use Status: Former Tobacco user Years Smoked: quit 1968 e-Cigarette/Vaping Use: Never Used Second Hand Smoke Exposure: No service: No Current occupational status: retired Cognitive needs: No Hearing needs: No Vision needs: No Review of Systems Const All systems reviewed & are unremarkable except as noted in HPI and below Physical Exam Vital Signs: Last Vital Signs Temp 97.7 F 08/17/24 08:09 Pulse 102 H 08/17/24 08:09 BP 108/78 08/17/24 08:09 Pulse Ox 100 08/17/24 08:09 Oxygen Delivery Method Room Air 08/17/24 08:09 BMI result Body Mass Index 27.7 Const General: cooperative, healthy appearing, comfortable, no acute distress and well developed Orientation/consciousness: patient oriented x3 Limitations: no limitations HEENT Head: Yes normal to inspection Ears: hearing grossly normal bilaterally General nose exam: Normal external nose present Face and sinus: Yes normal facial exam Eyes General: appearance normal, both eyes and all related structures Neck Neck: Yes normal visual inspection and Yes full ROM Resp Effort & Inspection: normal respiratory effort and able to speak in complete sentences Auscultation: diminished lung sounds Cardio Rate: regular rate Rhythm: regular rhythm Heart sounds: normal S1 and S2 Skin General skin exam: no rashes or lesions noted Neuro General: patient oriented x3 Assessment & Plan Assessment & Plan (1) Chronic cough: Code(s): R05.3 - Chronic cough Plan: Chest x-ray ordered today to evaluate, which just reflect a likely pneumonia, however given the chronicity of symptoms, it is unlikely that this is the sole source of his chronic symptoms. He may benefit from referral to pulmonology, after resolution of his pneumonia. (2) Pneumonia: Code(s): J18.9 - Pneumonia, unspecified organism Qualifiers: Pneumonia type: due to unspecified organism Laterality: right Lung location: lower lobe of lung Qualified Code(s): J18.9 - Pneumonia, unspecified organism Plan: Chest x-ray ordered today, appears likely consistent with a right lower lobe pneumonia. We will treat with dual coverage antibiotics. CURB 65 score 1, appropriate to treat at home. Advised patient to follow up with PCP with worsening or failure to resolve. Given the chronicity of symptoms, it is unlikely that this is the sole source of his chronic cough, and I advised him to follow up with PCP. Plan See above for full details and plan. Orders: Orders XR chest 2V Today R05.3 - Chronic cough Medications: New azithromycin For 250 mg dose pack: take 500 mg today (day 1), then 250 mg for 4 days (days 2-5) PO 6 tabs 0RF amoxicillin-pot clavulanate 875-125 mg 1 tab PO BID 10 days 20 tabs 0RF Coding Level of Care Code Est Pt Level 4 (04399) Diagnoses Chronic cough R05.3 Pneumonia of right lower lobe due to infectious organism J18.9 Pneumonia type: due to unspecified organism Laterality: right Lung location: lower lobe of lung
[2024-08-17 08:09] VITALS: BP 108/78; PULSE 102; TEMP 36.5; O2SAT 100; BMI 27.7
== END 2024-08-17 09:33 | disposition home or self-care (01) ==
PROVIDERS: PCP Nurse Practitioner Family; Visit Provider Registered Nurse
DX: R05.3 Chronic cough (principal); J18.9 Pneumonia, unspecified organism

== ENCOUNTER 2024-08-20 06:00 | Outpatient (REF) | payer MEDICARE, BC, SELFPAY | END 2024-08-20 06:01 | disposition home or self-care (01) | LOC: HO.HMGCLNP 06:00 | PROVIDERS: PCP Nurse Practitioner Family; Visit Provider Nurse Practitioner Family | DX: Z13.89 Encounter for screening for other disorder (principal) ==

== ENCOUNTER 2024-08-22 | Outpatient (REF) | payer MEDICARE, BC, SELFPAY | END 2024-08-22 00:01 | disposition home or self-care (01) | LOC: HO.HMGCLNP | PROVIDERS: Visit Provider Nurse Practitioner Family | DX: R05.8 Other specified cough (principal) | CPT/HCPCS: 87205 ==

== ENCOUNTER 2024-08-30 11:22 | Outpatient (AMB) | payer MEDICARE, BC, SELFPAY ==
--- NOTE | 2024-08-30 11:51 | MHC.OFFVIS ---
Intake Visit Reasons: 1 yr follow up/renal cyst Intake Note: Patient is present for follow up Ultrasound /Kidney Renal Cyst Urology Medication: none Blood Thinner: none Regional Clinical Research Associate Required: No Accompanied by: Self / Same As Patient Allergies carbamazepine Allergy (Intermediate, Verified 08/30/24 13:45) Hives oxycodone [From Percocet] Allergy (Unknown, Verified 08/30/24 13:45) unknown Medication List - Last Reconciled 08/30/24 by KIRSTIN Nunes-MADONNA aspirin 81 mg PO DAILY corn-callus cushion As directed furosemide 20 mg PO DAILY metoprolol succinate ER 25 mg PO DAILY multivitamin 1 tab PO DAILY HPI Comments Details: Farhat Ha is a very pleasant 79 year old male patient of Dr. Simpson. He has a past medical history of allergic rhinitis and COPD. He presents to the office today for a follow up of his bilateral renal cysts and nephrolithiasis. In discussion with the patient today he discusses his frustration regarding his ongoing cardiac issues as well as pulmonary issues. He reports recently undergoing defibrillator procedure May of this year for abnormal EF. He reports since this procedure he continues to experience issues with his lungs and shortness of breath. He continues to follow-up with his audio visual design engineer as well as medical administrator regarding these issues. Renal ultrasound was ordered during last office visit for surveillance monitoring of renal cysts and nephrolithiasis however patient seeked emergency room care approximately 2 months ago for abdominal issues he had been experiencing at which time a CT was ordered and these results were reviewed with the patient today. Bilateral kidneys are normal in size, shape, and attenuation. Bilateral kidneys with no hydronephrosis, hydroureter, or calculi seen. There is no perinephric stranding. There is a stable right renal cysts measuring 10 cm at the mid lower pole of the right kidney that requires no follow-up imaging per radiology report. When asked he denies any bothersome urinary issues or concerns. He denies urinary urgency, urinary frequency, incontinence, nocturia, hematuria, dysuria, foul smelling urine, changes to urinary stream, flank pain, fever, and or chills. He is happy with his current voiding parameters. In office urinalysis results reviewed with the patient today. He otherwise denies any issues or concerns at this time. PSAs are as follows... 12/05 0.4, 09/28 0.5, 09/29 0.4 PFSH Medical History ICD (implantable cardioverter-defibrillator) in place NICM (nonischemic cardiomyopathy) COPD (chronic obstructive pulmonary disease) Allergic rhinitis Right hip pain Surgical History H/O neck surgery H/O shoulder surgery Hx of shoulder surgery H/O colonoscopy History of back surgery H/O knee surgery S/P hernia surgery Family History Father No problems noted. Mother No problems noted. Sister Cancer Social History Household Members: Spouse Housing: House Do you presently have visiting nurse or other home services: No Alcohol intake: current Alcohol intake frequency: does not drink Patient Tobacco Use Status: Former Tobacco user Years Smoked: quit 1967 e-Cigarette/Vaping Use: Never Used Second Hand Smoke Exposure: No service: No Current occupational status: retired Cognitive needs: No Hearing needs: No Vision needs: No Review of Systems Const All systems reviewed & are unremarkable except as noted in HPI and below Reports as per HPI Eyes Reports no additional complaints ENT Reports as per HPI Card Reports as per HPI Resp Reports as per HPI GI Reports as per HPI Reports as per HPI Musc Reports no additional complaints Neuro Reports as per HPI Psych Reports no additional complaints Endo Reports no additional complaints Aller/Immun Reports as per HPI Physical Exam Const General: cooperative, healthy appearing, comfortable, no acute distress, well developed, alert and awake Orientation/consciousness: patient oriented x3 Limitations: no limitations HEENT Head: Yes normal to inspection, Yes normocephalic and Yes atraumatic Ears: hearing grossly normal bilaterally Eyes General: appearance normal, both eyes and all related structures Neck Neck: Yes normal visual inspection and Yes trachea midline Chest Chest palpation & inspection: normal inspection of the chest Resp Effort & Inspection: normal respiratory effort and able to speak in complete sentences Cardio Rate: regular rate GI Inspection: Yes normal to inspection General: Yes no CVA tenderness Back/Spine/Pelvis Back: no CVA tenderness Skin General skin exam: no rashes or lesions noted Neuro General: patient oriented x3 Extrem General: Yes normal to inspection Psych Appearance: grossly normal and well kempt Mental Status: mental status grossly normal Speech and movement: Normal speech and movement present and Clear speech present Affect: normal affect Attitude: cooperative Thought process: Normal thought process present Thought content: Normal thought content present Insight: Fair insight present (Psych) Judgement: Fair judgement present (Psych) Results AMB Urinalysis, Automated UA Leukoctes 0 Paresh/uL Last Edit by Hallspotlalo on 08/30/24 11:59 UA Nitrite Last Edit by Hire-Intelligencekeke [email or web address] on 08/30/24 11:59 UA Urobilinogen 0.2 mg/dL Last Edit by Hallspotlalo on 08/30/24 11:59 UA Protein 15 mg/dL Last Edit by Hallspotlalo on 08/30/24 11:59 UA pH 6.0 Last Edit by Hallspotlalo on 08/30/24 11:59 UA Blood 80 José/uL Last Edit by Hallspotlalo on 08/30/24 11:59 UA Specific [place] 1.020 Last Edit by Hallspotlalo on 08/30/24 11:59 UA Ketone Last Edit by Hallspotlalo on 08/30/24 11:59 UA Bilirubin 0 mg/dL Last Edit by Hallspotlalo on 08/30/24 11:59 UA Glucose 0 mg/dL Last Edit by Hire-Intelligencekeke [email or web address] on 08/30/24 11:59 Results Reviewed Results Reviewed: Laboratory Last Values Urine pH (Auto) 6.0 08/30/24 11:56 Specific [place] (Auto) 1.020 08/30/24 11:56 Urine Protein (Auto) 15 mg/dL 08/30/24 11:56 Glucose (UA)(Auto) 0 mg/dL 08/30/24 11:56 Urine Blood (Auto) 80 José/uL 08/30/24 11:56 Urine Bilirubin (Auto) 0 mg/dL 08/30/24 11:56 Urine Urobilinogen (Auto) 0.2 mg/dL 08/30/24 11:56 Leukocyte Esterase (Auto) 0 Paresh/uL 08/30/24 11:56 Date of Service: 07/04/24 EXAMINATION: CT ABDOMEN AND PELVIS WITH CONTRAST FINDINGS: LUNG BASES: Stable small pleural-based irregular opacity at the anterior right lung base image 02/01 series 8. This is unchanged since CAT scan March 28, 2024. Lung bases are otherwise normally aerated. No pleural effusion. Pacemaker leads in heart. No pericardial effusion. LIVER, GALLBLADDER, AND BILIARY TREE: The liver is normal in size, shape, and attenuation. No focal hepatic lesion or biliary ductal dilatation is present. The gallbladder is unremarkable with no evidence of radiopaque gallstones, gallbladder wall thickening, or obvious pericholecystic inflammatory changes. PANCREAS: Unremarkable. SPLEEN: Unremarkable. ADRENAL GLANDS: Unremarkable. KIDNEYS AND URETERS: The kidneys are normal in size, shape, and attenuation. No hydronephrosis, hydroureter, or calculi seen. No perinephric stranding. There is a stable right renal cyst measuring 10 cm at the mid lower pole right kidney. No follow-up imaging is recommended for simple renal cyst. BLADDER: Unremarkable. GASTROINTESTINAL TRACT: There are scattered diverticula of the colon. There is no diverticulitis. There is no bowel wall thickening /edema. There is no bowel obstruction. There is a moderate volume of stool in the colon. The appendix is normal . The small bowel loops are unremarkable. The stomach is normal. There is no hiatal hernia. Mesentery: Partially peripherally calcified fat lobule in the mid mesentery measuring 2.5 cm is stable since prior CT study September 04, 2023. No surrounding inflammation. Likely sequela of prior fat necrosis. No free air or free fluid. ABDOMINAL WALL: Surgical mesh in the anterior abdominal wall. No ventral wall hernia. LYMPH NODES: Normal. VASCULAR: Vascular wall calcifications of aorta and iliac arteries. There is no aneurysm. PELVIC VISCERA: Unremarkable. OSSEOUS STRUCTURES: Stable postsurgical fusion of the thoracolumbar spine. IMPRESSION: 1. No acute abnormality CT scan abdomen pelvis. 2. Diverticulosis of colon. No acute change of the bowel. 3. Stable postsurgical fusion of the thoracolumbar spine. Assessment & Plan Assessment & Plan (1) Renal cyst: Code(s): N28.1 - Cyst of kidney, acquired Category: Medical (2) Microscopic hematuria: Code(s): R31.29 - Other microscopic hematuria Category: Medical Plan In office urinalysis results reviewed the patient today; as noted above. Recent CT results reviewed with the patient today; as noted above. We discussed surveillance monitoring of renal cysts. Patient currently denies any bothersome urinary issues or concerns. He reports be happy with current voiding parameters. Will obtain renal ultrasound in 1 year. Follow-up in 1 year with imaging to be completed prior; or sooner with any issues, concerns, and or questions. Orders: Orders Urine Cytology 08/30/24 R31.29 - Other microscopic hematuria AMB Urinalysis Automated 08/30/24 Z13.9 - Encounter for screening, unspecified Prostate Specific Antigen 08/30/24 N40.0 - Benign prostatic hyperplasia without lower urinary tract symptoms US renal BI 1 Year N28.1 - Cyst of kidney, acquired Patient Instructions: The patient had an opportunity to ask questions regarding the treatment plan. All questions were answered. Physical exam, labs, and imaging were discussed and reviewed in detail. As well as risks, benefits, and discussion of treatment choices. No major barriers to understanding were identified. The patient expressed understanding and agreement with the above treatment plan. The patient was made aware they should contact our office by phone for worsening of their current condition, the appearance of new symptoms, or with any questions or concerns. Compliance is encouraged with any medications and follow up testing that is ordered. It is a privilege to be allowed the opportunity to participate in? your urological care.? Again, if you have any questions or concerns If you have any questions or concerns please do not hesitate to contact me. The office is [phone]. This note is constructed using voice recognition software. While every effort has been made to ensure accuracy acquisition marketing manager errors may have been included. Yours sincerely, RAFA Nunes Coding Level of Care Code Est Pt Level 3 (50248) Complex EM visit Add On G2211 Diagnoses Renal cyst N28.1 Microscopic hematuria R31.29
== END 2024-08-30 12:05 | disposition home or self-care (01) ==
PROVIDERS: PCP Nurse Practitioner Family; Visit Provider Nurse Practitioner Family
DX: N28.1 Cyst of kidney, acquired (principal); R31.29 Other microscopic hematuria
CPT/HCPCS: 99213; G2211

== ENCOUNTER 2024-08-30 11:22 | Outpatient (REF) | payer MEDICARE, BC, SELFPAY ==
[2024-08-30 14:56] LABS: Urine Cytology See Pathology rpt
== END 2024-08-30 11:23 | disposition home or self-care (01) ==
LOC: HO.LNP 11:22
PROVIDERS: PCP Nurse Practitioner Family; Visit Provider Nurse Practitioner Family
DX: R31.29 Other microscopic hematuria (principal); N28.1 Cyst of kidney, acquired; R05.9 Cough, unspecified; J06.9 Acute upper respiratory infection, unspecified
CPT/HCPCS: 81003; 88112; 99212

== ENCOUNTER 2024-08-30 12:22 | Outpatient (REF) | payer MEDICARE, BC, SELFPAY | END 2024-08-30 12:23 | disposition home or self-care (01) | LOC: HO.HMGCLNP 12:22 | PROVIDERS: PCP Nurse Practitioner Family; Visit Provider Nurse Practitioner Family | DX: J06.9 Acute upper respiratory infection, unspecified (principal); Z13.9 Encounter for screening, unspecified; R31.29 Other microscopic hematuria; N40.0 Benign prostatic hyperplasia without lower urinary tract symptoms; R05.9 Cough, unspecified | CPT/HCPCS: 87070; 87205 ==

== ENCOUNTER 2024-09-19 08:55 | Outpatient (AMB) | payer MEDICARE, BC, SELFPAY ==
[2024-09-19 09:25] VITALS: BP 110/70; PULSE 100; O2SAT 98; BMI 27.5
--- NOTE | 2024-09-19 09:25 | MHC.OFFWIV ---
Intake Vital Signs 09/19/24 09:25 Height 6 ft Weight 203 lb BMI 27.5 BP 110/70 Blood Pressure Location Lt brachial Position Sitting Pulse 100 Pulse Source Pulse Oximeter Pulse Oximetry (%) 98 Oxygen Delivery Method Room Air Intake Visit Reasons: EP stomach, headache Intake Note: Pt is here today for a walk in visit. Pt states that his Racing Mechanic put him on new medication and since then he has been having upset stomach, headache and nausea. Patient Tobacco Use Status: Former Tobacco user Allergies carbamazepine Allergy (Intermediate, Verified 08/30/24 13:45) Hives oxycodone [From Percocet] Allergy (Unknown, Verified 08/30/24 13:45) unknown HPI HPI Comments History of Present Illness Details History of Present Illness - The patient is an 79-year-old male presenting with possible medication-related adverse effects. - Symptoms began following initiation of atorvastatin at a 40 mg dose, causing upset stomach, nausea, headaches, and leg cramps. - There is a history of similar adverse reactions to past medications, notably with Farxiga, leading to discontinuation. - The patient has severe COPD and atrial fibrillation, with a previous cardiac catheterization indicating significant blockage. - Previous medical interactions have left the patient frustrated and confused, desiring reevaluation of current treatment plans. Physical Exam General: Cooperative, healthy appearing, comfortable, no acute distress and well developed Orientation: Patient oriented x3 Limitations: No limitations Head: Normal to inspection Ears: Hearing grossly normal bilaterally Nose: Normal external nose present Face and sinus: Normal facial exam Eyes: Appearance normal, both eyes and all related structures Neck: Normal visual inspection and Yes full ROM Respiratory: Normal respiratory effort and able to speak in complete sentences. Skin: No rashes or lesions noted Neuro: Patient oriented x3 Extremities: Normal to inspection [facility] Medical History ICD (implantable cardioverter-defibrillator) in place NICM (nonischemic cardiomyopathy) COPD (chronic obstructive pulmonary disease) Allergic rhinitis Right hip pain Surgical History H/O neck surgery H/O shoulder surgery Hx of shoulder surgery H/O colonoscopy History of back surgery H/O knee surgery S/P hernia surgery Family History Father No problems noted. Mother No problems noted. Sister Cancer Social History Household Members: Spouse Housing: House Do you presently have visiting nurse or other home services: No Alcohol intake: current Alcohol intake frequency: does not drink Patient Tobacco Use Status: Former Tobacco user Years Smoked: quit 1968 e-Cigarette/Vaping Use: Never Used Second Hand Smoke Exposure: No service: No Current occupational status: retired Cognitive needs: No Hearing needs: No Vision needs: No Review of Systems Const All systems reviewed & are unremarkable except as noted in HPI and below Physical Exam Vital Signs: Last Vital Signs Pulse 100 09/19/24 09:25 BP 110/70 09/19/24 09:25 Pulse Ox 98 09/19/24 09:25 Oxygen Delivery Method Room Air 09/19/24 09:25 BMI result Body Mass Index 27.5 Assessment & Plan Assessment & Plan (1) Side effect of medication: Code(s): T88.7XXA - Unspecified adverse effect of drug or medicament, initial encounter Plan: Plan Management of suspected adverse reactions from atorvastatin was prioritized by advising the cessation of the drug until consultation with the baseball sewer hand. Discussing potential alternatives or dose adjustments was recommended. Continuous monitoring of cardiac arrhythmia concerns will be coordinated with the cardiology team, given the patient's severe COPD and atrial fibrillation. Further assessment by the patient?s primary baseball sewer hand was advised to reconcile past inconsistencies in cardiac management and evaluate the necessity of statin therapy. Patient was informed and verbally consented to the use of an ambient scribe for clinic note documentation during this visit. Coding Level of Care Code Est Pt Level 3 (01527) Diagnoses Side effect of medication T88.7XXA
== END 2024-09-19 10:34 | disposition home or self-care (01) ==
PROVIDERS: PCP Nurse Practitioner Family; Visit Provider Physician Assistant
DX: T88.7XXA Unspecified adverse effect of drug or medicament, initial encounter (principal)

== ENCOUNTER → 2024-09-19 08:55 | Outpatient (BNVA) | payer MEDICARE, BC, SELFPAY | PROVIDERS: PCP Nurse Practitioner Family; Visit Provider Physician Assistant | DX: T88.7XXA Unspecified adverse effect of drug or medicament, initial encounter (principal) | CPT/HCPCS: 99212 ==

== ENCOUNTER 2024-09-29 15:07 | Outpatient (REF) | payer MEDICARE, BC, SELFPAY | END 2024-09-29 15:08 | disposition home or self-care (01) | LOC: HO.LNP 15:07 | PROVIDERS: PCP Nurse Practitioner Family; Visit Provider Internal Medicine | DX: J01.00 Acute maxillary sinusitis, unspecified (principal); Z91.09 Other allergy status, other than to drugs and biological substances | CPT/HCPCS: 87070; 87205; 99212 ==

== ENCOUNTER 2024-09-29 15:07 | Outpatient (AMB) | payer MEDICARE, BC, SELFPAY ==
[2024-09-29 15:14] VITALS: BP 102/62; PULSE 109; O2SAT 93; BMI 26.3
--- NOTE | 2024-09-29 15:14 | MHC.OFFVIS ---
Vital Signs 09/29/24 15:14 Height 6 ft Weight 194 lb 0.108 oz BMI 26.3 BP 102/62 Blood Pressure Location Lt brachial Position Sitting Pulse 109 H Pulse Source Pulse Oximeter Pulse Oximetry (%) 93 Oxygen Delivery Method Room Air Intake Visit Reasons: copd Intake Note: pt is here for a early visit, due to a cough with a lot of phelgm all night long, he brought the phelgm with him, he is also short of breath with any exertion. Allergies carbamazepine Allergy (Intermediate, Verified 09/29/24 15:39) Hives oxycodone [From Percocet] Allergy (Unknown, Verified 09/29/24 15:39) unknown Medication List - Last Reconciled 09/29/24 by Pam Dent MD aspirin 81 mg PO DAILY cetirizine (Zyrtec) 10 mg PO DAILY PRN corn-callus cushion As directed fluticasone propionate 50 mcg/actuation (Flonase Allergy Relief) 1 spray intranasal BID furosemide 20 mg PO DAILY metoprolol succinate ER 25 mg PO DAILY multivitamin 1 tab PO DAILY Do you need a note to return to daycare/school/sports/work: No HPI HPI copd: Details: THIS 79 YEARS OLD GENTLEMAN IS HERE TO SEE ME ONCE AGAIN BECAUSE OF HIS, ONGOING COUGH WITH LOT OF EXPECTORATION. HE HAS ONGOING DISCOMFORT IN BOTH MAXILLARY SINUSES. HE HAS HAD THESE SYMPTOMS FOR MANY YEARS WHICH FLARE UP EVERY NOW AND THEN . HIS THE PULMONARY FUNCTION TEST WAS ESSENTIALLY NORMAL SO WE HAVE TOLD HIM THAT HE DOES NOT HAVE ANY CHRONIC OBSTRUCTIVE PULMONARY DISEASE . HE HAS HISTORY OF CHRONIC ALLERGIC RHINOSINUSITIS, AND THE ONLY THING WHICH HELPED HIM WAS STEAM INHALATIONS, ANTIHISTAMINIC AGENTS AND USE OF FLONASE. NOW FOR PAST SEVERAL WEEKS HE IS HAVING HE SINUS DISCOMFORT AND INCREASED EXPECTORATION OF DARK YELLOWISH MUCUS. HE HAS HAD NO FEVER OR CHILLS. TODAY HE IS VERY FRUSTRATED AND SOMEWHAT WEEPY BECAUSE THIS PROBLEM HAS BEEN LINGERING ON FOR LONG TIME. [facility] Medical History (Updated 09/29/24 @ 15:56 by Pam Dent MD) Sinusitis ICD (implantable cardioverter-defibrillator) in place NICM (nonischemic cardiomyopathy) COPD (chronic obstructive pulmonary disease) Allergic rhinitis Right hip pain Surgical History H/O neck surgery H/O shoulder surgery Hx of shoulder surgery H/O colonoscopy History of back surgery H/O knee surgery S/P hernia surgery Family History Father No problems noted. Mother No problems noted. Sister Cancer Social History Household Members: Spouse Housing: House Do you presently have visiting nurse or other home services: No Alcohol intake: current Alcohol intake frequency: does not drink Patient Tobacco Use Status: Former Tobacco user Years Smoked: quit 1967 e-Cigarette/Vaping Use: Never Used Second Hand Smoke Exposure: No service: No Current occupational status: retired Cognitive needs: No Hearing needs: No Vision needs: No Review of Systems Const All systems reviewed & are unremarkable except as noted in HPI and below Eyes Reports no additional complaints ENT Reports dizziness (OCCASIONAL), Reports nasal congestion, Reports nasal discharge and Reports other (FACIAL DISCOMFORT) Card Denies chest pain, Denies irregular heart rhythm, Denies leg edema and Denies lightheadedness Resp Reports as per HPI GI Reports no additional complaints Reports no additional complaints Musc Reports back pain Skin/Breast Reports system reviewed and no additional complaints, except as documented Neuro Reports dizziness (OCCASIONAL) Psych Reports no additional complaints Physical Exam Vital Signs: Last Vital Signs Pulse 109 H 09/29/24 15:14 BP 102/62 09/29/24 15:14 Pulse Ox 93 09/29/24 15:14 Oxygen Delivery Method Room Air 09/29/24 15:14 BMI result Body Mass Index 26.3 Const General: healthy appearing, comfortable, no acute distress, alert and awake Orientation/consciousness: patient oriented x3 HEENT Head: Yes normal to inspection General nose exam: No nasal polyps present, No nasal discharge present and Other nasal findings present (HE DOES HAVE TENDERNESS OVER BOTH MAXILLARY AREAS ) Face and sinus: Yes sinus tenderness (TODAY HE IS TENDER OVER BOTH MAXILLARY AREAS) Mouth: oropharynx normal Throat: Yes posterior oropharynx normal Eyes General: appearance normal, both eyes and all related structures Neck Neck: Yes normal visual inspection, Yes no lymphadenopathy, Yes trachea midline and Yes no JVD Thyroid: Thyroid normal Chest Chest palpation & inspection: normal inspection of the chest, normal palpation of entire chest wall and no tenderness Resp Other: PERCUSSION NOTE IS RESONANT, BREATH SOUNDS ARE SLIGHTLY DISTANT BUT EQUAL ON BOTH SIDES. NO WHEEZES RHONCHI OR CREPITATIONS ARE HEARD. Cardio Palpation: normal PMI Rate: regular rate Rhythm: regular rhythm Heart sounds: no gallops and no murmurs GI Inspection: Yes other (THERE IS A LONG MIDLINE SCAR BELOW THE UMBILICUS) Palpation (GI): Soft to palpation, nontender, hepatosplenomegaly present and no masses Auscultation: normal bowel sounds Back/Spine/Pelvis Back: other (HE HAS A LONG MIDLINE SCAR OVER THE WHOLE LUMBAR AREA, ) Thoracic/Lumbar Spine: thoraco-lumbar ROM limited Skin General skin exam: no rashes or lesions noted Neuro General: patient oriented x3 and no focal motor deficits Cranial nerves: Yes CN's II-XII intact bilaterally Extrem General: Yes normal to inspection, Yes no clubbing, cyanosis or edema and Yes no calf tenderness Psych Appearance: grossly normal and well kempt Speech and movement: Normal speech and movement present Assessment & Plan Assessment & Plan (1) Sinusitis: Comment: I THINK THIS GENTLEMAN HAS CHRONIC ALLERGIC RHINOSINUSITIS. AT PRESENT HE MAY BE HAVING ACTIVE SINUSITIS. Code(s): J32.9 - Chronic sinusitis, unspecified Category: Medical Qualifiers: Chronicity: acute Recurrence: not specified as recurrent Sinusitis location: maxillary Qualified Code(s): J01.00 - Acute maxillary sinusitis, unspecified Plan: I TOLD HIM THAT I WOULD LIKE TO GET A CT SCAN OF THE SINUSES. HE TOLD ME THAT HE ALREADY HAD IT AT [facility], I DO NOT HAVE THAT REPORT. HE IS GOING TO BRING A COPY OF THE REPORT FOR ME. HE DOES HAVE GOOD AMOUNT OF THE PHLEGM IN A COUGH, BUT THIS IS TOO OLD TO BE SENT FOR CULTURE AND SENSITIVITY. I GAVE HIM A STERILE SPECIMEN JAR, AND ADVISED HIM TO COLLECT ALL THE PHLEGM TONIGHT AND THEN BRING IT TO THE LAB FOR GRAM STAIN AND CULTURE/SENSITIVITY FOR THE TIME BEING I WOULD START HIM ON DOXYCYCLINE 100 B.I.D. WHICH HE MAY HAVE TO TAKE FOR ABOUT 2-3 WEEKS. DEPENDING UPON THE CULTURE RESULTS THIS ANTIBIOTIC MAY BE MODIFIED. (2) COPD (chronic obstructive pulmonary disease): Comment: BECAUSE OF CHRONIC COUGH IT IS THOUGHT THAT HE MAY HAVE COPD HOWEVER THE PULMONARY FUNCTION TEST WAS ACTUALLY NORMAL. Code(s): J44.9 - Chronic obstructive pulmonary disease, unspecified Category: Medical Plan: HE DOES NOT NEED TO USE ANY BRONCHODILATOR INHALERS (3) Chronic cough: Comment: CHRONIC COUGH IS MAINLY SECONDARY TO CHRONIC ALLERGIC RHINOSINUSITIS WITH PERIODIC ACUTE INFECTION. Code(s): R05.3 - Chronic cough Category: Medical Plan: ADVISED HIM TO DO STEAM INHALATION 2 OR 3 TIMES A DAY. CONTINUE TO USE FLONASE .2 SPRAY IN EACH NOSTRIL DAILY MAY USE CETIRIZINE 10 MG ONCE A DAY P.R.N. Orders: Orders Sputum Cult + Gram stain Today J01.00 - Acute maxillary sinusitis, unspecified Medications: New doxycycline hyclate 100 mg PO BID 10 days 20 tabs 1RF SINUSITIS Coding Level of Care Code Est Pt Level 3 (25861) Diagnoses Sinusitis J01.00 Chronicity: acute Recurrence: not specified as recurrent Sinusitis location: maxillary COPD (chronic obstructive pulmonary disease) J44.9 Chronic cough R05.3
== END 2024-09-29 15:40 | disposition home or self-care (01) ==
PROVIDERS: PCP Nurse Practitioner Family; Visit Provider Internal Medicine
DX: J01.00 Acute maxillary sinusitis, unspecified (principal); J44.9 Chronic obstructive pulmonary disease, unspecified; R05.3 Chronic cough
CPT/HCPCS: 99213

== ENCOUNTER 2024-09-30 20:52 | Emergency (ER) | payer MEDICARE, BC, SELFPAY ==
--- NOTE | 2024-09-30 | ECG_ITS ---
Test Reason : SOB Blood Pressure : */* mmHG Vent. Rate : 97 BPM Atrial Rate : 97 BPM P-R Int : 174 ms QRS Dur : 144 ms QT Int : 422 ms P-R-T Axes : 46 -58 36 degrees QTcB Int : 535 ms Normal sinus rhythm with Ventricular-paced rhythm Abnormal ECG When compared with ECG of 21-May-2024 05:47, No significant changes seen Referred By: Generic ED Physician Electronically Signed By: REE WILD MD
--- NOTE | ~2024-09-30 | XR_ITS ---
CLINICAL HISTORY: SOB 1 view chest x-ray Comparison: CR/ND/SR - XR CHEST 2V - 08/17/24 08:41 EST Findings: Minimal streaky bilateral atelectasis. No significant pleural effusion or pneumothorax. Similar prominent/enlarged cardiac silhouette. Similar position of the left pectoral biventricular AICD/pacemaker. Cervical spinal fusion hardware. Right shoulder arthroplasty. IMPRESSION: Minimal streaky bilateral atelectasis. This document has been electronically signed by: Aaron Hill MD on 09/30/2024 22:03:55
[2024-09-30 21:01] VITALS: BP 104/72; BP 118/87; PULSE 101; PULSE 104; RESP 20; TEMP 36.4; O2SAT 100; O2SAT 97; BMI 25.6
--- OUTSIDE RECORDS SUMMARY | 2024-09-30 21:19 | XMS_ITS ---
Author Organization [facility] Network Address [address] [facility] [address] [place] [address] Care Team Providers Care Plastics Engineering Teacher Name Role Phone garry olivera Primary Care Provider GARRY Pereira Unavailable [phone] Allergies Allergen (clinical drug ingredient) Drug/Non Drug Allergy documented on EMR Reaction Allergy Type Onset Date Status acetaminophen Acetaminophen Unknown Drug Allergy Active carbamazepine Carbamazepine Unknown Drug Allergy Active oxycodone Oxycodone Unknown Drug Allergy Active REASON FOR VISIT Chronic sinusitis, Allergic conjunctivitis, Tele Medications Medication SIG (Take, Route, Fr equency, Duration) Notes Start Date End Date Status ZyrTEC QID Active Flonase QD Active Budesonide 0.5 MG/2ML USE 2 ML VIA NEBUL IZER TWICE DAILY for 90 Active Pulmicort 1 MG/2ML 1mL rinse Twice a da y for 10 days 02/18/2024 Active Vital Signs Temperature 98.1 degrees Fahrenheit 03/02/20 24 Height 72 in 03/02/2024 Weight 207 lbs 03/02/2024 BMI 28.07 kg/m2 03/02/2024 Encounters Encounter Location Date Provider Diagnosis [facility] [address] [facility] [address] [place] [address] 03/02/2024 GARRY SIDDIQI Chronic sinusitis, unspecified J32.9 and Other chronic allergic conjunctivitis H10.45 Assessments Encounter Date Diagnosis (ICD Code) Assessment Notes Treatment Notes Treatment Clinical Notes Section Notes 03/02/2024 Chronic sinusitis, unspecified (ICD-10 - J32.9) Pt has a long hx of rheadaches, facial pressure, postnasal drip, bilateral cheek pain that hurts eyes, sore upper mouth, coughs up phlegm, sneezing, and sore throat evaluated by outside ENT. His sx are refractory to Astepro, Zyrtec, nasal steroid sprays, Benadryl, amoxicillin, nortriptyline QHS, cyproheptadine, carbamazepine, prednisone (good relief but sx recurred after d/c), montelukast, duloxetine, omeprazole, Mucinex, and famotidine. 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 CT sinus scans, PFTs (2021), and brain MRIs (2022) were unremarkable. We recommended budesonide nasal rinse BID. Today, 03/02/2024, the patient denied relief on this regimen for 10 days. We discussed: 1. Given extensive history of lack of response to various treatments, including steroid nasal rinse, I recommend patient consult with experts at [facility] for comprehensive evaluation. We will assist in forwarding records. 2. Follow-up as needed or if new sx arise. 03/02/2024 Other chronic allergic conjunctivitis (ICD-10 - H10.45) Pt has a long hx of daily ocular pruritus, watery eyes,and ocular discharge since 2014. He tried using eyedrops but d/c due to burning and lack of relief. He also tried Zyrtec and Benadryl without relief. Today, he notes persistent symptoms. Aeroallergen IgE bloodwork was reportedly negative. He noted past SCIT for feather allergy that did not provide relief. We discussed: 1. I defer treatment to [facility] given sx of sinusitis have been refractory to extensive treatment and negative allergy workup. 2. Follow-up PRN or if new sx arise. 03/02/2024 Other This note was transcribed by Carie Messina for Dr. Garry Siddiqi and will be completed within 7 days of date of service. LEVEL 3 Number and complexity of problems (low): 2 or more self-limited or minor problems - chronic sinusitis, AC Risks Low risk of morbidity from additional diagnostic testing or treatment. Conservative management. - defer to [facility] Plan Of Treatment Treatment Notes Assessment Notes Chronic sinusitis, unspecified Pt has a long hx of rheadaches, facial pressure, postnasal drip, bilateral cheek pain that hurts eyes, sore upper mouth, coughs up phlegm, sneezing, and sore throat evaluated by outside ENT. His sx are refractory to Astepro, Zyrtec, nasal steroid sprays, Benadryl, amoxicillin, nortriptyline QHS, cyproheptadine, carbamazepine, prednisone (good relief but sx recurred after d/c), montelukast, duloxetine, omeprazole, Mucinex, and famotidine. 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 CT sinus scans, PFTs (2021), and brain MRIs (2022) were unremarkable. We recommended budesonide nasal rinse BID. Today, 03/02/2024, the patient denied relief on this regimen for 10 days. We discussed: 1. Given extensive history of lack of response to various treatments, including steroid nasal rinse, I recommend patient consult with experts at [facility] for comprehensive evaluation. We will assist in forwarding records. 2. Follow-up as needed or if new sx arise. Other chronic allergic conjunctivitis Pt has a long hx of daily ocular pruritus, watery eyes,and ocular discharge since 2014. He tried using eyedrops but d/c due to burning and lack of relief. He also tried Zyrtec and Benadryl without relief. Today, he notes persistent symptoms. Aeroallergen IgE bloodwork was reportedly negative. He noted past SCIT for feather allergy that did not provide relief. We discussed: 1. I defer treatment to [facility] given sx of sinusitis have been refractory to extensive treatment and negative allergy workup. 2. Follow-up PRN or if new sx arise. Other This note was transcribed by Carie Messina for Dr. Garry Siddiqi and will be completed within 7 days of date of service. LEVEL 3 Number and complexity of problems (low): 2 or more self-limited or minor problems - chronic sinusitis, AC Risks Low risk of morbidity from additional diagnostic testing or treatment. Conservative management. - defer to [facility] Next Appt Details Follow Up: prn, Reason: Progress Notes * Farhat NICHOLE RDOB: [birth year] (78 yo M)Acc No.[id number]:03/02/2024 Progress Notes Patient:?Farhat NICHOLE Provider:?Garry Siddiqi MD :1945???Age:78 Y???Sex:Male Pete e:03/02/2024 Address:[address] [place] [address] [id number] Pcp:garry olivera Subjective: * Chief Complaints: * ???Chronic sinusitisAllergic conjunctivitisTele * HPI: ???General:?We have the pleasure of seeing Farhat via [employer] on 03/02/2024 for evaluation of the above. The patient was last seen on 02/18/2024. The method of Telehealth used was real-time, interactive, secure, and private audio and video. The patient is located at their home and Dr. Siddiqi is located at [facility]. The following people were present during this video call: the patient, the provider, and the commercial drone software developer (Carie Messina). CHRONIC SINUSITIS Farhat reported onset of headaches, facial pressure, postnasal drip, bilateral cheek pain causing eye pain, sore upper mouth, phlegm, coughing causing night awakenings, sneezing, and sore throat, in 2014. He has tried and failed the following: Astepro, Zyrtec, nasal steroid sprays, Benadryl, amoxicillin, nortriptyline QHS, cyproheptadine, carbamazepine, prednisone (good relief with symptom recurrence after d/c), montelukast, duloxetine, omeprazole, famotidine, and Mucinex. He reported extensive unremarkable wokrup including CT scans, PFT, brain MRI, and aeroallergen IgE bloodwork (see DATA). Last visit, we recommended budesonide nasal lavage BID. Today, 03/02/2024, Farhat reports no symptom improvement, despite compliance with budesonide nasal rinse regimen for 2 weeks. ALLERGIC CONJUNCTIVITIS Farhat reported onset ofocular pruritus, watery eyes, and discharge in 2014, occuring daily and year-round. He tried using eye drops for alleviation but noted s/e of burning and d/c. He reported past negative aeroallergen IgE bloodwork, and noted having done SCIT in the past with outside provider for reported feather allergy. He denied relief from SCIT and d/c prior to ~2013. Last visit, we deferred discussion of AC to focus on chronic sinusitis. Today, 03/02/2024, he reports persistent symptoms. The patient presents today for a discussion of symptom management. . * ROS:?Constitutional: Denies fevers, chills, sweats, anorexia, fatigue, malaise, weight loss Respiratory: See HPI. Gastrointestinal: Denies melena, hematochezia, jaundice. Genitourinary: Denies dysuria, hematuria, discharge, urinary frequency, urinary hesitancy, nocturia, incontinence. HEENT: See HPI. Neurological: See HPI. * Medical History:? * Surgical History:?Knee surge ry 1985Hernia 2013back surgery 2016shoulder surgery 2004, 2010, 2016 * Hospitalization/Major Diagno stic Procedure:?Abdominal pain, found diverticulitis 08/2023 * Family History:? Family history documented on 02/18/2024 and reviewed on 03/02/2024. Allergic rhinitis (season allergy): mother had sinus issues Asthma: N Food allergy: N Urticaria: N. * Social History:?Social history documented on 02/18/2024 and reviewed on 03/02/2024 with no change. Smoking: nonsmoker. Alcohol: N Environmental Exposures: An extensive record of environmental exposures at home and at work was obtained: -Visible mold or mildew in the home/work: none -Workplace allergen exposures include: none -Feather pillows on the bed (likely high in dust mites): none -Down comforter on the bed (likely high in dust mites): none -Bedroom carpeting (associated with dust mites): none -Pet: dog -Indoor smoking: no. . * Medications:?TakingFlonase , Notes to Pharmacist: QDZyrTEC , Notes to Pharmacist: QIDPulmicort 1 MG/2ML Suspension 1mL rinse Twice a day Budesonide 0.5 MG/2ML Suspension USE 2 ML VIA NEBULIZER TWICE DAILY Medication List reviewed and reconciled with the patientTaking Flonase , Notes to Pharmacist: QDTaking ZyrTEC , Notes to Pharmacist: QIDTaking Pulmicort 1 MG/2ML Suspension 1mL rinse Twice a day Taking Budesonide 0.5 MG/2ML Suspension USE 2 ML VIA NEBULIZER TWICE DAILY Medication List reviewed and reconciled with the patient * Allergies:?CarbamazepineAcet aminophenOxycodoneno[Allergies Verified] Objective: * Vitals:?BMI: 28.07 Index, Wt : 207 lbs, Ht: 72 in, Temp: 98.1 F. * Physical Examination:?General appearance: No acute distress, no malnourishment, no muscle wasting Eyes:no sclera icterus, normal iris Ears, nose, mouth and throat: no hearing impairment Neck: trachea is midline Respiratory: No labored breathing or excessive use of accessory muscles CV: No varicosities in lower extremities, no edema, no cyanosis GI: No visible distention or hernia Musculoskeletal: No difficulty moving extremities Skin: No visible rashes on face, neck and extremities Psychiatric: A&O to person, place and time. Neurology: No obvious tremor or impaired gait . Assessment: * Assessment: 1.?Chronic sinusitis, unspec ified - J32.9 (Primary)?2.?Other chronic allergic conjunctivitis - H10.45? Plan: * Treatment: 2.?Other chronic allergic co njunctivitis? Notes: Pt has a long hx of daily ocular pruritus, watery eyes,and ocular discharge since 2014. He tried using eyedrops but d/c due to burning and lack of relief. He also tried Zyrtec and Benadryl without relief. Today, he notes persistent symptoms. Aeroallergen IgE bloodwork was reportedly negative. He noted past SCIT for feather allergy that did not provide relief. We discussed: 1. I defer treatment to [facility] given sx of sinusitis have been refractory to extensive treatment and negative allergy workup. 2. Follow-up PRN or if new sx arise.?? 3.?Others? Notes: This note was transcribed by Carie Messina for Dr. Garry Siddiqi and will be completed within 7 days of date of service. LEVEL 3 Number and complexity of problems (low): 2 or more self-limited or minor problems - chronic sinusitis, AC Risks Low risk of morbidity from additional diagnostic testing or treatment. Conservative management. - defer to [facility]?? * Procedure Codes:? * Follow Up:?prn * Images: * Sign off status: Completed true * Provider:?Garry Siddiqi MD Date:? 4 Generated for Jaycee martínez/Polly/eTransmitting on:?09/30/2024 09:19 PM EST History and Physical Notes * Physical Examination Category Sub-Category Detail Notes Section Note s General appearance: No acute distress, no malnourishment, no muscle wasting Eyes:no sclera icterus, normal iris Ears, nose, mouth and throat: no hearing impairment Neck: trachea is midline Respiratory: No labored breathing or excessive use of accessory muscles CV: No varicosities in lower extremities, no edema, no cyanosis GI: No visible distention or hernia Musculoskeletal: No difficulty moving extremities Skin: No visible rashes on face, neck and extremities Psychiatric: A&O to person, place and time. Neurology: No obvious tremor or impaired gait
--- OUTSIDE RECORDS SUMMARY | 2024-09-30 21:19 | XMS_ITS ---
Author Organization [facility] Address [address] [place], [place] [id number] Care Team Providers Care Aquatics Assistant Department Head Name Role Phone TARIQ YI Major [phone] Encounters Encounter Location Date Provider Diagnosis [address] [id number] 04/21/2023 YI POTTER Plan Of Treatment No Information Progress Notes * MIHIR NICHOLE RDOB: [birth year] (77 yo F)Acc No.[id number]:04/21/2023 Patient:?MIHIR NICHOLE :1945???Age:77 Y???Sex:Female Address:[address] [place] [address] [place] [address] * true * Date:? Generated for Jaycee martínez/Polly/eTransmitting on:?09/30/2024 09:19 PM EST
--- OUTSIDE RECORDS SUMMARY | 2024-09-30 21:19 | XMS_ITS ---
Author Organization [facility] Network Address [address] [place] [address] Care Team Providers Care Project Manager Interior Design Name Role Phone garry olivera Primary Care Provider GARRY Pereira Unavailable [phone] REASON FOR VISIT budesonide rx Medications Medication SIG (Take, Route, Fr equency, Duration) Notes Start Date End Date Status Budesonide 0.5 MG/2ML 2 mL Inhalation Tw ice a day for 14 days 02/18/2024 Active Encounters Encounter Location Date Provider Diagnosis [facility] [address] [place] [phone] 02/18/2024 GARRY SIDDIQI Plan Of Treatment Medication Medication Name Sig Start Date Stop Date Notes Budesonide 0.5 MG/2ML 2 mL Inhalation Tw ice a day for 14 days 02/18/2024 Progress Notes * Farhat NICHOLE RDOB: [birth year] (78 yo M)Acc No.[id number]:02/18/2024 Patient:?Farhat NICHOLE :1945???Age:78 Y???Sex:Male Address:[address] [place] [address], [address] * Refills? Start Budesonide Suspension, 0.5 MG/2ML, Inhalation, 56 ML, 2 mL, Twice a day, 14 days, Refills=1 * true * Date:? Generated for Brycei ng/Fajasming/eTransmitting on:?09/30/2024 09:19 PM EST
--- OUTSIDE RECORDS SUMMARY | 2024-09-30 21:19 | XMS_ITS | Referral Summary ---
Author Organization [facility] Address [address] [place] [address] Care Team Providers Care Car Inspector Name Role Phone MaridavidIvan gilliland Primary Care Provider [phone] Allergies Active Allergy Reactions Criticality Noted Date Comments Oxycodone-Acetaminophen Indigestion Medications gabapentin (NEURONTIN) 100 mg capsule TAKE 2 CAPSULES 3 TIMES DAILY. pt states no longer taken 03/28/20 16 Active cyclobenzaprine (FLEXERIL) 10 mg tablet Cyclobenzaprine HCl - 10 MG Oral Tablet TAKE 1 TABLET TWICE DAILY. pt states no longer taken Quantity: 40; Refills: 0 JAKUB VILLEDA N.P.; Started Active 03/28/20 16 Active acetaminophen 325 mg capsule Tylenol CAPS Refills: 0 Active Active betamethasone dipropionate (DIPROSONE) 0.05 % cream apply topically A SMALL AMOUNT twice a day 0 11/18/19 19 Active IBU 600 mg tablet Take 600 mg by mouth nightly. 0 01/05/20 19 Active lansoprazole (PREVACID) 30 mg capsule Take 30 mg by mouth daily. 0 11/18/19 19 Active lidocaine (LIDODERM) 5% patch APPLY 1 PATCH TOPICALLY ONCE A DAY 0 12/29/19 19 Active omeprazole (PriLOSEC) 40 mg capsule Take 40 mg by mouth daily. 0 01/05/20 19 Active flu vacc [id number],65up,/MF5 9C/PF (FLUAD 2014-,65YR+,,P F, INTRAMUSCU) inject 0.5 milliliters intramuscularly 0 06/18/20 19 Active WILBER-D 24 HOUR 180-240 mg per 24 hr tablet take 1 tablet by mouth daily if needed for congestion 07/22/20 Active predniSONE (DELTASONE) 10 mg tablet 07/22/20 Active Active Problems Problem Noted Date Diagnosed Date Atypical face pain 07/22/2022 Pre-op evaluation 04/15/2016 Trochanteric bursitis 03/25/2016 Aftercare following surgery 02/01/2016 Pain in pelvis 01/25/2016 Scoliosis 01/25/2016 Back pain 06/26/2015 Social History Tobacco Use Types Packs/Day Years Used Date Smoking Tobacco: Former Smokeless Tobacco: Never Comments:: Alcohol Use Standard Drinks/Week Comments Yes 0 (1 standard drink = 0.6 oz pur e alcohol) socially Sex and Gender Information Value Date Recorded Sex Assigned at Not on file Legal Sex Male 6:54 PM EDT Gender Identity Not on file Sexual Orientation Not on file Last Filed Vital Signs Vital Sign Reading Time Taken Comments Blood Pressure 100/63 07/22/2022 1:10 PM EST Pulse 88 07/22/2022 1:10 PM EST Temperature 36.3 ??C (97.3 ??F) 04/14/2017 8:07 AM ED T Respiratory Rate - - Oxygen Saturation 100% 01/08/2016 10:40 AM EDT Inhaled Oxygen Concentration - - Weight 101.2 kg (223 lb) 2019 8:59 AM EST Height 175.3 cm (5' 9 ) 2019 8:59 AM EST Body Mass Index 32.93 2019 8:59 AM EST Plan of Treatment Not on file Insurance MEDICARE [facility] [employer] Care Teams Car Inspector Relationship Specialty Start Date End Date Ivan Simpson [address] [place] [address] PCP - General 07/21/22
--- OUTSIDE RECORDS SUMMARY | 2024-09-30 21:19 | XMS_ITS | Patient Health Record ---
Author Organization [facility] BI Network Address [address] [place] [address] Care Team Providers Care Pharmacy Resource Tech Name Role Phone garry olivera Primary Care Provider GARRY Pereira Unavailable [phone] Allergies Allergen (clinical drug ingredient) Drug/Non Drug Allergy documented on EMR Reaction Allergy Type Onset Date Status acetaminophen Acetaminophen Unknown Drug Allergy Active carbamazepine Carbamazepine Unknown Drug Allergy Active oxycodone Oxycodone Unknown Drug Allergy Active Reason For Referral No Information Medications Medication SIG (Take, Route, Fr equency, Duration) Notes Start Date End Date Status ZyrTEC QID Active Flonase QD Active Budesonide 0.5 MG/2ML USE 2 ML VIA NEBUL IZER TWICE DAILY for 90 Active Pulmicort 1 MG/2ML 1mL rinse Twice a da y for 10 days 02/18/2024 Active Problems Problem Type SNOMED Code ICD Code Onset Dates Problem Status W/U Status Risk Notes Problem Allergic conjunctivitis (230481606) Allergic Conjunctivitis (H10.10) Active confirmed Problem Chronic allergic conjunctivitis (18489531) Other chronic allergic conjunctivitis (H10.45) Active confirmed Problem Chronic sinusitis (48654951) Chronic sinusitis, unspecified (J32.9) Active confirmed Vital Signs Heart Rate 111 /min 02/18/2024 Temperature 98.1 degrees Fahrenheit 03/02/2024 Oximetry 99 % 02/18/2024 Blood pressure diastolic 87 mm Hg 02/18/2024 Height 72 in 03/02/2024 Blood pressure systolic 139 mm Hg 02/18/2024 Weight 207 lbs 03/02/2024 BMI 28.07 kg/m2 03/02/2024 Encounters Encounter Location Date Provider Diagnosis [facility] [email or web address] [facility] [address] [address] [place], [place] 02/18/2024 GARRY SIDDIQI Chronic sinusitis, unspecified J32.9 and Other chronic allergic conjunctivitis H10.45 [facility] [address] [place], [place] 03/02/2024 GARRY SIDDIQI Chronic sinusitis, unspecified J32.9 and Other chronic allergic conjunctivitis H10.45 [facility] [address] [facility] [address] [facility] [address] [place], [place] 02/18/2024 GARRY SIDDIQI [facility] [address] [address] [facility] [address] [place], [place] 02/18/2024 GARRY SIDDIQI [facility] [address] [place], [place] 02/18/2024 GARRY SIDDIQI Assessments Encounter Date Diagnosis (ICD Code) Assessment Notes Treatment Notes Treatment Clinical Notes Section Notes 02/18/2024 Other chronic allergic conjunctivitis (ICD-10 - H10.45) Pt reports long hx of daily allergic conjunctivitis that has worsened since 2014. Pt tried treating sx of ocular pruritus, watery eyes,and ocular discharge with eyedrops but d/c due to burning and no sx relief. He has also tried and failed Zyrtec and Benadryl. Today, 02/18/2024, we discussed: -We will address pt's chronic sinusitis first. Once those sx are under control, we will address the pt's allergic conjunctivitis. 02/18/2024 Chronic sinusitis, unspecified (ICD-10 - J32.9) Pt reports long hx of acute sinusitus that has been treated by outside ENT since 2014. He notes sx of headaches, facial pressure, postnasal drip, bilateral cheek pain that hurts eyes, sore upper mouth, coughs up phlegm (wakes him up at night), sneezing, and sore throat. He has tried and failed astepro, zyrtec, nasal steroid sprays, benadryl, amoxicillin, nortripline QHS, cyproheptadine, carbamazepine, prednisone (good relief but immediate sx recurrence after d/c), montelukast, duloxetine, omeprazole, mucinex, and famotidine (as antihistamine). Outside aeroallergen IgE bloodwork was lawrence-negative. Per pt report, outside outsole tacker dx with feather allergy and pt started allergy shots (~15 years ago) but d/c due to no sx relief. Outside CT sinus scans and PFTs (2021), and brain MRIs (2022) were unremarkable. Today, 02/18/2024, we discussed: -Since pt has failed nasal sprays, saline nasal rinse, and oral antihistamine, pt will start pulmicort infused nasal rinse BID. Pt will watch a video on how to do it correctly and noted understanding. - Instillation of glucocorticoid solutions into the nose provides superior topical application because these solutions can reach the middle meatus, where polyps often form, whereas nasal sprays generally cannot. -Pt will mix 0.5 mg budesonide Respule with one teaspoon of saline, and this mixture is instilled in the right nostril twice daily, after which the patient assumes a series of positions: first the head down forward position, then right lateral supine position, and finally in the supine position, each for one to two minutes (visual instructions were given). The supine position must be used with caution, because in some patients, it will cause fluid to enter the eustachian tubes. Following this, the remaining nasal solution is expelled from the nose. The procedure is then repeated in the left nostril. -Pt will follow up in 10 days for sx management 03/02/2024 Chronic sinusitis, unspecified (ICD-10 - J32.9) [...] I recommend patient consult with experts at [facility] for comprehensive evaluation. We [...] We discussed: 1. I defer treatment to [facility] given sx of sinusitis have been refractory to extensive treatment and negative allergy workup. 2. Follow-up PRN or if new sx arise. 02/18/2024 Other This note was transcribed by Tana Ramsay for Dr. Garry Siddiqi and will be completed within 7 days of date of service. LEVEL 4 Number and complexity of problems (moderate): 1 undiagnosed new problem with uncertain prognosis - chronic sinusitis, AC Risks (moderate): -Prescription drug management- budesonide 03/02/2024 Other This note was transcribed by Carie Messina for Dr. Garry Siddiqi and will be completed within 7 days of date of service. LEVEL 3 Number and complexity of problems (low): 2 or more self-limited or minor problems - chronic sinusitis, AC Risks Low risk of morbidity from additional diagnostic testing or treatment. Conservative management. - defer to [facility] Plan Of Treatment No Information Insurance Providers Payer Name Payer Address Payer Phone Subscriber Number Group Number Insured Name Patient Relationship to Insured Coverage Start Date Coverage End Date [employer] [place] [address] [place] [address] [phone] [id number] Farhat Saucedo Self - patient is the insured [employer] [facility] [employer] [address] [place] [address] [phone] [id number] Farhat Saucedo Self - patient is the insured Medical (General) History Medical History History ICD Code Depression Chronic Sinusitus Allergic conjunctivitis Headaches Surgical History Surgery Date(Month/Year) Knee surgery 1985 Hernia 2012 back surgery 2016 shoulder surgery 2004, 2010, 2016 Hospitalization History Reason Date(Month/Year) Abdominal pain, found diverticulitis 2022
--- OUTSIDE RECORDS SUMMARY | 2024-09-30 21:19 | XMS_ITS | Clinical Summary ---
Author Organization [facility] Address [address] [place] [address] Care Team Providers Care Sales And Leasing Consultant Name Role Phone MaridavidIvan gilliland Primary Care Provider [phone] Allergies Active Allergy Reactions Criticality Noted Date [...] daily. 0 01/05/20 19 Active flu vacc gh6054,65up,/MF5 9C/PF (FLUAD 2014-,65YR+,,P F, INTRAMUSCU) inject 0.5 [...] pelvis 01/25/2016 Scoliosis 01/25/2016 Back pain 06/26/2015 Family History Medical History Relation Name Comments Other Father Family History of myocardial infarction Relation Name Status Comments Father Mother Social History Tobacco Use Types Packs/Day Years [...] 2019 8:59 AM EST Plan of Treatment Health Maintenance Due Date Last Done Comments DTaP,Tdap,and Td Vaccines (1 - Tdap) 1966 Pneumococcal Vaccine: 65+ Years (2 of 2 - PPSV23 or PCV20) 07/09/2018 07/09/2017 Zoster Vaccines (2 of 2) 07/26/2018 05/31/2018 RSV Vaccine (60+ years old and patients) (1 - 1-dose 75+ series) 2019 COVID-19 Vaccine ( - season) 2024 03/14/2022, 06/04/2021, 11/07/2020, Additional history exists Influenza Vaccine (#1) 2024 05/29/2018, 2016 Alcohol/Substance Use Screening 09/07/2024 Health Care Proxy Review 09/07/2024 Social Drivers of Health Annual Screening 09/07/2024 Hepatitis B Vaccines Aged Out No long er eligible based on patient's age to complete this topic Insurance MEDICARE [facility] Care Teams Sales And Leasing Consultant Relationship Specialty Start Date End Date Ivan Simpson [address] [place] [address] PCP - General 07/21/22
--- OUTSIDE RECORDS SUMMARY | 2024-09-30 21:19 | XMS_ITS | Patient Health Record ---
Author Organization [facility] Address [address] [place], [place] [id number] Care Team Providers Care Inspector Bullet Slugs Name Role Phone YI POTTER Unavailable [phone] Reason For Referral No Information Medications Medication SIG (Take, Route, Fr equency, Duration) Notes Start Date End Date Status Ondansetron 8 MG 1 tablet on the tong ue and allow to dissolve as needed Orally Once a day for 5 days 03/09/2023 Active Plan Of Treatment No Information Insurance Providers Payer Name Payer Address Payer Phone Subscriber Number Group Number Insured Name Patient Relationship to Insured Coverage Start Date Coverage End Date [place] [address] [place] [address] [phone] [id number] MIHIR NICHOLE Self - patient is the insured [employer] Employee Plan [address] [place] [address] [id number] MIHIR NICHOLE Self - patient is the insured 6
--- OUTSIDE RECORDS SUMMARY | 2024-09-30 21:19 | XMS_ITS | Clinical Summary ---
Author Organization [facility] Address [address] [place] [address] Care Team Providers Care Director Compensation Name Role Phone Vishnu Kenyon MD Primary Care Provider Social History Tobacco Use Types Packs/Day Years Used Date Smoking Tobacco: Never Assessed Sex and Gender Information Value Date Recorded Sex Assigned at Not on file Gender Identity Not on file Sexual Orientation Not on file Plan of Treatment Health Maintenance Due Date Last Done Comments DTaP,Tdap,and Td Vaccines (1 - Tdap) 1963 Pneumococcal Vaccine: 65+ Years (2 of 2 - PPSV23 or PCV20) 07/09/2018 07/09/2017 Zoster Vaccines (2 of 2) 07/26/2018 05/31/2018 RSV Immunization Patients 60 + Years Old (1 - 1-dose 75+ series) 2019 Cholesterol Screening (Lipid Panel) 04/05/2024 Depression Screening 04/05/2024 Falls Risk Assessment 04/05/2024 Social Influencers of Health Screening 04/05/2024 COVID-19 Vaccine (1 - 2023-2 5 season) 2024 Influenza Vaccine (#1) 2024 8, 07/09/2017 HIB Vaccines Aged Out No longer eligi ble based on patient's age to complete this topic HPV Vaccines Aged Out No longer eligi ble based on patient's age to complete this topic Hepatitis A Vaccines Aged Out No long er eligible based on patient's age to complete this topic Hepatitis B Vaccines Aged Out No long er eligible based on patient's age to complete this topic IPV Vaccines Aged Out No longer eligi ble based on patient's age to complete this topic MMR Vaccines Aged Out No longer eligi ble based on patient's age to complete this topic Meningococcal ACWY Vaccine Aged Out N o longer eligible based on patient's age to complete this topic RSV Immunization Patients Under 20 months Aged Out No longer eligible b ased on patient's age to complete this topic Varicella Vaccines Aged Out No longer eligible based on patient's age to complete this topic Care Teams Director Compensation Relationship Specialty Start Date End Date Vishnu Kenyon MD [address] [place] [id number] PCP - General Internal Medicine 04/01/17
--- OUTSIDE RECORDS SUMMARY | 2024-09-30 21:19 | XMS_ITS | Clinical Summary ---
Author Organization [facility] Address [address] [place] [address] Care Team Providers Care Photography And Prints Curator Name Role Phone Vishnu Kenyon MD Primary Care Provider [phone] Allergies Active Allergy Reactions Criticality Noted Date Comments Oxycodone-Acetaminophen 04/10/2017 Medications No known medications Social History Tobacco Use Types Packs/Day Years Used Date Smoking Tobacco: Never Assessed Sex and Gender Information Value Date Recorded Sex Assigned at Not on file Gender Identity Not on file Sexual Orientation Not on file Job Start Date Occupation Industry Not on file Not on file Not on file Last Filed Vital Signs Vital Sign Reading Time Taken Comments Blood Pressure - - Pulse - - Temperature - - Respiratory Rate - - Oxygen Saturation - - Inhaled Oxygen Concentration - - Weight 90.7 kg (200 lb) 04/10/2017 11:30 AM EDT Height 182.9 cm (6') 04/10/2017 11:30 AM EDT Body Mass Index 27.12 04/10/2017 11:30 AM EDT Plan of Treatment Health Maintenance Due Date Last Done Comments COVID-19 Vaccine (#1) 01/09/1946 Depression Screening 1956 Preventative Health Evaluation 1962 DTap / Tdap / Td (1 - Tdap) 1963 Shingrix-Zoster Vaccine (1 of 2) 1994 Fall Risk Assessment 2009 Pneumococcal Vaccine (1 of 1 - PCV) 2009 RSV Adult > 60+ Yrs or Pregn ant (1 - 1-dose 75+ series) 2019 Influenza Vaccine (#1) 2024 Hepatitis B Vaccines Aged Out No long er eligible based on patient's age to complete this topic RSV Ped < 20 months Aged Out No longe r eligible based on patient's age to complete this topic Care Teams Photography And Prints Curator Relationship Specialty Start Date End Date Vishnu Kenyon MD [address] [place] [id number] PCP - General Internal Medicine 04/01/17
--- OUTSIDE RECORDS SUMMARY | 2024-09-30 21:19 | XMS_ITS ---
Author Organization [facility] Network Address [address] [facility] [address] [place] [address] Care Team Providers Care Financial Examiner Name Role Phone garry olivera Primary Care Provider GARRY Pereira Unavailable [phone] REASON FOR VISIT invalid phone and email Encounters Encounter Location Date Provider Diagnosis [facility] Network [address] [facility] [address] [place] [address] 02/18/2024 GARRY SIDDIQI Plan Of Treatment No Information Progress Notes * Farhat NICHOLE RDOB: [birth year] (78 yo M)Acc No.[id number]:02/18/2024 Patient:?Farhat NICHOLE :1945???Age:78 Y???Sex:Male Address:[address] [place] [address], [id number] * true * Date:? Generated for Printi ng/Fajasming/eTransmitting on:?09/30/2024 09:18 PM EST
[2024-09-30 21:43] LABS: MANUAL DIFF FLAG NO
[2024-09-30 21:46] LABS: Basophils Absolute Auto 0.1 X10*3/uL (0.0-0.2); Basophils Percent Auto 1.5 % (0-2); Eosinophils Absolute Auto 0.1 X10*3/uL (0.0-0.4); Eosinophils Percent Auto 1.6 % (0-4); Hematocrit 42.4 % (42.0-52.0); Imm Gran Abs Auto 0.01 X10*3/uL (0.00-0.03); Imm Gran Pct Auto 0.1 % (0.0-0.4); Lymphocytes Absolute Auto 1.1 X10*3/uL (1.2-4.9); Mean Corpuscular Hemoglobin 31.3 pg (27.0-33.0); Mean Corpuscular Volume 94.6 fL (80.0-98.0); Mean Platelet Volume 10.3 fL (9.4-12.4); Monocytes Absolute Auto 0.6 X10*3/uL (0.1-1.2); Monocytes Percent Auto 8.8 % (2-11); Neutrophils Absolute Auto 4.8 x10*3/uL (2.0-8.3); Platelet Count 163 X10*3/uL (160-400); Red Blood Count 4.48 X10*6/uL (4.60-5.80); Red Cell Distribution Width 15.1 % (11.0-16.0); White Blood Count 6.7 X10*3/uL (4.8-10.8)
[2024-09-30 22:00] LABS: Alanine Aminotransferase 29 U/L (0-40); Albumin Level 3.6 g/dL (3.5-5.0); Alkaline Phosphatase 82 U/L (39-117); Anion Gap 13 (12-20); Aspartate Amino Transferase 45 U/L (5-37); Bilirubin Total 0.9 mg/dL (0.0-1.0); Blood Urea Nitrogen 25 mg/dL (9-16); Calcium 8.4 mg/dL (8.4-10.2); Carbon Dioxide 23 mmol/L (22-29); Chloride 115 mmol/L (96-108); Creatinine Clr Calc Pharmacy 71.8; Estimated Glomerular Filt Rate > 60; Glucose Random 100 mg/dL (60-115); Potassium 4.8 mmol/L (3.3-5.1); Sodium 146 mmol/L (135-145); Total Protein 6.3 g/dL (6.5-8.0)
[2024-09-30 22:06] LABS: B Type Natriuretic Peptide 1063 pg/mL (<100)
[2024-09-30 22:21] LABS: Influenza A PCR NEGATIVE (Negative); Influenza B PCR NEGATIVE (Negative); Resp Syncy Virus RNA Qual PCR NEGATIVE (Negative); SARS COV2 PCR INHOUSE NEGATIVE (Negative)
[2024-09-30 23:17] VITALS: BP 124/78; PULSE 102; RESP 20; O2SAT 97
[2024-10-01 01:44] VITALS: BP 117/77; PULSE 100; RESP 15; TEMP 36.8; O2SAT 97
[2024-10-01 02:11] VITALS: BP 117/77; PULSE 100; RESP 20; O2SAT 97
[2024-10-01 03:19] LABS: Troponin-I High Sensitivity 10.1 ng/L (<3.5-35.0)
[2024-10-01 03:51] VITALS: BP 108/75; PULSE 99; RESP 16; O2SAT 98
--- NOTE | 2024-10-01 04:18 | ED.SOB ---
HPI - SOB/Dyspnea General Chief Complaint: Dyspnea Stated Complaint: sob,pain behind eyes Time Seen by Provider: 10/01/24 03:57 Source: patient Mode of arrival: ambulatory Limitations: no limitations History of Present Illness ED Provider: Dr. Audelia Oakley HPI Narrative: Patient comes to the emergency room complaining of shortness of breath. Patient states it has been going on for a few weeks. Patient states that he was seen yesterday by his [place] operator Dr. Dent, placed on doxycycline for a sinus infection. Patient reports that he has shortness of breath with exertion, but seems to be now present when he is sitting. Patient denies chest pain. Patient states that his legs have not been more swollen than usual. Related Data Home Medications ?Medication ?Instructions ?Recorded ?Confirmed multivitamin 1 tab PO DAILY 11/12/21 09/29/24 furosemide 20 mg tablet 20 mg PO DAILY 07/30/24 09/29/24 metoprolol succinate 25 mg 25 mg PO DAILY 07/30/24 09/29/24 tablet,extended release 24 hr cetirizine 10 mg capsule (Zyrtec) 10 mg PO DAILY PRN 09/29/24 09/29/24 fluticasone propionate 50 1 spray intranasal BID 09/29/24 09/29/24 mcg/actuation nasal spray,suspension (Flonase Allergy Relief) Previous Rx's ?Medication ?Instructions ?Recorded aspirin 81 mg tablet,delayed 81 mg PO DAILY #0 tabs 05/23/24 release corn-callus cushion #1 ea 07/30/24 doxycycline hyclate 100 mg tablet 100 mg PO BID SINUSITIS 10 days 09/29/24 #20 tabs Allergies Allergy/AdvReac Type Severity Reaction Status Date / Time carbamazepine Allergy Intermediate Hives Verified 09/30/24 21:05 oxycodone [From Percocet] Allergy Unknown unknown Verified 09/30/24 21:05 Review of Systems Review of Systems: Constitutional : No Weight loss, No Fever, No Chills, No Night Sweats, No Fatigue, No Malaise ENT/Mouth : No Hearing loss, No Ear Pain, No Nasal Congestion, No Sinus Pain, No Hoarseness, No sore throat, No Rhinorrhea, No Swallowing Difficulty Eyes: No Eye Pain, No Swelling, No Redness, No Foreign Body, No Discharge, No Vision Changes Cardiovascular : No Chest Pain, complaining of shortness of breath with exertion and at rest. Respiratory : No Cough, No Sputum, No Wheezing, No Smoke Exposure, No Dyspnea Gastrointestinal : No Nausea, No Vomiting, No Diarrhea, No Constipation, No abdominal Pain, No Hematochezia, No Melena Genitourinary : no irregular bleeding, No Dysuria, No Urinary Frequency, No Hematuria, No Urinary Incontinence, No Urgency, No Flank Pain, No Urinary Flow Changes, No Hesitancy Musculoskeletal : No joint pain, No Myalgias, No Joint Swelling Skin : No Skin Lesions, No rash Neuro : No Weakness, No Numbness, No Paresthesias, No Loss of Consciousness, No Dizziness, No Headache Psych : No Anxiety/Panic, No Depression, No SI/HI/AH/VH, No Social Issues, Heme/Lymph: No Bruising, No Bleeding,No Lymphadenopathy Endocrine : No Polyuria, No Polydipsia, No Temperature Intolerance [facility] Past Medical History Medical History Sinusitis ICD (implantable cardioverter-defibrillator) in place NICM (nonischemic cardiomyopathy) COPD (chronic obstructive pulmonary disease) Allergic rhinitis Right hip pain Surgical History H/O neck surgery H/O shoulder surgery Hx of shoulder surgery H/O colonoscopy History of back surgery H/O knee surgery S/P hernia surgery Family History Family History Father No problems noted. Mother No problems noted. Sister Cancer Social History Social History Household Members: Spouse Housing: House Do you presently have visiting nurse or other home services: No Alcohol intake: current Alcohol intake frequency: does not drink Patient Tobacco Use Status: Former Tobacco user Years Smoked: quit 1968 Smoked in Last 30 Days: No e-Cigarette/Vaping Use: Never Used Second Hand Smoke Exposure: No Use of substances other than those prescribed or required for medical reasons: No Advance Directives: No Advance Directives Information Provided: Yes service: No Current occupational status: retired Cognitive needs: No Hearing needs: No Vision needs: No Physical Exam Vital Signs: Vital Signs: Last Vital Signs Temp 98.2 F 10/01/24 01:44 Pulse 99 10/01/24 03:51 Resp 16 10/01/24 03:51 BP 108/75 10/01/24 03:51 Pulse Ox 98 10/01/24 03:51 O2 Del Method Room Air 10/01/24 03:51 BMI result Body Mass Index 25.6 Const: Other: Appearance: Alert. Oriented X3. No acute distress. Eyes: Pupils equal, round and reactive to light. ENT: Pharynx normal. Neck: Normal inspection. Neck supple. No lymph nodes noted. No crepitus CVS: Normal heart rate and rhythm. Pulses normal. Normal S1 and S2 Respiratory: No respiratory distress. Breath sounds normal. No Wheezing. No rales Abdomen: Soft and nontender. No rigidity. No distention. Skin: Skin warm and dry. Normal skin color. Normal skin turgor. Extremities: No lower extremity edema. No Lacerations. No Rash Neuro: Oriented X 3. No motor deficit. No sensory deficit. Moving all extremities. No slurred speech. CN 2 through 12 grossly intact Psych: calm, cooperative, normal affect Medical Decision Making Medical Decision Making MDM Narrative: Patient was able to ambulate in the emergency room, oxygen saturation 96 97% steady freed no O2 desaturations My interpretation of labs: White blood cell count within normal limits, chemistry does not show any acute abnormality, BNP 1063 which is elevated from patient's baseline, troponin 10.1, serology negative for influenza a and B, negative for RSV and COVID Chest x-ray shows minimal streaky bilateral atelectasis, no significant pleural effusion or pneumothorax, AICD/pacemaker in place Although patient's BNP is elevated more than usual, patient has no signs of CHF exacerbation. Chest x-ray looks good, patient did well ambulating, oxygen saturation stayed in the high 90s with no O2 desaturations. Patient went to see his [place] operator yesterday, started on antibiotics for sinusitis. Patient already on antibiotics, that would be no benefit from increasing patient's Lasix at this time. As it is patient has a soft BP. Patient did not have any oxygen desaturations, patient breathing comfortably. No reason for admission at this time. Differential Diagnosis Differential Diagnoses: The differential diagnosis associated with the presentation includes (CHF exacerbation, pneumonia, sinusitis, viral URI) Admission/Observation Consideration of admission/observation: Escalation of care including admission/observation considered (Given patient's symptoms, age and past medical history, observation was considered.) Lab Data MDM Lab Attestation statement: I reviewed the patient's lab results. 09/30/24 21:37 09/30/24 21:37 Labs: Lab Results 09/30/24 09/30/24 Range/Units 21:33 21:37 WBC 6.7 (4.8-10.8) X10*3/uL RBC 4.48 L (4.60-5.80) X10*6/uL Hgb 14.0 (14.0-18.0) g/dl Hct 42.4 (42.0-52.0) % MCV 94.6 (80.0-98.0) fL MCH 31.3 (27.0-33.0) pg MCHC 33.0 (31.0-36.0) g/dl RDW 15.1 (11.0-16.0) % Plt Count 163 (160-400) X10*3/uL MPV 10.3 (9.4-12.4) fL Immature Gran % (Auto) 0.1 (0.0-0.4) % Neut % (Auto) 71.0 (45-73) % Lymph % (Auto) 17.0 L (20-40) % Boundary % (Auto) 8.8 (2-11) % Eos % (Auto) 1.6 (0-4) % Baso % (Auto) 1.5 (0-2) % Lymph # (Auto) 1.1 L (1.2-4.9) X10*3/uL Boundary # (Auto) 0.6 (0.1-1.2) X10*3/uL Eos # (Auto) 0.1 (0.0-0.4) X10*3/uL Baso # (Auto) 0.1 (0.0-0.2) X10*3/uL Abs Immat Gran (auto) 0.01 (0.00-0.03) X10*3/uL Absolute Neuts (auto) 4.8 (2.0-8.3) x10*3/uL Absolute Nucleated RBC 0.000 (0.0-0.012) X10*3/uL Nucleated RBC % (auto) 0.0 (0.0-0.2) /100WBC Sodium 146 H (135-145) mmol/L Potassium 4.8 (3.3-5.1) mmol/L Chloride 115 H (96-108) mmol/L Carbon Dioxide 23 (22-29) mmol/L Anion Gap 13 (12-20) BUN 25 H (9-16) mg/dL Creatinine 0.90 (0.5-1.4) mg/dL Estim Creat Clear Calc 71.8 Estimated GFR > 60 Random Glucose 100 (60-115) mg/dL Calcium 8.4 D (8.4-10.2) mg/dL Total Bilirubin 0.9 (0.0-1.0) mg/dL AST 45 H (5-37) U/L ALT 29 (0-40) U/L Alkaline Phosphatase 82 (39-117) U/L Troponin I High Sens 10.1 D (<3.5-35.0) ng/L B-Natriuretic Peptide 1063 H (<100) pg/mL Total Protein 6.3 L (6.5-8.0) g/dL Albumin 3.6 (3.5-5.0) g/dL Influenza Type A (PCR) NEGATIVE (Negative) Influenza Type B (PCR) NEGATIVE (Negative) RSV RNA Qual (PCR) NEGATIVE (Negative) SARS-CoV-2 RNA (RT-PCR) NEGATIVE (Negative) Independent Interpretation I performed an independent interpretation of an: Plain X-Ray Radiology Impression Discussion of test interpretation with radiology: I have reviewed the radiologist's reading. Radiologist Impression: Minimal streaky bilateral atelectasis. No significant pleural effusion or pneumothorax. Similar prominent/enlarged cardiac silhouette. Similar position of the left pectoral biventricular AICD/pacemaker. Cervical spinal fusion hardware. Right shoulder arthroplasty. IMPRESSION: Minimal streaky bilateral atelectasis. Discharge Plan Discharge Clinical Impression: Chronic dyspnea Patient Disposition: Home, Self-Care Instructions: Asthma (ED) Additional Instructions: Please follow-up with your primary care physician tomorrow. If you have any worsening or new symptoms, please return to the emergency room or call 911 Prescriptions: No Action aspirin 81 mg Tablet,Delayed Release (Dr/Ec) 81 mg PO DAILY Qty: 0 0RF multivitamin Tablet 1 tab PO DAILY metoprolol succinate 25 mg tablet extended release 24 hr 25 mg PO DAILY furosemide 20 mg tablet 20 mg PO DAILY (DME) corn-callus cushion Misc See Rx Instructions .Route Qty: 1 0RF Rx Instructions: As directed fluticasone propionate [Flonase Allergy Relief] 50 mcg/actuation spray,suspension 1 spray intranasal BID Rx Instructions: administer into each nostril Zyrtec 10 mg capsule 10 mg PO DAILY PRN doxycycline hyclate 100 mg tablet 100 mg PO BID 10 Days Qty: 20 1RF Print Language: Sinhala
[2024-10-01 04:43] VITALS: BP 108/75; PULSE 99; RESP 16; TEMP 36.8; O2SAT 98
[2024-10-01 06:14] VITALS: BP 115/72; PULSE 97; RESP 16; TEMP 36.6; O2SAT 98
== END 2024-10-01 07:12 | disposition home or self-care (01) ==
PROVIDERS: Emergency Provider Emergency Medicine; PCP Nurse Practitioner Family
DX: R06.02 Shortness of breath (principal); R94.31 Abnormal electrocardiogram [ECG] [EKG]; Z79.899 Other long term (current) drug therapy; Z03.818 Encounter for observation for suspected exposure to other biological agents ruled out; Z87.891 Personal history of nicotine dependence
CPT/HCPCS: 0241U; 71045; 80053; 83880; 84484; 85025; 93005; 99283; 99284

== ENCOUNTER → 2024-09-30 21:40 | Outpatient (BNV) | payer MEDICARE, BC, SELFPAY | PROVIDERS: PCP Nurse Practitioner Family; Visit Provider Radiology Diagnostic Radiology | DX: J98.11 Atelectasis (principal) | CPT/HCPCS: 71045 ==

== ENCOUNTER → 2024-09-30 21:54 | Outpatient (BNV) | payer MEDICARE, BC, SELFPAY | PROVIDERS: Emergency Provider Emergency Medicine; PCP Nurse Practitioner Family; Visit Provider Internal Medicine Cardiovascular Disease | DX: R94.31 Abnormal electrocardiogram [ECG] [EKG] (principal) | CPT/HCPCS: 93010 ==

== ENCOUNTER 2024-10-06 07:17 | Outpatient (REF) | payer MEDICARE, BC, SELFPAY ==
--- NOTE | ~2024-10-06 | CT_ITS ---
CLINICAL HISTORY: R91.1 - Solitary pulmonary nodule CT chest without contrast Comparison: CT/[place]/SR - CT CHEST W IV CON - 03/28/24 08:20 EDT Findings: The heart is borderline prominent. Moderate diffuse atherosclerotic disease of the coronary arteries. Several subcentimeter lymph nodes are again noted within the mediastinum, nonspecific. No thyroid lesion. Stable subpleural right middle lobe nodule on axial 111, measuring up to 13 mm. The previously new ground-glass density within the left upper lobe has resolved. There is persistent nodularity along the fissures and biapical pleural thickening. Mild airway thickening noted diffusely. Subpleural reticulation most pronounced of the right lung base appears similar to prior. Trace left effusion, unchanged. No pneumothorax. No acute osseous finding. The visualized upper abdomen demonstrates no acute process. Peripelvic cysts suggested within the right kidney. Impression: The previously described new patchy left upper lobe ground-glass density has resolved. Stable subpleural right middle lobe nodule. No new or increasing nodule. One final 12 month follow-up recommended to establish long-term stability of the right middle lobe nodule. This document has been electronically signed by: Brenton Melendez MD on 10/06/2024 11:15:12
--- OUTSIDE RECORDS SUMMARY | 2024-10-06 10:29 | XMS_ITS ---
Author Organization [facility] Address [address] [place] [address] Care Team Providers Care Screw Machine Hand Name Role Phone garry olivera Primary Care Provider GARRY Pereira Unavailable [phone] REASON FOR VISIT invalid phone and email Encounters Encounter Location Date Provider Diagnosis [facility] [address] [place] [address] 02/18/2024 GARRY SIDDIQI Plan Of Treatment No Information Progress Notes * Farhat NICHOLE RDOB: [birth year] (78 yo M)Acc No.[id number]:02/18/2024 Patient:?Farhat NICHOLE :1945???Age:78 Y???Sex:Male Address:[address] [place] [address], [id number] * true * Date:? Generated for Printi tanya/Polly/eTransmitting on:?10/06/2024 10:29 AM EST
--- OUTSIDE RECORDS SUMMARY | 2024-10-06 10:29 | XMS_ITS | Clinical Summary ---
Author Organization [facility] Address [address] [place] [address] Phone Care Team Providers Care Ironer Machine Name Role Phone Ivan Simpson NP Primary Care Provider [phone] Allergies Active Allergy Reactions Criticality Noted Date Comments Acetaminophen Unknown 10/03/2024 Carbamazepine Unknown 10/03/2024 Oxycodone-Acetaminophen Unknown,GI intolerance 04/10/2017 Medications Medication Sig Dispensed Refills Start Date End Date Status budesonide-formo teroL (SYMBICORT) 80-4.5 mcg/actuation inhaler Inhale 2 puffs by mouth 2 (two) times a day. May take additional 1 to puffs as needed every 4 hours for wheeze. Rinse mouth with water after use to reduce aftertaste and incidence of candidiasis. Do not swallow. 1 each 10/03/2024 Active guaiFENesin 200 mg tablet Take 2 tablets (400 mg total) by mouth every 4 (four) hours if needed for cough for up to 10 days. 30 suppository 10/03/2024 10/13/2024 Active Encounters Date Type Department Care Team Description 10/03/2024 8:35 AM EST - 10/03/2024 2:55 PM EST Emergency [facility] Emergency [address] [place] [address] Ananth Marie MD Chronic dyspnea (Primary Dx) Discharge Disposition: Home or Self Care from Last 3 Months Surgical History Surgery Date Site/Laterality Comments APPENDECTOMY Medical History Medical History Date Comments CHF (congestive heart failure) ([facility]) Social History Tobacco Use Types Packs/Day Years Used Date Smoking Tobacco: Never Smokeless Tobacco: Never Tobacco Cessation:Counseling Given: Not Answered Sex and Gender Information Value Date Recorded Sex Assigned at Male 10/03/2024 1:32 PM EST Gender Identity Male 10/03/2024 1:32 PM EST Sexual Orientation Straight 10/03/2024 1: 32 PM EST Job Start Date Occupation Industry Not on file Not on file Not on file Obstetrics History Last Filed Vital Signs Vital Sign Reading Time Taken Comments Blood Pressure 113/80 10/03/2024 12:53 PM EST Pulse 94 10/03/2024 12:53 PM EST Temperature 36.3 ??C (97.3 ??F) 10/03/2024 8:55 AM ES T Respiratory Rate 20 10/03/2024 11:55 AM EST Oxygen Saturation 97% 10/03/2024 12:53 PM EST Inhaled Oxygen Concentration - - Weight 85.7 kg (189 lb) 10/03/2024 8:09 AM EST Height 182.9 cm (6') 10/03/2024 8:09 AM EST Body Mass Index 25.63 10/03/2024 8:09 AM EST Plan of Treatment Health Maintenance Due Date Last Done Comments DTaP,Tdap,and Td Vaccines (1 - Tdap) 1964 Pneumococcal Vaccine: 65+ Years (2 of 2 - PPSV23 or PCV20) 09/03/2017 07/09/2017 Zoster Vaccines (2 of 2) 07/26/2018 05/31/2018 RSV Immunization Patients 60+ Years Old (1 - 1-dose 75+ series) 2019 Cholesterol Screening (Lipid Panel) 04/05/2024 Depression Screening 04/05/2024 Falls Risk Assessment 04/05/2024 Medicare Annual Wellness Visit 04/05/2024 Social Influencers of Health Screening 04/05/2024 COVID-19 Vaccine ( season) 2024 03/14/2022, 06/04/2021, 11/07/2020, Additional history exists Influenza Vaccine (#1) 2024 05/29/2018, 2016 HIB Vaccines Aged Out No longer eligi [...] 20 months Aged Out No longer eligible based on patient's age to complete this topic Varicella Vaccines Aged Out No longer eligible based on patient's age to complete this topic Procedures Procedure Name Priority Date/Time Associated Diagnosis Comments XR CHEST 2 VIEWS STAT 10/03/2024 10:2 9 AM EST ECG 12-LEAD STAT 10/03/2024 10:12 AM EST TROPONIN I HIGH SENSITIVITY STAT 10/03/2024 10:05 AM EST RESPIRATORY VIRUS PANEL MOLECULAR STUDY STAT 10/03/2024 10:04 AM EST CBC WITH AUTO DIFFERENTIAL STAT 10/03/2024 8:18 AM EST B-TYPE NATRIURETIC PEPTIDE STAT 10/03/2024 8:18 AM EST MAGNESIUM STAT 10/03/2024 8:18 AM EST LIPASE STAT 10/03/2024 8:18 AM EST COMPREHENSIVE METABOLIC PANEL STAT 10/03/2024 8:18 AM EST CBC AND DIFFERENTIAL STAT 10/03/2024 8:18 AM EST TROPONIN I HIGH SENSITIVITY STAT 10/03/2024 8:18 AM EST ECG 12-LEAD STAT 10/03/2024 8:00 AM EST ECG ANNOTATED 10/03/2024 from Last 3 Months Results * XR Chest 2 Views (10/03/2024 10:29 AM EST) Anatomical Region Laterality Modality Body Radiographic Stefanie ging 10/03/2024 10:5 9 AM EST Impressions 10/03/2024 11:00 AM EST FINDINGS/IMPRESSION: Left chest wall pacemaker/implantable cardiac defibrillator with leads overlying the ventricles and right atrium. ??Cardiac silhouette is enlarged. ??No pneumonia or pulmonary edema. ??No pleural effusion or pneumothorax. ??No acute fracture. ??Right shoulder arthroplasty, left rotator cuff repair, cervical fusion hardware, and thoracolumbar fusion hardware noted. ??Degenerative changes seen throughout the bones. -------- FINAL REPORT -------- Dictated By: MARY COLON Dictated Date: 10/03/2024 10:59 ET Assigned Physician: MARY COLON Reviewed and Electronically Signed By: MARY COLON Signed Date: 10/03/2024 11:00 ET Workstation ID: [id number] Transcribed By: Self Edit Transcribed Date: 10/03/2024 10:59 ET Narrative 10/03/2024 11:00 AM EST XR CHEST 2 VIEWS INDICATION: ??Chest pain TECHNIQUE: XR CHEST 2 VIEWS COMPARISON: 08/30/2020 Procedure Note Mary Colon MD - 10/03/2024 XR CHEST 2 VIEWS INDICATION: Chest pain TECHNIQUE: XR CHEST 2 VIEWS COMPARISON: 08/30/2020 IMPRESSION: FINDINGS/IMPRESSION: Left chest wall pacemaker/implantable cardiacdefibrillator with leads overlying the ventricles and right atrium.Cardiac silhouette is enlarged. No pneumonia or pulmonary edema. Nopleural effusion or pneumothorax. No acute fracture. Right shoulderarthroplasty, left rotator cuff repair, cervical fusion hardware, andthoracolumbar fusion hardware noted. Degenerative changes seen throughoutthe bones. -------- FINAL REPORT -------- Dictated By: MARY COLON Dictated Date: 10/03/2024 10:59 ET Assigned Physician: MAYR COLON Reviewed and Electronically Signed By: MARY COLON Signed Date: 10/03/2024 11:00 ET Workstation ID: [id number] Transcribed By: Self Edit Transcribed Date: 10/03/2024 10:59 ET Jade Wilson DO IMG XR PROCEDURES * ECG 12 lead (10/03/2024 10:12 AM EST) Only the most recent of2 resultswithin the time period is included. Pathologist [facility] Ventricular Rate ECG 96 BPM GEMUSE Atrial Rate 96 BPM GEMUSE P-R Interval 170 ms GEMUSE QRS Duration 150 ms GEMUSE Q-T Interval 430 ms GEMUSE QTc 543 ms GEMUSE P Wave Shannon 40 degrees GEMUSE R Shannon -55 degrees GEMUSE T Shannon 48 degrees GEMUSE ECG Interpretation Atrial-sensed ventricular-pa juliane rhythm When compared with ECG of 03-OCT-2024 08:00, (unconfirmed) No significant change was found Confirmed by ANGELICA MEDLEY ([id number]) on 10/03/2024 9:16:01 PM GEMUSE 10/03/2024 10:1 2 AM EST 10/03/2024 9:16 PM EST Jade Wilson DO ECG ORDERABLES Performing Organization Address [facility] de Phone Number GEMUSE * Troponin I high sensitivity (10/03/2024 10:05 AM EST) Only the most recent of2 resultswithin the time period is included. Pathologist [facility] High Sensitivity Troponin I 26 <=79 ng/L LAB CHEMISTRY METHOD 10/03/2024 11:09 AM EST [facility] Blood Venous blood specimen / Unknown Venipuncture / Unknown 10/03/2024 10:05 AM EST 10/03/2024 10:24 AM EST Narrative [facility] - 10/03/2024 11:09 AM EST High levels of biotin in samples may falsely decrease hsTroponin values. ??Use caution when interpreting hsTroponin results in patients taking biotin who exhibit renal impairment (eGFR <60) or in patients taking more than 20 mg/day of biotin. Jade Wilson DO LAB BLOOD ORDERAB LES Performing Organization Address City/[facility]/ZIP Co de Phone Number [facility] [address] [place] [address], * Respiratory virus panel molecular study (10/03/2024 10:04 AM EST) Adenovirus Detection by PCR Not Detected Not Detected LAB MICROBIOLOGY METHOD 10/03/2024 11:17 AM EST [facility] Influenza A PCR Not Detected Not Detected LAB MICROBIOLOGY METHOD 10/03/2024 11:17 AM EST [facility] Influenza B PCR Not Detected Not Detected LAB MICROBIOLOGY METHOD 10/03/2024 11:17 AM EST [facility] Coronavirus 229E Not Detected Not Detected LAB MICROBIOLOGY METHOD 10/03/2024 11:17 AM EST [facility] Coronavirus HKU1 Not Detected Not Detected LAB MICROBIOLOGY METHOD 10/03/2024 11:17 AM EST [facility] Coronavirus OC43 Not Detected Not Detected LAB MICROBIOLOGY METHOD 10/03/2024 11:17 AM EST [facility] Coronavirus NL63 Not Detected Not Detected LAB MICROBIOLOGY METHOD 10/03/2024 11:17 AM EST [facility] Parainfluenza Virus 1 Not Detected Not Detected LAB MICROBIOLOGY METHOD 10/03/2024 11:17 AM [facility] Parainfluenza Virus 2 Not Detected Not Detected LAB MICROBIOLOGY METHOD 10/03/2024 11:17 AM EST [facility] Parainfluenza Virus 3 Not Detected Not Detected LAB MICROBIOLOGY METHOD 10/03/2024 11:17 AM EST [facility] Parainfluenza Virus 4 Not Detected Not Detected LAB MICROBIOLOGY METHOD 10/03/2024 11:17 AM EST [facility] RSV PCR Not Detected Not Detected LAB MICROBIOLOGY METHOD 10/03/2024 11:17 AM [facility] Human Metapneumovirus A and B Not Detected Not Detected LAB MICROBIOLOGY METHOD 10/03/2024 11:17 AM EST [facility] Rhinovirus/Entero virus Not Detected Not Detected LAB MICROBIOLOGY METHOD 10/03/2024 11:17 AM EST [facility] Bordetella pertussis Not Detected Not Detected LAB MICROBIOLOGY METHOD 10/03/2024 11:17 AM [facility] Bordetella parapertussis Not Detected Not Detected LAB MICROBIOLOGY METHOD 10/03/2024 11:17 AM [facility] Mycoplasma pneumo by PCR Not Detected Not Detected LAB MICROBIOLOGY METHOD 10/03/2024 11:17 AM [facility] Chlamydia pneumoniae Not Detected Not Detected LAB MICROBIOLOGY METHOD 10/03/2024 11:17 AM [facility] SARS COV-2 Not Detected Not Detected LAB MICROBIOLOGY METHOD 10/03/2024 11:17 AM [facility] Swab Both anterior nares / Unknown Non-blood Collection / Unknown 10/03/2024 10:04 AM EST 10/03/2024 10:23 AM EST [facility] - 10/03/2024 11:17 AM EST Testing was performed using the [employer] Respiratory Pathogen PCR Assay. All results must be correlated with the clinical findings. Results should not be used as the sole basis for diagnosis. False Negative results may occur from the presence of sequence variants in the region targeted by the assay or the presence of inhibitors. Results may be affected by concurrent antiviral/antimicrobial therapy or levels of organisms that are below the limit of detection. Ananth Marie MD LAB MICROBIOLOGY - GENERAL ORDERABLES [facility] [address] [place] [address], * (ABNORMAL) CBC auto differential (10/03/2024 8:18 AM EST) WBC 10.8 4.8 - 10.8 K/mcL LAB HEMETOLOGY METHOD 10/03/2024 9:25 AM [facility] RBC 4.70 4.50 - 5.50 M/mcL LAB HEMETOLOGY METHOD 10/03/2024 9:25 AM [facility] Hemoglobin 14.8 13.5 - 17.5 g/dL LAB HEMETOLOGY METHOD 10/03/2024 9:25 AM [facility] Hematocrit 46.1 42.0 - 54.0 % LAB HEMETOLOGY METHOD 10/03/2024 9:25 AM [facility] MCV 97.5 79.0 - 98.0 FL LAB HEMETOLOGY METHOD 10/03/2024 9:25 AM [facility] MCH 31.3 27.0 - 32.0 pcg LAB HEMETOLOGY METHOD 10/03/2024 9:25 AM [facility] MCHC 32.1 32.0 - 37.0 g/dL LAB HEMETOLOGY METHOD 10/03/2024 9:25 AM [facility] RDW 15.1(H) 11.0 - 15.0 % LAB HEMETOLOGY METHOD 10/03/2024 9:25 AM [facility] Platelets 175 130 - 400 K/mcL LAB HEMETOLOGY METHOD 10/03/2024 9:25 AM [facility] MPV 11.0 7.0 - 11.0 FL LAB HEMETOLOGY METHOD 10/03/2024 9:25 AM [facility] NRBC 0.0 <1.0 % LAB HEMETOLOGY METHOD 10/03/2024 9:25 AM [facility] NRBC Absolute 0.00 <0.10 K/mcL LAB HEMETOLOGY METHOD 10/03/2024 9:25 AM [facility] Neutrophils Relative 82.5 % LAB HEMETOLOGY METHOD 10/03/2024 9:25 AM [facility] Lymphocytes Relative 8.8 % LAB HEMETOLOGY METHOD 10/03/2024 9:25 AM EST [facility] Monocytes Relative 7.0 % LAB HEMETOLOGY METHOD 10/03/2024 9:25 AM EST [facility] Eosinophils Relative 0.6 % LAB HEMETOLOGY METHOD 10/03/2024 9:25 AM [facility] Basophils Relative 0.8 % LAB HEMETOLOGY METHOD 10/03/2024 9:25 AM [facility] Immature Granulocytes Relative 0.3 % LAB HEMETOLOGY METHOD 10/03/2024 9:25 AM [facility] Neutrophils Absolute 8.91(H) 1.50 - 7.00 K/mcL LAB HEMETOLOGY METHOD 10/03/2024 9:25 AM [facility] Lymphocytes Absolute 0.95(L) 1.00 - 5.00 K/mcL LAB HEMETOLOGY METHOD 10/03/2024 9:25 AM EST [facility] Monocytes Absolute 0.75 0.20 - 1.00 K/mcL LAB HEMETOLOGY METHOD 10/03/2024 9:25 AM [facility] Eosinophils Absolute 0.06 0.00 - 0.50 K/mcL LAB HEMETOLOGY METHOD 10/03/2024 9:25 AM [facility] Basophils Absolute 0.09 0.00 - 0.20 K/mcL LAB HEMETOLOGY METHOD 10/03/2024 9:25 AM [facility] Immature Granulocytes Absolute 0.03 0.00 - 0.03 K/mcL LAB HEMETOLOGY METHOD 10/03/2024 9:25 AM [facility] Blood Venous blood specimen / Unknown Venipuncture / Unknown 10/03/2024 8:18 AM EST 10/03/2024 9:00 AM EST Jade Wilson DO LAB BLOOD ORDERAB LES [facility] [address] [place] [address], * (ABNORMAL) B-type natriuretic peptide (10/03/2024 8:18 AM EST) [facility] BNP 788(H) <=100 pcg/mL LAB CHEMISTRY METHOD 10/03/2024 9:39 AM EST [facility] Blood Venous blood specimen / Unknown Venipuncture / Unknown 10/03/2024 8:18 AM EST 10/03/2024 9:00 AM EST Kenjijosefa Jean Vijayclaudine Wilson LAB BLOOD ORDERAB LES [facility] [address] [place] [address], * (ABNORMAL) Magnesium (10/03/2024 8:18 AM EST) [facility] Magnesium 1.8(L) 1.9 - 2.6 mg/dL LAB CHEMISTRY METHOD 10/03/2024 9:32 AM EST [facility] Blood Venous blood specimen / Unknown Venipuncture / Unknown 10/03/2024 8:18 AM EST 10/03/2024 9:00 AM EST Kenjijosefa Wilson LAB BLOOD ORDERAB LES [facility] [address] [place] [address], [place] [phone] * (ABNORMAL) Lipase (10/03/2024 8:18 AM EST) [facility] Lipase 12(L) 13 - 75 unit/L LAB CHEMISTRY METHOD 10/03/2024 9:32 AM EST [facility] Blood Venous blood specimen / Unknown Venipuncture / Unknown 10/03/2024 8:18 AM EST 10/03/2024 9:00 AM EST Jade Wilson DO LAB BLOOD ORDERAB LES [facility] [address] [place] [address], * (ABNORMAL) Comprehensive metabolic panel (10/03/2024 8:18 AM EST) Sodium 142 133 - 145 mmol/L LAB CHEMISTRY METHOD 10/03/2024 9:32 AM EST [facility] Potassium 4.2 3.5 - 5.5 mmol/L LAB CHEMISTRY METHOD 10/03/2024 9:32 AM [facility] Chloride 111(H) 96 - 110 mmol/L LAB CHEMISTRY METHOD 10/03/2024 9:32 AM [facility] CO2 27 21 - 32 mmol/L LAB CHEMISTRY METHOD 10/03/2024 9:32 AM EST [facility] Anion Gap 4 3 - 11 LAB CHEMISTRY METHOD 10/03/2024 9:32 AM [facility] Glucose 116(H) 70 - 100 mg/dL LAB CHEMISTRY METHOD 10/03/2024 9:32 AM EST [facility] BUN 16 5 - 25 mg/dL LAB CHEMISTRY METHOD 10/03/2024 9:32 AM [facility] Creatinine 1.00 0.70 - 1.30 mg/dL LAB CHEMISTRY METHOD 10/03/2024 9:32 AM [facility] eGFR 76 >=60 mL/min/1. 73m2 LAB CHEMISTRY METHOD 10/03/2024 9:32 AM [facility] Comment:Calculation based on the??Chronic Kidney Disease Epidemiology Collaboration (CKD-EPI) equation refit??without adjustment for race. BUN/Creatinine Ratio 16.0 LAB CHEMISTRY METHOD 10/03/2024 9:32 AM [facility] Calcium 9.1 8.5 - 10.5 mg/dL LAB CHEMISTRY METHOD 10/03/2024 9:32 AM EST [facility] AST (SGOT) 44(H) 10 - 42 unit/L LAB CHEMISTRY METHOD 10/03/2024 9:32 AM [facility] ALT (SGPT) 45 10 - 60 unit/L LAB CHEMISTRY METHOD 10/03/2024 9:32 AM [facility] Alkaline Phosphatase 99 42 - 121 unit/L LAB CHEMISTRY METHOD 10/03/2024 9:32 AM [facility] Total Protein 6.3 6.0 - 8.0 g/dL LAB CHEMISTRY METHOD 10/03/2024 9:32 AM [facility] Albumin 3.5 3.2 - 5.0 g/dL LAB CHEMISTRY METHOD 10/03/2024 9:32 AM [facility] Total Bilirubin 1.2 0.0 - 1.4 mg/dL LAB CHEMISTRY METHOD 10/03/2024 9:32 AM [facility] Blood Venous blood specimen / Unknown Venipuncture / Unknown 10/03/2024 8:18 AM EST 10/03/2024 9:00 AM EST Jade Wilson DO LAB BLOOD ORDERAB LES [facility] [address] [place] [address], * ECG-Annotated (10/03/2024) Provider Onbase ECG ORDERABLES from Last 3 Months Care Teams Ironer Machine Relationship Specialty Start Date End Date Ivan Simpson NP [address] [place] [address] PCP - General Family Medicine 10/03/24
--- OUTSIDE RECORDS SUMMARY | 2024-10-06 10:29 | XMS_ITS ---
Author Organization [facility] Network Address [address] [facility] [place] [address] Care Team Providers Care Portfolio Lead Name Role Phone garry olivera Primary Care Provider GARRY Pereira Unavailable [phone] Allergies Allergen (clinical drug ingredient) Drug/Non Drug [...] 03/02/2024 Encounters Encounter Location Date Provider Diagnosis [facility] [address] [place] [address] 03/02/2024 GARRY SIDDIQI Chronic sinusitis, unspecified J32.9 [...] patient consult with experts at [facility] for comprehensive evaluation. We [...] 1. I defer treatment to [facility] given sx of sinusitis [...] Conservative management. - defer to [facility] Plan Of Treatment Treatment [...] patient consult with experts at [facility] for comprehensive evaluation. We [...] Farhat NICHOLE RDOB: [birth year] (78 yo M)Acc No.[id number]:03/02/2024 Progress Notes Patient:?Farhat NICHOLE Provider:?Garry Siddiqi MD :1945???Age:78 Y???Sex:Male Pete e:03/02/2024 Address:[address] [place] [address] [id number] Pcp:garry olivera Subjective: * Chief Complaints: * ???Chronic sinusitisAllergic conjunctivitisTele * HPI: ???General:?We have the pleasure of seeing Farhat via [employer] on 03/02/2024 for evaluation of the above. The patient was last seen on 02/18/2024. The method of Telehealth used was real-time, interactive, secure, and private audio and video. The patient is located at their home and Dr. Siddiqi is located at [facility]. The following people were present during this video call: the patient, the provider, and the machine burrer (Carie Messina). CHRONIC SINUSITIS Farhat reported onset [...] MD Date:? 4 Generated for Jaycee martínez/Polly/eTransmitting on:?10/06/2024 10:29 AM EST History and Physical Notes * Physical [...]
--- OUTSIDE RECORDS SUMMARY | 2024-10-06 10:30 | XMS_ITS | Patient Health Record ---
Author Organization [facility] Network Address [address] [facility] [address] [place] [address] Care Team Providers Care Customs Collector Name Role Phone garry olivera Primary Care Provider GARRY Pereira Unavailable [phone] Allergies Allergen (clinical drug ingredient) Drug/Non Drug [...] W/U Status Risk Notes Problem Allergic conjunctivitis (990339671) Allergic Conjunctivitis (H10.10) Active confirmed Problem Chronic allergic conjunctivitis (62853837) Other chronic allergic conjunctivitis (H10.45) Active confirmed Problem Chronic sinusitis (59123376) Chronic sinusitis, unspecified (J32.9) Active confirmed Vital Signs Heart Rate 111 /min 02/18/2024 Temperature 98.1 degrees Fahrenheit 03/02/2024 Oximetry 99 % 02/18/2024 Blood pressure diastolic 87 mm Hg 02/18/2024 Height 72 in 03/02/2024 Blood pressure systolic 139 mm Hg 02/18/2024 Weight 207 lbs 03/02/2024 BMI 28.07 kg/m2 03/02/2024 Encounters Encounter Location Date Provider Diagnosis [facility] [address] [facility] [address] [facility] [address] [place], [place] 02/18/2024 GARRY SIDDIQI Chronic sinusitis, unspecified J32.9 and Other chronic allergic conjunctivitis H10.45 [facility] [address] [place], [place] 03/02/2024 GARRY SIDDIQI Chronic sinusitis, unspecified J32.9 and Other chronic allergic conjunctivitis H10.45 [facility] [address] [facility] [address] [place], [place] 02/18/2024 GARRY SIDDIQI [facility] [address] [facility] [place], [place] 02/18/2024 GARRY SIDDIQI [facility] [address] [place], [place] 02/18/2024 GARRY SIDDIQI Assessments Encounter Date [...] bloodwork was lawrence-negative. 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 We [...] We discussed: 1. I defer treatment to [facility] given sx of sinusitis [...] or treatment. Conservative management. - defer to [facility] Plan Of Treatment No Information Insurance Providers Payer Name Payer Address Payer Phone Subscriber Number Group Number Insured Name Patient Relationship to Insured Coverage Start Date Coverage End Date [employer] [place] [address] [place] [address] [phone] [id number] Farhat Saucedo Self - patient is the insured [facility] [address] [place] [address] [phone] [id number] Farhat Saucedo Self - patient is the insured Medical (General) History Medical History History ICD Code Depression Chronic Sinusitus Allergic conjunctivitis Headaches Surgical History Surgery Date(Month/Year) Knee surgery 1985 Hernia 2012 back surgery 2016 shoulder surgery 2004, 2010, 2016 Hospitalization History Reason Date(Month/Year) Abdominal pain, found diverticulitis 2022
--- OUTSIDE RECORDS SUMMARY | 2024-10-06 10:30 | XMS_ITS | Patient Health Record ---
Author Organization [facility] Address [address] [place], [place] [id number] Care Team Providers Care Manufacturing Planner Name Role Phone YI POTTER Unavailable [phone] Reason For Referral No Information Medications Medication [...] Coverage End Date [place] [address] [place] [phone] [id number] MIHIR NICHOLE Self - patient is the insured [facility] [facility] Employee Plan [address] [place] [address] [id number] MIHIR NICHOLE Self - patient is the insured 6
--- OUTSIDE RECORDS SUMMARY | 2024-10-06 10:30 | XMS_ITS ---
Author Organization [facility] Address [address] [place], [place] [id number] Care Team Providers Care Bagging Machine Operator Name Role Phone TARIQ YI Major [phone] Encounters Encounter Location Date Provider Diagnosis [address] [id number] 04/21/2023 YI POTTER Plan Of Treatment No Information Progress Notes * MIHIR NICHOLE RDOB: [birth year] (77 yo F)Acc No.[id number]:04/21/2023 Patient:?MIHIR NICHOLE :1945???Age:77 Y???Sex:Female Address:[address] [place] [address] [place] [address] * true * Date:? Generated for Jaycee martínez/Polly/eTransmitting on:?10/06/2024 10:29 AM EST
--- OUTSIDE RECORDS SUMMARY | 2024-10-06 10:30 | XMS_ITS | Clinical Summary ---
Author Organization [facility] Address [address] [place] [address] Care Team Providers Care Filleter Name Role Phone Vishnu Kenyon MD Primary Care Provider [phone] Allergies Active Allergy Reactions Criticality Noted Date [...] age to complete this topic Care Teams Filleter Relationship Specialty Start Date End Date Vishnu Kenyon MD [address] [place] [id number] PCP - General Internal Medicine 04/01/17
--- OUTSIDE RECORDS SUMMARY | 2024-10-06 10:30 | XMS_ITS | Clinical Summary ---
Author Organization [facility] Address [address] [place] [address] Care Team Providers Care Adult Crossing Guard Name Role Phone MaridavidIvan gilliland Primary Care Provider [phone] Allergies Active Allergy Reactions Criticality Noted Date [...] daily. 0 01/05/20 19 Active flu vacc [id number],/MF5 9C/PF (FLUAD 2014-,65YR+,,P F, INTRAMUSCU) inject 0.5 [...] age to complete this topic Insurance MEDICARE [facility] Care Teams Adult Crossing Guard Relationship Specialty Start Date End Date Ivan Simpson [address] [place] [address] PCP - General 07/21/22
--- OUTSIDE RECORDS SUMMARY | 2024-10-06 10:30 | XMS_ITS | Encounter Summary ---
Author Organization [facility] Address [address] [place] [address] Care Team Providers Care Assembly Line Brazer Name Role Phone Luciano Simpson NP Primary Care Provider [phone] Reason for Visit * Reason Comments Weakness - Generalized Encounter Details Date Type Department Care Team ([facility] Contact Info) Description 10/03/2024 8:35 AM EST - 10/03/2024 2:55 PM EST Emergency [facility] Emergency [address] [place] [id number] Ananth Marie MD [address] [place] [address] Chronic dyspnea (Primary Dx) Discharge Disposition: Home or Self Care Social History Tobacco Use Types Packs/Day Years [...] file Not on file Not on file documented as of this encounter Last Filed Vital Signs Vital Sign Reading [...] Mass Index 25.63 10/03/2024 8:09 AM EST documented in this encounter Discharge Instructions * Discharge Instructions* Ananth Marie MD - 10/03/2024 1:53 PM EST Were evaluated and treated in the emergency department today for shortness of breath. Your chest x-ray shows no pneumonia. Your blood work shows an elevated BNP level which may indicate some strain on your heart connected with congestive heart failure. I recommend that you take your water pill as directed. I have also prescribed an inhaler to help with COPD type symptoms and prescription strength Mucinexto help with mucus in your lungs. Please follow-up with your specialist as directed. Return to the ER if you develop any worsening shortness of breath, chest pain, abdominal pain or any other concerning/worrisome symptoms. documented in this encounter Medications at Time of Discharge Medication Sig Dispensed Refills Start Date End Date budesonide-formoter oL (SYMBICORT) 80-4.5 mcg/actuation inhaler Inhale 2 puffs by mouth 2 (two) times a day. May take additional 1 to puffs as needed every 4 hours for wheeze. Rinse mouth with water after use to reduce aftertaste and incidence of candidiasis. Do not swallow. 1 each 10/03/2024 guaiFENesin 200 mg tablet Take 2 tablets (400 mg total) by mouth every 4 (four) hours if needed for cough for up to 10 days. 30 suppository 10/03/2024 10/13/2024 documented as of this encounter Ordered Prescriptions Prescription Sig Dispensed Refills Start Date End Da te guaiFENesin 200 mg tablet Take 2 tablets (400 mg total) by mouth every 4 (four) hours if needed for cough for up to 10 days. 30 suppository 10/03/2024 10/13/2024 budesonide-formotero L (SYMBICORT) 80-4.5 mcg/actuation inhaler Inhale 2 puffs by mouth 2 (two) times a day. May take additional 1 to puffs as needed every 4 hours for wheeze. Rinse mouth with water after use to reduce aftertaste and incidence of candidiasis. Do not swallow. 1 each 10/03/2024 documented in this encounter Discharge Disposition Disposition Code Departure Means Destination Comment s Home or Self Care documented in this encounter Progress Notes * Madelyn Kathleen RN - 10/03/2024 8:03 AM EST Constant cough since March. ICD placed. Seen at [facility], Brandy cardona told normal o2 sat and noblockages, continues with shortness of breath. Complaints of weakness and coughing. States spits out some blood. Poor appetite. States 30lbs weight loss. * Ananth Marie MD - 10/03/2024 7:51 AM EST Emergency Medicine Note Patient Name: Farhat Saucedo Initial Evaluation: 10/03/2024 : 1945 Patient's PCP: LUCIANO SIMPSON NP Emergency Physician: Ananth Marie MD History of Present Illness Chief Complaint: Chief Complaint Patient presents with Weakness - Generalized 79-year-old male who is currently on doxycycline due to chronic shortness of breath presents for continued shortness of breath, cough with faintly bloody and yellow sputum. He reports that he has hadthe symptoms since March and has had an extensive workup which is included ENT, allergy, pulmonary, neurology specialist evaluations. He has been to multiple ERs including [facility] several days ago. 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 He reportsthat he has been quite frustrated that there has not been a cohesive or definitive diagnosis for his symptoms. He reports that he feels like he has significant mucus in his sinuses that drain and cause him to cough and feel short of breath. He denies having a fever, chest pain, abdominal pain. He does report poor appetite but has not been vomiting or had diarrhea. States he tries to drink enough fluid. He has been seen at [facility] for ENT. History provided by: Patient pediatric surgeon used: No ROS: I have performed a ROS with the pertinent positives and negatives documented in the history ofpresent illness. Previous History Past Medical History: Diagnosis Date CHF (congestive heart failure) (CMS/HCC) Past Surgical History: Procedure Laterality Date APPENDECTOMY Social History Tobacco Use Smoking status: Never Smokeless tobacco: Never No family history on file. is allergic to acetaminophen, carbamazepine, and oxycodone-acetaminophen. No current facility-administered medications on file prior to encounter. No current outpatient medications on file prior to encounter. Physical Exam ED Triage Vitals Temp Heart Rate Resp BP 10/03/24 0809 10/03/24 0809 10/03/24 0809 10/03/24 0809 36.6 ??C (97.9 ??F) 98 21 102/81 SpO2 Temp Source Heart Rate Source Patient Position 10/03/24 0809 10/03/24 0809 10/03/24 0855 10/03/24 0855 99 % Oral Monitor Sitting BP Location FiO2 (%) 10/03/24 0855 -- Left arm Physical Exam Vitals and nursing note reviewed. Constitutional: Appearance: Normal appearance. He is not ill-appearing. Comments: Holding a cup with yellow, faintly pink mucus that appears thick and dry HENT: Head: Normocephalic. Mouth/Throat: Mouth: Mucous membranes are moist. Eyes: Conjunctiva/sclera: Conjunctivae normal. Cardiovascular: Rate and Rhythm: Normal rate and regular rhythm. Pulmonary: Effort: Pulmonary effort is normal. Breath sounds: Normal breath sounds. No stridor. Abdominal: Palpations: Abdomen is soft. Tenderness: There is no abdominal tenderness. Musculoskeletal: Cervical back: Normal range of motion. Right lower leg: No swelling or tenderness. No edema. Left lower leg: No swelling or tenderness. No edema. Skin: General: Skin is warm and dry. Neurological: General: No focal deficit present. Mental Status: He is alert. Psychiatric: Attention and Perception: Attention normal. Behavior: Behavior normal. Results Labs Reviewed COMPREHENSIVE METABOLIC PANEL - Abnormal Result Value Sodium 142 Potassium 4.2 Chloride 111 (*) CO2 27 Anion Gap 4 Glucose 116 (*) BUN 16 Creatinine 1.00 eGFR 76 BUN/Creatinine Ratio 16.0 Calcium 9.1 AST (SGOT) 44 (*) ALT (SGPT) 45 Alkaline Phosphatase 99 Total Protein 6.3 Albumin 3.5 Total Bilirubin 1.2 LIPASE - Abnormal Lipase 12 (*) MAGNESIUM - Abnormal Magnesium 1.8 (*) B-TYPE NATRIURETIC PEPTIDE - Abnormal BNP 788 (*) CBC WITH AUTO DIFFERENTIAL - Abnormal WBC 10.8 RBC 4.70 Hemoglobin 14.8 Hematocrit 46.1 MCV 97.5 MCH 31.3 MCHC 32.1 RDW 15.1 (*) Platelets 175 MPV 11.0 NRBC 0.0 NRBC Absolute 0.00 Neutrophils Relative 82.5 Lymphocytes Relative 8.8 Monocytes Relative 7.0 Eosinophils Relative 0.6 Basophils Relative 0.8 Immature Granulocytes Relative 0.3 Neutrophils Absolute 8.91 (*) Lymphocytes Absolute 0.95 (*) Monocytes Absolute 0.75 Eosinophils Absolute 0.06 Basophils Absolute 0.09 Immature Granulocytes Absolute 0.03 RESPIRATORY VIRUS PANEL MOLECULAR STUDY - Normal Adenovirus Detection by PCR Not Detected Influenza A PCR Not Detected Influenza B PCR Not Detected Coronavirus 229E Not Detected Coronavirus HKU1 Not Detected Coronavirus OC43 Not Detected Coronavirus NL63 Not Detected Parainfluenza Virus 1 Not Detected Parainfluenza Virus 2 Not Detected Parainfluenza Virus 3 Not Detected Parainfluenza Virus 4 Not Detected RSV PCR Not Detected Human Metapneumovirus A and B Not Detected Rhinovirus/Enterovirus Not Detected Bordetella pertussis Not Detected Bordetella parapertussis Not Detected Mycoplasma pneumo by PCR Not Detected Chlamydia pneumoniae Not Detected SARS COV-2 Not Detected Narrative: Testing was performed using the [employer] Respiratory Pathogen PCR Assay. All results must [...] that are below the limit of detection. TROPONIN I HIGH SENSITIVITY - Normal High Sensitivity Troponin I 32 Narrative: High levels of biotin in samples may falsely decrease hsTroponin values. Use caution when interpreting hsTroponin results in patients taking biotin who exhibit renal impairment (eGFR <60) or in patients taking more than 20 mg/day of biotin. TROPONIN I HIGH SENSITIVITY - Normal High Sensitivity Troponin I 26 Narrative: High levels of biotin in samples may falsely decrease hsTroponin values. Use caution when interpreting hsTroponin results in patients taking biotin who exhibit renal impairment (eGFR <60) or in patients taking more than 20 mg/day of biotin. CBC AND DIFFERENTIAL Narrative: The following orders were created for panel order CBC and differential. Procedure Abnormality Status --------- ------ CBC auto differential[[id number]] Abnormal Final result Please view results for these tests on the individual orders. Abnormal Labs Reviewed COMPREHENSIVE METABOLIC PANEL - Abnormal; Notable for the following components: Result Value Chloride 111 (*) Glucose 116 (*) AST (SGOT) 44 (*) All other components within normal limits LIPASE - Abnormal; Notable for the following components: Lipase 12 (*) All other components within normal limits MAGNESIUM - Abnormal; Notable for the following components: Magnesium 1.8 (*) All other components within normal limits B-TYPE NATRIURETIC PEPTIDE - Abnormal; Notable for the following components: BNP 788 (*) All other components within normal limits CBC WITH AUTO DIFFERENTIAL - Abnormal; Notable for the following components: RDW 15.1 (*) Neutrophils Absolute 8.91 (*) Lymphocytes Absolute 0.95 (*) All other components within normal limits XR Chest 2 Views Final Result FINDINGS/IMPRESSION: Left chest wall pacemaker/implantable cardiac defibrillator with leads overlying the ventricles and right atrium. Cardiac silhouette is enlarged. No pneumonia or pulmonary edema.No pleural effusion or pneumothorax. No acute fracture. Right shoulder arthroplasty, left rotator cuff repair, cervical fusion hardware, and thoracolumbar fusion hardware noted. Degenerative changes seen throughout the bones. -------- FINAL REPORT -------- Dictated By: MARY COLON Dictated Date: 10/03/2024 10:59 ET Assigned Physician: MARY COLON Reviewed and Electronically Signed By: MARY COLON Signed Date: 10/03/2024 11:00 ET Workstation ID: [id number] Transcribed By: Self Edit Transcribed Date: 10/03/2024 10:59 ET I have discussed the incidental/abnormal imaging and/or lab abnormalities with the patient and haveinstructed them the need for further evaluation and workup with their primary care doctor. I have provided the patient with a paper copy of the abnormality. The laboratory results, imaging results and other diagnostic exam results were reviewed in the EMR. EKG Interpretation My independent interpretation of 12-LEAD EK, 97 bpm, atrial sensed, ventricular paced rhythm which is new compared with study from 2023. Critical Care Time None ? Differential Diagnosis COPD exacerbation, pneumonia, pneumothorax, upper respiratory infection, bronchitis, CHF exacerbation, PE, pulmonary hypertension Medical Decision Making Medical Decision Making Mild hypotension on arrival but otherwise normal vital signs without hypoxia or tachypnea. Reviewedstate documentation showing ED visit at [facility] on September 30 and 8 ED visits in the last 12 months. Also has a visit [facility] last summer. We discussed at length the capabilities of the ED to diagnose acute problems and that this may not be very revealing today. He voiced understanding and is quite frustrated. Amount and/or Complexity of Data Reviewed External Data Reviewed: notes. Details: [facility] note Medications albuterol 2.5 mg /3 mL (0.083 %) nebulizer solution 2.5 mg (2.5 mg nebulization Given 10/03/24 1228) ED Course as of 10/03/24 1427 ThuOct 03, 2024 1222 B-type natriuretic peptide(!) Blood work shows elevated BNP but otherwise reveals normal blood counts, kidney function, electrolytes. Viral respiratory panel is negative. Chest x-ray is clear. I think in general the patient may have undiagnosed COPD and CHF. Given elevated BNP will do ambulatory trial. Will trial a DuoNeb to see if that helps his symptoms of dyspnea. [TC] 1343 Patient did not have much improvement with DuoNeb and states he has used nebs in the past but without success. He is also used prednisone and does not think additional prednisone will help at this time. He measures his weight and takes as needed Lasix and his weight has not changed even thoughhis BNP is up. I did advise him that he may need more urgent follow-up with cardiology and he states he has an appointment next week. Will trial formoterol with budesonide [TC] ED Course User Index [TC] Ananth Marie MD Clinical Impressions as of 10/03/24 142 Chronic dyspnea Procedures Procedures Diagnosis 1. Chronic dyspnea Disposition Discharge ED Prescriptions Medication Sig Dispense Start Date End Date Auth. Provider budesonide-formoteroL (SYMBICORT) 80-4.5 mcg/actuation inhaler Inhale 2 puffs by mouth 2 (two) times a day. May take additional 1 to puffs as needed every 4 hours for wheeze. Rinse mouth with water after use to reduce aftertaste and incidence of candidiasis. Do not swallow. 1 each 10/03/2024 -- Ananth Marie MD guaiFENesin 200 mg tablet Take 2 tablets (400 mg total) by mouth every 4 (four) hours if needed forcough for up to 10 days. 30 suppository 10/03/2024 10/13/2024 Ananth Marie MD Physician Attestation Please note that this chart has been created using speech recognition software and may contain errors related to that system, including errors in grammar, punctuation, and spelling. It may also include errors in words and phrases. If there are any questions or concerns, please feel free to contact me for clarification. Ananth Marie MD 10/03/24 0930 Ananth Marie MD 10/03/24 1427 documented in this encounter Plan of Treatment Not on file documented as of this encounter Procedures Procedure Name Priority Date/Time Associated Diagnosis Comments XR CHEST 2 VIEWS STAT 10/03/2024 10:2 9 AM EST ECG 12-LEAD STAT 10/03/2024 10:12 AM EST TROPONIN I HIGH SENSITIVITY STAT 10/03/2024 10:05 AM EST RESPIRATORY VIRUS PANEL MOLECULAR STUDY STAT 10/03/2024 10:04 AM EST TROPONIN I HIGH SENSITIVITY STAT 10/03/2024 8:18 AM EST CBC WITH AUTO DIFFERENTIAL STAT 10/03/2024 8:18 AM EST CBC AND DIFFERENTIAL STAT 10/03/2024 8:18 AM EST B-TYPE NATRIURETIC PEPTIDE STAT 10/03/2024 8:18 AM EST MAGNESIUM STAT 10/03/2024 8:18 AM EST LIPASE STAT 10/03/2024 8:18 AM EST COMPREHENSIVE METABOLIC PANEL STAT 10/03/2024 8:18 AM EST ECG 12-LEAD STAT 10/03/2024 8:00 AM EST ECG ANNOTATED 10/03/2024 documented in this encounter Results * XR Chest 2 Views (10/03/2024 [...] Signed Date: 10/03/2024 11:00 ET Workstation ID: [id number] Transcribed By: Self Edit Transcribed Date: 10/03/2024 [...] Signed Date: 10/03/2024 11:00 ET Workstation ID: [id number] Transcribed By: Self Edit Transcribed Date: 10/03/2024 10:59 ET Jade Wilson DO IMG XR PROCEDURES * ECG 12 lead (10/03/2024 10:12 AM EST) Pathologist [facility] Ventricular Rate ECG 96 BPM GEMUSE Atrial Rate 96 BPM GEMUSE P-R Interval 170 ms GEMUSE QRS Duration 150 ms GEMUSE Q-T Interval 430 ms GEMUSE QTc 543 ms GEMUSE P Wave Clifford 40 degrees GEMUSE R Clifford -55 degrees GEMUSE T Clifford 48 degrees GEMUSE ECG Interpretation Atrial-sensed ventricular-pa juliane rhythm When compared with ECG of 03-OCT-2024 08:00, (unconfirmed) No significant change was found Confirmed by ANGELICA MEDLEY ([id number]) on 10/03/2024 9:16:01 PM GEMUSE 10/03/2024 10:1 2 AM EST 10/03/2024 9:16 PM EST Jade Wilson DO ECG ORDERABLES GEMUSE * Troponin I high sensitivity (10/03/2024 10:05 AM EST) [facility] High Sensitivity Troponin I 26 <=79 ng/L LAB CHEMISTRY METHOD 10/03/2024 11:09 AM EST [facility] Blood Venous blood specimen / Unknown Venipuncture / Unknown 10/03/2024 10:05 AM EST 10/03/2024 10:24 AM EST Narrative [facility] - 10/03/2024 11:09 AM EST High levels of biotin in samples may falsely decrease hsTroponin values. ??Use caution when interpreting hsTroponin results in patients taking biotin who exhibit renal impairment (eGFR <60) or in patients taking more than 20 mg/day of biotin. Jade Wilson DO LAB BLOOD ORDERAB LES [facility] [address] [place] [address], * Respiratory virus panel molecular study (10/03/2024 10:04 AM EST) Pathologist [facility] Adenovirus Detection by PCR Not Detected Not Detected LAB MICROBIOLOGY METHOD 10/03/2024 11:17 AM [facility] Influenza A PCR Not Detected Not Detected LAB MICROBIOLOGY METHOD 10/03/2024 11:17 AM [facility] Influenza B PCR Not Detected Not Detected LAB MICROBIOLOGY METHOD 10/03/2024 11:17 AM EST [facility] Coronavirus 229E Not Detected Not Detected LAB MICROBIOLOGY METHOD 10/03/2024 11:17 AM [facility] Coronavirus HKU1 Not Detected Not Detected LAB MICROBIOLOGY METHOD 10/03/2024 11:17 AM EST [facility] Coronavirus OC43 Not Detected Not Detected LAB MICROBIOLOGY METHOD 10/03/2024 11:17 AM [facility] Coronavirus NL63 Not Detected Not Detected LAB MICROBIOLOGY METHOD 10/03/2024 11:17 AM EST [facility] Parainfluenza Virus 1 Not Detected Not Detected LAB MICROBIOLOGY METHOD 10/03/2024 11:17 AM [facility] Parainfluenza Virus 2 Not Detected Not Detected LAB MICROBIOLOGY METHOD 10/03/2024 11:17 AM [facility] Parainfluenza Virus 3 Not Detected Not Detected LAB MICROBIOLOGY METHOD 10/03/2024 11:17 AM [facility] Parainfluenza Virus 4 Not Detected Not Detected LAB MICROBIOLOGY METHOD 10/03/2024 11:17 AM [facility] RSV PCR Not Detected Not Detected LAB MICROBIOLOGY METHOD 10/03/2024 11:17 AM [facility] Human Metapneumovirus A and B Not Detected Not Detected LAB MICROBIOLOGY METHOD 10/03/2024 11:17 AM [facility] Rhinovirus/Entero virus Not Detected Not Detected LAB MICROBIOLOGY METHOD 10/03/2024 11:17 AM [facility] Bordetella pertussis Not Detected Not Detected LAB MICROBIOLOGY METHOD 10/03/2024 11:17 AM [facility] Bordetella parapertussis Not Detected Not Detected LAB MICROBIOLOGY METHOD 10/03/2024 11:17 AM [facility] Mycoplasma pneumo by PCR Not Detected Not Detected LAB MICROBIOLOGY METHOD 10/03/2024 11:17 AM [facility] Chlamydia pneumoniae Not Detected Not Detected LAB MICROBIOLOGY METHOD 10/03/2024 11:17 AM [facility] SARS COV-2 Not Detected Not Detected LAB MICROBIOLOGY METHOD 10/03/2024 11:17 AM [facility] Swab Both anterior nares / Unknown Non-blood Collection / Unknown 10/03/2024 10:04 AM EST 10/03/2024 10:23 AM [facility] - 10/03/2024 11:17 AM EST Testing was performed using the [employer] Respiratory Pathogen PCR Assay. All results must [...] Marie MD LAB MICROBIOLOGY - GENERAL ORDERABLES [facility] [address] [place] [address], * (ABNORMAL) CBC auto differential (10/03/2024 8:18 AM EST) [facility] WBC 10.8 4.8 - 10.8 K/mcL LAB HEMETOLOGY METHOD 10/03/2024 9:25 AM [facility] RBC 4.70 4.50 - 5.50 M/mcL LAB HEMETOLOGY METHOD 10/03/2024 9:25 AM [facility] Hemoglobin 14.8 13.5 - 17.5 g/dL LAB HEMETOLOGY METHOD 10/03/2024 9:25 AM [facility] Hematocrit 46.1 42.0 - 54.0 % LAB HEMETOLOGY METHOD 10/03/2024 9:25 AM [facility] MCV 97.5 79.0 - 98.0 FL LAB HEMETOLOGY METHOD 10/03/2024 9:25 AM [facility] MCH 31.3 27.0 - 32.0 pcg LAB HEMETOLOGY METHOD 10/03/2024 9:25 AM [facility] MCHC 32.1 32.0 - 37.0 g/dL LAB HEMETOLOGY METHOD 10/03/2024 9:25 AM [facility] RDW 15.1(H) 11.0 - 15.0 % LAB HEMETOLOGY METHOD 10/03/2024 9:25 AM [facility] Platelets 175 130 - 400 K/mcL LAB HEMETOLOGY METHOD 10/03/2024 9:25 AM [facility] MPV 11.0 7.0 - 11.0 FL LAB HEMETOLOGY METHOD 10/03/2024 9:25 AM [facility] NRBC 0.0 <1.0 % LAB HEMETOLOGY METHOD 10/03/2024 9:25 AM [facility] NRBC Absolute 0.00 <0.10 K/mcL LAB HEMETOLOGY METHOD 10/03/2024 9:25 AM [facility] Neutrophils Relative 82.5 % LAB HEMETOLOGY METHOD 10/03/2024 9:25 AM [facility] Lymphocytes Relative 8.8 % LAB HEMETOLOGY METHOD 10/03/2024 9:25 AM [facility] Monocytes Relative 7.0 % LAB HEMETOLOGY METHOD 10/03/2024 9:25 AM [facility] Eosinophils Relative 0.6 % LAB HEMETOLOGY METHOD 10/03/2024 9:25 AM [facility] Basophils Relative 0.8 % LAB HEMETOLOGY METHOD 10/03/2024 9:25 AM [facility] Immature Granulocytes Relative 0.3 % LAB HEMETOLOGY METHOD 10/03/2024 9:25 AM [facility] Neutrophils Absolute 8.91(H) 1.50 - 7.00 K/mcL LAB HEMETOLOGY METHOD 10/03/2024 9:25 AM [facility] Lymphocytes Absolute 0.95(L) 1.00 - 5.00 K/mcL LAB HEMETOLOGY METHOD 10/03/2024 9:25 AM [facility] Monocytes Absolute 0.75 0.20 - 1.00 K/mcL LAB HEMETOLOGY METHOD 10/03/2024 9:25 AM [facility] Eosinophils Absolute 0.06 0.00 - 0.50 K/mcL LAB HEMETOLOGY METHOD 10/03/2024 9:25 AM [facility] Basophils Absolute 0.09 0.00 - 0.20 K/mcL LAB HEMETOLOGY METHOD 10/03/2024 9:25 AM [facility] Immature Granulocytes Absolute 0.03 0.00 - 0.03 K/mcL LAB HEMETOLOGY METHOD 10/03/2024 9:25 AM [facility] Blood Venous blood specimen / Unknown Venipuncture / Unknown 10/03/2024 8:18 AM EST 10/03/2024 9:00 AM EST Jade Wilson LAB BLOOD ORDERAB LES Performing Organization Address [facility]/ZIP Co de Phone Number [facility] [address] [place] [address], [place] [phone] * (ABNORMAL) B-type natriuretic peptide (10/03/2024 8:18 AM EST) BNP 788(H) <=100 pcg/mL LAB CHEMISTRY METHOD 10/03/2024 9:39 AM EST [facility] Blood Venous blood specimen / Unknown Venipuncture / Unknown 10/03/2024 8:18 AM EST 10/03/2024 9:00 AM EST Jade Wilson [facility] BLOOD ORDERAB LES Performing Organization Address [facility]/ZIP Co de Phone Number [facility] [address] [place] [address], [place] [phone] * (ABNORMAL) Magnesium (10/03/2024 8:18 AM EST) Magnesium 1.8(L) 1.9 - 2.6 mg/dL LAB CHEMISTRY METHOD 10/03/2024 9:32 AM EST [facility] Blood Venous blood specimen / Unknown Venipuncture / Unknown 10/03/2024 8:18 AM EST 10/03/2024 9:00 AM EST Jade Linares [facility] LAB BLOOD ORDERAB LES Performing Organization Address City/[facility]/ZIP Co de Phone Number [facility] [address] [place] [address], [place] [phone] * (ABNORMAL) Lipase (10/03/2024 8:18 AM EST) Lipase 12(L) 13 - 75 unit/L LAB CHEMISTRY METHOD 10/03/2024 9:32 AM [facility] Blood Venous blood specimen / Unknown Venipuncture / Unknown 10/03/2024 8:18 AM EST 10/03/2024 9:00 AM EST Jade Wilson DO LAB BLOOD ORDERAB LES [facility] [address] [place] [address], [place] [phone] * (ABNORMAL) Comprehensive metabolic panel (10/03/2024 8:18 AM EST) [facility] Sodium 142 133 - 145 mmol/L LAB CHEMISTRY METHOD 10/03/2024 9:32 AM [facility] Potassium 4.2 3.5 - 5.5 mmol/L LAB CHEMISTRY METHOD 10/03/2024 9:32 AM [facility] Chloride 111(H) 96 - 110 mmol/L LAB CHEMISTRY METHOD 10/03/2024 9:32 AM [facility] CO2 27 21 - 32 mmol/L LAB CHEMISTRY METHOD 10/03/2024 9:32 AM [facility] Anion Gap 4 3 - 11 LAB CHEMISTRY METHOD 10/03/2024 9:32 AM [facility] Glucose 116(H) 70 - 100 mg/dL LAB CHEMISTRY METHOD 10/03/2024 9:32 AM [facility] BUN 16 5 - 25 mg/dL LAB CHEMISTRY METHOD 10/03/2024 9:32 AM [facility] Creatinine 1.00 0.70 - 1.30 mg/dL LAB CHEMISTRY METHOD 10/03/2024 9:32 AM [facility] eGFR 76 >=60 mL/min/1. 73m2 LAB CHEMISTRY METHOD 10/03/2024 9:32 AM [facility] Comment:Calculation based on the??Chronic Kidney Disease Epidemiology Collaboration (CKD-EPI) equation refit??without adjustment for race. BUN/Creatinine Ratio 16.0 LAB CHEMISTRY METHOD 10/03/2024 9:32 AM [facility] Calcium 9.1 8.5 - 10.5 mg/dL LAB CHEMISTRY METHOD 10/03/2024 9:32 AM [facility] AST (SGOT) 44(H) 10 - 42 unit/L LAB CHEMISTRY METHOD 10/03/2024 9:32 AM [facility] ALT (SGPT) 45 10 - 60 unit/L LAB CHEMISTRY METHOD 10/03/2024 9:32 AM [facility] Alkaline Phosphatase 99 42 - 121 unit/L LAB CHEMISTRY METHOD 10/03/2024 9:32 AM [facility] Total Protein 6.3 6.0 - 8.0 g/dL LAB CHEMISTRY METHOD 10/03/2024 9:32 AM [facility] Albumin 3.5 3.2 - 5.0 g/dL LAB CHEMISTRY METHOD 10/03/2024 9:32 AM [facility] Total Bilirubin 1.2 0.0 - 1.4 mg/dL LAB CHEMISTRY METHOD 10/03/2024 9:32 AM [facility] Blood Venous blood specimen / Unknown Venipuncture / Unknown 10/03/2024 8:18 AM EST 10/03/2024 9:00 AM EST Jade Wilson DO LAB BLOOD ORDERAB LES [facility] [address] [place] [address], * Troponin I high sensitivity (10/03/2024 8:18 AM EST) High Sensitivity Troponin I 32 <=79 ng/L LAB CHEMISTRY METHOD 10/03/2024 9:32 AM [facility] Blood Venous blood specimen / Unknown Venipuncture / Unknown 10/03/2024 8:18 AM EST 10/03/2024 9:00 AM EST Narrative [facility] - 10/03/2024 9:32 AM EST High levels of biotin in samples may falsely decrease hsTroponin values. ??Use caution when interpreting hsTroponin results in patients taking biotin who exhibit renal impairment (eGFR <60) or in patients taking more than 20 mg/day of biotin. Jade Wilson DO LAB BLOOD ORDERAB LES [facility] [address] [place] [address], * ECG 12 lead (10/03/2024 8:00 AM EST) Ventricular Rate ECG 97 BPM GEMUSE Atrial Rate 97 BPM GEMUSE P-R Interval 174 ms GEMUSE QRS Duration 148 ms GEMUSE Q-T Interval 430 ms GEMUSE QTc 546 ms GEMUSE P Wave Clifford 38 degrees GEMUSE R Clifford -56 degrees GEMUSE T Clifford 51 degrees GEMUSE ECG Interpretation Atrial-sens ed ventricular -paced rhythm When compared with ECG of 30-AUG-2020 02:16, Ventricular pacing noted Confirmed by ANGELICA MEDLEY ([id number]) on 10/03/2024 9:11:28 PM GEMUSE 10/03/2024 8:00 AM EST 10/03/2024 9:11 PM EST Jade Wilson DO ECG ORDERABLES GEMUSE * ECG-Annotated (10/03/2024) Provider Onbase ECG ORDERABLES documented in this encounter Visit Diagnoses Diagnosis Chronic dyspnea- Primary documented in this encounter Administered Medications Inactive Administered Medications - up to 3 most recent administrations Medication Order MAR Action Action Date Dose Rate Site albuterol 2.5 mg /3 mL (0.083 %) nebulizer solution 2.5 mg 2.5 mg, nebulization, Once, On 10/03/24 at 1223, For 1 dose Given 10/03/2024 12:28 PM EST 2.5 mg documented in this encounter Active and Recently Administered Medications Times are shown in EST. Scheduled Medication Order 10/01/2024 10/02/2024 10/03/2024 albuterol 2.5 mg /3 mL (0.083 %) nebulizer solution 2.5 mg (COMPLETED) 2.5 mg, nebulization, Once, On 10/03/24 at 1223, For 1 dose 1228 (Given - Provid er: Patricia Valdez RN) documented in this encounter Orders Medications Ordered That Viraj ht Not Have Been Administered Count Last Ordered Date First Ordered Date albuterol 2.5 mg /3 mL (0.08 3 %) nebulizer solution 2.5 mg 1 10/03/2024 documented in this encounter Additional Health Concerns Infection Onset Date Last Indicated Resolved Time Respiratory Rule-Out 10/03/2024 10/03/2024 025 11:17 AM EST COVID-19 Rule-Out 10/03/2024 10/03/2024 10/03/2024 11:17 AM EST documented as of this encounter Care Teams Assembly Line Brazer Relationship Specialty Start Date End Date Luciano Simpson NP [address] [place] [address] PCP - General Family Medicine 10/03/24 documented as of this encounter
--- OUTSIDE RECORDS SUMMARY | 2024-10-06 10:30 | XMS_ITS ---
Author Organization [facility] Network Address [address] [place] [phone] Care Team Providers Care Counseling Services Director Name Role Phone garry olivera Primary Care Provider GARRY Pereira Unavailable [phone] REASON FOR VISIT budesonide rx Medications Medication SIG (Take, Route, Fr equency, Duration) Notes Start Date End Date Status Budesonide 0.5 MG/2ML 2 mL Inhalation Tw ice a day for 14 days 02/18/2024 Active Encounters Encounter Location Date Provider Diagnosis [facility] [address] [place] [phone] 02/18/2024 GARRY SIDDIQI Plan Of Treatment Medication Medication Name Sig Start Date Stop Date Notes Budesonide 0.5 MG/2ML 2 mL Inhalation Tw ice a day for 14 days 02/18/2024 Progress Notes * Farhat NICHOLE RDOB: [birth year] (78 yo M)Acc No.[id number]:02/18/2024 Patient:?Farhat NICHOLE :1945???Age:78 Y???Sex:Male Address:[address] [place] [address], [address] * Refills? Start Budesonide Suspension, 0.5 MG/2ML, Inhalation, 56 ML, 2 mL, Twice a day, 14 days, Refills=1 * true * Date:? Generated for Brycei ng/Fajasming/eTransmitting on:?10/06/2024 10:30 AM EST
--- OUTSIDE RECORDS SUMMARY | 2024-10-06 10:30 | XMS_ITS | Referral Summary ---
Author Organization [facility] Address [address] [place] [address] Care Team Providers Care Saturator Tender Name Role Phone MaridavidIvan gilliland Primary Care Provider [phone]- [phone] Allergies Active Allergy Reactions Criticality Noted Date [...] daily. 0 01/05/20 19 Active flu vacc [id number],65up,/MF5 9C/PF (FLUAD 2014-,65YR+,,P F, INTRAMUSCU) inject 0.5 [...] of Treatment Not on file Insurance MEDICARE [facility] [employer] Care Teams Saturator Tender Relationship Specialty Start Date End Date Ivan Simpson [address] [place] [address] PCP - General 07/21/22
== END 2024-10-06 07:18 | disposition home or self-care (01) ==
LOC: HO.CT 07:17
PROVIDERS: PCP Nurse Practitioner Family; Visit Provider Nurse Practitioner Family
DX: R91.1 Solitary pulmonary nodule (principal)
CPT/HCPCS: 71250

== ENCOUNTER → 2024-10-06 07:19 | Outpatient (BNV) | payer MEDICARE, BC, SELFPAY | PROVIDERS: PCP Nurse Practitioner Family; Visit Provider Radiology Vascular & Interventional Radiology | DX: R91.1 Solitary pulmonary nodule (principal) | CPT/HCPCS: 71250 ==

== ENCOUNTER → 2024-10-13 15:30 | Outpatient (BNVA) | payer MEDICARE, BC, SELFPAY | PROVIDERS: PCP Nurse Practitioner Family; Visit Provider Internal Medicine | DX: J44.9 Chronic obstructive pulmonary disease, unspecified (principal); J31.0 Chronic rhinitis; J01.00 Acute maxillary sinusitis, unspecified; R05.3 Chronic cough; R91.1 Solitary pulmonary nodule; I50.9 Heart failure, unspecified; Z95.0 Presence of cardiac pacemaker; Z79.899 Other long term (current) drug therapy | CPT/HCPCS: 99212 ==

== ENCOUNTER 2024-12-07 08:02 | Outpatient (REF) | payer MEDICARE, BC, SELFPAY ==
--- OUTSIDE RECORDS SUMMARY | 2024-12-07 08:07 | XMS_ITS ---
Author Organization [facility] Network Address [address] [facility] [address] [place] [address] Care Team Providers Care Hearing Stenographer Name Role Phone garry olivera Primary Care Provider GARRY Pereira Unavailable [phone] REASON FOR VISIT invalid phone and email Encounters Encounter Location Date Provider Diagnosis [facility] Network [address] [facility] [address] [place] [address] 02/18/2024 GARRY SIDDIQI Plan Of Treatment No Information Progress Notes * Farhat NICHOLE RDOB: [birth year] (78 yo M)Acc No.[id number]:02/18/2024 Patient:?Farhat NICHOLE :1945???Age:78 Y???Sex:Male Address:[address] [place] [address], [address] * true * Date:? Generated for Printi ng/Samang/eTransmitting on:?12/07/2024 08:07 AM EDT
--- OUTSIDE RECORDS SUMMARY | 2024-12-07 08:08 | XMS_ITS ---
Author Organization [facility] Network Address [address] [place] [phone] Care Team Providers Care Electrical Panel Builder Name Role Phone garry olivera Primary Care Provider GARRY Pereira Unavailable [phone] REASON FOR VISIT budesonide rx Medications Medication SIG (Take, Route, Fr equency, Duration) Notes Start Date End Date Status Budesonide 0.5 MG/2ML 2 mL Inhalation Tw ice a day for 14 days 02/18/2024 Active Encounters Encounter Location Date Provider Diagnosis [facility] Network [address] [place] [phone] 02/18/2024 GARRY SIDDIQI Plan Of Treatment Medication Medication Name Sig Start Date Stop Date Notes Budesonide 0.5 MG/2ML 2 mL Inhalation Tw ice a day for 14 days 02/18/2024 Progress Notes * Farhat NICHOLE RDOB: [birth year] (78 yo M)Acc No.[id number]:02/18/2024 Patient:?Farhat NICHOLE :1945???Age:78 Y???Sex:Male Address:[address] [place] [address], [address] * Refills? Start Budesonide Suspension, 0.5 MG/2ML, Inhalation, 56 ML, 2 mL, Twice a day, 14 days, Refills=1 * true * Date:? Generated for Brycei ng/Fajasming/eTransmitting on:?12/07/2024 08:08 AM EDT
--- OUTSIDE RECORDS SUMMARY | 2024-12-07 08:08 | XMS_ITS | Referral Summary ---
Author Organization [facility] Address [address] [place] [address] Care Team Providers Care Escrow Assistant Name Role Phone MaridavidIvan gilliland Primary Care Provider +1- [phone] Allergies Active Allergy Reactions Criticality Noted Date [...] daily. 0 01/05/20 19 Active flu vacc vm2843,65up,/MF5 9C/PF (FLUAD 2014-,65YR+,,P F, INTRAMUSCU) inject 0.5 [...] of Treatment Not on file Insurance MEDICARE [facility] [employer] Care Teams Escrow Assistant Relationship Specialty Start Date End Date Ivan Simpson [address] [place] [address] PCP - General 07/21/22
--- OUTSIDE RECORDS SUMMARY | 2024-12-07 08:08 | XMS_ITS ---
Author Organization [facility] Network Address [address] [facility] [address] [place] [address] Care Team Providers Care Environmental Health Technician Name Role Phone garry olivera Primary Care Provider GARRY Pereira Unavailable [phone] Allergies Allergen (clinical drug ingredient) Drug/Non Drug [...] for 10 days 02/18/2024 Active Vital Signs BMI 28.07 kg/m2 03/02/2024 Weight 207 lbs 03/02/2024 Height 72 in 03/02/2024 Temperature 98.1 degrees Fahrenheit 03/02/20 24 Encounters Encounter Location Date Provider Diagnosis [facility] Network [address] [facility] [address] [place] [address] 03/02/2024 GARRY SIDDIQI Chronic sinusitis, unspecified J32.9 [...] I recommend patient consult with experts at [facility] for comprehensive evaluation. We [...] We discussed: 1. I defer treatment to [facility] given sx of sinusitis [...] or treatment. Conservative management. - defer to [facility] Plan Of Treatment Treatment [...] I recommend patient consult with experts at [facility] for comprehensive evaluation. We [...] Farhat NICHOLE RDOB: [birth year] (78 yo M)Acc No.[id number]:03/02/2024 Progress Notes Patient:?Farhat NICHOLE Provider:?Garry Siddiqi MD :1945???Age:78 Y???Sex:Male Pete e:03/02/2024 Address:[address] [place] [address] [id number] Pcp:garry olivera Subjective: * Chief Complaints: * ???Chronic sinusitisAllergic conjunctivitisTele * HPI: ???General:?We have the pleasure of seeing Farhat via [facility] on 03/02/2024 for evaluation of the above. The patient was last seen on 02/18/2024. The method of Telehealth used was real-time, interactive, secure, and private audio and video. The patient is located at their home and Dr. Siddiqi is located at [facility]. The following people were present during this video call: the patient, the provider, and the cash accountant (Carie Messina). CHRONIC SINUSITIS Farhat reported onset [...] MD Date:? 4 Generated for Jaycee martínez/Polly/eTransmitting on:?12/07/2024 08:07 AM EDT History and Physical Notes * Physical Examination [...]
--- OUTSIDE RECORDS SUMMARY | 2024-12-07 08:08 | XMS_ITS | Clinical Summary ---
Author Organization [facility] Address [address] [place] [address] Phone Care Team Providers Care Fire Truck Driver Name Role Phone Ivan Simpson NP Primary Care Provider Allergies Active Allergy Reactions Criticality Noted Date Comments Acetaminophen Unknown 10/03/2024 Carbamazepine Unknown 10/03/2024 Oxycodone-Acetaminophen Unknown,GI intolerance 04/10/2017 Medications budesonide-form oteroL (SYMBICORT) 80-4.5 mcg/actuation inhaler Inhale 2 puffs by mouth 2 (two) times a day. May take additional 1 to puffs as needed every 4 hours for wheeze. Rinse mouth with water after use to reduce aftertaste and incidence of candidiasis. Do not swallow. 1 each Active Encounters Date Type Department Care Team Description 10/03/2024 8:35 AM EST - 10/03/2024 2:55 PM EST Emergency [facility] Emergency [address] [place] [address] Ananth Marie MD Chronic dyspnea (Primary Dx) Discharge Disposition: Home or Self Care from Last 3 Months Surgical History Surgery Date Site/Laterality Comments APPENDECTOMY Medical History Medical History Date Comments CHF (congestive heart failure) ([facility]) Social History Tobacco Use Types Packs/Day Years Used Date Smoking Tobacco: Never Smokeless Tobacco: Never Tobacco Cessation:Counseling Given: Not Answered Sex and Gender Information Value Date Recorded Sex Assigned at Male 10/03/2024 1:32 PM EST Legal Sex Male 10:00 PM EST Gender Identity Male 10/03/2024 1:32 PM EST Sexual Orientation Straight 10/03/2024 1: 32 PM EST Obstetrics History Last Filed Vital Signs Vital [...] Vaccines (1 - Tdap) 1964 Pneumococcal Vaccine: 50+ Years (2 of 2 - PPSV23) 09/03/2017 07/09/2017 Zoster Vaccines (2 of 2) [...] patient's age to complete this topic Meningococcal B Vacine Aged Out No lo nger eligible based on patient's age to complete [...] Date: 10/03/2024 10:59 ET Assigned Physician: MARY COLNO Reviewed and Electronically Signed By: MARY COLON Signed Date: 10/03/2024 11:00 ET Workstation ID: [id number] Transcribed By: Self Edit Transcribed Date: 10/03/2024 [...] Date: 10/03/2024 10:59 ET Assigned Physician: MARY OCLON Reviewed and Electronically Signed By: MARY COLON Signed Date: 10/03/2024 11:00 ET Workstation ID: [id number] Transcribed By: Self Edit Transcribed Date: 10/03/2024 10:59 ET Jade Wilson DO IMG XR PROCEDURES Final R esult * ECG 12 lead (10/03/2024 10:12 AM EST) Only the most recent of2 resultswithin the time period is included. Pathologist [facility] Ventricular Rate ECG 96 BPM GEMUSE Atrial Rate 96 BPM GEMUSE P-R Interval 170 ms GEMUSE QRS Duration 150 ms GEMUSE Q-T Interval 430 ms GEMUSE QTc 543 ms GEMUSE P Wave [place] 40 degrees GEMUSE R [place] -55 degrees GEMUSE T [place] 48 degrees GEMUSE ECG Interpretation Atrial-sensed ventricular-pa juliane rhythm When compared with ECG of 03-OCT-2024 08:00, (unconfirmed) No significant change was found Confirmed by ANGELICA MEDLEY ([id number]) on 10/03/2024 9:16:01 PM GEMUSE 10/03/2024 10:1 2 AM EST 10/03/2024 9:16 PM EST Jade Wilson DO ECG ORDERABLES Final Res ult Performing Organization Address [facility] de Phone Number GEMUSE * Troponin I high sensitivity (10/03/2024 10:05 AM EST) Only the most recent of2 resultswithin the time period is included. [facility] High Sensitivity Troponin I 26 <=79 ng/L LAB CHEMISTRY METHOD 10/03/2024 11:09 AM EST [facility] Blood Venous blood specimen / Unknown Venipuncture / Unknown 10/03/2024 10:05 AM EST 10/03/2024 10:24 AM EST Narrative [facility] - 10/03/2024 11:09 AM EST High levels of biotin in samples may falsely decrease hsTroponin values. ??Use caution when interpreting hsTroponin results in patients taking biotin who exhibit renal impairment (eGFR <60) or in patients taking more than 20 mg/day of biotin. [employer] Ted Wilson DO LAB BLOOD ORDERABLES Dayana l Result Performing Organization Address [facility]/ZIP Co de Phone Number [facility] [address] [place] [address], * Respiratory virus panel molecular study (10/03/2024 10:04 AM EST) Pathologist [facility] Adenovirus Detection by PCR Not Detected Not Detected LAB MICROBIOLOGY METHOD 10/03/2024 11:17 AM EST [facility] Influenza A PCR Not Detected Not Detected LAB MICROBIOLOGY METHOD 10/03/2024 11:17 AM EST [facility] Influenza B PCR Not Detected Not Detected LAB MICROBIOLOGY METHOD 10/03/2024 11:17 AM EST [facility] Coronavirus 229E Not Detected Not Detected LAB MICROBIOLOGY METHOD 10/03/2024 11:17 AM EST [facility] Coronavirus HKU1 Not Detected Not Detected LAB MICROBIOLOGY METHOD 10/03/2024 11:17 AM EST [facility] Coronavirus OC43 Not Detected Not Detected LAB MICROBIOLOGY METHOD 10/03/2024 11:17 AM EST [facility] Coronavirus NL63 Not Detected Not Detected LAB MICROBIOLOGY METHOD 10/03/2024 11:17 AM EST [facility] Parainfluenza Virus 1 Not Detected Not Detected LAB MICROBIOLOGY METHOD 10/03/2024 11:17 AM EST [facility] Parainfluenza Virus 2 Not Detected Not Detected LAB MICROBIOLOGY METHOD 10/03/2024 11:17 AM EST [facility] Parainfluenza Virus 3 Not Detected Not Detected LAB MICROBIOLOGY METHOD 10/03/2024 11:17 AM EST [facility] Parainfluenza Virus 4 Not Detected Not Detected LAB MICROBIOLOGY METHOD 10/03/2024 11:17 AM EST [facility] RSV PCR Not Detected Not Detected LAB MICROBIOLOGY METHOD 10/03/2024 11:17 AM EST [facility] Human Metapneumovirus A and B Not Detected Not Detected LAB MICROBIOLOGY METHOD 10/03/2024 11:17 AM EST [facility] Rhinovirus/Entero virus Not Detected Not Detected LAB MICROBIOLOGY METHOD 10/03/2024 11:17 AM EST [facility] Bordetella pertussis Not Detected Not Detected LAB MICROBIOLOGY METHOD 10/03/2024 11:17 AM EST [facility] Bordetella parapertussis Not Detected Not Detected LAB MICROBIOLOGY METHOD 10/03/2024 11:17 AM EST [facility] Mycoplasma pneumo by PCR Not Detected Not Detected LAB MICROBIOLOGY METHOD 10/03/2024 11:17 AM EST [facility] Chlamydia pneumoniae Not Detected Not Detected LAB MICROBIOLOGY METHOD 10/03/2024 11:17 AM [facility] SARS COV-2 Not Detected Not Detected LAB MICROBIOLOGY METHOD 10/03/2024 11:17 AM [facility] Swab Both anterior nares / Unknown Non-blood Collection / Unknown 10/03/2024 10:04 AM EST 10/03/2024 10:23 AM EST [facility] - 10/03/2024 11:17 AM EST Testing was performed using the [employer] Respiratory Pathogen PCR Assay. All results must [...] that are below the limit of detection. us Ananth Marie MD LAB MICROBIOLOGY - GENERA L ORDERABLES Final Result [facility] [address] [place] [address], * (ABNORMAL) CBC auto differential (10/03/2024 8:18 AM EST) WBC 10.8 4.8 - 10.8 K/mcL LAB HEMETOLOGY METHOD 10/03/2024 9:25 AM EST [facility] RBC 4.70 4.50 - 5.50 M/mcL LAB HEMETOLOGY METHOD 10/03/2024 9:25 AM [facility] Hemoglobin 14.8 13.5 - 17.5 g/dL LAB HEMETOLOGY METHOD 10/03/2024 9:25 AM [facility] Hematocrit 46.1 42.0 - 54.0 % LAB HEMETOLOGY METHOD 10/03/2024 9:25 AM [facility] MCV 97.5 79.0 - 98.0 FL LAB HEMETOLOGY METHOD 10/03/2024 9:25 AM [facility] MCH 31.3 27.0 - 32.0 pcg LAB HEMETOLOGY METHOD 10/03/2024 9:25 AM [facility] MCHC 32.1 32.0 - 37.0 g/dL LAB HEMETOLOGY METHOD 10/03/2024 9:25 AM [facility] RDW 15.1(H) 11.0 - 15.0 % LAB HEMETOLOGY METHOD 10/03/2024 9:25 AM [facility] Platelets 175 130 - 400 K/mcL LAB HEMETOLOGY METHOD 10/03/2024 9:25 AM [facility] MPV 11.0 7.0 - 11.0 FL LAB HEMETOLOGY METHOD 10/03/2024 9:25 AM [facility] NRBC 0.0 <1.0 % LAB HEMETOLOGY METHOD 10/03/2024 9:25 AM [facility] NRBC Absolute 0.00 <0.10 K/mcL LAB HEMETOLOGY METHOD 10/03/2024 9:25 AM [facility] Neutrophils Relative 82.5 % LAB HEMETOLOGY METHOD 10/03/2024 9:25 AM [facility] Lymphocytes Relative 8.8 % LAB HEMETOLOGY METHOD 10/03/2024 9:25 AM EST [facility] Monocytes Relative 7.0 % LAB HEMETOLOGY METHOD 10/03/2024 9:25 AM [facility] Eosinophils Relative 0.6 % LAB HEMETOLOGY METHOD 10/03/2024 9:25 AM [facility] Basophils Relative 0.8 % LAB HEMETOLOGY METHOD 10/03/2024 9:25 AM [facility] Immature Granulocytes Relative 0.3 % LAB HEMETOLOGY METHOD 10/03/2024 9:25 AM [facility] Neutrophils Absolute 8.91(H) 1.50 - 7.00 K/mcL LAB HEMETOLOGY METHOD 10/03/2024 9:25 AM [facility] Lymphocytes Absolute 0.95(L) 1.00 - 5.00 K/mcL LAB HEMETOLOGY METHOD 10/03/2024 9:25 AM [facility] Monocytes Absolute 0.75 0.20 - 1.00 K/mcL LAB HEMETOLOGY METHOD 10/03/2024 9:25 AM [facility] Eosinophils Absolute 0.06 0.00 - 0.50 K/mcL LAB HEMETOLOGY METHOD 10/03/2024 9:25 AM [facility] Basophils Absolute 0.09 0.00 - 0.20 K/mcL LAB HEMETOLOGY METHOD 10/03/2024 9:25 AM [facility] Immature Granulocytes Absolute 0.03 0.00 - 0.03 K/mcL LAB HEMETOLOGY METHOD 10/03/2024 9:25 AM [facility] Blood Venous blood specimen / Unknown Venipuncture / Unknown 10/03/2024 8:18 AM EST 10/03/2024 9:00 AM EST us Jade Wilson DO LAB BLOOD ORDERABLES Dayana l Result [facility] [address] [place] [address], [place] [phone] * (ABNORMAL) B-type natriuretic peptide (10/03/2024 8:18 AM EST) Pathologist [facility] BNP 788(H) <=100 pcg/mL LAB CHEMISTRY METHOD 10/03/2024 9:39 AM EST [facility] Blood Venous blood specimen / Unknown Venipuncture / Unknown 10/03/2024 8:18 AM EST 10/03/2024 9:00 AM EST Jade Wilson LAB BLOOD ORDERABLES Dayana l Result Performing Organization Address City/[facility]/ZIP Co de Phone Number [facility] [address] [place] [address], [place] [phone] * (ABNORMAL) Magnesium (10/03/2024 8:18 AM EST) [facility] Magnesium 1.8(L) 1.9 - 2.6 mg/dL LAB CHEMISTRY METHOD 10/03/2024 9:32 AM EST [facility] Blood Venous blood specimen / Unknown Venipuncture / Unknown 10/03/2024 8:18 AM EST 10/03/2024 9:00 AM EST [facility] Ted Linares Wilson LAB BLOOD ORDERABLES Dayana l Result [facility] [address] [place] [address], [place] [phone] * (ABNORMAL) Lipase (10/03/2024 8:18 AM EST) [facility] Lipase 12(L) 13 - 75 unit/L LAB CHEMISTRY METHOD 10/03/2024 9:32 AM EST [facility] Blood Venous blood specimen / Unknown Venipuncture / Unknown 10/03/2024 8:18 AM EST 10/03/2024 9:00 AM EST us Jade Wilson DO LAB BLOOD ORDERABLES Dayana l Result [facility] [address] [place] [address], [place] [phone] * (ABNORMAL) Comprehensive metabolic panel (10/03/2024 8:18 AM EST) Sodium 142 133 - 145 mmol/L LAB CHEMISTRY METHOD 10/03/2024 9:32 AM [facility] Potassium 4.2 3.5 - 5.5 mmol/L LAB CHEMISTRY METHOD 10/03/2024 9:32 AM [facility] Chloride 111(H) 96 - 110 mmol/L LAB CHEMISTRY METHOD 10/03/2024 9:32 AM [facility] CO2 27 21 - 32 mmol/L LAB CHEMISTRY METHOD 10/03/2024 9:32 AM [facility] Anion Gap 4 3 - 11 LAB CHEMISTRY METHOD 10/03/2024 9:32 AM [facility] Glucose 116(H) 70 - 100 mg/dL LAB CHEMISTRY METHOD 10/03/2024 9:32 AM [facility] BUN 16 5 - 25 mg/dL LAB CHEMISTRY METHOD 10/03/2024 9:32 AM [facility] Creatinine 1.00 0.70 - 1.30 mg/dL LAB CHEMISTRY METHOD 10/03/2024 9:32 AM [facility] eGFR 76 >=60 mL/min/1. 73m2 LAB CHEMISTRY METHOD 10/03/2024 9:32 AM [facility] Comment:Calculation based on the??Chronic Kidney Disease Epidemiology Collaboration (CKD-EPI) equation refit??without adjustment for race. BUN/Creatinine Ratio 16.0 LAB CHEMISTRY METHOD 10/03/2024 9:32 AM [facility] Calcium 9.1 8.5 - 10.5 mg/dL LAB CHEMISTRY METHOD 10/03/2024 9:32 AM [facility] AST (SGOT) 44(H) 10 - 42 unit/L LAB CHEMISTRY METHOD 10/03/2024 9:32 AM [facility] ALT (SGPT) 45 10 - 60 unit/L LAB CHEMISTRY METHOD 10/03/2024 9:32 AM [facility] Alkaline Phosphatase 99 42 - 121 unit/L LAB CHEMISTRY METHOD 10/03/2024 9:32 AM [facility] Total Protein 6.3 6.0 - 8.0 g/dL LAB CHEMISTRY METHOD 10/03/2024 9:32 AM [facility] Albumin 3.5 3.2 - 5.0 g/dL LAB CHEMISTRY METHOD 10/03/2024 9:32 AM [facility] Total Bilirubin 1.2 0.0 - 1.4 mg/dL LAB CHEMISTRY METHOD 10/03/2024 9:32 AM [facility] Blood Venous blood specimen / Unknown Venipuncture / Unknown 10/03/2024 8:18 AM EST 10/03/2024 9:00 AM EST us Jade Wilson DO LAB BLOOD ORDERABLES Dayana l Result [facility] [address] [place] [address], * ECG-Annotated (10/03/2024) us Provider Onbase MD ECG ORDERABLES Final Result from Last 3 Months Insurance MEDICARE [facility] Care Teams Fire Truck Driver Relationship Specialty Start Date End Date Ivan Simpson NP [address] [place] [address] PCP - General Family Medicine 10/03/24
--- OUTSIDE RECORDS SUMMARY | 2024-12-07 08:08 | XMS_ITS | Patient Health Record ---
Author Organization [facility] Address [address] [facility] [address] [place] [address] Care Team Providers Care Python Consultant Name Role Phone garry olivera Primary Care Provider GARRY Pereira Unavailable [phone] Allergies Allergen (clinical drug ingredient) Drug/Non Drug [...] W/U Status Risk Notes Problem Allergic conjunctivitis (760689355) Allergic Conjunctivitis (H10.10) Active confirmed Problem Chronic allergic conjunctivitis (18247397) Other chronic allergic conjunctivitis (H10.45) Active confirmed Problem Chronic sinusitis (17707878) Chronic sinusitis, unspecified (J32.9) Active confirmed Vital Signs Heart Rate 111 /min 02/18/2024 Temperature 98.1 degrees Fahrenheit 03/02/2024 Oximetry 99 % 02/18/2024 Blood pressure diastolic 87 mm Hg 02/18/2024 Height 72 in 03/02/2024 Blood pressure systolic 139 mm Hg 02/18/2024 Weight 207 lbs 03/02/2024 BMI 28.07 kg/m2 03/02/2024 Encounters Encounter Location Date Provider Diagnosis [facility] [address] [facility] [address] [place], [place] 02/18/2024 GARRY SIDDIQI Chronic sinusitis, unspecified J32.9 and Other chronic allergic conjunctivitis H10.45 [facility] [address] [facility] [address] [place], [place] 03/02/2024 GARRY SIDDIQI Chronic sinusitis, unspecified J32.9 and Other chronic allergic conjunctivitis H10.45 [facility] [address] [facility] [address] [place], [place] 02/18/2024 GRARY SIDDIQI [facility] [address] [facility] [address] [place], [place] 02/18/2024 GARRY SIDDIQI [facility] [address] [place], [place] 02/18/2024 GARRY SIDDIQI Assessments Encounter Date [...] bloodwork was lawrence-negative. 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 We [...] We discussed: 1. I defer treatment to [facility] given sx of sinusitis [...] or treatment. Conservative management. - defer to [facility] Plan Of Treatment No Information Insurance Providers Payer Name Payer Address Payer Phone Subscriber Number Group Number Insured Name Patient Relationship to Insured Coverage Start Date Coverage End Date [employer] [place] [address] [place] [address] [phone] [id number] Farhat Saucedo Self - patient is the insured [facility] [address] [place] [address] [phone] [id number] Farhat Saucedo Self - patient is the insured Medical (General) History Medical History History ICD Code Depression Chronic Sinusitus Allergic conjunctivitis Headaches Surgical History Surgery Date(Month/Year) Knee surgery 1985 Hernia 2012 back surgery 2016 shoulder surgery 2004, 2010, 2016 Hospitalization History Reason Date(Month/Year) Abdominal pain, found diverticulitis 2022
--- OUTSIDE RECORDS SUMMARY | 2024-12-07 08:08 | XMS_ITS | Clinical Summary ---
Author Organization [facility] Address [address] [place] [address] Care Team Providers Care Medical Technologist Chemistry Name Role Phone MaridavidIvan gilliland Primary Care Provider [phone] Allergies Active Allergy Reactions Criticality Noted Date [...] daily. 0 01/05/20 19 Active flu vacc [id number],65up,/MF5 9C/PF (FLUAD 2014-,65YR+,,P F, INTRAMUSCU) inject 0.5 [...] Vaccines (1 - Tdap) 1966 Pneumococcal Vaccine: 50+ Years (2 of 2 - PPSV23) 07/09/2018 07/09/2017 Zoster Vaccines (2 of 2) 07/26/2018 05/31/2018 RSV Vaccine (60+ years old and patients) (1 - 1-dose 75+ series) 2019 COVID-19 Vaccine (5 - season) 2024 03/14/2022, 06/04/2021, 11/07/2020, Additional history exists Alcohol/Substance Use Screening 09/07/2024 Depression Screening and Follow-Up 09/07/2024 Health Care Proxy Review 09/07/2024 Social Drivers of Health Annual Screening 09/07/2024 Influenza Vaccine (Season Ended) 2025 05/29/2018, 07/09/2017 Hepatitis B Vaccines Aged Out No long er eligible based on patient's age to complete this topic Insurance MEDICARE [facility] Care Teams Medical Technologist Chemistry Relationship Specialty Start Date End Date Ivan Simpson [address] [place] [address] PCP - General 07/21/22
--- OUTSIDE RECORDS SUMMARY | 2024-12-07 08:08 | XMS_ITS | Clinical Summary ---
Author Organization [facility] Address [address] [place] [address] Care Team Providers Care Insolvency Consultant Name Role Phone Vishnu Kenyon MD Primary Care Provider [phone] Allergies Active Allergy Reactions Criticality Noted Date [...] age to complete this topic Care Teams Insolvency Consultant Relationship Specialty Start Date End Date Vishnu Kenyon MD [address] [place] [id number] PCP - General Internal Medicine 04/01/17
--- OUTSIDE RECORDS SUMMARY | 2024-12-07 08:08 | XMS_ITS | Patient Health Record ---
Author Organization [facility] Address [address] [place], [place] [id number] Care Team Providers Care Wiping Cloth Cutter Name Role Phone YI POTTER Unavailable [phone] Reason For Referral No Information Medications Medication [...] Coverage End Date MEDICARE [place] [address] [place] [address] [phone] [id number] MIHIR NICHOLE Self - patient is the insured [facility] Employee Plan [address] [place] [address] [phone] [id number] MIHIR NICHOLE Self - patient is the insured 6
[2024-12-07 10:20] LABS: Urine Cytology See Pathology rpt
== END 2024-12-07 08:03 | disposition home or self-care (01) ==
LOC: HO.HMGCLDS 08:02
PROVIDERS: PCP Nurse Practitioner Family; Visit Provider Nurse Practitioner Family
DX: R89.6 Abnormal cytological findings in specimens from other organs, systems and tissues (principal)
CPT/HCPCS: 88112

== ENCOUNTER 2025-01-17 10:07 | Outpatient (AMB) | payer MEDICARE, BC, SELFPAY ==
[2025-01-17 10:09] VITALS: BP 104/60; PULSE 87; RESP 16; O2SAT 100; BMI 24.8
--- NOTE | 2025-01-17 10:09 | A.OFFPC_ITS ---
Vital Signs 01/17/25 10:09 Height 6 ft Weight 183 lb BMI 24.8 BP 104/60 Blood Pressure Location Lt brachial Position Sitting Respiration 16 Pulse 87 Pulse Source Pulse Oximeter Pulse Oximetry (%) 100 Oxygen Delivery Method Room Air Intake Visit Reasons: 5 mon f/u Intake Note: Pt is here today for 5 months follow up visit. Allergies carbamazepine Allergy (Intermediate, Verified 01/17/25 10:09) Hives oxycodone [From Percocet] Allergy (Unknown, Verified 01/17/25 10:09) unknown Tobacco use date assessed: 01/17/25 Fall risk assessment: No Falls in past year Last assessed Fall Risk: 01/17/25 Dental Screening Dental Screen Date: 01/17/25 Did you have a dental visit in the last 12 months?: No Did you have a dental problem in the last 6 months where you did not have access to dental care?: No Was dental information given to patient?: Patient declined HPI 5 mon f/u HPI Details Chief Complaint Persistent chronic cough with excessive mucus production primarily in the mornings. History of Present Illness The patient is an 79-year-old male presenting with a chronic cough associated with excessive mucus production, most prominent upon awakening in the morning. He describes the cough as longstanding and suggests it may have an allergic component, given its pattern and response to antihistamines like Kaitlin. Previous trial of cetirizine, even at higher doses, did not alleviate his symptoms. He is able to expectorate the mucus, and symptoms generally subside as the day progresses. He reports no fever, chills, or significant worsening of shortness of breath, although he has a history of COPD. Accompanying his respiratory concerns is a complex cardiac history, including atrial fibrillation and severe cardiomyopathy with an ejection fraction between 20% and 25%. He is currently on a regimen of Eliquis, beta blockers, Entresto, and Farxiga, with regular follow-up with his cardiologists. He has a history of smoking, which he quit in 1967, with early initiation of tobacco use in childhood. Recent pulmonary imaging revealed a stable subpleural right middle lobe nodule, with previous findings of ground-glass density having resolved. The patient experiences no chest pain and confirms he can engage in activities such as walking down the perez without difficulty. 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 - Tobacco Use: History of smoking, quit in 1967. - Exercise/Activity: Able to walk down t he hallway without any difficulty. Health Maintenance Review of Systems - Respiratory: Reports chronic cough wit h excessive mucus production. - Constitutional: Denies fever or chills . - Cardiac: Denies chest pain; regular fo llow-up for atrial fibrillation. Physical Exam General: Cooperative, healthy appearing, comfortable, no acute distress and well developed Orientation: Patient oriented x3 Limitations: No limitations Head: Normal to inspection Ears: Hearing grossly normal bilaterally Nose: Normal external nose present Face and sinus: Normal facial exam Eyes: Appearance normal, both eyes and all related structures Neck: Normal visual inspection and Yes full ROM Respiratory: Lungs are actually fairly clear bilaterally Cardiovascular: Regular rate and rhythm. Normal S1 and S2. GI: Normal to inspection. Soft to palpation and nontender Skin: No rashes or lesions noted Neuro: Patient oriented x3 Extremities: Normal to inspection Results - Imaging: Recent CT scan noted stable s ubpleural right middle lobe nodule; previous ground-glass density resolved. Plan The focus is on managing the patient's chronic cough with continued use of Kaitlin, advising him to persist in clearing mucus from his airways. His cardiac conditions, namely atrial fibrillation and severe cardiomyopathy, require adherence to his prescribed regimen, including Eliquis and other heart failure medications, to maintain stabilization. Continued follow-ups with cardiology and pulmonology are essential. The recent CT results indicating stability offer some reassurance, though monitoring for any potential changes, particularly in the lung nodule, remains necessary. The patient is advised to remain consistent with his treatment plans and appointments to manage his chronic conditions effectively. Discussion Notes During this visit, I discussed with the patient the importance of ongoing management of his chronic cough, emphasizing the positive aspect of effective mucus expectoration with the current Kaitlin therapy. We reviewed his cardiac history, including atrial fibrillation and severe cardiomyopathy, and the necessity of current medications such as Eliquis and Entresto. I addressed his frustration and highlighted the stability observed in recent diagnostic imaging of his lungs. I underscored the critical importance of maintaining follow-up appointments with both his cardiology and pulmonology specialists. Additionally, we reviewed his daily activities and encouraged continued engagement in light activity that does not provoke his symptoms further. Patient Instructions - Continue taking your Kaitlin as prescr ibed for allergy management. - Maintain regular appointments with you r hydrogeology professor and geothermal field technician. - Report any new or worsening symptoms i mmediately. - Focus on clearing mucus from your lung s daily. - Stay consistent with your prescribed m edications, including Eliquis and Entresto. [facility] Medical History (Updated 01/17/25 @ 10:59 by RAFA Riddle) Sinusitis ICD (implantable cardioverter-defibrillator) in place NICM (nonischemic cardiomyopathy) COPD (chronic obstructive pulmonary disease) Allergic rhinitis Right hip pain Surgical History H/O neck surgery H/O shoulder surgery Hx of shoulder surgery H/O colonoscopy History of back surgery H/O knee surgery S/P hernia surgery Family History Father No problems noted. Mother No problems noted. Sister Cancer Social History Household Members: Spouse Housing: House Do you presently have visiting nurse or other home services: No Alcohol intake: current Alcohol intake frequency: does not drink Patient Tobacco Use Status: Former Tobacco user Years Smoked: quit 1968 e-Cigarette/Vaping Use: Never Used Second Hand Smoke Exposure: No service: No Current occupational status: retired Cognitive needs: No Hearing needs: No Vision needs: No Questionnaire PHQ-9 Over the last 2 weeks, how often have you been bothered by any of the following problems? 1. Little interest or pleasure in doing things: not at all 2. Feeling down, depressed, or hopeless: not at all 3. Trouble falling or staying asleep, or sleeping too much: not at all 4. Feeling tired or having little energy: not at all 5. Poor appetite or overeating: not at all 6. Feeling bad about yourself - or that you are a failure or have let yourself or your family down: not at all 7. Trouble concentrating on things, such as reading the newspaper or watching television: not at all 8. Moving or speaking so slowly that other people could have noticed. Or the opposite - being so fidgety or restless that you have been moving around a lot more than usual: not at all 9. Thoughts that you would be better off or of hurting yourself in some way: not at all Total score: 0 Depression Screening Interpretation: Negative Depression Screening Done: Yes 76870 - PHQ-9 Billing: Yes Source: Developed by Drs. Joce Gonzalez, Keyla Mcclelland, Don Ramirez and colleagues, with an educational portillo from [employer]. Thrive Questionnaire Date Thrive assessed: 01/17/25 I am a: Patient What is your living situation today?: I have a steady place to live Within the past 12 months, did the food you bought not last and you didn't have the money to get more?: Never true Within the past 12 months, did you worry whether your food would run out before you got money to buy more?: Never true Do you have trouble paying for medicines?: No Do you have trouble getting transportation to medical appointments?: No Do you have trouble paying your heating and electricity bill?: No Do you have trouble taking care of your child, family member or friend?: No Do you have trouble with day-to-day activities such as bathing, preparing meals, shopping, managing finances, etc.?: No Are you currently unemployed and looking for a job?: No Are you interested in more education?: No THRIVE Score: 0 AUDIT C Alcohol Use Questionnaire (AUDIT-C) 1. How often do you have a drink containing alcohol?: Never 3. How often do you have six or more drinks on one occasion?: Never Total Score: 0 CANDACE-7 AMB Questionnaire CANDACE-7 Date CANDACE - 7 assessed: 01/17/25 Feeling nervous, anxious, or on edge: 0 = Not at all Not being able to stop or control worryin = Not at all Worrying too much about different things: 0 = Not at all Trouble relaxin = Not at all Being so restless that it is hard to sit still: 0 = Not at all Becoming easily annoyed or irritable: 0 = Not at all Feeling afraid as if something awful might happen: 0 = Not at all Total CANDACE-7 score (0-4 normal; 5-9 mild; 10-14 moderate; 15-21 severe): 0 Source: Developed by Keyla Weaver, Don Ramirez and colleagues, with an educational portillo from [employer]. CANDACE-7 Assessment Billing CANDACE-7 Assessment Tool: CANDACE-7 Assessment 68498 Physical exam (Primary Care) Vital Signs: Last Vital Signs Pulse 87 01/17/25 10:09 Resp 16 01/17/25 10:09 BP 104/60 01/17/25 10:09 Pulse Ox 100 01/17/25 10:09 Oxygen Delivery Method Room Air 01/17/25 10:09 BMI result Body Mass Index 24.8 Tobacco/Smoking Status: Tobacco use Status Tobacco use date assessed 01/17/25 01/17/25 10:12 Patient Tobacco Use Status Former Tobacco user 01/17/25 10:12 e-Cigarette/Vaping Use Never Used 01/17/25 10:10 PHQ-9: PHQ-9 Score PHQ-9: Total score 0 01/17/25 10:12 Depression Screening Interpretation: Negative Thrive Assessment: Date of Thrive Assessment Date Thrive assessed 01/17/25 01/17/25 10:10 Coding Level of Care Code Est Pt Level 4 (29327) Diagnoses Cardiomyopathy I42.9 Seasonal allergic rhinitis, unspecified trigger J30.2 Allergic rhinitis trigger: unspecified Allergic rhinitis seasonality: seasonal Chronic cough R05.3 Additional Codes CANDACE-7 Assessment Billing - CANDACE-7 Assessment Tool: CANDACE-7 Assessment 47913 ([id number]) PHQ-9 - 15002 - PHQ-9 Billing: Yes ([id number]) Assessment & Plan Assessment & Plan (1) Cardiomyopathy: Code(s): I42.9 - Cardiomyopathy, unspecified Category: Medical (2) Allergic rhinitis: Code(s): J30.9 - Allergic rhinitis, unspecified Category: Medical Qualifiers: Allergic rhinitis trigger: unspecified Allergic rhinitis seasonality: seasonal Qualified Code(s): J30.2 - Other seasonal allergic rhinitis (3) Chronic cough: Code(s): R05.3 - Chronic cough Category: Medical Plan . Orders: Orders Comprehensive [place]. Panel Fast Today I42.9 - Cardiomyopathy, unspecified, J30.2 - Other seasonal allergic rhinitis, R05.3 - Chronic cough UA CC w/rflx Micro + Cult Today I42.9 - Cardiomyopathy, unspecified, J30.2 - Other seasonal allergic rhinitis, R05.3 - Chronic cough Complete Blood Count Auto Diff Today I42.9 - Cardiomyopathy, unspecified, J30.2 - Other seasonal allergic rhinitis, R05.3 - Chronic cough TSH reflex Free T4 Today I42.9 - Cardiomyopathy, unspecified, J30.2 - Other seasonal allergic rhinitis, R05.3 - Chronic cough Lipid Panel Today I42.9 - Cardiomyopathy, unspecified, J30.2 - Other seasonal allergic rhinitis, R05.3 - Chronic cough
--- OUTSIDE RECORDS SUMMARY | 2025-01-17 11:06 | XMS_ITS | Clinical Summary ---
Author Organization [facility] Address [address] [place] [address] Care Team Providers Care Health And Physical Education Professor Name Role Phone Vishnu Kenyon MD Primary Care Provider [phone] Allergies Active Allergy Reactions Criticality Noted Date [...] age to complete this topic Care Teams Health And Physical Education Professor Relationship Specialty Start Date End Date Vishnu Kenyon MD [address] [place] [id number] PCP - General Internal Medicine 04/01/17
--- OUTSIDE RECORDS SUMMARY | 2025-01-17 11:06 | XMS_ITS | Referral Summary ---
Author Organization [facility] Address [address] [place] [address] Care Team Providers Care Drum Stenciler Name Role Phone MaridavidIvan gilliland Primary Care Provider [phone] Allergies Active Allergy Reactions Criticality Noted Date [...] daily. 0 01/05/20 19 Active flu vacc pj2202,65up,/MF5 9C/PF (FLUAD 2014-,65YR+,,P F, INTRAMUSCU) inject 0.5 [...] of Treatment Not on file Insurance MEDICARE [facility] [employer] Care Teams Drum Stenciler Relationship Specialty Start Date End Date Ivan Simpson [address] [place] [address] PCP - General 07/21/22
--- OUTSIDE RECORDS SUMMARY | 2025-01-17 11:06 | XMS_ITS | Clinical Summary ---
Author Organization [facility] Address [address] [place] [address] Phone Care Team Providers Care Scraper Operator Name Role Phone Ivan Simpson NP Primary [...] candidiasis. Do not swallow. 1 each Active Surgical History Surgery Date Site/Laterality Comments APPENDECTOMY Medical History Medical History Date Comments CHF (congestive heart failure) ([facility] V24, [facility] V28) Social History Tobacco Use Types Packs/Day Years [...] (2 of 2) 07/26/2018 05/31/2018 RSV Immunization Adult Patients (1 - 1-dose 75+ series) 2019 Cholesterol Screening (Lipid Panel) 04/05/2024 Depression Screening 04/05/2024 Falls Risk Assessment 04/05/2024 Medicare Annual Wellness Visit 04/05/2024 Social Influencers of Health Screening 04/05/2024 COVID-19 Vaccine ( season) 2024 03/14/2022, 06/04/2021, 11/07/2020, Additional history exists Influenza Vaccine (Season Ended) 2025 05/29/2018, 07/09/2017 HIB Vaccines Aged Out No longer [...] age to complete this topic Meningococcal B Vaccine Aged Out No l onger eligible based on patient's age to complete this topic RSV Immunization Patients Under 20 months Aged Out No longer eligible based on patient's age to complete this topic Varicella Vaccines Aged Out No longer eligible based on patient's age to complete this topic Insurance MEDICARE [facility] Care Teams Scraper Operator Relationship Specialty Start Date End Date Ivan Simpson NP PCP - General Family Medicine 10/03/24
--- OUTSIDE RECORDS SUMMARY | 2025-01-17 11:06 | XMS_ITS | Clinical Summary ---
Author Organization [facility] Address [address] [place] [address] Care Team Providers Care Supervisor Accounting Clerks Name Role Phone MaridavidIvan gilliland Primary Care Provider [phone] Allergies Active Allergy Reactions Criticality Noted Date [...] daily. 0 01/05/20 19 Active flu vacc me7146,65up,/MF5 9C/PF (FLUAD 2014-,65YR+,,P F, INTRAMUSCU) inject 0.5 [...] DTaP,Tdap,and Td Vaccines (1 - Tdap) 1966 CT Lung Cancer Screening (Baseline) 1994 Pneumococcal Vaccine: 50+ Years (2 of 2 - PPSV23) 07/09/2018 07/09/2017 Zoster Vaccines (2 of 2) 07/26/2018 05/31/2018 RSV Vaccine (60+ years old and patients) (1 - 1-dose 75+ series) 2019 COVID-19 Vaccine ( season) 2024 03/14/2022, 06/04/2021, 11/07/2020, Additional history exists Alcohol/Substance Use Screening 09/07/2024 Depression Screening and Follow-Up 09/07/2024 Health Care Proxy Review 09/07/2024 Social Drivers of Health Annual Screening 09/07/2024 Influenza Vaccine (Season Ended) 2025 05/29/2018, 07/09/2017 Hepatitis B Vaccines Aged Out No long er eligible based on patient's age to complete this topic Insurance MEDICARE [facility] [employer] Care Teams Supervisor Accounting Clerks Relationship Specialty Start Date End Date Ivan Simpson [address] [place] [address] PCP - General 07/21/22
== END 2025-01-17 14:50 | disposition home or self-care (01) ==
LOC: HO.HMCC 10:08
PROVIDERS: PCP Nurse Practitioner Family; Visit Provider Nurse Practitioner Family
DX: I42.9 Cardiomyopathy, unspecified (principal); J30.2 Other seasonal allergic rhinitis; R05.3 Chronic cough

== ENCOUNTER → 2025-01-17 10:07 | Outpatient (BNVA) | payer MEDICARE, BC, SELFPAY | PROVIDERS: PCP Nurse Practitioner Family; Visit Provider Nurse Practitioner Family | DX: R05.8 Other specified cough (principal); R09.82 Postnasal drip; I42.9 Cardiomyopathy, unspecified; J30.2 Other seasonal allergic rhinitis; Z95.810 Presence of automatic (implantable) cardiac defibrillator | CPT/HCPCS: 96127; 99212 ==

== ENCOUNTER 2025-04-06 11:35 | Outpatient (REF) | payer MEDICARE, BC, SELFPAY ==
--- OUTSIDE RECORDS SUMMARY | 2025-04-06 12:19 | XMS_ITS | Clinical Summary ---
Author Organization [facility] Address [address] [place] [address] Care Team Providers Care Snuff Maker Name Role Phone Vishnu Kenyon MD Primary Care Provider [phone] Allergies Active Allergy Reactions Criticality Noted Date [...] 1-dose 75+ series) 2019 Influenza Vaccine (#1) 2025 Hepatitis B Vaccines Aged Out No long er eligible based on patient's age to complete this topic RSV Ped < 20 months Aged Out No longe r eligible based on patient's age to complete this topic Care Teams Snuff Maker Relationship Specialty Start Date End Date Vishnu Kenyon MD [address] [place] [id number] PCP - General Internal Medicine 04/01/17
--- OUTSIDE RECORDS SUMMARY | 2025-04-06 12:19 | XMS_ITS | Clinical Summary ---
Author Organization [facility] Address [address] [place] [address] Phone Care Team Providers Care Office Administration Name Role Phone Ivan Simpson NP Primary [...] History Date Comments CHF (congestive heart failure) ([facility] V24, [facility] V28) Social History Tobacco Use Types Packs/Day [...] 94 10/03/2024 12:53 PM EST Temperature 36.3 C (97.3 F) 10/03/2024 8:55 AM EST Respiratory Rate 20 10/03/2024 11:55 AM EST [...] series) 2019 Cholesterol Screening (Lipid Panel) 04/05/2024 Falls Risk Assessment 04/05/2024 Medicare Annual Wellness Visit 04/05/2024 Social Influencers of Health Screening 04/05/2024 COVID-19 Vaccine ( season) 2024 03/14/2022, 06/04/2021, 11/07/2020, Additional history exists Depression Screening 09/07/2024 Influenza Vaccine (#1) 2025 05/29/2018, 2016 HIB Vaccines Aged Out No [...] age to complete this topic Insurance MEDICARE [facility] Care Teams Office Administration Relationship Specialty Start Date End Date Ivan Simpson NP PCP - General Family Medicine 10/03/24
--- OUTSIDE RECORDS SUMMARY | 2025-04-06 12:19 | XMS_ITS | Clinical Summary ---
Author Organization [facility] Address [address] [address] Phone Care Team Providers Care Wiping Cloth Cutter Name Role Phone Pcp, Not Required Primary Care Provider Unavaila ble Allergies No known active allergies Medications metoclopramide HCl (REGLAN) 10 MG tablet Take 1 tablet (10 mg total) by mouth 4 (four) times a day as needed for nausea (nausea associated with migraines). 12 tablet Active Social History Tobacco Use Types Packs/Day Years Used Date Smoking Tobacco: Former Cigarettes Smokeless Tobacco: Never Tobacco Cessation:Counseling Given: Not Answered Alcohol Use Standard Drinks/Week Comments Not Currently 0 (1 standard drink = 0.6 oz pur e alcohol) Education Answer Date Recorded Are you interested in more education? Not on brianna e 04/23/2024 Are you concerned about learning? Not on file 04/23/2024 No 04/23/2024 No 04/23/2024 Digital Access Answer Date Recorded No 04/23/2024 No 04/23/2024 Reliable internet access at home? Not on file 04/23/2024 Device with a working camera? Not on file Intimate Partner Violence Answer Date R ecorded Are you denied basic needs s uch as food, clothing, or medical care? Deferred 04/23/2024 In the past 12 months have y ou been in a relationship with a person who hurts, threatens, or tries to control you? Deferred 04/23/2024 Are you denied basic needs s uch as food, clothing, or medical care? Deferred 04/23/2024 In the past 12 months have y ou been in a relationship with a person who hurts, threatens, or tries to control you? Deferred 04/23/2024 Sex and Gender Information Value Date Recorded Sex Assigned at Male 12/15/2023 1:10 PM EDT Legal Sex Male 10:55 AM EDT Gender Identity Male 12/15/2023 1:10 PM EDT Sexual Orientation Straight 12/15/2023 1: 10 PM EDT Last Filed Vital Signs Vital Sign Reading Time Taken Comments Blood Pressure 112/75 04/23/2024 2:49 PM EDT Pulse 89 04/23/2024 2:49 PM EDT Temperature 36.7 C (98.1 F) 04/23/2024 10:07 AM EDT Respiratory Rate 18 04/23/2024 2:49 PM EDT Oxygen Saturation 100% 04/23/2024 2:49 PM EDT Inhaled Oxygen Concentration - - Weight - - Height - - Body Mass Index - - Plan of Treatment Health Maintenance Due Date Last Done Comments Adult Td,Tdap Booster 1944 LIPID PANEL 1944 DEPRESSION SCREENING 1956 SMOKING Hx and SMOKELESS TOB ACCO SCREENING 1957 PNEUMOCOCCAL VACCINES (50+ y ears) (1 of 1 - PCV) 1994 ZOSTER VACCINES (1 of 2) 1994 RSV VACCINE (1 - 1-dose 75+ series) 2019 COVID-19 VACCINE (2023-2 5 season) 2024 HEPATITIS A VACCINES Aged Out No long er eligible based on patient's age to complete this topic HIB VACCINES Aged Out No longer eligi ble based on patient's age to complete this topic MENINGOCOCCAL VACCINES (ACWY) Aged Out No longer eligible based on patient's age to complete this topic MENINGOCOCCAL VACCINES (B) Aged Out N o longer eligible based on patient's age to complete this topic Medical Devices Not on file Insurance MEDICARE PART [facility] & [facility] MEDICARE PART A & B [facility] MEDICARE PART A & B MEDICARE PART A & B [facility] MEDICARE PART A & B [id number] [place] [address] MEDICARE PART A & B [facility] Care Teams Wiping Cloth Cutter Relationship Specialty Start Date End Date Pcp, Not Required [address] [place] [id number] PCP - General 04/23/24 Additional Source Comments The information contained in this document represents components of the legal health record. It is not the complete legal health record.[facility]
--- OUTSIDE RECORDS SUMMARY | 2025-04-06 12:19 | XMS_ITS | Referral Summary ---
Author Organization [facility] Address [address] [place] [address] Care Team Providers Care Hat Body Inspector Name Role Phone MaridavidIvan gilliland Primary Care Provider [phone] Allergies Active Allergy Reactions Criticality Noted Date [...] daily. 0 01/05/20 19 Active flu vacc as7236,65up,/MF5 9C/PF (FLUAD 2014-,65YR+,,P F, INTRAMUSCU) inject 0.5 [...] 88 07/22/2022 1:10 PM EST Temperature 36.3 C (97.3 F) 04/14/2017 8:07 AM EDT Respiratory Rate - - Oxygen Saturation 100% 01/08/2016 10:40 AM EDT Inhaled Oxygen Concentration - - Weight 101.2 kg (223 lb) 2019 8:59 AM EST Height 175.3 cm (5' 9 ) 2019 8:59 AM EST Body Mass Index 32.93 2019 8:59 AM EST Plan of Treatment Not on file Insurance MEDICARE [facility] [employer] Care Teams Hat Body Inspector Relationship Specialty Start Date End Date Ivan Simpson [address] [place] [address] PCP - General 07/21/22
[2025-04-06 13:12] LABS: MANUAL DIFF FLAG NO
[2025-04-06 13:23] LABS: Appearance Urine Clear; Glucose Urine UA >=1000 mg/dL (Negative); Hematocrit 45.2 % (42.0-52.0); Hemoglobin 14.5 g/dl (14.0-18.0); Imm Gran Abs Auto 0.01 X10*3/uL (0.00-0.03); Imm Gran Pct Auto 0.2 % (0.0-0.4); Lymphocytes Absolute Auto 1.5 X10*3/uL (1.2-4.9); Mean Corpuscular HGB Conc 32.1 g/dl (31.0-36.0); Mean Corpuscular Hemoglobin 31.8 pg (27.0-33.0); Mean Corpuscular Volume 99.1 fL (80.0-98.0); NRBC Abs Auto 0.000 X10*3/uL (0.0-0.012); NRBC Pct Auto 0.0 /100WBC (0.0-0.2); PH 5.5 (5.0-9.0); Platelet Count 204 X10*3/uL (160-400); Red Blood Count 4.56 X10*6/uL (4.60-5.80); Specific Gravity - Urine >= 1.030 (1.005-1.025); UMIC TRIGGER UACC YES; White Blood Count 6.3 X10*3/uL (4.8-10.8)
[2025-04-06 13:51] LABS: Alanine Aminotransferase 53 U/L (0-40); Albumin Level 4.0 g/dL (3.5-5.0); Alkaline Phosphatase 112 U/L (39-117); Anion Gap 11 (12-20); Aspartate Amino Transferase 32 U/L (5-37); Blood Urea Nitrogen 29 mg/dL (9-16); Calcium 8.9 mg/dL (8.4-10.2); Carbon Dioxide 28 mmol/L (22-29); Chloride 105 mmol/L (96-108); Cholesterol 94 mg/dL (<200); Estimated Glomerular Filt Rate > 60; HDL Cholesterol 34 mg/dL (>40); Potassium 4.4 mmol/L (3.3-5.1); Sodium 140 mmol/L (135-145); Total Protein 7.0 g/dL (6.5-8.0); Triglycerides 144 mg/dL (<150)
== END 2025-04-06 11:36 | disposition home or self-care (01) ==
LOC: HO.HMGCLDS 11:35
PROVIDERS: PCP Nurse Practitioner Family; Visit Provider Nurse Practitioner Family
DX: Z12.5 Encounter for screening for malignant neoplasm of prostate (principal); J30.2 Other seasonal allergic rhinitis; R05.3 Chronic cough; I42.9 Cardiomyopathy, unspecified
CPT/HCPCS: 36415; 80053; 80061; 81001; 84153; 84443; 85025

== ENCOUNTER 2025-08-10 06:04 | Outpatient (REF) | payer MEDICARE, BC, SELFPAY ==
--- OUTSIDE RECORDS SUMMARY | 2025-08-10 06:07 | XMS_ITS | Clinical Summary ---
Author Organization [facility] Address [address] [place] [address] Phone Care Team Providers Care Relief Map Modeler Name Role Phone Ivan Simpson NP Primary [...] History Date Comments CHF (congestive heart failure) ([facility] V24, [facility] V28) Social History Tobacco Use Types Packs/Day [...] Vaccine: 50+ Years (2 of 2 - PPSV23, PCV20, or PCV21) 09/03/2017 07/09/2017 Zoster Vaccines (2 of 2) 07/26/2018 05/31/2018 RSV Immunization Adult Patients (1 - 1-dose 75+ series) 2019 Cholesterol Screening (Lipid Panel) 04/05/2024 Falls Risk Assessment 04/05/2024 Medicare Annual Wellness Visit 04/05/2024 Social Influencers of Health Screening 04/05/2024 Depression Screening 09/07/2024 COVID-19 Vaccine ( season) 2025 03/14/2022, 06/04/2021, 11/07/2020, Additional history exists Influenza Vaccine (#1) 2025 05/29/2018, 2016 HIB [...] age to complete this topic Insurance MEDICARE [facility] Care Teams Relief Map Modeler Relationship Specialty Start Date End Date Ivan Smipson NP PCP - General Family Medicine 10/03/24
--- OUTSIDE RECORDS SUMMARY | 2025-08-10 06:07 | XMS_ITS | Clinical Summary ---
Author Organization [facility] Address [address] [address] Phone Care Team Providers Care Core Feeder Name Role Phone Pcp, Not Required Primary [...] Last Done Comments Adult Td,Tdap Booster 1944 DEPRESSION SCREENING 1956 PNEUMOCOCCAL VACCINES (50+ y ears) (1 of 1 - PCV) 1994 ZOSTER VACCINES (1 of 2) 1994 RSV VACCINE (1 - 1-dose 75+ series) 2019 INFLUENZA VACCINE (#1) 2025 COVID-19 VACCINE ( - 2024-2 6 season) 2025 HEPATITIS A VACCINES Aged Out No long [...] file Insurance MEDICARE PART A & B [facility] MEDICARE PART A & B [facility] MEDICARE PART A & B [id number] [place] [address] MEDICARE PART A & B [facility] MEDICARE PART A & B [id number] [place] [address] MEDICARE PART A & B [facility] Care Teams Core Feeder Relationship Specialty Start Date End Date Pcp, Not Required [address] [place] [id number] PCP - General 04/23/24 Additional Source Comments The information contained in this document represents components of the legal health record. It is not the complete legal health record.[facility]
--- OUTSIDE RECORDS SUMMARY | 2025-08-10 06:07 | XMS_ITS | Clinical Summary ---
Author Organization [facility] Prior to 02/04/[address] [place] [id number] Care Team Providers Care Inspector Integrated Circuits Name Role Phone Vishnu Kenyon MD Primary Care Provider [phone] Allergies Active Allergy Reactions Criticality Noted Date [...] age to complete this topic Care Teams Inspector Integrated Circuits Relationship Specialty Start Date End Date Vishnu Kenyon MD [address] [place] [id number] PCP - General Internal Medicine 04/01/17
--- OUTSIDE RECORDS SUMMARY | 2025-08-10 06:07 | XMS_ITS | Clinical Summary ---
Author Organization [facility] Address [address] [place] [address] Care Team Providers Care Handle Lathe Operator Name Role Phone MaridavidIvan gilliland Primary Care Provider [phone] Allergies Active Allergy Reactions Criticality Noted Date [...] daily. 0 01/05/20 19 Active flu vacc ge2012,65up,/MF5 9C/PF (FLUAD 2014-,65YR+,,P F, INTRAMUSCU) inject 0.5 [...] Vaccine: 50+ Years (2 of 2 - PCV20 or PCV21) 07/09/2018 07/09/2017 Zoster Vaccines (2 of 2) 07/26/2018 05/31/2018 RSV Vaccine (60+ years old and patients) (1 - 1-dose 75+ series) 2019 Alcohol/Substance Use Screening 09/07/2024 Depression Screening and Follow-Up 09/07/2024 Fall Risk Screening 09/07/2024 Health Care Proxy Review 09/07/2024 Social Drivers of Health Annual Screening 09/07/2024 Influenza Vaccine (#1) 2025 05/29/2018, 2016 COVID-19 Vaccine ( season) 2025 03/14/2022, 06/04/2021, 11/07/2020, Additional history exists Hepatitis B Vaccines Aged Out No long er eligible based on patient's age to complete this topic Insurance MEDICARE [facility] Care Teams Handle Lathe Operator Relationship Specialty Start Date End Date Ivan Simpson [address] [place] [phone] PCP - General 07/21/22
[2025-08-10 10:28] LABS: MANUAL DIFF FLAG NO
[2025-08-10 10:37] LABS: Hematocrit 46.7 % (42.0-52.0); Hemoglobin 14.9 g/dl (14.0-18.0); Imm Gran Abs Auto 0.03 X10*3/uL (0.00-0.03); Imm Gran Pct Auto 0.4 % (0.0-0.4); Lymphocytes Absolute Auto 1.4 X10*3/uL (1.2-4.9); Mean Corpuscular HGB Conc 31.9 g/dl (31.0-36.0); Mean Corpuscular Hemoglobin 30.8 pg (27.0-33.0); Mean Corpuscular Volume 96.5 fL (80.0-98.0); NRBC Abs Auto 0.000 X10*3/uL (0.0-0.012); NRBC Pct Auto 0.0 /100WBC (0.0-0.2); Platelet Count 204 X10*3/uL (160-400); Red Blood Count 4.84 X10*6/uL (4.60-5.80); White Blood Count 8.2 X10*3/uL (4.8-10.8)
[2025-08-10 10:40] LABS: Appearance Urine Clear; Glucose Urine UA >=1000 mg/dL (Negative); PH 5.5 (5.0-9.0); Specific Gravity - Urine 1.020 (1.005-1.025); UMIC TRIGGER UACC YES
[2025-08-10 11:12] LABS: Alanine Aminotransferase 22 U/L (0-40); Albumin Level 4.1 g/dL (3.5-5.0); Alkaline Phosphatase 98 U/L (39-117); Anion Gap 8 (12-20); Aspartate Amino Transferase 25 U/L (5-37); Blood Urea Nitrogen 20 mg/dL (9-16); Calcium 9.0 mg/dL (8.4-10.2); Carbon Dioxide 30 mmol/L (22-29); Chloride 108 mmol/L (96-108); Cholesterol 108 mg/dL (<200); Estimated Glomerular Filt Rate > 60; HDL Cholesterol 42 mg/dL (>40); Potassium 4.5 mmol/L (3.3-5.1); Sodium 141 mmol/L (135-145); Total Protein 6.7 g/dL (6.5-8.0); Triglycerides 60 mg/dL (<150)
== END 2025-08-10 06:05 | disposition home or self-care (01) ==
LOC: HO.HMGCLDS 06:04
PROVIDERS: PCP Nurse Practitioner Family; Visit Provider Nurse Practitioner Family
DX: Z12.5 Encounter for screening for malignant neoplasm of prostate (principal); R53.83 Other fatigue; Z13.6 Encounter for screening for cardiovascular disorders
CPT/HCPCS: 36415; 80053; 80061; 81001; 84153; 84443; 85025

== ENCOUNTER 2025-08-21 10:20 | Outpatient (REF) | payer MEDICARE, BC, SELFPAY ==
--- NOTE | ~2025-08-21 | US_ITS ---
CLINICAL HISTORY: N28.1 - Cyst of kidney, acquired US RENAL Comparison: US/SR - US KIDNEY BILATERAL - 03/11/23 08:50 EDT Findings: Right kidney length 15.8 cm. No hydronephrosis. Exophytic lower pole cyst measures 11.0 x 6.5 x 8.8 cm previously 10.1 x 8.0 x 9.1 cm. The margins are well-circumscribed and thin. No intraluminal echoes or posterior acoustic shadowing. Left kidney length 12.9 cm. No hydronephrosis. 1.2 x 0.9 x 1.6 cm upper pole cyst previously measured 1.0 x 1.0 x 0.8 cm. The margins are well-circumscribed and thin. No intraluminal echoes or posterior acoustic shadowing. No large shadowing intrarenal calculus. IMPRESSION: 1. No hydronephrosis. 2. Large simple exophytic right renal cyst with mild interval decreased volume compared to prior. 3. Small simple left renal cyst with interval with increased volume compared to prior. 4. No sonographic evidence for nephrolithiasis. This document has been electronically signed by: Juliana Mcdonough DO on 08/21/2025 14:03:03
== END 2025-08-21 10:21 | disposition home or self-care (01) ==
LOC: HO.HMGCX 10:20
PROVIDERS: PCP Nurse Practitioner Family; Visit Provider Nurse Practitioner Family
DX: N28.1 Cyst of kidney, acquired (principal)
CPT/HCPCS: 76775

== ENCOUNTER → 2025-08-21 10:44 | Outpatient (BNV) | payer MEDICARE, BC, SELFPAY | PROVIDERS: PCP Nurse Practitioner Family; Visit Provider Radiology Diagnostic Radiology | DX: N28.1 Cyst of kidney, acquired (principal) | CPT/HCPCS: 76775 ==

== ENCOUNTER 2025-08-24 09:27 | Outpatient (AMB) | payer MEDICARE, BC, SELFPAY ==
[2025-08-24 09:36] VITALS: BP 90/48; PULSE 75; RESP 16; O2SAT 100; BMI 27.7
--- NOTE | 2025-08-24 09:36 | A.OFFPC_ITS ---
Vital Signs 08/24/25 09:36 Height 6 ft Weight 204 lb BMI 27.7 BP 90/48 L Blood Pressure Location Lt brachial Respiration 16 Pulse 75 Pulse Source Pulse Oximeter Pulse Oximetry (%) 100 Oxygen Delivery Method Room Air Intake Visit Reasons: reschedule- do not move Skid Strapper Required: No Accompanied by: Self / Same As Patient Allergies carbamazepine Allergy (Intermediate, Verified 08/24/25 09:53) Hives oxycodone (From Percocet) Allergy (Unknown, Verified 08/24/25 09:53) unknown Medication List - Last Reconciled 08/24/25 by Ivan Simpson, DIRECTOR SECURITY RISK MANAGEMENT- apixaban (Eliquis) 5 mg PO BID atorvastatin 40 mg PO BEDTIME cetirizine (Zyrtec) 10 mg PO DAILY PRN corn-callus cushion As directed dapagliflozin propanediol (Farxiga) 10 mg PO DAILY fluticasone propionate 50 mcg/actuation (Flonase Allergy Relief) 1 spray intranasal BID furosemide 20 mg PO DAILY gabapentin 200 mg (2 x 100 mg) PO DAILY 30 days metoprolol succinate ER 25 mg PO DAILY multivitamin 1 tab PO DAILY sacubitril-valsartan 24-26 mg (Entresto) 1 tab PO BID spironolactone 25 mg PO DAILY Tobacco use date assessed: 08/24/25 Fall risk assessment: No Falls in past year Last assessed Fall Risk: 08/24/25 Dental Screening Dental Screen Date: 08/24/25 Did you have a dental visit in the last 12 months?: No Did you have a dental problem in the last 6 months where you did not have access to dental care?: No Was dental information given to patient?: Patient declined HPI reschedule- do not move HPI Details Chief Complaint The patient presents for follow-up with a primary complaint of ongoing cough with significant mucus production. History of Present Illness The patient is an 80-year-old male presenting for a follow-up visit. He has an ongoing history of hacking up a lot of mucus, for which he has seen multiple specialists and undergone multiple imaging studies in the past. He has a history of COPD and is currently followed by a awning hanger. He also reports ongoing sinus discomfort that has not improved with multiple courses of antibiotics or antihistamines. A CT scan of his face on 05/19/2025 showed no inflammatory changes, masses, acute abnormalities, and clear sinuses. His past medical history is significant for cardiomyopathy, paroxysmal atrial fibrillation, and coronary artery disease, for which he sees a post doc fellowship regularly and is on a statin. His blood pressure tends to be low, but he reports no associated dizziness, especially upon standing. Recent lab work was reportedly Social History Health Maintenance - The patient follows up regularly with a awning hanger and a post doc fellowship. - A repeat CT scan of his lungs is sched uled for September. - Recent lab work was completed and note d to be fairly impressive. Review of Systems - Respiratory: Reports an ongoing hackin g cough with significant mucus production. - HEENT: Reports ongoing sinus discomfor t. - Neurological: Denies dizziness, especi ally with getting up. Physical Exam General: Cooperative, healthy appearing, comfortable, no acute distress and well developed Orientation: Patient oriented x3 Limitations: No limitations Head: Normal to inspection Ears: Hearing grossly normal bilaterally Nose: Normal external nose present Face and sinus: Normal facial exam, Eyes: Appearance normal, both eyes and all related structures Neck: Normal visual inspection and Yes full ROM Respiratory: Normal respiratory effort and able to speak in complete sentences. Clear to auscultation bilaterally Cardiovascular: Regular rate and rhythm. Normal S1 and S2, no murmurs noted GI: Normal to inspection. Soft to palpation and nontender Skin: No rashes or lesions noted Neuro: Patient oriented x3 Extremities: Normal to inspection Results - Labs: Recent labs were noted to be vesna rly impressive. - Tests and Diagnostics: A CT scan of th e face on 05/19/2025 showed no inflammatory changes, masses, acute abnormalities, or soft tissue issues, with clear sinuses. Plan 1. Chronic Cough With Sputum Production / Copd The patient has ongoing, frustrating production of mucus, likely secondary to his COPD. The patient was advised to continue efforts to expectorate the mucus. He will continue to follow up with his awning hanger and is scheduled for a repeat CT scan of his lungs in September to monitor for any changes. 2. Sinus Discomfort The patient reports ongoing sinus discomfort despite a normal facial CT scan and previous unsuccessful trials of antibiotics and antihistamines. No new intervent ion was planned at this visit. 3. Hypotension The patient's blood pressure remains low, but he is asymptomatic and denies any dizziness. No changes will be made to his medications at this time, and he will continue to follow up with cardiology. 4. Cardiomyopathy, Paroxysmal Atrial Fib rillation, And Coronary Artery Disease The patient has a known history of cardiomyopathy, paroxysmal atrial fibrillation, and coronary artery disease. He will continue to follow up with his post doc fellowship on a regular basis for management. 5. Follow-Up The patient will follow-up in six months or as needed. Discussion Notes I explained to the patient that regarding his chronic mucus production, the best approach is to continue trying to expectorate it. I advised him to maintain follow-up with his awning hanger and post doc fellowship. We discussed that his blood pressure is low but asymptomatic, so no changes will be made at this time. I noted his recent impressive lab results and acknowledged his frustration with mucus production but reassured him that from my perspective, he is doing quite well. The plan includes a repeat CT scan of his lungs in September and a follow-up visit in six months. Patient Instructions - Continue to do your best to cough up a nd clear the mucus from your chest. - Continue to see your lung doctor (pulm onologist) and heart doctor (post doc fellowship) as scheduled. - You have a CT scan of your lungs sched [facility] for September. - We will not make any changes to your b lood pressure medicine at this time. - Please schedule a follow-up appointmen t here in six months. [facility], [facility] Medical History A-fib Sinusitis ICD (implantable cardioverter-defibrillator) in place NICM (nonischemic cardiomyopathy) COPD (chronic obstructive pulmonary disease) Allergic rhinitis Right hip pain Surgical History H/O neck surgery H/O shoulder surgery Hx of shoulder surgery H/O colonoscopy History of back surgery H/O knee surgery S/P hernia surgery Family History Father No problems noted. Mother No problems noted. Sister Cancer Social History Household Members: Spouse Housing: House Do you presently have visiting nurse or other home services: No Alcohol intake: current Alcohol intake frequency: does not drink Patient Tobacco Use Status: Former Tobacco user Years Smoked: quit 1967 e-Cigarette/Vaping Use: Never Used Second Hand Smoke Exposure: No service: No Current occupational status: retired Cognitive needs: No Hearing needs: No Vision needs: No Questionnaire PHQ-9 Over the last 2 weeks, how often have you been bothered by any of the following problems? 1. Little interest or pleasure in doing things: not at all 2. Feeling down, depressed, or hopeless: not at all 3. Trouble falling or staying asleep, or sleeping too much: not at all 4. Feeling tired or having little energy: not at all 5. Poor appetite or overeating: not at all 6. Feeling bad about yourself - or that you are a failure or have let yourself or your family down: not at all 7. Trouble concentrating on things, such as reading the newspaper or watching television: not at all 8. Moving or speaking so slowly that other people could have noticed. Or the opposite - being so fidgety or restless that you have been moving around a lot more than usual: not at all 9. Thoughts that you would be better off or of hurting yourself in some way: not at all Total score: 0 Depression Screening Interpretation: Negative Depression Screening Done: Yes 34776 - PHQ-9 Billing: Yes Source: Developed by Drs. Joce Gonzalez, Keyla Mcclelland, Don Ramirez and colleagues, with an educational portillo from [employer]. Thrive Questionnaire Date Thrive assessed: 08/23/25 I am a: Patient What is your living situation today?: I have a steady place to live THRIVE Score: 0 CANDACE-7 AMB Questionnaire CANDACE-7 Date CANDACE - 7 assessed: 08/24/25 Feeling nervous, anxious, or on edge: 0 = Not at all Not being able to stop or control worryin = Not at all Worrying too much about different things: 0 = Not at all Trouble relaxin = Not at all Being so restless that it is hard to sit still: 0 = Not at all Becoming easily annoyed or irritable: 0 = Not at all Feeling afraid as if something awful might happen: 0 = Not at all Total CANDACE-7 score (0-4 normal; 5-9 mild; 10-14 moderate; 15-21 severe): 0 Source: Developed by Drs. Joce Gonzalez, Keyla Mcclelland, Don Ramirez and colleagues, with an educational portillo from [employer]. CANDACE-7 Assessment Billing CANDACE-7 Assessment Tool: CANDACE-7 Assessment 11447 Physical exam (Primary Care) Vital Signs: Last Vital Signs Pulse 75 08/24/25 09:36 Resp 16 08/24/25 09:36 BP 90/48 L 08/24/25 09:36 Pulse Ox 100 08/24/25 09:36 Oxygen Delivery Method Room Air 08/24/25 09:36 BMI result Body Mass Index 27.7 Tobacco/Smoking Status: Tobacco use Status Tobacco use date assessed 08/24/25 08/24/25 09:42 Patient Tobacco Use Status Former Tobacco user 08/24/25 09:42 e-Cigarette/Vaping Use Never Used 08/24/25 09:42 PHQ-9: PHQ-9 Score PHQ-9: Total score 0 08/24/25 09:42 Depression Screening Interpretation: Negative Thrive Assessment: Date of Thrive Assessment Date Thrive assessed 08/23/25 08/24/25 09:42 Coding Level of Care Code Est Pt Level 3 (46475) Diagnoses New onset of congestive heart failure I50.9 Cardiomyopathy I42.9 Facial pain R51.9 Additional Codes CANDACE-7 Assessment Billing - CANDACE-7 Assessment Tool: CANDACE-7 Assessment 09954 ([id number]) PHQ-9 - 42372 - PHQ-9 Billing: Yes ([id number]) Assessment & Plan Assessment & Plan (1) New onset of congestive heart failure: Comment: reduced EF Code(s): I50.9 - Heart failure, unspecified Category: Medical (2) Cardiomyopathy: Code(s): I42.9 - Cardiomyopathy, unspecified Category: Medical (3) Facial pain: Comment: atypical facial pain Code(s): R51.9 - Headache, unspecified Category: Medical Plan .
--- OUTSIDE RECORDS SUMMARY | 2025-08-24 10:50 | XMS_ITS | Clinical Summary ---
Author Organization [facility] Prior to 02/04/[address] [place] [id number] Care Team Providers Care Fixed Income Trading Vice President Name Role Phone Vishnu Kenyon MD Primary Care Provider [phone] Allergies Active Allergy Reactions Criticality Noted Date [...] age to complete this topic Care Teams Fixed Income Trading Vice President Relationship Specialty Start Date End Date Vishnu Kenyon MD [address] [place] [id number] PCP - General Internal Medicine 04/01/17
--- OUTSIDE RECORDS SUMMARY | 2025-08-24 10:50 | XMS_ITS | Clinical Summary ---
Author Organization [facility] Address [address] [address] Phone Care Team Providers Care Rayon Winder Name Role Phone Pcp, Not Required Primary [...] file Insurance MEDICARE PART A & B [facility] MEDICARE PART A & B [facility] MEDICARE PART A & B [id number] [place] [address] MEDICARE PART A & B [facility] MEDICARE PART A & B [id number] [place] [address] MEDICARE PART A & B [facility] Member Subscriber Plan / Payer ( fective 2015-) Name:Leland Saucedo Relation to Subscriber:Self Name:SherylLeland Payer ID:[id number] (NAIC) Group ID:[id number] Type:PPO Address: [facility] [id number] [place] [id number] Care Teams Rayon Winder Relationship Specialty Start Date End Date Pcp, Not Required PCP - General 04/23/24 Additional Source Comments The information contained in this document represents components of the legal health record. It is not the complete legal health record.[facility]
--- OUTSIDE RECORDS SUMMARY | 2025-08-24 10:50 | XMS_ITS | Clinical Summary ---
Author Organization [facility] Address [address] [place] [address] Phone Care Team Providers Care Want Ad Receiver Name Role Phone Ivan Simpson NP Primary Care Provider [phone] Allergies Active Allergy Reactions Criticality Noted Date [...] Comments CHF (congestive heart failure) ([facility] V24, [facility] V28) Social History Tobacco Use Types Packs/Day Years Used Date Smoking Tobacco: Never Smokeless Tobacco: Never Tobacco Cessation:Counseling Given: Not Answered Sex and Gender Information Value Date Recorded Sex Assigned at Male 10/03/2024 1:32 PM EST Legal Sex Male 10:00 PM EST Gender Identity Male 10/03/2024 1:32 PM EST Sexual Orientation Straight 10/03/2024 1: 32 PM EST Last Filed Vital Signs Vital Sign Reading [...] age to complete this topic Insurance MEDICARE [facility] Care Teams Want Ad Receiver Relationship Specialty Start Date End Date Ivan Simpson NP PCP - General Family Medicine 10/03/24
--- OUTSIDE RECORDS SUMMARY | 2025-08-24 10:51 | XMS_ITS | Clinical Summary ---
Author Organization [facility] Address [address] [place] [address] Care Team Providers Care Supervisor Paper Testing Name Role Phone Ivan Simpson Primary Care Provider [phone] Allergies Active Allergy Reactions Criticality Noted Date [...] daily. 0 01/05/20 19 Active flu vacc fr2244,65up,/MF5 9C/PF (FLUAD 2014-,65YR+,,P F, INTRAMUSCU) inject 0.5 [...] age to complete this topic Insurance MEDICARE [facility] Care Teams Supervisor Paper Testing Relationship Specialty Start Date End Date Ivan Simpson [address] [place] [id number] PCP - General 07/21/22
== END 2025-08-24 10:22 | disposition home or self-care (01) ==
LOC: HO.HMCC 09:27
PROVIDERS: PCP Nurse Practitioner Family; Visit Provider Nurse Practitioner Family
DX: I50.9 Heart failure, unspecified (principal); I42.9 Cardiomyopathy, unspecified; R51.9 Headache, unspecified

== ENCOUNTER → 2025-08-24 09:27 | Outpatient (BNVA) | payer MEDICARE, BC, SELFPAY | PROVIDERS: PCP Nurse Practitioner Family; Visit Provider Nurse Practitioner Family | DX: R05.3 Chronic cough (principal); J44.9 Chronic obstructive pulmonary disease, unspecified; I95.9 Hypotension, unspecified; I50.9 Heart failure, unspecified; I42.9 Cardiomyopathy, unspecified; R51.9 Headache, unspecified; Z13.31 Encounter for screening for depression; Z13.39 Encounter for screening examination for other mental health and behavioral disorders | CPT/HCPCS: 96127; 99212 ==

== ENCOUNTER 2025-08-29 08:40 | Outpatient (REF) | payer MEDICARE, BC, SELFPAY | END 2025-08-29 08:41 | disposition home or self-care (01) | LOC: HO.LAB 08:40 | PROVIDERS: PCP Nurse Practitioner Family; Visit Provider Nurse Practitioner Family | DX: N28.1 Cyst of kidney, acquired (principal); R89.6 Abnormal cytological findings in specimens from other organs, systems and tissues; R31.29 Other microscopic hematuria; Z12.5 Encounter for screening for malignant neoplasm of prostate | CPT/HCPCS: 81003; 88112; 99212 ==

== ENCOUNTER 2025-08-29 08:40 | Outpatient (AMB) | payer MEDICARE, BC, SELFPAY ==
--- NOTE | 2025-08-29 08:43 | A.OFFVIS_ITS ---
Intake Visit Reasons: 1y/US/PSA/UA(SET) Intake Note: Patient is present for 1Y/US/PSA/UA IMAGIN08/21/25 PSA:0.42 Urology Medication:NONE Antibiotic Allergy:NONE Blood Thinner:APIXABAN Cofounder Required: No Allergies carbamazepine Allergy (Intermediate, Verified 08/29/25 10:22) Hives oxycodone (From Percocet) Allergy (Unknown, Verified 08/29/25 10:22) unknown Medication List - Last Reconciled 08/29/25 by BRAEDEN NunesP-BC apixaban (Eliquis) 5 mg PO BID atorvastatin 40 mg PO BEDTIME cetirizine (Zyrtec) 10 mg PO DAILY PRN corn-callus cushion As directed dapagliflozin propanediol (Farxiga) 10 mg PO DAILY fluticasone propionate 50 mcg/actuation (Flonase Allergy Relief) 1 spray intranasal BID furosemide 20 mg PO DAILY gabapentin 200 mg (2 x 100 mg) PO DAILY 30 days metoprolol succinate ER 25 mg PO DAILY multivitamin 1 tab PO DAILY sacubitril-valsartan 24-26 mg (Entresto) 1 tab PO BID spironolactone 25 mg PO DAILY HPI Comments Details: Farhat Ha is a very pleasant 80 year old male patient of Dr. Simpson. He has a past medical history of allergic rhinitis and COPD. He presents to the office today for a follow up of his bilateral renal cysts and nephrolithiasis. In discussion with the patient today he reports since his last office visit here he has had no bothersome urological issues or concerns. He does discuss his ongoing issues with chronic cough and has been following up with his PCP regarding this issue. Most recent renal imaging results reviewed with the patient today. 08/31 bilateral kidneys with no hydronephrosis or renal calculi. Large simple exophytic right renal cysts with mild interval decrease volume compared to prior study. Small simple left renal cysts per radiology report. When asked he denies any bothersome urinary issues or concerns. He denies urinary urgency, urinary frequency, incontinence, nocturia, hematuria, dysuria, foul smelling urine, changes to urinary stream, flank pain, fever, and or chills. He is happy with his current voiding parameters. In office urinalysis results reviewed with the patient today. I discussed reasons for blood in the urine may include but are not limited to kidney stones, cancer in the urinary tract, BPH, kidney stone disease or inflammatory conditions of the urinary tract. I have discussed workup to include cystoscopy evaluation. He does report a previous history of nicotine dependence however quit back in 1968. He otherwise denies any issues or concerns at this time. PSAs are as follows... 12/05 0.4, 09/28 0.5, 09/29 0.4, 08/31 0.5 Urine cytology: 12/27, 03/29, 12/30 Negative for high-grade urothelial carcinoma; 08/30 Atypical urothelial cells PFSH Medical History A-fib Sinusitis ICD (implantable cardioverter-defibrillator) in place NICM (nonischemic cardiomyopathy) COPD (chronic obstructive pulmonary disease) Allergic rhinitis Right hip pain Surgical History H/O neck surgery H/O shoulder surgery Hx of shoulder surgery H/O colonoscopy History of back surgery H/O knee surgery S/P hernia surgery Family History (Reviewed 08/24/25 @ 09:58 by [facility] Father No problems noted. Mother No problems noted. Sister Cancer Social History Household Members: Spouse Housing: House Do you presently have visiting nurse or other home services: No Alcohol intake: current Alcohol intake frequency: does not drink Patient Tobacco Use Status: Former Tobacco user Years Smoked: quit 1967 e-Cigarette/Vaping Use: Never Used Second Hand Smoke Exposure: No service: No Current occupational status: retired Cognitive needs: No Hearing needs: No Vision needs: No Review of Systems Const All systems reviewed & are unremarkable except as noted in HPI and below Reports as per HPI Eyes Reports no additional complaints ENT Reports as per HPI Card Reports as per HPI Resp Reports as per HPI GI Reports as per HPI Reports as per HPI Musc Reports no additional complaints Neuro Reports as per HPI Psych Reports no additional complaints Endo Reports no additional complaints Aller/Immun Reports as per HPI Physical Exam Const General: cooperative, healthy appearing, comfortable, no acute distress, well developed, alert and awake Orientation/consciousness: patient oriented x3 Limitations: no limitations HEENT Head: Yes normal to inspection, Yes normocephalic and Yes atraumatic Ears: hearing grossly normal bilaterally Eyes General: appearance normal, both eyes and all related structures Neck Neck: Yes normal visual inspection and Yes trachea midline Chest Chest palpation & inspection: normal inspection of the chest Resp Effort & Inspection: normal respiratory effort and able to speak in complete sentences Cardio Rate: regular rate GI Inspection: Yes normal to inspection General: Yes no CVA tenderness Back/Spine/Pelvis Back: no CVA tenderness Skin General skin exam: no rashes or lesions noted Neuro General: patient oriented x3 Extrem General: Yes normal to inspection Psych Appearance: grossly normal and well kempt Mental Status: mental status grossly normal Speech and movement: Normal speech and movement present and Clear speech present Affect: normal affect Attitude: cooperative Thought process: Normal thought process present Thought content: Normal thought content present Insight: Fair insight present (Psych) Judgement: Fair judgement present (Psych) Results AMB Urinalysis, Automated UA Leukoctes 0 Paresh/uL Last Edit by ARACELIS Francis on 08/29/25 08:57 UA Nitrite Negative Last Edit by ARACELIS Francis on 08/29/25 08:57 UA Urobilinogen 0.2 mg/dL Last Edit by ARACELIS Francis on 08/29/25 08:5 7 UA Protein 0 mg/dL Last Edit by ARACELIS Francis on 08/29/25 08:57 UA pH 6.0 Last Edit by ARACELIS Francis on 08/29/25 08:57 UA Blood 200 José/uL Last Edit by ARACELIS Francis on 08/29/25 08:57 UA Specific Buchanan 1.015 Last Edit by ARACELIS Francis on 08/29/25 08: 57 UA Ketone Negative Last Edit by ARACELIS Francis on 08/29/25 08:57 UA Bilirubin 0 mg/dL Last Edit by ARACELIS Francis on 08/29/25 08:57 UA Glucose 1000 mg/dL Last Edit by ARACELIS Francis on 08/29/25 08:57 Results Reviewed Results Reviewed: Laboratory Last Values Urine pH (Auto) 6.0 08/29/25 08:46 Specific Buchanan (Auto) 1.015 08/29/25 08:46 Urine Protein (Auto) 0 mg/dL 08/29/25 08:46 Glucose (UA)(Auto) 1000 mg/dL 08/29/25 08:46 Urine Ketones (Auto) Negative 08/29/25 08:46 Urine Blood (Auto) 200 José/uL 08/29/25 08:46 Urine Nitrite (Auto) Negative 08/29/25 08:46 Urine Bilirubin (Auto) 0 mg/dL 08/29/25 08:46 Urine Urobilinogen (Auto) 0.2 mg/dL 08/29/25 08:46 Leukocyte Esterase (Auto) 0 Paresh/uL 08/29/25 08:46 Date of Service: 08/21/25 Procedure(s): US renal BI Findings: Right kidney length 15.8 cm. No hydronephrosis. Exophytic lower pole cyst measures 11.0 x 6.5 x 8.8 cm previously 10.1 x 8.0 x 9.1 cm. The margins are well-circumscribed and thin. No intraluminal echoes or posterior acoustic shadowing. Left kidney length 12.9 cm. No hydronephrosis. 1.2 x 0.9 x 1.6 cm upper pole cyst previously measured 1.0 x 1.0 x 0.8 cm. The margins are well-circumscribed and thin. No intraluminal echoes or posterior acoustic shadowing. No large shadowing intrarenal calculus. IMPRESSION: 1. No hydronephrosis. 2. Large simple exophytic right renal cyst with mild interval decreased volume compared to prior. 3. Small simple left renal cyst with interval with increased volume compared to prior. 4. No sonographic evidence for nephrolithiasis. Assessment & Plan Assessment & Plan (1) Renal cyst: Code(s): N28.1 - Cyst of kidney, acquired Category: Medical (2) Microscopic hematuria: Code(s): R31.29 - Other microscopic hematuria Category: Medical (3) Abnormal cytology: Code(s): R89.6 - Abnormal cytological findings in specimens from other organs, systems and tissues Category: Medical Plan In office urinalysis results reviewed with the patient today; as noted above. We did discussed at length potential causes of microscopic hematuria as well as further interventions and risks and benefits of these interventions. All questions were answered. He would like to continue with surveillance monitoring. Most recent renal imaging results reviewed with the patient today; as noted above. He currently denies any bothersome urinary issues or concerns. He reports be happy with current voiding parameters. Will obtain renal ultrasound in 1 year. Will obtain PSA in 1 year. Follow-up in 1 year with imaging and labs; or sooner with any issues, concerns, and or questions. Orders: Orders AMB Urinalysis Automated Today Z13.9 - Encounter for screening, unspecified Prostate Specific Antigen 1 Year Z12.5 - Encounter for screening for malignant neoplasm of prostate Urine Cytology Today R31.29 - Other microscopic hematuria US renal BI 1 Year N28.1 - Cyst of kidney, acquired Patient Instructions: The patient had an opportunity to ask questions regarding the treatment plan. All questions were answered. Physical exam, labs, and imaging were discussed and reviewed in detail. As well as risks, benefits, and discussion of treatment choices. No major barriers to understanding were identified. The patient expressed understanding and agreement with the above treatment plan. The patient was made aware they should contact our office by phone for worsening of their current condition, the appearance of new symptoms, or with any questions or concerns. Compliance is encouraged with any medications and follow up testing that is ordered. It is a privilege to be allowed the opportunity to participate in? your urological care.? Again, if you have any questions or concerns If you have any questions or concerns please do not hesitate to contact me. The office is [phone]. This note is constructed using voice recognition software. While every effort has been made to ensure accuracy aerospace control and warning systems errors may have been included. Yours sincerely, RAFA Nunes Coding Level of Care Code Est Pt Level 3 (86020) Add On Problem Visit Only Diagnoses Renal cyst N28.1 Microscopic hematuria R31.29 Abnormal cytology R89.6
--- OUTSIDE RECORDS SUMMARY | 2025-08-29 08:57 | XMS_ITS | Clinical Summary ---
Author Organization [facility] Address [address] [place] [id number] Care Team Providers Care Tire Shop Manager Name Role Phone Ivan Simpson NP Primary Care Provider + Allergies No known active allergies Medications fluticasone propionate (FLONASE ALLERGY RELIEF) 50 mcg/actuation nasal spray 1 spray into each nostril. 4 Active multivit with minerals/lutein (MULTIVITAMIN 50 PLUS ORAL) 0 Refills, Maintenance, 06/02/23 15:02:00 EDT, Partial fill upon patient request if the prescription is for a schedule II opioid drug. 3 Active Social History Tobacco Use Types Packs/Day Years Used Date Smoking Tobacco: Former Cigarettes Smokeless Tobacco: Never Sex and Gender Information Value Date Recorded Sex Assigned at Not on file Legal Sex Male 5:06 PM EST Gender Identity Not on file Sexual Orientation Not on file Plan of Treatment Health Maintenance Due Date Last Done Comments Blood Pressure 1944 Depression Screening 1956 DTaP,Tdap,and Td Vaccines (1 - Tdap) 1964 Medicare Initial AWV [id number] 10/08/2010 Pneumococcal Vaccine: 50+ Years (2 of 2 - PCV20 or PCV21) 07/09/2018 07/09/2017 Zoster Vaccine (2 of 2) 07/26/2018 05/31/2018 COVID-19 Vaccine ( - season) 2025 03/14/2022, 06/04/2021, 11/07/2020, Additional history exists Influenza Vaccine (#1) 2025 05/29/2018, 2016 Meningococcal B Vaccines Aged Out No longer eligible based on patient's age to complete this topic Meningococcal Vaccines Aged Out No lo nger eligible based on patient's age to complete this topic Insurance MEDICARE MEDICARE Care Teams Tire Shop Manager Relationship Specialty Start Date End Date Ivan Simpson NP [address] [place] [address] PCP - General Nurse Practitioner 03/16/24
--- OUTSIDE RECORDS SUMMARY | 2025-08-29 08:57 | XMS_ITS | Clinical Summary ---
Author Organization [facility] Address [address] [address] Phone Care Team Providers Care Kitman Name Role Phone Pcp, Not Required Primary [...] file Insurance MEDICARE PART A & B [facility] MEDICARE PART A & B [facility] MEDICARE PART A & B [id number] [place] [address] MEDICARE PART A & B [facility] MEDICARE PART A & B [id number] [place] [address] MEDICARE PART A & B [facility] Member Subscriber Plan / Payer ( fective 2015-) Name:Leland Saucedo Relation to Subscriber:Self Name:SherylLeland Payer ID:[id number] (NAIC) Group ID:[id number] Type:PPO Address: [facility] [id number] [place] [id number] Care Teams Kitman Relationship Specialty Start Date End Date Pcp, Not Required PCP - General 04/23/24 Additional Source Comments The information contained in this document represents components of the legal health record. It is not the complete legal health record.[facility]
--- OUTSIDE RECORDS SUMMARY | 2025-08-29 08:57 | XMS_ITS | Clinical Summary ---
Author Organization [facility] Address [address] [place] [address] Phone Care Team Providers Care Student Support Services Director Name Role Phone Ivan Simpson NP Primary Care Provider [phone] Allergies Active Allergy Reactions Criticality Noted Date [...] History Date Comments CHF (congestive heart failure) ([facility] V24, [facility] V28) Social History Tobacco Use Types [...] age to complete this topic Insurance MEDICARE [facility] Care Teams Student Support Services Director Relationship Specialty Start Date End Date Ivan Simpson NP PCP - General Family Medicine 10/03/24
--- OUTSIDE RECORDS SUMMARY | 2025-08-29 08:57 | XMS_ITS | Clinical Summary ---
Author Organization [facility] Address [address] [place] [address] Care Team Providers Care School Operations Manager Name Role Phone Ivan Simpson Primary Care Provider [phone] Allergies Active Allergy Reactions Criticality Noted Date [...] daily. 0 01/05/20 19 Active flu vacc [id number],65up,/MF5 9C/PF (FLUAD 2014-,65YR+,,P F, INTRAMUSCU) inject 0.5 [...] age to complete this topic Insurance MEDICARE [facility] [employer] Care Teams School Operations Manager Relationship Specialty Start Date End Date Ivan Simpson [address] [place] [id number] PCP - General 07/21/22
--- OUTSIDE RECORDS SUMMARY | 2025-08-29 08:57 | XMS_ITS | Clinical Summary ---
Author Organization [facility] Prior to 02/04/[address] [place] [address] Care Team Providers Care Tool Designer Name Role Phone Vishnu Kenyon MD Primary Care Provider [phone] Allergies Active Allergy Reactions Criticality Noted Date [...] age to complete this topic Care Teams Tool Designer Relationship Specialty Start Date End Date Vishnu Kenyon MD [address] [place] [id number] PCP - General Internal Medicine 04/01/17
== END 2025-08-29 09:18 | disposition home or self-care (01) ==
LOC: HO.HUSH 08:40
PROVIDERS: PCP Nurse Practitioner Family; Visit Provider Nurse Practitioner Family
DX: N28.1 Cyst of kidney, acquired (principal); R31.29 Other microscopic hematuria; R89.6 Abnormal cytological findings in specimens from other organs, systems and tissues; Z13.9 Encounter for screening, unspecified
CPT/HCPCS: 99213; G2211